=== PATIENT | male | born 2005 | race Caucasian/White ===

== ENCOUNTER 2025-02-24 21:15 | Emergency (ER) | payer MEDICAID, SELFPAY ==
[2025-02-24 21:16] VITALS: BP 127/78; PULSE 90; RESP 18; TEMP 36.8; O2SAT 97; BMI 27.0
[2025-02-24 21:35] VITALS: PULSE 92; RESP 16
[2025-02-24] MEDS: Ipratropium/Albuterol Sulfate 3 ML AMPUL.NEB INHALATION (21:35)
[2025-02-24] MEDS: Albuterol Sulfate 8 gm Inhaler (60 puffs) 2 PUFF INHALATION (21:35)
[2025-02-24] MEDS: predniSONE 20 MG Tablet 60 MG PO (21:49)
--- NOTE | 2025-02-24 22:06 | EDS_ITS ---
HPI History of Present Illness Chief Complaint: Asthma Informant: patient Narrative Narrative: Patient is a 19-year-old male with past medical history of asthma. He states that his asthma is relatively well-controlled and he typically only needs an inhaler intermittently. 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 He states that he no longer has an inhaler and then after 2 days shift his shortness of breath and wheeze seem more intense than it has been and therefore comes in for evaluation [facility] Medical History Asthma Home Medications ?Medication ?Instructions ?Recorded ?Last Taken ?Type albuterol sulfate 90 mcg/actuation 2 puff inhalation Q 4H PRN PRN 02/24/25 Unknown Rx aerosol inhaler (Ventolin HFA) Wheezing/SOB #1 device ipratropium 0.5 mg-albuterol 3 mg 3 ml inhalation 4X/D AY PRN 02/24/25 Unknown Rx (2.5 mg base)/3 mL nebulization Shortness of breath/wh eeze #90 mL soln nebulizer and compressor #1 ea 02/24/25 Unknown Rx prednisone 20 mg tablet 40 mg (2 x 20 mg) PO DAILY 5 days 02/24/25 Unknown Rx #10 tabs Allergy/AdvReac Type Severity Reaction Status Date / Time No Known Allergies Allergy Verified 02/24/25 21:18 Social History (Updated 02/24/25 @ 22:08 by Vanessa Alexander) current occupational status: employed Smoking Status: Current every day smoker tobacco type: cigarettes ROS ROS ED Constitutional Constitutional ED: Denies chills or fever(s) ENT ENT ED: Denies sore throat Cardiovascular Cardiovascular: Denies chest pain Respiratory/Chest Respiratory/Chest: Reports cough, dyspnea and other Details: Positive wheeze Gastrointestinal Gastrointestinal: Denies abdominal pain, diarrhea, nausea or vomiting Musculoskeletal Musculoskeletal: Denies back pain or myalgias Integumentary Denies rash Neurologic Neurologic: Denies headache(s) Hematologic/Lymphatic Hematologic/Lymphatic: Denies easy bleeding or easy bruising Allergic/Immunologic Allergic/Immunologic ED: Denies mouth swelling, tongue swelling or urticaria EXAM Physical Exam Const Vital Signs: 02/24/25 21:16 02/24/25 21:35 02/24/25 22:21 Temperature 98.3 F Temperature Source Temporal Pulse Rate 90 92 Respiratory Rate 18 16 Respiratory Effort Normal Non-Labored Respiratory Depth Normal Respiratory Pattern Normal Normal Blood Pressure 127/78 H Blood Pressure Mean 94 Pulse Ox 97 Oxygen Delivery Method Room Air Room Air Positive well nourished and well developed General Appearance ED: well developed; Negative for pallor HEENT Reports moist mucous membranes HEENT Narrative: No tongue or lip swelling no oral lesions no airway edema or compromise Eyes PERRL and EOMs intact bilaterally General Eye ED: Negative for scleral icterus Neck supple and no JVD Chest Wall palpation of chest normal Resp normal respiratory effort Resp Narrative: Breath sounds are diminished throughout with faint expiratory wheeze in the bilateral bases but no signs of respiratory distress Cardio regular rate and regular rhythm Extremity normal to inspection Neuro oriented x3, CN's II-XII intact bilaterally and no sensory deficits noted Sensorium / Orientation: alert Motor Exam: strength 5/5 throughout Psych mental status grossly normal Skin no rashes or lesions noted and no wounds General Skin Exam: Negative for jaundice or pallor MDM MDM MDM Narrative Medical decision making narrative: Patient arrived to the ER no acute respiratory distress. 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 Without physical exam/history findings concerning for infection I do not feel there is need for an x-ray or a viral swab. As his exam and history is most consistent with asthma exacerbation he was given prednisone as well as a nebulizer treatment. After receiving this his breath sounds improved and he reported feeling better overall. He remained in no respiratory distress and not requiring supplemental oxygen. Therefore there is no need for further workup and he is otherwise safe for discharge with symptomatic care. History & Record Review Discussion w/independent historian: Patient Discharge Plan Triage Chief Complaint: Asthma ED Provider: Maximino Wade Dx/Rx/DC Orders Clinical Impression: Asthma exacerbation Instructions: Asthma Action Plan Prescriptions: New prednisone 20 mg tablet 40 mg PO DAILY 5 Days Qty: 10 0RF albuterol sulfate [Ventolin HFA] 90 mcg/actuation HFA aerosol inhaler 2 puff inhalation Q4H PRN PRN (Reason: Wheezing/SOB) Qty: 1 1RF (DME) nebulizer and compressor Device See Rx Instructions .Route Qty: 1 0RF Rx Instructions: As directed ipratropium-albuterol 0.5 mg-3 mg(2.5 mg base)/3 mL solution for nebulization 3 ml inhalation 4X/DAY PRN (Reason: Shortness of breath/wheeze) Qty: 90 0RF Primary Care Provider: Care Physician,No Primary Referrals: Armando Silver MD [Med Staff - Active Staff] - Care Physician,No Primary [Primary Care Provider] - Print Language: Greenlandic Disposition Disposition: Home, Self Care Discharge Date/Time: 02/24/25 22:22
[2025-02-24 22:21] VITALS: O2SAT 99
== END 2025-02-24 22:22 | disposition home or self-care (01) ==
PROVIDERS: Emergency Provider Emergency Medicine; Visit Provider Emergency Medicine
DX: J45.901 Unspecified asthma with (acute) exacerbation (principal); F17.210 Nicotine dependence, cigarettes, uncomplicated
CPT/HCPCS: 94640; 99282

== ENCOUNTER 2025-05-11 11:16 | Emergency (ER) | payer MEDICAID, SELFPAY ==
[2025-05-11 11:16] VITALS: BP 139/78; PULSE 84; RESP 16; TEMP 36.7; O2SAT 98; BMI 26.9
[2025-05-11] MEDS: Albuterol 2.5 MG/3 ML VIAL.NEB. INHALATION (12:21)
[2025-05-11 12:22] VITALS: PULSE 91; RESP 20; O2SAT 96
[2025-05-11] MEDS: Albuterol Sulfate 8 gm Inhaler (60 puffs) 2 PUFF INHALATION (13:54)
== END 2025-05-11 13:56 | disposition home or self-care (01) ==
PROVIDERS: Emergency Provider Emergency Medicine; Visit Provider Emergency Medicine
DX: J45.909 Unspecified asthma, uncomplicated (principal); F17.290 Nicotine dependence, other tobacco product, uncomplicated
CPT/HCPCS: 94640; 99282

== ENCOUNTER 2025-06-14 15:27 | Emergency (ER) | payer MEDICAID, SELFPAY ==
[2025-06-14 15:27] VITALS: BP 137/81; PULSE 102; RESP 18; TEMP 36.2; O2SAT 100; BMI 29.1
--- NOTE | 2025-06-14 17:09 | EDS_ITS ---
HPI History of Present Illness Chief Complaint: Chest Pain Narrative Narrative: Chief complaint and HPI: Requesting albuterol inhaler. 19-year-old male with past medical history of asthma presents for albuterol inhaler prescription. Patient states that he frequently loses his albuterol inhalers. States he takes Flovent daily. It is prescribed twice daily but states he does not take it this way. He states he has not seen his PCP in a year but has an appointment scheduled in July. Patient states that he recently ran out of his albuterol inhaler that he had at home. States he felt some chest tightness and wheezing. Went to urgent care who evaluated him and wrote him for an albuterol inhaler. Patient states he went to [facility] to seed cone picker the prescription and they would not fill it because he has had too many filled. He denies any fever, chills, shortness of breath, cough, chest pain, abdominal pain, nausea, vomiting. Review of systems: See HPI Medications: As listed on the chart Allergies: As listed on the chart PFSH: Per chart Vital signs: As listed on the chart. Reviewed. Physical exam: Gen: A&Ox3, NAD Head: Normocephalic, atraumatic Eyes: No sclera icterus, conjunctiva clear ENT: Moist mucous membranes Neck: Trachea midline, No JVD CV: RRR, no murmurs Resp: Lungs CTA BL but an occasional expiratory wheeze GI: Abd soft, non-distended, non-tender, no r/r/g Musc: Full ROM, no deformity Skin: Warm, dry Neuro: Alert, oriented, grossly intact, sensation intact Psych: Cooperative, appropriate mood and affect [facility] Medical History Asthma Home Medications ?Medication ?Instructions ?Recorded ?Last Taken ?Type albuterol sulfate 90 mcg/actuation 2 puff inhalation Q 4H PRN PRN 02/24/25 Unknown Rx aerosol inhaler (Ventolin HFA) Wheezing/SOB #1 device ipratropium 0.5 mg-albuterol 3 mg 3 ml inhalation 4X/D AY PRN 02/24/25 Unknown Rx (2.5 mg base)/3 mL nebulization Shortness of breath/wh eeze #90 mL soln nebulizer and compressor #1 ea 02/24/25 Unknown Rx prednisone 20 mg tablet 40 mg (2 x 20 mg) PO DAILY 5 days 02/24/25 Unknown Rx #10 tabs albuterol sulfate 90 mcg/actuation 2 inh inhalation Q4 H PRN shortness 05/11/25 Unknown Rx aerosol inhaler of breath or wheezing #8.5 g mark prednisone 20 mg tablet 40 mg (2 x 20 mg) PO DAILY 7 days 05/11/25 Unknown Rx #14 tabs Allergy/AdvReac Type Severity Reaction Status Date / Time No Known Allergies Allergy Verified 06/14/25 15:27 Social History current occupational status: employed Smoking Status: Current every day smoker tobacco type: e-cigarettes EXAM Physical Exam Const Vital Signs: 06/14/25 15:27 Temperature 97.2 F L Temperature Source Temporal Pulse Rate 102 H Respiratory Rate 18 Blood Pressure 137/81 H Blood Pressure Mean 99 Pulse Ox 100 Oxygen Delivery Method Room Air MDM MDM MDM Narrative Medical decision making narrative: 19-year-old male with past medical history of asthma presents for albuterol inhaler prescription. Patient states that he frequently loses his albuterol inhalers. States he takes Flovent daily. It is prescribed twice daily but states he does not take it this way. He states he has not seen his PCP in a year but has an appointment scheduled in July. Patient states that he recently ran out of his albuterol inhaler that he had at home. Went to urgent care who evaluated him and wrote him for an albuterol inhaler. Patient states h e went to [facility] to seed cone picker the prescription and they would not fill it because he has had too many filled. Patient states that although he has lost many of his albuterol inhalers he does use his albuterol inhaler at minimum twice a day. I explained to him that if he does have to use his albuterol that much, his asthma is not controlled. He was educated that he needs to take his Flovent twice a day as it is prescribed. He was told that he needs to follow-up and keep his appointment with his primary care physician in July. He was educated that he needs to tell them that his asthma is not controlled. He confirmed understanding the plan. I do not think any laboratory workup or chest x-ray is needed. Patient is not in acute asthma exacerbation. He does have some few expiratory wheezing which is why he does needed albuterol inhaler. I did call [facility] pharmacy and spoke to the pharmacist. She states that the patient has had 5 albuterol's inhalers filled since April. She states that she questioned him about this. He states that he has lost them as well as been using them. She called the urgent care provider and made her aware of the situation. Urgent care provider decided to cancel the albuterol inhaler and told him that he needs to follow-up with his PCP. Given that patient does have few expiratory wheezing with asthma and no current albuterol inhaler do not feel that it is safe for him to go without albuterol inhaler despite he has many refills. He was educated that he needs to stop losing these as this does not look good on his record. He confirmed understanding the plan. Will fill albuterol inhaler. Return precautions explained. Impression: 1. Asthma 2. Medication refill request Discharge Plan Triage Chief Complaint: Chest Pain ED Provider: Shukri Malcolm Dx/Rx/DC Orders Prescriptions: No Action prednisone 20 mg tablet 40 mg PO DAILY 5 Days Qty: 10 0RF albuterol sulfate [Ventolin HFA] 90 mcg/actuation HFA aerosol inhaler 2 puff inhalation Q4H PRN PRN (Reason: Wheezing/SOB) Qty: 1 1RF (DME) nebulizer and compressor Device See Rx Instructions .Route Qty: 1 0RF Rx Instructions: As directed ipratropium-albuterol 0.5 mg-3 mg(2.5 mg base)/3 mL solution for nebulization 3 ml inhalation 4X/DAY PRN (Reason: Shortness of breath/wheeze) Qty: 90 0RF prednisone 20 mg tablet 40 mg PO DAILY 7 Days Qty: 14 0RF albuterol sulfate 90 mcg/actuation HFA aerosol inhaler 2 inh inhalation Q4H PRN (Reason: shortness of breath or wheezing) Qty: 8.5 1RF Primary Care Provider: Care Physician,No Primary Referrals: Care Physician,No Primary [Primary Care Provider] - Print Language: Montenegrin
--- OUTSIDE RECORDS SUMMARY | 2025-06-14 17:12 | XMS RPT_ITS | CCD ---
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 Name Role Phone Unavailable Primary Care Provider Unavailabl e CASTANEDA, MYKIA Admitting Unavailable CASTANEAD, MYKIA Attending Unavailable CASTANEDA, MYKIA Consulting Unavailable Unavailable Primary Care Provider Unavailabl e Unavailable Primary Care Provider Unavailabl e Unavailable Primary Care Provider Unavailabl e Unavailable Primary Care Provider Unavailabl e Generic Provider MD, No Assigned Pcp Primary Car e Provider Unavailable GENERIC PROVIDER, NO ASSIGNED PCP Primary Care Unavailable MAXIMINO BROWN Referring Unavailable GENERIC PROVIDER, NO ASSIGNED PCP Primary Care Unavailable LUIS EDUARDO CORTES Attending Unavailable PROVIDER, UNKNOWN Admitting Unavailable PROVIDER, UNKNOWN Attending Unavailable PROVIDER, UNKNOWN Admitting Unavailable Unavailable Primary Care Provider Unavailabl e Dr. Maximino Wade DO Emergency Provider Care Physician, No Primary Primary Care Provider Unavailable KING JESUS Referring Unavailable JESUS MCDONALD Attending Unavailable HARRY, JESUS Referring Unavailable HARRY JESUS Attending Unavailable Dr. Maximino Wade DO Attending Provider Dr. Jose E Wallace MD Emergency Provider Care Physician, No Primary Primary Care Unava ilMaximino Aguilar Attending Unavailable Care Physician, No Primary Primary Care Unava ilable Jose E Wallace Attending Unavailable Allergies Allergy Classification Reported Allergen(s) Allergy Type Date of Onset Reaction(s) Facility (16 sources) Dust; Translations: [DUST] Propensity to adverse reactions to substance 2 Unknown [employer] Work Phone: (14 sources) Pollen; Translations: [POLLEN EXTRACT] [facility] dust allergenic extract Drug Allergy 2 [employer] Work Phone: (10 sources) Pollen Propensity to adverse reactions 2 [facility] Work Phone: (8 sources) Bee pollen; Translations: [BEE POLLEN] Drug Allergy 2 Unknown [facility] Work Phone: (5 sources) Bee pollen Propensity to adverse reactions to drug 2 [facility] Medications Current Medications Medication Drug Class(es) Dates Sig (Normalized) Sig (Original) acetaminophen 325 mg oral tablet (7 sources) Start: 09-23-2023 End: 11-26-2023 take 2 tablets by mouth every four hours as needed for pain acetaminophen (TYLENOL) 325 mg tablet Take 2 Tablets by mouth every 4 hours as needed for Pain or Fever. 30 Tablet 09/23/2023 Active [id number] 200 actuat albuterol 0.09 mg/actuat metered dose inhaler (20 sources) beta2-Adrenergic Agonist Start: 04-21-2025 albuterol (PROVENTIL) 2.5 mg /3 mL (0.083 %) nebulizer solution Indications: Mild intermittent asthma with acute exacerbation (HCC) Use 3 mL via nebulizer every 4 hours as needed for wheezing/shortness of breath. 60 mL 04/21/2025 Active Start: 04-21-2025 take 2 puff(s) by in halation every four hours as needed for wheezing albuterol HFA (PROVENTIL HFA, VENTOLIN HFA) 90 mcg/actuation inhaler Indications: Mild intermittent asthma with acute exacerbation (HCC) Inhale 2 puffs as instructed every 4 hours as needed for wheezing/shortness of breath. 18 g 04/21/2025 Active Start: 02-24-2025 Albuterol Sulf ate 90 mcg/actuation HFA aerosol inhaler Active 2 NMA INHALATION Q4H as needed for shortness of breath or wheezing 8.5 1 May 11, 2025 12:00am Start: 02-13-2025 take 2 puff(s) by in halation every four hours as needed for wheezing albuterol HFA (PROVENTIL HFA, VENTOLIN HFA) 90 mcg/actuation inhaler Inhale 2 puffs as instructed every 4 hours as needed for wheezing/shortness of breath. 8 g 1 03/28/2025 Active Start: 10-29-2024 take 2 puff(s) by mo uth every six hours as needed for wheezing albuterol (PROVENTIL HFA) INHALATION HFA inhaler (VENTOLIN,PROAIR,PROVENTIL) 90mcg INHALE 2 PUFFS BY MOUTH AND INTO THE LUNGS EVERY 6 HOURS NEEDED FOR WHEEZING 25.5 g 10/29/2024 Active Start: 10-25-2024 End: 11-24-2024 take 2 puff(s) by inhalation every four hours for wheezing albuterol 90 mcg/actuation inhaler Indications: Mild intermittent asthma with acute exacerbation ([facility]-H[facility]) Inhale 2 puffs every 4 hours if needed for wheezing. 18 g 10/25/2024 11/24/2024 Active Start: 10-25-2024 take 2 puff(s) by in halation once 2 puff, inhalation, Once, On Leonor 10/25/24 at 1255, For 1 dose, Shake well before use. Start: 10-21-2023 End: 10-29-2024 take 2 puff(s) by mouth every six hours as needed for wheezing albuterol (Proventil HFA) INHALATION HFA inhaler (VENTOLIN,PROAIR,PROVENTIL) 90mcg Inhale 2 Puffs by mouth every 6 hours as needed for Wheezing. 3 Each 5 10/21/2023 10/29/2024 Discontinued Start: 10-02-2023 take 2 puff(s) by in halation every four hours as needed for wheezing albuterol HFA (PROVENTIL HFA, VENTOLIN HFA) 90 mcg/actuation inhaler Inhale 2 Puffs as instructed every 4 hours as needed for wheezing/shortness of breath. 1 Each 10/02/2023 Active Start: 11-23-2022 take 2 puff(s) by mo uth every six hours as needed for wheezing albuterol (Proventil HFA) INHALATION HFA inhaler (VENTOLIN,PROAIR,PROVENTIL) 90mcg Inhale 2 Puffs by mouth every 6 hours as needed for Wheezing. 1 Each 11/23/2022 Active Start: 06-09-2022 End: 06-09-2023 take 2 puff(s) by mouth every four hours for wheezing Ventolin HFA HFA inhaler (VENTOLIN,PROAIR,PROVENTIL) 90mcg inhale 2 puffs by mouth and INTO THE LUNGS every 4 hours if needed for wheezing 18 g 11 06/09/2022 06/09/2023 Active Start: 12-26-2021 End: 06-08-2022 take 2 puff(s) by mouth every four hours as needed for wheezing albuterol (Proventil HFA) INHALATION HFA inhaler (VENTOLIN,PROAIR,PROVENTIL) 90mcg Inhale 2 Puffs by mouth every 4 hours as needed for Wheezing. Please dispense to inhalers 8.5 g 3 02/10/2022 06/08/2022 Discontinued Start: 10-29-2021 End: 02-10-2022 albuterol (PROVENTIL HFA) IN HALATION HFA inhaler (VENTOLIN,PROAIR,PROVENTIL) 90mcg take 2 puff(s) by mo uth every six hours for wheezing VENTOLIN HFA 90 mcg/actuation inhaler inhale 2 puffs by mouth and INTO THE LUNGS every 6 hours if needed for wheezing 0 Active Comment on above: inhale 2 puffs by mo uth and INTO THE LUNGS every 6 hours if needed for wheezing albuterol 0.833 mg/ml / ipratropium bromide 0.167 mg/ml inhalation solution (2 sources) Anticholinergic, beta2-Adrenergic Agonist Start: 02-25-20 take 1 mL by inhalation four times daily as needed Ipratropium-Albuter ol 0.5 mg-3 mg(2.5 mg base)/3 mL solution for nebulization Active 3 mL INHALATION 4 TIMES DAILY as needed for Shortness of breath/wheeze 90 0 February 24, 2025 10:08pm amoxicillin 500 mg oral capsule (2 sources) Penicillin-class Antibacterial Start: 11-26-19 End: 11-26-19 take 1 capsule by mouth three times daily amoxicillin (AMOXIL) 500 MG capsule Take 1 Capsule by mouth 3 times daily for 10 days. 30 Capsule 0 11/26/2023 11/26/2023 Discontinued Start: 11-26-2023 End: 12-06-2023 take 1 capsule by mouth twice daily amoxicillin (AMOXIL) 500 MG capsule Take 1 Capsule by mouth 2 times daily for 10 days. 20 Capsule 0 11/26/2023 12/06/2023 Active benzocaine 15 mg / menthol 2.3 mg oral lozenge (5 sources) Standardized Chemical Allergen Start: 11-26-2023 Benzocaine-Menthol (Cepacol) 15-2.3 MG LOZG 1 Lozenge in the mouth every 8 hours as needed. 16 Lozenge 11/26/2023 Active cetirizine hydrochloride 10 mg oral tablet (20 sources) Histamine-1 Receptor Antagonist Start: 03-30-2023 take 1 tablet by mouth once daily cetirizine (ZyrTEC) 10 MG tablet take 1 tablet by mouth once daily 90 Tablet 5 03/30/2023 Active Start: 11-16-2021 End: 02-10-2023 take 1 tablet by mouth once daily cetirizine (ZyrTEC) 10 MG tablet Take 1 Tablet by mouth daily. 30 Tablet 11 02/10/2022 Active Comment on above: Take 10 mg by mouth once daily 120 actuat fluticasone propionate 0.044 mg/actuat metered dose inhaler (20 sources) Corticosteroid Start: take 1 puff(s) by mouth twice daily fluticasone (FLOVENT HFA) 44 mcg/actuation inhaler Indications: Mild intermittent asthma with acute exacerbation (HCC) Inhale 1 puff as instructed two times a day. Shake well before use. Rinse mouth after use. 10.6 g 1 04/21/2025 Active Start: 06-27-2023 take 2 puff(s) by mo uth twice daily Flovent HFA 110 MCG/ACT inhaler INHALE 2 PUFFS BY MOUTH TWICE A DAY 12 g 11 06/27/2023 Active Start: 02-23-2023 take 2 puff(s) by mo uth twice daily Flovent HFA 110 MCG/ACT inhaler INHALE 2 PUFFS BY MOUTH TWICE A DAY 12 g 3 02/23/2023 Active Start: 02-10-2022 take 1 spray(s) nasa l route once daily fluticasone (FLONASE) 50 mcg/act nasal inhaler Use 1 Flat Top in each nostril daily. 16 g 3 02/10/2022 Active Start: 02-10-2022 End: 02-23-2023 take 2 puff(s) by mouth twice daily Flovent HFA 110 MCG/ACT inhaler Inhale 2 Puffs by mouth 2 times daily. 1 Each 5 02/10/2022 02/23/2023 Discontinued (Reorder (*won't e-cancel)) Start: 10-12-2021 End: 02-10-2022 Flovent HFA 110 MCG/ACT inha ler Start: 01-02-2020 take 1 spray(s) nasa l route once daily fluticasone (FLONASE) 50 mcg/actuation nasal spray USE 1 SPRAY IN EACH NOSTRIL ONCE DAILY. 16 g 2 01/02/2020 Active ketotifen 0.25 mg/ml ophthalmic solution (3 sources) Histamine-1 Receptor Inhibitor Start: 09-24-2019 ketotifen fumarate (ZADITOR) 0.025 % (0.035 %) ophthalmic solution USE 1 DROP IN BOTH EYES TWICE A DAY NEEDED (ALLERGIES). 5 mL 1 09/24/2019 Active levocetirizine dihydrochloride 5 mg oral tablet (3 sources) Histamine-1 Receptor Antagonist Start: 12-19-2019 take 1 tablet by mouth once daily as needed Levocetirizine 5 mg tablet TAKE 1 TABLET BY MOUTH DAILY NEEDED 30 tablet 1 12/19/2019 Active montelukast 10 mg oral tablet (20 sources) Leukotriene Receptor Antagonist Start: 04-27-2023 take 1 tablet by mouth once daily montelukast (SINGULAIR) 10 MG tablet Indications: Mild persistent asthma without complication (HCC) take 1 tablet by mouth once daily 90 Tablet 3 04/27/2023 Active Start: 11-19-2021 End: 02-10-2022 take 1 tablet by mouth once daily montelukast (Singulair) 10 MG tablet Indications: Mild persistent asthma without complication Take 1 Tablet by mouth daily. 30 Tablet 11 02/10/2022 Active Comment on above: Take 10 mg by mouth daily Nebulizer And Compressor device (2 sources) Start: 02-24-2025 Nebulizer And Compressor device Active 0 .Route 1 0 February 24, 2025 12:00am As directed Start: 02-24-2025 Nebulizer And Compressor device Active 0 .Route 1 February 24, 2025 12:00am As directed oxyCODONE hydrochloride 5 mg oral tablet (1 source) Opioid Agonist Start: 10-07-2023 End: 10-09-2023 take 1 tablet by mouth every six hours for pain oxyCODONE (Roxicodone) 5 mg immediate release tablet Indications: Ureterolithiasis Take 1 tablet (5 mg) by mouth every 6 hours if needed for severe pain (7 - 10) for up to 2 days. 8 tablet 0 10/07/2023 10/09/2023 Active predniSONE 20 mg oral tablet (11 sources) Start: 04-21-2025 End: 04-30-2025 predniSONE (DELTASONE) 10 mg tablet Indications: Mild intermittent asthma with acute exacerbation (HCC) Take 4 tabs daily for 3 days, then 2 tabs daily for 3 days, then 1 tab daily for 3 days with food. 21 tablet 04/21/2025 04/30/2025 Active Start: 02-24-2025 take 2 tablets by mo uth once daily Prednisone 20 mg tablet Active 40 mg PO DAILY 14 7 0 May 11, 2025 12:00am Start: 02-13-2025 End: 02-18-2025 take 2 tablets by mouth once daily at mealtime predniSONE (DELTASONE) 20 mg tablet Indications: History of asthma Take 2 tablets by mouth once daily for 5 days. Take daily with food. 10 tablet 02/13/2025 02/18/2025 Active Start: 10-03-2023 End: 10-30-2024 take 2 tablets by mouth once daily predniSONE (Deltasone) 20 mg tablet Indications: Mild intermittent asthma with acute exacerbation ([facility]) Take 2 tablets (40 mg) by mouth once daily for 5 days. 10 tablet 10/25/2024 10/30/2024 Active Spacer/Aero-Holding Chambers (Compact Space Chamber/Lg Mask) MEME (5 sources) Start: 10-03-2023 Spacer/Aero-Ho lding Chambers (Compact Space Chamber/Lg Mask) MEME USE DEVICE WITH INHALER 10/03/2023 Active Start: 10-03-2023 Spacer/Aero-Ho lding Chambers (Compact Space Chamber/Lg Mask) MEME USE DEVICE WITH INHALER 0 10/03/2023 Active tamsulosin hydrochloride 0.4 mg oral capsule (6 sources) alpha-Adrenergic Campbell Start: 09-23-2023 End: 10-23-2023 take 1 capsule by mouth once daily tamsulosin (FLOMAX) 0.4 MG capsule Take 1 Capsule by mouth daily. pharmacist: ok to substitute pharmacologically equivalent drug /medication if insurance issues with formulary 30 Capsule 0 09/23/2023 Active traZODone hydrochloride 50 mg oral tablet (20 sources) Serotonin Reuptake Inhibitor Start: 10-14-2021 End: 01-19-2023 trazodone (DESYREL) 50 mg tablet 10/14/2021 Active take 1 tablet by gabbie th once daily at bedtime traZODone (DESYREL) 150 mg tablet Take 1 50 mg by mouth daily at bedtime. Active Comment on above: Take one half to one tablet at bedtime as needed for sleep. Completed/Discontinued Medications Medication Drug Class(es) Dates Sig (Normalized) Sig (Original) 24 hr amphetamine aspartate 3.75 mg / amphetamine sulfate 3.75 mg / dextroamphetamine saccharate 3.75 mg / dextroamphetamine sulfate 3.75 mg extended release oral capsule (20 sources) Central Nervous System Stimulant Start: 05-23-2023 take 1 capsule by mouth once daily in the morning dextroamphetamine- amphetamine (ADDERALL XR) 15 mg 24 hr capsule Indications: Attention-deficit hyperactivity disorder, predominantly inattentive type Take 1 Capsule by mouth every morning 30 Capsule 0 05/23/2023 Active Start: 05-23-2023 take 1 capsule by mo uth once daily in the morning dextroamphetamine-amphetamine (ADDERALL XR) 15 mg 24 hr capsule Indications: Attention-deficit hyperactivity disorder, predominantly inattentive type Take 1 Capsule by mouth every morning 30 Capsule 0 05/23/2023 Active Start: 04-23-2023 take 1 capsule by mo uth once daily in the morning dextroamphetamine-amphetamine (ADDERALL XR) 15 mg 24 hr capsule Indications: Attention-deficit hyperactivity disorder, predominantly inattentive type Take 1 Capsule by mouth every morning 30 Capsule 0 04/23/2023 Active Start: 04-23-2023 take 1 capsule by mo uth once daily in the morning dextroamphetamine-amphetamine (ADDERALL XR) 15 mg 24 hr capsule Indications: Attention-deficit hyperactivity disorder, predominantly inattentive type Take 1 Capsule by mouth every morning 30 Capsule 0 04/23/2023 Active Start: 02-19-2023 End: 03-23-2023 take 1 capsule by mouth once daily in the morning dextroamphetamine-amphetamine (ADDERALL XR) 15 mg 24 hr capsule Indications: Attention-deficit hyperactivity disorder, predominantly inattentive type Take 1 Capsule by mouth every morning 30 Capsule 0 03/23/2023 Active Start: 02-19-2023 take 1 capsule by mo uth once daily in the morning dextroamphetamine-amphetamine (ADDERALL XR) 15 mg 24 hr capsule Indications: Attention-deficit hyperactivity disorder, predominantly inattentive type Take 1 Capsule by mouth every morning 30 Capsule 0 02/19/2023 Active Start: 10-30-2021 End: 03-23-2023 take 1 capsule by mouth once daily in the morning amphet-dextroamphet (ADDERALL XR) 15 MG ER capsule Take 1 Capsule by mouth every morning. 01/19/2023 Active take 1 capsule by mo uth once daily, then take 1 capsule by mouth every twenty-four hours amphetamine-dextroamphetamine XR (ADDERA LL XR) 20 mg 24 hr capsule Take 20 mg by mouth once daily. Active Comment on above: Take 1 Capsule by mo uth every morning 1 ml dexamethasone phosphate 10 mg/ml injection (1 source) Corticosteroid Start: 11-26-2023 End: 11-26-2023 dexamethasone sod phosphate PF (DECADRON) 10 MG/ML injection ibuprofen 600 mg oral tablet (6 sources) Nonsteroidal Anti-inflammatory Drug Start: 03-17-2024 End: 06-15-2024 ibuprofen (MOTRIN) tablet Start: 09-23-2023 End: 12-22-2023 take 1 tablet by mouth every six hours as needed for pain ibuprofen (MOTRIN) 600 MG tablet Take 1 Tablet by mouth every 6 hours as needed for Pain. 30 Tablet 0 09/23/2023 12/22/2023 Active iohexol (OMNIPaque) 350 mg iodine/mL solution 75 mL (1 source) Start: 10-07-2023 End: 10-07-2023 iohexol (OMNIPaque) 350 mg iodine/mL solution 75 mL iohexol (OMNIPAQUE) 350 MG/ML injection (1 source) Start: 09-23-2023 End: 09-23-2023 iohexol (OMNIPAQUE) 350 MG/ML injection 1 ml ketorolac tromethamine 15 mg/ml cartridge (1 source) Nonsteroidal Anti-inflammatory Drug, Cyclooxygenase Inhibitor Start: 09-23-2023 End: 09-23-2023 ketorolac (TORADOL) 15 MG/ML injection Start: 09-23-2023 End: 09-23-2023 ketorolac (TORADOL) 15 MG/ML injection 1 ml morphine sulfate 4 mg/ml injection (1 source) Opioid Agonist Start: 10-07-2023 End: 10-07-2023 morphine injection 4 mg 2 ml ondansetron 2 mg/ml injection (8 sources) Serotonin-3 Receptor Antagonist Start: 10-07-2023 End: 10-07-2023 ondansetron (Zofran) injection 4 mg Start: 09-23-2023 End: 09-23-2023 ondansetron (ZOFRAN) 4 MG/2M L injection Start: 09-23-2023 take 1 tablet by gabbie th every twelve hours as needed for nausea ondansetron (Zofran) 4 MG tablet Take 1 Tablet by mouth every 12 hours as needed for Nausea. 15 Tablet 09/23/2023 Active 1000 ml sodium chloride 9 mg /ml injection (2 sources) Start: 10-07-2023 End: 10-07-2023 sodium chloride 0.9 % bolus 1,000 mL Start: 09-23-2023 End: 09-23-2023 sodium chloride 0.9 % iv navin us Problems Active Problems Problem Classification Problem Date Documented Date Episodic/Chronic Asthma (20 sources) Uncomplicated mild persistent asthma; Translations: [Mild persistent asthma, uncomplicated] Onset: 11-23-2021 11-23-2021 Chronic Attention-deficit, conduct, and disruptive behavior disorders (20 sources) Oppositional defiant disorder; Translations: [Oppositional defiant disorder] Onset: 11-17-2021 11-19-2021 Chronic Attention-deficit, conduct, and disruptive behavior disorders (9 sources) Attention deficit hyperactivity disorder, predominantly inattentive type; Translations: [Attention-deficit hyperactivity disorder, predominantly inattentive type] Onset: 11-17-2021 Chronic Attention-deficit, conduct, and disruptive behavior disorders (5 sources) Attention deficit hyperactivity disorder; Translations: [Attention-deficit hyperactivity disorder, unspecified type] Onset: 11-17-2021 07-20-2023 Chronic Attention-deficit, conduct, and disruptive behavior disorders (1 source) Oppositional defiant disorder Onset: 11-17-2021 11-19-2021 Chronic Fracture of upper limb (1 source) Closed fracture of left hand; Translations: [Unspecified fracture of left wrist and hand, initial encounter for closed fracture] 03-17-2024 Episodic Other circulatory disease (1 source) Wheeze - rhonchi; Translations: [Other specified symptoms and signs involving the circulatory and respiratory systems] 02-13-2025 Episodic Other diseases of kidney and ureters (1 source) Hydronephrosis; Translations: [Unspecified hydronephrosis] 09-23-2023 Episodic Other lower respiratory disease (1 source) H/O: asthma; Translations: [Personal history of other diseases of the respiratory system] 02-13-2025 Episodic Other lower respiratory disease (1 source) Wheezing; Translations: [Wheeze] Onset: 03-28-2025 Episodic Other lower respiratory disease (1 source) Wheezing; Translations: [Wheezing] 05-11-2025 Episodic Other lower respiratory disease (1 source) Shortness of breath; Translations: [Shortness of breath] Onset: 05-17-2025 Episodic Other nutritional; endocrine; and metabolic disorders (14 sources) Obesity; Translations: [Obesity, unspecified] Onset: 11-23-2021 11-23-2021 Chronic Other nutritional; endocrine; and metabolic disorders (1 source) Obesity, unspecified Onset: 11-23-2021 11-23-2021 Chronic Other nutritional; endocrine; and metabolic disorders (1 source) Overweight in childhood; Translations: [Body mass index (BMI) pediatric, 85th percentile to less than 95th percentile for age] Episodic Other upper respiratory disease (19 sources) Allergic rhinitis; Translations: [Allergic rhinitis, unspecified] Onset: 11-23-2021 11-23-2021 Chronic Other upper respiratory disease (1 source) Allergic rhinitis, cause unspecified Onset: 11-23-2021 11-23-2021 Chronic Other upper respiratory infections (1 source) Exudative pharyngitis; Translations: [Acute pharyngitis, unspecified] 11-26-2023 Episodic Past or Other Problems Problem Classification Problem Date Documented Da te Episodic/Chronic Calculus of urinary tract (5 sources) Kidney stone; Translations: [Calculus of kidney] Onset: 10-07-2023 09-23-2023 Episodic Results Test Name Value Interpretation Reference Range Facility Emergency Department Summary on 05-11-2025 Emergency Department Summary [facility] Medical Records Department [address] [place] [address] Emergency Department Summary 05/11/25 MR#: [id number] Acct: [id number] Name: KEITH GOOD Rep #: [id number] : 2005 19 From: Jose E Wallace MD PCP: Care Physician,No Primary Status:DEP ER Location: ED HPI History of Present Illness Chief Complaint: Shortness of Breath Informant: patient Onset/Context/Timing Onset: Days Context: gradual Timing: Continuous Quality: Positive for Wheezing Current Severity: Moderate Maximum Severity: Moderate Worsened by: Exertion Relieved by: Rest Associated Symptoms cough Chest Pain: Positive for None Narrative Narrative: 19-year-old male history of asthma. He has had a nonproductive cough for last several days and increased bilateral wheezing. No hemoptysis. No chest pain. No history of DVT or PE or risk factors. Typical for one of his asthma flares. Currently has been out of his inhaler for several days. PE Risk Factors: Negative for Cancer, OCP + Smoking + > 35, Prior DVT or PE, Recent immobilization, Recent surgery or Recent travel Prior similar symptoms: Yes Recent Illness/Hospitalizatio n: No [facility] Medical History Asthma Home Medications ???Medication ???Instructions ???Recorded ???Last Taken ???Type albuterol sulfate 90 mcg/actuation 2 puff inhalation Q4H PRN PRN Unknown Rx aerosol inhaler (Ventolin HFA) Wheezing/SOB #1 device ipratropium 0.5 mg-albuterol 3 mg 3 ml inhalation 4X/DAY PRN Unknown Rx (2.5 mg base)/3 mL nebulization Shortness of breath/wheeze #90 mL soln nebulizer and compressor #1 ea 02/24/25 Unknown Rx prednisone 20 mg tablet 40 mg (2 x 20 mg) PO DAILY 5 days 02/24/25 Unknown Rx #10 tabs albuterol sulfate 90 mcg/actuation 2 inh inhalation Q4H PRN shortne ss 05/11/25 Unknown Rx aerosol inhaler of breath or wheezing #8.5 grams prednisone 20 mg tablet 40 mg (2 x 20 mg) PO DAILY 7 days 05/11/25 Unknown Rx #14 tabs Allergy/AdvReac Type Severity Reaction Status Date / Time No Known Allergies Allergy Verified 05/11/25 11:16 Social History current occupational status: employed Smoking Status: Current every day smoker tobacco type: e-cigarettes ROS ROS ED ROS Narrative Wheezing. Nonproductive cough. Constitutional Constitutional ED: Denies fever(s) Eyes Eyes: Denies blurry vision Cardiovascular Cardiovascular: Denies chest pain Respiratory/Chest Respiratory/Chest: Reports cough, dyspnea and other Details: Wheezing. Gastrointestinal Gastrointestinal: Denies abdominal pain Genitourinary Genitourinary ED: Denies dysuria Musculoskeletal Musculoskeletal: Denies arthralgias Integumentary Denies abscess Neurologic Neurologic: Denies headache(s) Psychiatric Psychiatric: Denies anxiety Endocrine Endocrinology: Denies cold intolerance Hematologic/Lymphatic Hematologic/Lymphatic: Denies easy bleeding Allergic/Immunologic Allergic/Immunologic ED: Denies mouth swelling EXAM Physical Exam Narrative Exam Narrative: 19-year-old male vital signs stable afebrile. Actively wheezing. H EENT exam pupils round react light. Moist mucous members. Neck nontender no JVD. Lungs bilateral inspiratory expiratory wheezing. Equal symmetrical. Prolonged expiratory phase. Heart regular rhythm rate about 85 no murmur. Chest wall ribs nontender. Abdomen soft nontender. Back nontender. Moving all 4 extremities. Calves nontender without edema or cords. Awake and alert. Const Vital Signs: 05/11/25 11:16 05/11/25 11:34 05/11/25 12:22 Temperature 98.0 F Temperature Source Oral Pulse Rate 84 Respiratory Rate 16 Respiratory Effort Short of Breath Respiratory Depth Normal Respiratory Pattern Normal Blood Pressure 139/78 H Blood Pressure Mean 98 Pulse Ox 98 96 Oxygen Delivery Method Room Air Room Air Room Air 05/11/25 12:22 Temperature Temperature Source Pulse Rate 91 Respiratory Rate 20 H Respiratory Effort Respiratory Depth Respiratory Pattern Blood Pressure Blood Pressure Mean Pulse Ox Oxygen Delivery Method Positive well nourished and well developed; Negative for cachectic, contractures or unkempt General Appearance ED: well developed and NAD; Negative for unkempt, cachectic, contractures or pallor Nutritional Appearance: Negative for cachectic HEENT Reports moist mucous membranes atraumatic Eyes PERRL and EOMs intact bilaterally Neck no lymphadenopathy, supple, no meningeal signs and no JVD Resp No normal respiratory effort and No clear to auscultation bilaterally Resp Narrative: Bilateral inspiratory expiratory wheezes. (more content not included)... Normal [facility] CNOVon 04-21-2025 [facility] Office Visit ([facility] ) KEITH GOOD ([id number]) [birth year] Date Time Provider Department 04/21/25 2:15 PM JESUS MCDONALD [facility] During your visit today, we recorded the following information about you: Temperature Pulse Respiration Blood pressure 98.6 degrees 80/minute 18/minute 147/94 Weight 80.8 kg Jesus Mcdonald APRN.MUTUAL FUNDS AGENT 04/21/2025 3:00 PM Signed [facility] Subjective HPI HPI Keith Good is a 19 year old male who presents today for CC of cough, wheeze, sob. This started 3 days ago. Has tried asthma inhaler for relief. Symptoms are worsened by smoker. Risk factors hx of asthma, seen once a month for last 3 months. Has primary care visit scheduled to establish but not till July. .Patient presents with: Cough: Chest tightness, SOB at night x3 days PAST MEDICAL HISTORY Diagnosis Date ADHD Asthma (HCC) No past surgical history on file. ALLERGIES Bee Pollen and Dust MEDICATIONS albuterol HFA (PROVENTIL HFA, VENTOLIN HFA) 90 mcg/actuation inhaler Inhale 2 puffs as instructed every 4 hours as needed for wheezing/shortness of breath. albuterol HFA (PROVENTIL HFA, VENTOLIN HFA) 90 mcg/actuation inhaler Inhale 2 puffs as instructed every 4 hours as needed for wheezing/shortness of breath. albuterol HFA (PROVENTIL HFA, VENTOLIN HFA) 90 mcg/actuation inhaler Inhale 2 Puffs as instructed every 4 hours as needed for wheezing/shortness of breath. albuterol (PROVENTIL) 2.5 mg /3 mL (0.083 %) nebulizer solution Use 3 mL via nebulizer every 4 hours as needed for wheezing/shortness of breath. predniSONE (DELTASONE) 10 mg tablet Take 4 tabs daily for 3 days, then 2 tabs daily for 3 days, then 1 tab daily for 3 days with food. albuterol HFA (PROVENTIL HFA, VENTOLIN HFA) 90 mcg/actuation inhaler Inhale 2 puffs as instructed every 4 hours as needed for wheezing/shortness of breath. fluticasone (FLOVENT HFA) 44 mcg/actuation inhaler Inhale 1 puff as instructed two times a day. Shake well before use. Rinse mouth after use. fluticasone (FLONASE) 50 mcg/actuation nasal spray USE 1 SPRAY IN EACH NOSTRIL ONCE DAILY. (Patient not taking: Reported on 02/13/2025) Levocetirizine 5 mg tablet TAKE 1 TABLET BY MOUTH DAILY NEEDED (Patient not taking: Reported on 02/13/2025) ketotifen fumarate (ZADITOR) 0.025 % (0.035 %) ophthalmic solution USE 1 DROP IN BOTH EYES TWICE A DAY NEEDED (ALLERGIES). (Patient not taking: Reported on 02/13/2025) amphetamine-dextroamph etamine XR (ADDERALL XR) 20 mg 24 hr capsule Take 20 mg by mouth once daily. (Patient not taking: Reported on 02/13/2025) traZODone (DESYREL) 150 mg tablet Take 150 mg by mouth daily at bedtime. (Patient not taking: Reported on 02/13/2025) No family history on file. Social History Tobacco Use Smoking status: Never Smokeless tobacco: Never Substance Use Topics Alcohol use: Not Currently Drug use: Yes Types: Marijuana Review of Systems Constitutional: Negative for chills, fatigue and fever. HENT: Negative for ear discharge, ear pain, rhinorrhea, sinus pressure, sinus pain and sore throat. Eyes: Negative for discharge and redness. Respiratory: Positive for cough, shortness of breath and wheezing. Cardiovascular: Negative for chest pain. Skin: Negative for rash. Objective BP 147/94 Pulse 80 Temp 37 ?C (98.6 ?F) Resp 18 Wt 80.8 kg (178 lb 2.1 oz) SpO2 97% BMI 27.08 kg/m? Physical Exam Constitutional: General: He is not in acute distress. Appearance: He is not toxic-appearing or diaphoretic. HENT: Head: Normocephalic and atraumatic. Cardiovascular: Rate and Rhythm: Normal rate and regular rhythm. Heart sounds: Normal heart sounds, S1 normal and S2 normal. Pulmonary: Effort: Pulmonary effort is normal. Breath sounds: Wheezing (faint, scattered bilat) present. No decreased breath sounds, rhonchi or rales. Neurological: Mental Status: He is alert and oriented to person, place, and time. {ASSESSMENT/PLAN: 1. Mild intermittent asthma with acute exacerbation (HCC) - ICD9: 493.92, ICD10: J45.21 Prednisone ordered Refill albuterol Start steroid inhaler -If you experience chest pain/shortness of breath go to ER - ALBUTEROL SULFATE 2.5 MG/3 ML (0.083 %) SOLUTION FOR NEBULIZATION - PREDNISONE 10 MG TABLET - ALBUTEROL SULFATE HFA 90 MCG/ACTUATION AEROSOL INHALER - FLUTICASONE PROPIONATE 44 MCG/ACTUATION HFA AEROSOL INHALER Jesus Mcdonald APRN.MUTUAL FUNDS AGENT History and Record Review External record(s) reviewed: prior outpatient record. Disposition The patient was discharged. Procedures Allergies As of Date: 04/21/2025 Noted Allergy Reaction BEE POLLEN 12/01/2021 16 - Unknown DUST 12/01/2021 16 - Unknown Date Reviewed: 04/21/2025 Reviewed by: Cady Mena MA - Fully Assessed Reason for Visit: Cough [28] Cmt: Chest tightness, SOB at night x3 days Primary Visit Diagnosis:Mild intermitt (more content not included)... Normal [facility] CNOVon 03-28-2025 [facility] Office Visit ([facility] ) KETIH GOOD ([id number]) 3 M Date Time Provider Department 03/28/25 2:30 PM JESUS MCDONALD [facility] During your visit today, we recorded the following information about you: Temperature Pulse Respiration Blood pressure 98.8 degrees 95/minute 16/minute 128/82 Weight 80.6 kg Jesus Mcdonald APRN.CNP 03/28/2025 4:28 PM Signed [facility] Subjective HPI HPI Keith Good is a 19 year old male who presents today for CC of cough, wheeze, sob. This started 1 day ago. Has tried nothing for relief. Symptoms are worsened by nothing. Risk factors hx of asthma, smoker. .Patient presents with: Cough: Cough, chest congestion and SOB x 1 day PAST MEDICAL HISTORY Diagnosis Date ADHD Asthma (HCC) No past surgical history on file. ALLERGIES Patient has no known allergies. MEDICATIONS albuterol HFA (PROVENTIL HFA, VENTOLIN HFA) 90 mcg/actuation inhaler Inhale 2 puffs as instructed every 4 hours as needed for wheezing/shortness of breath. albuterol HFA (PROVENTIL HFA, VENTOLIN HFA) 90 mcg/actuation inhaler Inhale 2 Puffs as instructed every 4 hours as needed for wheezing/shortness of breath. fluticasone (FLONASE) 50 mcg/actuation nasal spray USE 1 SPRAY IN EACH NOSTRIL ONCE DAILY. (Patient not taking: Reported on 02/13/2025) Levocetirizine 5 mg tablet TAKE 1 TABLET BY MOUTH DAILY NEEDED (Patient not taking: Reported on 02/13/2025) ketotifen fumarate (ZADITOR) 0.025 % (0.035 %) ophthalmic solution USE 1 DROP IN BOTH EYES TWICE A DAY NEEDED (ALLERGIES). (Patient not taking: Reported on 02/13/2025) amphetamine-dextroamph etamine XR (ADDERALL XR) 20 mg 24 hr capsule Take 20 mg by mouth once daily. (Patient not taking: Reported on 02/13/2025) traZODone (DESYREL) 150 mg tablet Take 150 mg by mouth daily at bedtime. (Patient not taking: Reported on 02/13/2025) No family history on file. Social History Tobacco Use Smoking status: Never Smokeless tobacco: Never Substance Use Topics Alcohol use: Not Currently Drug use: Yes Types: Marijuana Review of Systems Constitutional: Negative for chills, fatigue and fever. HENT: Negative for ear discharge, ear pain, rhinorrhea, sinus pressure, sinus pain and sore throat. Eyes: Negative for discharge and redness. Respiratory: Positive for cough, shortness of breath and wheezing. Cardiovascular: Negative for chest pain. Skin: Negative for rash. Objective BP 128/82 Pulse 95 Temp 37.1 ?C (98.8 ?F) (Tympanic) Resp 16 Wt 80.6 kg (177 lb 11.1 oz) SpO2 96% BMI 27.02 kg/m? Physical Exam Constitutional: General: He is not in acute distress. Appearance: He is not toxic-appearing or diaphoretic. HENT: Head: Normocephalic and atraumatic. Mouth/Throat: Lips: [place]. Mouth: Mucous membranes are moist. Pharynx: Oropharynx is clear. Uvula midline. Cardiovascular: Rate and Rhythm: Normal rate and regular rhythm. Heart sounds: Normal heart sounds, S1 normal and S2 normal. Pulmonary: Effort: Pulmonary effort is normal. Breath sounds: Wheezing (scattered bilat) present. No decreased breath sounds, rhonchi or rales. Lymphadenopathy: Cervical: No cervical adenopathy. Right cervical: No superficial cervical adenopathy. Left cervical: No superficial cervical adenopathy. Neurological: Mental Status: He is alert and oriented to person, place, and time. {ASSESSMENT/PLAN: 1. Mild intermittent asthma with acute exacerbation (HCC) - ICD9: 493.92, ICD10: J45.21 (primary diagnosis) Xray negative Cover with prednisone and order new inhaler -If you experience chest pain/shortness of breath go to ER - PREDNISONE 20 MG TABLET 2. Wheeze - ICD9: 786.07, ICD10: R06.2 - XR CHEST 2V FRONTAL/LAT IMPRESSION: No acute radiographic abnormality Dictated by : MD Jesus CADENA APRN.M[employer]UAL FUNDS AGENT History and Record Review External record(s) reviewed: prior outpatient record. Findings from review of outpatient records: history of asthma Differential Diagnoses - asthma flair is more likely for the following reason(s): consistent with imaging and suggested by HANDP Disposition The patient was discharged. Procedures Allergies As of Date: 03/28/2025 (No Known Allergies) Date Reviewed: 03/28/2025 Reviewed by: Saadia Barrett LPN - Fully Assessed Reason for Visit: Cough [28] Cmt: Cough, chest congestion and SOB x 1 day Primary Visit Diagnosis:Mild intermittent asthma with acute exacerbation (HCC) [J45.21] Other Visit Diagnosis:Wheeze [R06.2] Order(s):XR CHEST 2V FRONTAL/LAT [[id number]] Order #: [id number]. #:[id number] albuterol HFA (PROVENTIL HFA, VENTOLIN HFA) 90 mcg/actuation inhalerInhale 2 puffs as instructed every 4 hours as needed for wheezing/shortness of breath.Disp: 8 gRfl: 1 predniSONE (DELTASONE) 20 mg tabletTake 2 tablets by mouth once daily for 5 days. Take daily with food.Disp (more content not included)... Normal [facility] XR CHEST 2V FRONTAL/LATon XR CHEST 2V FRONTAL/LAT * * *Final Report* * * DATE OF EXAM: Mar 28 2025 2:52PM WOX [id number] - XR CHEST 2V FRONTAL/LAT / PROCEDURE REASON: Wheeze * * * * Physician Interpretation * * * * EXAMINATION: CHEST RADIOGRAPH (2 VIEW FRONTAL and LATERAL) CLINICAL HISTORY: Wheeze MQ: [id number] EXAM DATE/TIME: 03/28/2025 2:52 PM COMPARISON: Chest x-ray on 02/13/2025 RESULT: Lines, tubes, and devices: None. Lungs and pleura: No consolidation. No lung mass. No pleural effusion. No pneumothorax. Cardiomediastinal silhouette: Normal cardiomediastinal silhouette. Bones and soft tissues: Unremarkable. IMPRESSION: No acute radiographic abnormality. Coffee Bar Attendant: PSCB Transcribe Date/Time: Mar 28 2025 2:53P Dictated by : CIRILO TANG MD This examination was interpreted and the report reviewed and electronically signed by: CIRILO TANG MD on Mar 28 2025 2:53PM EST [id number] Normal [facility] Emergency Department Summary on 02-24-2025 Emergency Department Summary [facility] Medical Records Department [address] [place] [address] Emergency Department Summary 02/24/25 MR#: [id number] Acct: [id number] Name: KEITH GOOD Rep #: [id number] : 2005 19 From: Maximino Wade DO PCP: Care Physician,No Primary Status:DEP ER Location: ED HPI History of Present Illness Chief Complaint: Asthma Informant: patient Narrative Narrative: Patient is a 19-year-old male with past medical history of asthma. He states that his asthma is relatively well-controlled and he typically only needs an inhaler intermittently. 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 He states that he no longer has an inhaler and then after 2 days shift his shortness of breath and wheeze seem more intense than it has been and therefore comes in for evaluation [facility] Medical History Asthma Home Medications ???Medication ???Instructions ???Recorded ???Last Taken ???Type albuterol sulfate 90 mcg/actuation 2 puff inhalation Q4H PRN PRN Unknown Rx aerosol inhaler (Ventolin HFA) Wheezing/SOB #1 device ipratropium 0.5 mg-albuterol 3 mg 3 ml inhalation 4X/DAY PRN Unknown Rx (2.5 mg base)/3 mL nebulization Shortness of breath/wheeze #90 mL soln nebulizer and compressor #1 ea 02/24/25 Unknown Rx prednisone 20 mg tablet 40 mg (2 x 20 mg) PO DAILY 5 days 02/24/25 Unknown Rx #10 tabs Allergy/AdvReac Type Severity Reaction Status Date / Time No Known Allergies Allergy Verified 02/24/25 21:18 Social History (Updated 02/24/25 @ 22:08 by Vanessa Alexander) current occupational status: employed Smoking Status: Current every day smoker tobacco type: cigarettes ROS ROS ED Constitutional Constitutional ED: Denies chills or fever(s) ENT ENT ED: Denies sore throat Cardiovascular Cardiovascular: Denies chest pain Respiratory/Chest Respiratory/Chest: Reports cough, dyspnea and other Details: Positive wheeze Gastrointestinal Gastrointestinal: Denies abdominal pain, diarrhea, nausea or vomiting Musculoskeletal Musculoskeletal: Denies back pain or myalgias Integumentary Denies rash Neurologic Neurologic: Denies headache(s) Hematologic/Lymphatic Hematologic/Lymphatic: Denies easy bleeding or easy bruising Allergic/Immunologic Allergic/Immunologic ED: Denies mouth swelling, tongue swelling or urticaria EXAM Physical Exam Const Vital Signs: 02/24/25 21:16 02/24/25 21:35 02/24/25 22:21 Temperature 98.3 F Temperature Source Temporal Pulse Rate 90 92 Respiratory Rate 18 16 Respiratory Effort Normal Non-Labored Respiratory Depth Normal Respiratory Pattern Normal Normal Blood Pressure 127/78 H Blood Pressure Mean 94 Pulse Ox 97 Oxygen Delivery Method Room Air Room Air Positive well nourished and well developed General Appearance ED: well developed; Negative for pallor HEENT Reports moist mucous membranes HEENT Narrative: No tongue or lip swelling no oral lesions no airway edema or compromise Eyes PERRL and EOMs intact bilaterally General Eye ED: Negative for scleral icterus Neck supple and no JVD Chest Wall palpation of chest normal Resp normal respiratory effort Resp Narrative: Breath sounds are diminished throughout with faint expiratory wheeze in the bilateral bases but no signs of respiratory distress Cardio regular rate and regular rhythm Extremity normal to inspection Neuro oriented x3, CN's II-XII intact bilaterally and no sensory deficits noted Sensorium / Orientation: alert Motor Exam: strength 5/5 throughout Psych mental status grossly normal Skin no rashes or lesions noted and no wounds General Skin Exam: Negative for jaundice or pallor MDM MDM MDM Narrative Medical decision making narrative: Patient arrived to the ER no acute respiratory distress. 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 Without physical exam/history findings concerning for infection I do not feel there is need for an x-ray or a viral swab. As his exam and history is most consistent with asthma exacerbation he was given prednisone as well as a nebulizer treatment. After receiving this his breath sounds improved and he reported feeling better overall. He remained in no respiratory distress and not requiring supplemental oxygen. Therefore there is no need for further workup and he is otherwise safe for discharge with symptomatic care. History Record Review Discussion w/independent historian: Patient Discharge Plan Triage Chief Complaint: Asthma ED Provider: Maximino Wade Dx/Rx/DC Orders Clinical Impressi (more content not included)... Normal [facility] CNOVon 02-13-2025 CNOV Office Visit ([facility] ) KEITH GOOD ([id number]) 3 M Date Time Provider Department 02/13/25 12:15 PM JESUS MCDONALD [facility] During your visit today, we recorded the following information about you: Pulse Respiration Blood pressure Weight 88/minute 16/minute 142/88 82.4 kg Jesus Mcdonald APRN.CNP 02/13/2025 2:23 PM Signed [facility] Subjective HPI HPI Keith Good is a 19 year old male who presents today for CC of cough, wheeze. This started 6 weeks. Has tried otc medication and asthma medication. Symptoms are worsened by nothing. Risk factors smoker whilst asthmatic. .Patient presents with: Chest Congestion: cough and wheezing x 6 weeks PAST MEDICAL HISTORY Diagnosis Date ADHD Asthma No past surgical history on file. ALLERGIES Patient has no known allergies. MEDICATIONS albuterol HFA (PROVENTIL HFA, VENTOLIN HFA) 90 mcg/actuation inhaler Inhale 2 Puffs as instructed every 4 hours as needed for wheezing/shortness of breath. fluticasone (FLONASE) 50 mcg/actuation nasal spray USE 1 SPRAY IN EACH NOSTRIL ONCE DAILY. (Patient not taking: Reported on 02/13/2025) Levocetirizine 5 mg tablet TAKE 1 TABLET BY MOUTH DAILY NEEDED (Patient not taking: Reported on 02/13/2025) ketotifen fumarate (ZADITOR) 0.025 % (0.035 %) ophthalmic solution USE 1 DROP IN BOTH EYES TWICE A DAY NEEDED (ALLERGIES). (Patient not taking: Reported on 02/13/2025) amphetamine-dextroamph etamine XR (ADDERALL XR) 20 mg 24 hr capsule Take 20 mg by mouth once daily. (Patient not taking: Reported on 02/13/2025) traZODone (DESYREL) 150 mg tablet Take 150 mg by mouth daily at bedtime. (Patient not taking: Reported on 02/13/2025) No family history on file. Social History Tobacco Use Smoking status: Never Smokeless tobacco: Never Substance Use Topics Alcohol use: Not Currently Drug use: Yes Types: Marijuana Review of Systems Constitutional: Negative for chills, fatigue and fever. HENT: Negative for ear discharge, ear pain, rhinorrhea, sinus pressure, sinus pain and sore throat. Eyes: Negative for discharge and redness. Respiratory: Positive for cough, shortness of breath and wheezing. Cardiovascular: Negative for chest pain. Skin: Negative for rash. Objective BP 142/88 Pulse 88 Resp 16 Wt 82.4 kg (181 lb 10.5 oz) SpO2 97% BMI 27.62 kg/m? Physical Exam Constitutional: General: He is not in acute distress. Appearance: He is not ill-appearing, toxic-appearing or diaphoretic. HENT: Head: Normocephalic and atraumatic. Cardiovascular: Rate and Rhythm: Normal rate and regular rhythm. Heart sounds: Normal heart sounds, S1 normal and S2 normal. Pulmonary: Effort: Pulmonary effort is normal. Breath sounds: Examination of the left-lower field reveals rhonchi. Rhonchi present. No decreased breath sounds, wheezing or rales. Neurological: Mental Status: He is alert and oriented to person, place, and time. {ASSESSMENT/PLAN: 1. History of asthma - ICD9: V12.69, ICD10: Z87.09 (primary diagnosis) -use medication as prescribed -follow up if symptoms persist, worsen, change - ALBUTEROL SULFATE HFA 90 MCG/ACTUATION AEROSOL INHALER - PREDNISONE 20 MG TABLET 2. Rhonchi at left lung base - ICD9: 786.7, ICD10: R09.89 - XR CHEST 2V FRONTAL/LAT IMPRESSION: No acute radiographic abnormality. Dictated by : MD Jesus SMALLWOOD APRN.MUTUAL FUNDS AGENT History and Record Review External record(s) reviewed: prior outpatient record. Disposition The patient was discharged. Procedures Allergies As of Date: 02/13/2025 (No Known Allergies) Date Reviewed: 02/13/2025 Reviewed by: Sandra Manuel MA - Fully Assessed Reason for Visit: Chest Congestion [236] Cmt: cough and wheezing x 6 weeks Primary Visit Diagnosis:History of asthma [Z87.09] Other Visit Diagnosis:Rhonchi at left lung base [R09.89] Order(s):XR CHEST 2V FRONTAL/LAT [[id number]] Order #: [id number]. #:[id number] albuterol HFA (PROVENTIL HFA, VENTOLIN HFA) 90 mcg/actuation inhalerInhale 2 puffs as instructed every 4 hours as needed for wheezing/shortness of breath.Disp: 8 gRfl: 0 predniSONE (DELTASONE) 20 mg tabletTake 2 tablets by mouth once daily for 5 days. Take daily with food.Disp: 10 tabletRfl: 0 Prescriptions as of 02/13/2025 - albuterol HFA (PROVENTIL HFA, VENTOLIN HFA) 90 mcg/actuation inhaler Inhale 2 puffs as instructed every 4 hours as needed for wheezing/shortness of breath. - predniSONE (DELTASONE) 20 mg tablet Take 2 tablets by mouth once daily for 5 days. Take daily with food. - albuterol HFA (PROVENTIL HFA, VENTOLIN HFA) 90 mcg/actuation inhaler Inhale 2 Puffs as instructed every 4 hours as needed for wheezing/shortness of breath. - fluticasone (FLONASE) 50 mcg/actuation nasal spray USE 1 SPRAY IN EACH NOSTRIL ONCE DAILY. - Levocetirizine 5 mg tablet TAKE 1 TABLET BY (more content not included)... Normal [facility] XR CHEST 2V FRONTAL/LATon XR CHEST 2V FRONTAL/LAT * * *Final Report* * * DATE OF EXAM: Feb 13 2025 12:30PM WOX [id number] - XR CHEST 2V FRONTAL/LAT / PROCEDURE REASON: Rhonchi at left lung base * * * * Physician Interpretation * * * * History: Rhonchi FINDINGS: Frontal and lateral views of the chest are compared to prior study of 10/24/2024. The lungs are clear of infiltrate. No pleural effusion or pneumothorax. No suspicious nodule. The heart and mediastinal structures appear within normal limits. IMPRESSION: No acute radiographic abnormality. Coffee Bar Attendant: PSCB Transcribe Date/Time: Feb 13 2025 12:30P Dictated by : ARMANDO BROTHERS MD This examination was interpreted and the report reviewed and electronically signed by: ARMANDO BROTHERS MD on Feb 13 2025 12:30PM EST [id number] Normal [facility] XR Chest PA and Lateralon IMPRESSION: No acute radiographic abnormality. Coffee Bar Attendant: ZACKERY Transcribe Date/Time: Feb 13 2025 12:30P Dictated by : ARMANDO BROTHERS MD This examination was interpreted and the report reviewed and electronically signed by: ARMANDO BROTHERS MD on Feb 13 2025 12:30PM [facility] OF RADIOLOGY * * *Final Report* * * DATE OF EXAM: Feb 13 2025 12:30PM WOX [id number] - XR CHEST 2V FRONTAL/LAT / PROCEDURE REASON: Rhonchi at left lung base * * * * Physician Interpretation * * * * History: Rhonchi FINDINGS: Frontal and lateral views of the chest are compared to prior study of 10/24/2024. The lungs are clear of infiltrate. No pleural effusion or pneumothorax. No suspicious nodule. The heart and mediastinal structures appear within normal limits. DIVISION OF RADIOLOGY Provider, [facility] - 02/13/2025 * * *Final Report* * * DATE OF EXAM: Feb 13 2025 12:30PM WOX [id number] - XR CHEST 2V FRONTAL/LAT / PROCEDURE REASON: Rhonchi at left lung base * * * * Physician Interpretation * * * * History: Rhonchi FINDINGS: Frontal and lateral views of the chest are compared to prior study of 10/24/2024. The lungs are clear of infiltrate. No pleural effusion or pneumothorax. No suspicious nodule. The heart and mediastinal structures appear within normal limits. IMPRESSION IMPRESSION: No acute radiographic abnormality. Coffee Bar Attendant: [facility] Transcribe Date/Time: Feb 13 2025 12:30P Dictated by : ARMANDO BROTHERS MD This examination was interpreted and the report reviewed and electronically signed by: ARMANDO BROTHERS MD on Feb 13 2025 12:30PM [facility] Radiology Study observation (narrative) [facility] XR Chest PA and LateralOrder ed By: Cc Provider on 02-13-2025 [facility] Telephone Encounteron 2024 [employer] Engineer Authentication Interface Message Text Patient has not been seen by this specialist in more than 1 year. Please contact patient to schedule office visit. Thank you Last seen 11/2022 Normal [facility] ECG 12-LEADon 10-25-2024 ECG 12-LEAD Ventricular Rate 89 Atrial Rate 89 P-R Interval 150 QRS Duration 98 Q-T Interval 344 QTC Calculation(Bazett) 418 P Point Roberts 75 R Point Roberts 105 T Point [place] 63 QRS Count 14 Q Onset 221 P Onset 146 P Offset 204 T Offset 393 QTC Fredericia 392 Diagnosis Normal sinus rhythm Right atrial enlargement Rightward axis Pulmonary disease pattern Abnormal ECG When compared with ECG of 25-OCT-2024 12:22, No significant change was found See ED provider note for full interpretation and clinical correlation Confirmed by Lilly Cagle ([id number]) on 10/25/2024 11:31:51 PM Normal [facility] Telephone Encounteron 2023 Broadcast Systems Engineer Authentication Interface Message Text Patient has not been seen by this specialist in more than 1 year. Please contact patient to schedule office visit. Thank you Normal [facility] Broadcast Systems Engineer Authentication Interface Message Text Pharmacy is attempting to schedule an appointment for this patient. Per protocol, we will make 1 attempt to contact patient before routing to nurse for follow up. Medication request adjusted to only a 3 month supply to allow time for appointment to be scheduled. Thank you. Last seen 11/2022 Normal [facility] ECG COMPLETEon 10-24-2024 ECG COMPLETE Ventricular Rate : 7 9 BPM Atrial Rate : 79 BPM P-R Interval : 156 ms QRS Duration : 104 ms Q-T Interval : 358 ms QTC Calculation(Bazett) : 410 ms Calculated P Point Roberts : 69 degrees Calculated R Point Roberts : 84 degrees Calculated T Point Roberts : 61 degrees SINUS RHYTHM WITH MARKED SINUS ARRHYTHMIA OTHERWISE NORMAL ECG 1930 Confirmed by MD SARAVIA LUCY ([id number]), photographic editor MICAH FLETCHER ([id number]) on 10/27/2024 9:00:58 AM NAME : KEITH GOOD PID : [id number] : 2005 Gender : Male Race : ORD : [id number] Procedure Date : Oct 24 2024 19:29:49 Edit Date : Oct 27 2024 09:01:03 Diagnosis: SINUS RHYTHM WITH MARKED SINUS ARRHYTHMIA OTHERWISE NORMAL ECG 1930 Confirmed by MD SARAVIA LUCY ([id number]), photographic editor MICAH FLETCHER ([id number]) on 10/27/2024 9:00:58 AM Test Reason : Chest Pain Location : 2 : EDNS Overread By : MD SARAVIA LUCY Edited By : MICAH FLETCHER Referred By : , Acquired by : Wilmer CAMERON [facility] ED NOTEon 10-24-2024 ED NOTE HNO ID: [id number] Author: JET PINZON, RN Service: Emergency Medicine Author Type: Registered Nurse Type: ED Notes Filed: 10/24/2024 19:24 Note Text: Pt refused covid test at this time. Normal [facility] ED Triage Noteon 10-24-2024 ED Triage Note HNO ID: [id number] Author: TRENA SARAVIA MD Service: Emergency Medicine Author Type: Physician Type: ED Triage Notes Filed: 10/24/2024 19:20 Note Text: ED TRIAGE PROVIDER NOTE Patient Name: Keith Good Service Date: 10/24/24 BRIEF HPI: This is a 18 year old male who presents to the ED with: h/o asthma here with SOB, symptoms X 2-3 weeks Using inhaler w/o relief Has not been steroids BRIEF EXAM: NAD Awake and Alert Non labored breathing INITIAL WORKUP AND DECISION MAKING: Orders Placed This Encounter XR CHEST 2V FRONTAL/LAT ECG COMPLETE W INTERPRETATION SIGNATURE: Trena Saravia MD Normal [facility] XR CHEST 2V FRONTAL/LATon XR CHEST 2V FRONTAL/LAT * * *Final Report* * * DATE OF EXAM: Oct 24 2024 8:18PM [id number] - XR CHEST 2V FRONTAL/LAT / PROCEDURE REASON: Shortness of breath * * * * Physician Interpretation * * * * EXAMINATION: CHEST RADIOGRAPH (2 VIEW FRONTAL and LATERAL) CLINICAL HISTORY: Shortness of breath MQ: XC2_6 EXAM DATE/TIME: 10/24/2024 8:18 PM COMPARISON: 10/02/23. RESULT: Lines, tubes, and devices: None. Lungs and pleura: There is no focal consolidation, pleural effusion, or pneumothorax. Cardiomediastinal silhouette: Within normal limits. Bones and soft tissues: No acute osseous abnormality is identified. The imaged upper abdomen is within normal limits. IMPRESSION: No acute cardiopulmonary process. Coffee Bar Attendant: ZACKERY Transcribe Date/Time: Oct 24 2024 8:21P Dictated by : JESUS GONZALES MD This examination was interpreted and the report reviewed and electronically signed by: JESUS GONZALES MD on Oct 24 2024 8:21PM EST [id number] Normal [facility] Provider Noteson 03-17-20 24 Broadcast Systems Engineer Authentication Interface Message Text Attestation signed by Luis Eduardo Cortes MD at 03/18/2024 1:19 AM Split/Shared Documentation I approve the management plan for this patient and take responsibility for the plan as documented. Independent Interpretation of Tests Performed by Another Physician/VITA: I personally performed, reviewed, and interpreted x ray with findings of 5th metacarpal fracture. PROCEDURE NOTE: Initial Fracture Care Informed consent, after discussion of the risks, benefits, and alternatives to the procedure, was obtained verbally from the patient prior to procedure. The patient was identified using two patient identifiers: Yes. The H AND P along with required diagnostics are available in Epic: Yes The correct procedure was verified: Yes Procedural site identified: Yes Presence of required equipment verified prior to starting procedure: Yes Patient allergies identified or reviewed: Yes Site marking done: Yes A timeout to verify the correct patient, procedure, and site was performed immediately prior to the procedure The patient had a fracture of the Left 5th metacarpal. The fracture was not displaced and did not require manipulation for current care PROCEDURE NOTE: SPLINTING Informed consent, after discussion of the risks, benefits, and alternatives to the procedure, was obtained verbally from the patient prior to procedure. The patient was identified using two patient identifiers: Yes. The H AND P along with required diagnostics are available in Epic: Yes The correct procedure was verified: Yes Procedural site identified: Yes Presence of required equipment verified prior to starting procedure: Yes Patient allergies identified or reviewed: Yes Site marking done: Yes A timeout to verify the correct patient, procedure, and site was performed immediately prior to the procedure The area to splint was appropriately positioned. A ulnar gutter was applied. The patient tolerated the procedure well. The splinted body part was neurovascularly unchanged following the procedure. Luis Eduardo Cortes MD EMERGENCY DEPARTMENT - VISIT NOTE -------- HISTORY OF PRESENT ILLNESS ---- Chief Complaint Patient presents with left hand pain/work related Puller Machine: not needed - patient preferred language is Indonesian. HPI Patient seen under the supervision of Dr. Cortes 18-year-old male presents to the emergency depart for evaluation of left hand injury. Patient was at work. States his left hand was resting on top of a Pallet stack. To more pallets were dropped on top of his left hand. Patient was complaining of left hand pain and swelling Reports pain and swelling limited to the left hand. Patient was right-handed. No symptom management has been attempted Patient reports there was swelling. Some difficulty moving the finger of his left hand. No associated fever, chills, chest pain, dyspnea, cough, abdominal pain, nausea, vomiting, headache, weakness, paresthesia. REVIEW OF SYSTEMS Review of Systems Constitutional: Negative for chills and fever. Respiratory: Negative for cough, choking and shortness of breath. Cardiovascular: Negative for chest pain and leg swelling. Gastrointestinal: Negative for abdominal pain, diarrhea, nausea and vomiting. Musculoskeletal: Positive for arthralgias. Negative for back pain and neck pain. Skin: Negative for pallor and rash. Neurological: Negative for dizziness, light-headedness, numbness and headaches. All other systems reviewed and are negative. PAST HISTORY Pertinent Past History: No past medical history on file. Patient Active Problem List: Oppositional defiant disorder [F91.3] Obese [E66.9] Allergic rhinitis [J30.9] Mild persistent asthma without complication ([facility]) [J45.30] Pertinent Social History: PHYSICAL EXAM BP 126/82 Pulse 74 Temp 99.3 ???F (37.4 ???C) (Tympanic) Resp 18 SpO2 96% Physical Exam Vitals and nursing note reviewed. Constitutional: General: He is not in acute distress. Appearance: He is well-developed. He is not diaphoretic. HENT: Head: Atraumatic. Eyes: Conjunctiva/sclera: Conjunctivae normal. Cardiovascular: Rate and Rhythm: Normal rate and regular rhythm. Pulmonary: Effort: Pulmonary effort is normal. No respiratory distress. Breath sounds: Normal breath sounds. No wheezing. Abdominal: Palpations: Abdomen is soft. Tenderness: There is no abdominal tenderness. There is no guarding or rebound. Musculoskeletal: Left hand: Swelling, tenderness and bony tenderness present. Decr (more content not included)... Normal [facility] XR HAND LEFT 3 VIEWSon 03-17 XR HAND LEFT 3 VIEWS EXAMINATION: XR HAND LEFT 3 VIEWSPRO/LT 03/17/2024 04:17 PM CLINICAL HISTORY: left 4-5th MC crushed between 2 wooden pallets ASSOCIATED DIAGNOSIS: ORDERING PROVIDER: FAY GODINEZ TECHNOLOGISTS NOTE: Pt had hand smashed between 2 pallets. Pain in 5th metacarpal area COMPARISON: None IMPRESSION: Oblique, mildly impacted distal fifth metacarpal fracture with palmar angulation of the distal fracture fragments. Joint spaces are maintained. No apparent radiodense retained foreign body. Left hand MACRO: None Normal [facility] XR Hand - left 3 Viewson EXAMINATION: XR HAND LEFT 3 VIEWSPRO/LT 03/17/2024 04:17 PM CLINICAL HISTORY: left 4-5th MC crushed between 2 wooden pallets ASSOCIATED DIAGNOSIS: ORDERING PROVIDER: FAY GODINEZ TECHNOLOGISTS NOTE: Pt had hand smashed between 2 pallets. Pain in 5th metacarpal area COMPARISON: None IMPRESSION: Oblique, mildly impacted distal fifth metacarpal fracture with palmar angulation of the distal fracture fragments. Joint spaces are maintained. No apparent radiodense retained foreign body. Left hand MACRO: None RADIOLOGY Barney Ang MD - 03/17/2024 EXAMINATION: XR HAND LEFT 3 VIEWSPRO/LT 03/17/2024 04:17 PM CLINICAL HISTORY: left 4-5th MC crushed between 2 wooden pallets ASSOCIATED DIAGNOSIS: ORDERING PROVIDER: FAY GODINEZ TECHNOLOGISTS NOTE: Pt had hand smashed between 2 pallets. Pain in 5th metacarpal area COMPARISON: None IMPRESSION: Oblique, mildly impacted distal fifth metacarpal fracture with palmar angulation of the distal fracture fragments. Joint spaces are maintained. No apparent radiodense retained foreign body. Left hand MACRO: None [facility] Radiology Study observation (narrative) [facility] XR Hand - left 3 ViewsOrdere d By: Barney Ang on 03-17-2024 [facility] Work Phone: RAPID STREP A W/CULTURE REFL EXOrdered By: Afua Kwon on 11-26-2023 Interpretation and review of laboratory results Normal [facility] S. pyogenes Ag Ql (Throat) Negative Negative [facility] Basic metabolic 2000 panelon 10-07-2023 Anion gap [Moles/Vol] 14 mmol/L 10 - 20 mmol/L [facility] Calcium [Mass/Vol] 9.9 mg/dL 8.6 - 10. 6 mg/dL [facility] Chloride [Moles/Vol] 101 mmol/L 98 - 107 mmol/L [facility] CO2 [Moles/Vol] 28 mmol/L 21 - 32 mmol/L [facility] Creatinine [Mass/Vol] 1.09 mg/dL 0.50 - 1.30 mg/dL [facility] GFR/1.73 sq M.predicted MDRD (S/P/Bld) [Vol rate/Area] - PINF [facility] Comment on above: Calculations of leanne mated GFR are performed using the 2020 CKD-EPI Study Refit equation without the race variable for the IDMS-Traceable creatinine methods. https://jasn.asnjournals.org/content/early/ASN.80318246 88 Glucose [Mass/Vol] 98 mg/dL 74 - 99 mg/dL [facility] Interpretation and review of laboratory results Normal [facility] Potassium [Moles/Vol] 3.6 mmol/L 3.5 - 5.3 mmol/L [facility] Sodium [Moles/Vol] 139 mmol/L 136 - 145 mmol/L [facility] Urea nitrogen [Mass/Vol] 14 mg/dL 6 - 23 mg/dL [facility] CBC W Auto Differential pane l (Bld)on 10-07-2023 Basophils (Bld) [#/Vol] 0.06 10*3/uL [facility] Basophils/100 WBC (Bld) 0.4 % 0.0 - 2.0 % [facility] Eosinophils (Bld) [#/Vol] 0.23 10*3/uL [facility] Eosinophils/100 WBC (Bld) 1.7 % 0.0 - 6.0 % [facility] Erythrocyte distribution width (RBC) [Ratio] 13.3 % 11.5 - 14.5 % [facility] Hematocrit (Bld) [Volume fraction] 48.7 % 41.0 - 52.0 % [facility] Hemoglobin (Bld) [Mass/Vol] 14.9 g/dL 13.5 - 17.5 g/dL [facility] Immature granulocytes (Bld) [#/Vol] 0.04 10*3/uL [facility] Immature granulocytes/100 WBC (Bld) 0.3 % 0.0 - 0.9 % [facility] Comment on above: Immature Granulocyte Count (IG) includes promyelocytes, myelocytes and metamyelocytes but does not include bands. Percent differential counts (%) should be interpreted in the context of the absolute cell counts (cells/UL). Interpretation and review of laboratory results Abnormal [facility] Lymphocytes (Bld) [#/Vol] 1.97 10*3/uL [facility] Lymphocytes/100 WBC (Bld) 14.4 % 13.0 - 44.0 % [facility] MCH (RBC) [Entitic mass] 25.2 pg Low 26.0 - 34.0 pg [facility] MCHC (RBC) [Mass/Vol] 30.6 g/dL Low 32.0 - 36.0 g/dL [facility] MCV (RBC) [Entitic vol] 82 fL 80 - 100 fL [facility] Monocytes (Bld) [#/Vol] 0.84 10*3/uL [facility] Monocytes/100 WBC (Bld) 6.1 % 2.0 - 10.0 % [facility] Neutrophils (Bld) [#/Vol] 10.57 10*3/uL High [facility] Comment on above: Percent differential counts (%) should be interpreted in the context of the absolute cell counts (cells/uL). Neutrophils/100 WBC (Bld) 77.1 % 40.0 - 80.0 % [facility] Nucleated RBC/100 WBC (Bld) [Ratio] 0.0 % [facility] Platelets (Bld) [#/Vol] 327 10*3/uL [facility] RBC (Bld) [#/Vol] 5.91 10*6/uL [facility] WBC (Bld) [#/Vol] 13.7 10*3/uL [facility] Urinalysis complete W Reflex Culture panel (U)on 10-07-2023 Appearance (U) Clear Clear [facility] Bilirubin (U) [Mass/Vol] Negative NEGATIVE [facility] Color (U) Yellow Straw, Yellow [facility] Glucose Auto test strip (U) [Mass/Vol] Negative NEGATIVE mg/dL [facility] Interpretation and review of laboratory results Abnormal [facility] Ketones (U) [Mass/Vol] 5 (TRACE) Abnormal NEGATIVE mg/dL [facility] Leukocyte esterase Auto test strip Ql (U) Negative NEGATIVE [facility] Mucus Auto (Urine sed) [#/Area] 2+ Reference range not established. /LPF [facility] Nitrite Auto test strip Ql (U) Negative NEGATIVE [facility] pH (U) 7.0 [pH] 5.0, 5.5, 6.0, 6.5, 7.0, 7.5, 8.0 [facility] Protein (U) [Mass/Vol] Negative NEGATIVE mg/dL [facility] RBC (U) [#/Vol] SMALL (1+) Abnormal NEGATIVE [facility] RBC Auto (Urine sed) [#/Area] >20 Abnormal NONE, 1-2, 3-5 /HPF [facility] Specific gravity (U) [Rel density] 1.013 1.005 - 1.035 [facility] Urobilinogen (U) [Mass/Vol] mg/dL NINF - 2.0 mg/dL [facility] WBC Auto (Urine sed) [#/Area] 1-5 1-5, NONE /HPF [facility] ALLIED HEALTHon 10-02-2023 ALLIED HEALTH HNO ID: [id number] Author: Marzena Rodriguez RT(R) Service: Radiology Author Type: [employer] Type: Allied Health Filed: 10/02/2023 6:52 PM Note Text: Radiology Service Progress Note PATIENT NAME: Keith Good DATE OF SERVICE: October 02, 2023 TIME: 6:51 PM PATIENT IDENTITY VERIFICATION COMPLETED USING TWO (2) IDENTIFIERS: Name and Date of confirmed by patient verbally and Name and Date of confirmed by identification band. FALL SCREENING: Has the patient had 2 falls in the last year or 1 fall with injury or currently using an Ambulatory Assistive Device (Walker, Cane, Wheelchair, Crutches, etc.)? Emergency Room Patient: Screened in ED PATIENT GENDER DATA: Male PATIENT RELEVANT IMPLANT DATA REVIEWED: Not Applicable RADIOLOGY DEPARTMENT: General X-ray: Exam(s) Completed: Chest X-Ray portable PERIPHERAL IV DATA: Not applicable SIGNED BY: RT Alisha(R) October 02, 2023 6:51 PM [facility] ED NOTEon 10-02-2023 ED NOTE HNO ID: [id number] Author: Rhiannon Diaz RN Service: ? Author Type: Registered Nurse Type: ED Notes Filed: 10/02/2023 7:26 PM Note Text: Pt stable and ambulatory upon departure. Discharge instructions, prescriptions, and details for follow up care given and reviewed. Pt verbalized understanding of medication's prescribed as well as how to follow up to continue their care. PT educated that they should return to the ED if their condition worsens. PT verbalized understanding of the education. Pt departed from ED. [facility] ED NOTE HNO ID: [id number] Author: Vanesa Scott RN Service: ? Author Type: Registered Nurse Type: ED Notes Filed: 10/02/2023 4:39 PM Note Text: Patient comes to the ED for asthma flare up. Patient states it started earlier today and he is out of his inhaler. Patient is 100 percent on Ra and speaking in full sentences in triage. [facility] ED PROV NOTEon 10-02-2023 ED PROV NOTE HNO ID: [id number] Author: Keri Cardona PA-C Service: ? Author Type: Physician Administrative Support Associate Type: ED Provider Notes Filed: 10/03/2023 1:44 AM Note Text: ED Provider Note Patient Name: Keith Good : 2005 SERVICE DATE: 10/02/23 History Patient presents with: Asthma Patient is an 17-year-old male who presents to the ED for evaluation of URI, cough, asthma symptoms. Patient states he has had rhinorrhea, congestion, cough for the past week, gradually improving. Symptoms have been triggering his asthma, and he has been wheezing today. He ran out of his inhaler but the pharmacy did not have a refill, so they directed him to the ED. No fever, chills, chest pain, shortness of breath. No other complaints. 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 No pertinent surgical history. No family history on file. Social History Tobacco Use - Smoking status: Never - Smokeless tobacco: Never Vaping Use - Vaping Use: Not on file Substance and Sexual Activity - Alcohol use: Not Currently - Drug use: Yes Types: Marijuana - Sexual activity: Not on file ALLERGIES No Known Allergies Review of Systems Constitutional: Negative for chills and fever. HENT: Positive for congestion and rhinorrhea. Negative for ear pain and sore throat. Respiratory: Positive for cough and wheezing. Negative for shortness of breath. Cardiovascular: Negative for chest pain and palpitations. Gastrointestinal: Negative for diarrhea and vomiting. All other systems reviewed and are negative. Physical Exam Vitals BP Pulse Temp Temp src Resp SpO2 Weight Height 10/02/23 1637 10/02/23 1637 10/02/23 1639 10/02/23 1637 10/02/23 1637 10/02/23 1637 10/02/23 1837 -- 126/70 (!) 99 36.8 ?C (98.2 ?F) Oral 18 98 % 82 kg (180 lb 12.4 oz) Physical Exam Vitals and nursing note reviewed. Constitutional: Appearance: Normal appearance. He is well-developed. HENT: Head: Normocephalic. Right Ear: Tympanic membrane and ear canal normal. Left Ear: Tympanic membrane and ear canal normal. Nose: Nose normal. Mouth/Throat: Mouth: Mucous membranes are moist. Pharynx: Oropharynx is clear. Eyes: Conjunctiva/sclera: Conjunctivae normal. Pupils: Pupils are equal, round, and reactive to light. Cardiovascular: Rate and Rhythm: Normal rate and regular rhythm. Heart sounds: Normal heart sounds. Pulmonary: Effort: Pulmonary effort is normal. Breath sounds: Wheezing present. Comments: Faint expiratory wheezes. Patient is breathing comfortably speaking in full sentences. Musculoskeletal: General: Normal range of motion. Skin: General: Skin is warm and dry. Findings: No rash. Neurological: Mental Status: He is alert and oriented to person, place, and time. Diagnostic Testing ED Labs Ordered and Reviewed - No data to display XR CHEST 1V FRONTAL PORT (Final result) Result time 10/02/23 18:59:25 Final result by Provider, [facility] Point Clear (10/02/23 18:59:25) Impression: IMPRESSION: No acute intrathoracic process. This examination was interpreted and the report reviewed and electronically signed by: VAL MARQUEZ MD on Oct 02 2023 6:57PM EST Procedures ED Course / Clinical Impression Clinical Impressions as of 10/03/23 0141 Exacerbation of asthma, unspecified asthma severity, unspecified whether persistent Acute cough MDM / Disposition / Plan Patient with URI/cough and wheezing. Chest x-ray is clear, no pneumonia. Vital signs are stable. Faint wheezes resolved with breathing treatment. Patient is stable for outpatient management. Prescriptions given for albuterol and prednisone. Follow-up with PCP for recheck. Return to the ED for new or worsening complaints. Differential Diagnoses - pneumonia is less likely for the following reason(s): no evidence on imaging Disposition The patient was discharged. Counseled patient regarding radiology results and suspected diagnosis. SIGNATURE: RENAE Nation WHITNEY R 10/03/23 0144 Normal [facility] XR CHEST 1V FRONTAL PORTon 1 12-02-2022 XR CHEST 1V FRONTAL PORT * * *Final Report* * * DATE OF EXAM: Oct 02 2023 6:51PM [id number] [id number] - XR CHEST 1V FRONTAL PORT / PROCEDURE REASON: Cough * * * * Physician Interpretation * * * * RESULT: EXAMINATION: CHEST RADIOGRAPH (PORTABLE SINGLE VIEW AP) Exam Date/Time: 10/02/2023 6:51 PM CLINICAL HISTORY: Cough MQ: XCPR_5 Comparison: None RESULT: Lines, tubes, and devices: None. Lungs and pleura: Lungs are clear. No pleural effusion or pneumothorax. Cardiomediastinal silhouette: Normal cardiomediastinal silhouette. Other: Imaged bones and upper abdomen are unremarkable. IMPRESSION: No acute intrathoracic process. Transcribed Using Voice Recognition Transcribe Date/Time: Oct 02 2023 6:52P Dictated by: VAL MARQUEZ MD This examination was interpreted and the report reviewed and electronically signed by: VAL MARQUEZ MD on Oct 02 2023 6:57PM EST [id number] Normal [facility] Basic metabolic 2000 panelOr dered By: Charles Bennett on 09-23-2023 Anion gap [Moles/Vol] 9 mmol/L Low 10 - 20 [facility] Calcium [Mass/Vol] 9.3 mg/dL 8.4 - 10. 4 mg/dL [facility] Chloride [Moles/Vol] 107 mmol/L 97 - 111 mmol/L [facility] CO2 [Moles/Vol] 27 mmol/L 21 - 30 mmol/L [facility] Creatinine [Mass/Vol] 0.89 mg/dL 0.80 - 1.30 mg/dL [facility] GFR/1.73 sq M.predicted CKD-EPI (S/P/Bld) [Vol rate/Area] 127 - PINF [facility] Comment on above: 2020 CKD EPI Equatio n using Creatinine without Race Comment: Estimated glomerular filtration rate (eGFR) is calculated without a race coefficient. Values should be interpreted in the context of the patient's full clinical presentation. Reference: 1. Etienne C, Yelitza M, Jennifer WALKER, et al.. A Unifying Approach for GFR Estimation: Recommendations of the NKF-ASN Task Force on Reassessing the Inclusion of Race in Diagnosing Kidney Disease. [place] Journal of Kidney Diseases 202;79(2):268-88.e1. 2. N Engl J Med 2020 Vol. 385 Issue 19 Pages 4538-6234 Glucose [Mass/Vol] 94 mg/dL 68 - 110 mg/dL [facility] Interpretation and review of laboratory results Abnormal [facility] Potassium [Moles/Vol] 4.0 mmol/L 3.3 - 5.3 mmol/L [facility] Sodium [Moles/Vol] 139 mmol/L 135 - 148 mmol/L [facility] Urea nitrogen [Mass/Vol] 14 mg/dL 8 - 22 mg/dL [facility] CBC WITH DIFFERENTIALon 09-07 Basophils (Bld) [#/Vol] 0.10 10*3/uL 0.00 - 0.20 K/uL [facility] Basophils/100 WBC (Bld) 0.5 % NINF - 1.9 % [facility] Eosinophils (Bld) [#/Vol] 0.40 10*3/uL 0.00 - 0.70 K/uL [facility] Eosinophils/100 WBC (Bld) 4.3 % High 0.1 - 4.0 % [facility] Erythrocyte distribution width (RBC) [Ratio] 14.1 % 11.5 - 14.5 % [facility] Hematocrit (Bld) [Volume fraction] 41.4 % 41.0 - 53.0 % [facility] Hemoglobin (Bld) [Mass/Vol] 13.7 g/dL 13.2 - 15.6 g/dL [facility] Interpretation and review of laboratory results Abnormal [facility] Lymphocytes (Bld) [#/Vol] 2.70 10*3/uL 1.50 - 4.80 K/uL [facility] Lymphocytes/100 WBC (Bld) 27.2 % Low 29.0 - 49.0 % [facility] MCH (RBC) [Entitic mass] 26.4 pg 26.0 - 34.0 pg [facility] MCHC (RBC) [Mass/Vol] 33.0 g/dL 32.0 - 35.9 g/dL [facility] MCV (RBC) [Entitic vol] 80 fL 80 - 100 fL [facility] Monocytes (Bld) [#/Vol] 0.60 10*3/uL 0.20 - 0.80 K/uL [facility] Monocytes/100 WBC (Bld) 6.3 % 3.0 - 10.0 % [facility] Neutrophils (Bld) [#/Vol] 6.20 10*3/uL 1.50 - 8.00 K/uL [facility] Neutrophils/100 WBC (Bld) 61.7 % 28.0 - 78.0 % [facility] Nucleated RBC (Bld) [#/Vol] 0.00 10*3/uL [facility] Nucleated RBC/100 WBC (Bld) [Ratio] 0.0 % [facility] Platelet mean volume (Bld) [Entitic vol] 7.0 fL Low 7.5 - 11.2 fL [facility] Platelets (Bld) [#/Vol] 305 10*3/uL 150 - 400 K/uL [facility] RBC (Bld) [#/Vol] 5.17 10*6/uL [facility] WBC (Bld) [#/Vol] 10.0 10*3/uL 4.5 - 13.0 K/uL [facility]en and Pelvis W cont rast IVOrdered By: Keith Iglesias on 09-23-2023 CT DLP 724.31 (mGy.cm) [facility] Work Phone: CT Series ABD/PELVIS,ABD/PELVIS [facility] Work Phone: CTDI VOL 0.20 (mGy),13.09 (mGy) [facility] Work Phone: PHANTOM TYPE IEC Body Dosimetry Phantom,IEC Body Dosimetry Phantom [facility] Work Phone: [facility] Work Phone: CT Abdomen and Pelvis W cont rast Maile 09-23-2023 EXAMINATION: CT ABD/PELVIS ED I/V GUS W/ CONTRAST 09/23/2023 09:44 PM CLINICAL HISTORY: RUQ and RLQ abdominal pain ASSOCIATED DIAGNOSIS: RUQ and RLQ abdominal pain ORDERING PROVIDER: PAULA MORFIN TECHNOLOGISTS NOTE: COMPARISON: None TECHNIQUE: Contiguous axial images were obtained through the abdomen and pelvis from the level of the diaphragmatic domes through the pubic symphysis following bolus administration of intravenous contrast. MPR sagittal and coronal reconstructions were obtained from the axial data. Before infusion of intravenous contrast, radiology personnel investigated the possibility of an allergic history and of any history of reaction to iodinated contrast material. Contrast Protocol: Omnipaque 350 [>or =100lb] 100 ml [<100 lb] 1 ml per 1 lb. INTRA-PROCEDURE MEDS: iohexol (OMNIPAQUE) 350 MG/ML injection 100 mL Route: Intravenous Push FINDINGS: Included images of the lower thorax: No focal lung consolidation or pleural effusion. Hepatobiliary: Unremarkable liver and gallbladder without biliary dilation. Pancreas: Unremarkable Spleen: Unremarkable Adrenal Glands: Unremarkable Kidneys, ureters, and bladder: 4 mm calculus within the proximal right ureter just distal to the right ureteropelvic junction with associated mild right hydronephrosis. Nonobstructive right lower pole 1 to 2 mm calculi are present. No left hydroureteronephrosis. The bladder is relatively decompressed. Abdominal and pelvic vasculature: Unremarkable GI tract: No evidence of obstruction. The appendix is within normal limits. Peritoneum and retroperitoneum: No free fluid or free air. Lymph Nodes: No abdominal or pelvic lymphadenopathy. Prostate and seminal vesicles: Unremarkable Visualized musculoskeletal structures: No acute fracture or destructive osseous lesion. Schmorl's nodules affecting T9 and L1 superior/inferior endplates as well as L3 superior endplate. IMPRESSION: Mild right obstructive uropathy secondary to a 4 mm calculus in the proximal right ureter just distal to the right ureteropelvic junction. MACRO: None RADIOLOGY Keith Iglesias MD - 09/23/2023 EXAMINATION: CT ABD/PELVIS ED I/V GUS W/ CONTRAST 09/23/2023 09:44 PM CLINICAL HISTORY: RUQ and RLQ abdominal pain ASSOCIATED DIAGNOSIS: RUQ and RLQ abdominal pain ORDERING PROVIDER: PAULA MORFIN TECHNOLOGISTS NOTE: COMPARISON: None TECHNIQUE: Contiguous axial images were obtained through the abdomen and pelvis from the level of the diaphragmatic domes through the pubic symphysis following bolus administration of intravenous contrast. MPR sagittal and coronal reconstructions were obtained from the axial data. Before infusion of intravenous contrast, radiology personnel investigated the possibility of an allergic history and of any history of reaction to iodinated contrast material. Contrast Protocol: Omnipaque 350 [>or =100lb] 100 ml [<100 lb] 1 ml per 1 lb. INTRA-PROCEDURE MEDS: iohexol (OMNIPAQUE) 350 MG/ML injection 100 mL Route: Intravenous Push FINDINGS: Included images of the lower thorax: No focal lung consolidation or pleural effusion. Hepatobiliary: Unremarkable liver and gallbladder without biliary dilation. Pancreas: Unremarkable Spleen: Unremarkable Adrenal Glands: Unremarkable Kidneys, ureters, and bladder: 4 mm calculus within the proximal right ureter just distal to the right ureteropelvic junction with associated mild right hydronephrosis. Nonobstructive right lower pole 1 to 2 mm calculi are present. No left hydroureteronephrosis. The bladder is relatively decompressed. Abdominal and pelvic vasculature: Unremarkable GI tract: No evidence of obstruction. The appendix is within normal limits. Peritoneum and retroperitoneum: No free fluid or free air. Lymph Nodes: No abdominal or pelvic lymphadenopathy. Prostate and seminal vesicles: Unremarkable Visualized musculoskeletal structures: No acute fracture or destructive osseous lesion. Schmorl's nodules affecting T9 and L1 superior/inferior endplates as well as L3 superior endplate. IMPRESSION: Mild right obstructive uropathy secondary to a 4 mm calculus in the proximal right ureter just distal to the right ureteropelvic junction. MACRO: None [facility] Radiology Study observation (narrative) [facility] HEPATIC FUNCTION PANELon Albumin [Mass/Vol] 3.8 g/dL 3.4 - 5.1 g/dL [facility] ALP [Catalytic activity/Vol] 73 U/L [facility] ALT [Catalytic activity/Vol] 18 U/L [facility] AST [Catalytic activity/Vol] 21 U/L [facility] Bilirubin [Mass/Vol] 0.3 mg/dL 0.1 - 1.5 mg/dL [facility] Bilirubin.direct [Mass/Vol] 0.05 mg/dL Low 0.10 - 0.30 mg/dL [facility] Interpretation and review of laboratory results [facility]normal [facility] Protein [Mass/Vol] 6.9 g/dL 6.2 - 8.3 g/dL [facility] LIPASEon 09-23-2023 Interpretation and review of laboratory results Normal [facility] Lipase [Catalytic activity/Vol] 33 U/L NINF [facility] MAGNESIUMon 09-23-2023 Interpretation and review of laboratory results Normal [facility] Magnesium [Mass/Vol] 2.0 mg/dL 1.6 - 2.8 mg/dL [facility] No Panel Informationon 09-23 [facility] ED NOTEon 09-19-2023 ED NOTE HNO ID: [id number] Author: Racquel Holden RN Service: ? Author Type: Registered Nurse Type: ED Notes Filed: 09/19/2023 1:25 PM Note Text: Pt came up to triage window and states I'm feeling better, I was walking around and now the pain is gone. I'm gonna leave. Pt encouraged to return for any worsening/concerning symptoms or if he changes his mind. Pt verbalized understanding. Pt in no apparent distress, ambulated out of hospital with steady gait. Normal [facility] ED NOTE HNO ID: [id number] Author: Racquel Holden RN Service: ? Author Type: Registered Nurse Type: ED Notes Filed: 09/19/2023 12:28 PM Note Text: Pt states he was at work at [employer] this morning and was pushing something heavy and had a sudden, sharp pain to his right side. Pt states pain is worse with movement. Normal [facility] Progress Noteon 08-13-2021 Broadcast Systems Engineer Authentication Interface Message Text Patient ID: Keith Good is a 15 y.o. male. His chief complaint(s) include: 15 YEAR WELL CHILD Assessment 1. Encounter for routine child health examination without abnormal findings 2. Exercise counseling 3. Encounter for dietary counseling and surveillance 4. Mild persistent asthma, uncomplicated Plan Keith was seen today for 15 year well child. Diagnoses and all orders for this visit: Encounter for routine child health examination without abnormal findings - PHQ9 Assessment With Score - Health Risk Assessment - RADHA Exercise counseling Encounter for dietary counseling and surveillance Mild persistent asthma, uncomplicated - albuterol 108 (90 Base) MCG/ACT inhaler; Inhale 2 Puffs into the lungs every 4 hours as needed for Wheezing, Shortness of Breath or Cough Use with spacer. - Spacer/Aero-Holding Chambers (OPTICHAMBER SIMRAN-MD MASK) MISC Device; 1 Each by Other route Use as directed with metered-dose inhaler. - fluticasone (FLOVENT HFA) 110 MCG/ACT 110 mcg inhaler; Inhale 2 Puffs into the lungs 2 times daily Return in about 1 year (around 08/13/2022) for well check. Keith is a 15yo male with mild persistent asthma. ACT 16 poorly controlled, will start Flovent 110mcg BID and prn use of albuterol. Continue with plan for pulmonology evaluation due to current concerns. Declined Menactra today will complete next year. Declined flu and covid as well. Discussed s/s to monitor and when to RTC Subjective HPI Comments: Keith presents to clinic today for his 15 yo [facility]. Asthma concerns ACT 16 today requiring rescue often. Reporting issues with having access to rescue inhaler. Spoke with [employer] leader [employer]. Keith and several other residents will become aggressive with demanding their albuterol inhaler although they are not exhibiting signs of distress. Have had several incidents in regards to inhaler. Keith is currently suspended from school due to stealing another students inhaler. When Keith was able to have his inhaler he would sit there and repeatedly use the inhaler. Scheduled with Pulmnology this month He is unaccompanied ([facility] in waiting area ). 15 YEAR WELL CHILD Complications after delivery: parental limits and consequences for unacceptable behavior Home: Keith has an adult to turn to for help and is in foster care. Education: Keith is in 10th grade and is doing well. Eating: Keith eats regular meals including fruits and vegetables and has a calcium source. Activities & Sports: Keith has friends, performs at least 1 hour of physical activity daily and engages in screen time less than 2 hours daily. Drugs: Keith does not use tobacco, does not use drugs, does not use alcohol and does not vape. Safety: Keith has a violence free home, has peer relationships free from violence and uses seat belt. Sex: The patient has never had a sexual partner. The patient has never had sex. The patient's gender identity is cisgender. The patient has not had an STD. Suicidality: Keith has ways to cope with stress, displays self-confidence and has problems with sleep. Keith has no depression, has no anxiety, does not have mood swings, has no suicidal ideation, has no homicidal ideation, has no mental health risk identified, does not have a psychiatrist and is not engaged in counseling. Output Urine and Stool Pattern: Urine and Stool Pattern: Normal stool pattern, normal urine pattern. Stool Consistency: soft Sleep Sleeping Difficulty: difficulty falling asleep Teen Anticipatory Guidance The following anticipatory guidance was reviewed during the visit: Nutrition: limit junk food/fast food and soft drinks. Safety: home safety. Social: avoid or limit screen time and parental limits and consequences for unacceptable behavior. Health: age appropriate dental care, age appropriate sleep habits, talk with trusted adult if feeling sad or nervous, learn to manage time and activities, be responsible for attendance/ homework/ course selection and learn about self and strengths. Screenings Previous Vaccine Reactions: No. Tuberculosis Concerns: Negative Tuberculosis Screen Concerns: no TB Risk Factors Hearing Vision Concerns: The caregiver has no concerns about the patient's hearing. The caregiver has no concerns about the patient's vision. Primary Care Review of Systems Objective Vital Signs 08/13/21 1337 BP: 120/65 Pulse: 86 Temp: 36.7 C (98 F) TempSrc: Temporal Weight: (!) 91.8 kg Height: 163.7 cm Body mass index is 34.26 kg/m . Physical Exam Constitutional: He appears well. He is active. No distress. HENT: Head: Atraumatic. Ears: Right Ear: Tympanic membrane and external ear normal. Left Ear: Tympanic membrane and external ear normal. Nose: Nose normal. Mouth/Throat: Mucous membranes are moist. Dentition is normal. Oropharynx is clear. Eyes: Conjunctivae and EOM are (more content not included)... Normal [facility] Progress Noteon 09-25-2020 Broadcast Systems Engineer Authentication Interface Message Text Patient ID: Keith Good is a 14 y.o. male. His chief complaint(s) include: ADHD Follow-up (refill meds ) and Asthma Assessment 1. Allergic rhinitis, unspecified seasonality, unspecified trigger 2. Mild persistent asthma, uncomplicated 3. Left acute suppurative otitis media 4. Attention-deficit hyperactivity disorder, predominantly hyperactive type Plan Keith was seen today for adhd follow-up and asthma. Diagnoses and all orders for this visit: Allergic rhinitis, unspecified seasonality, unspecified trigger - cetirizine (ZYRTEC) 10 MG tablet; Take 1 Tablet (10 mg) by mouth daily as needed for Allergies Mild persistent asthma, uncomplicated - albuterol 108 (90 Base) MCG/ACT inhaler; Inhale 2 Puffs into the lungs every 4 hours as needed for Wheezing, Shortness of Breath or Cough Use with spacer. Left acute suppurative otitis media - amoxicillin (AMOXIL) 500 MG capsule; Take 4 Capsules (2,000 mg) by mouth 2 times daily for 10 days Attention-deficit hyperactivity disorder, predominantly hyperactive type Return in 2 months (on 11/25/2020) for asthma re-check . Left AOM will treat with amoxicillin BID for 10 days. Continue with supportive care as well. Improvement in ACT from JANE however sill not well controlled. Will start daily zyrtec in addition to current controller. Plan for follow up in 2 months or sooner. Discussed s/s to monitor and when to RTC or ER. Keith would like to stop his ADHD medication, currently doing well in school. Okay to trial off medication. If any concerns or need to restart can send refills. Keith in agreement with plan. Subjective HPI Comments: Asthma re-check and ADHD follow up. Would like to stop ADHD medication feels he does well without the medication. He is accompanied by his foster father. ADHD Follow-up The information was obtained from the patient. Current ADHD medication(s) include Concerta. Dosage schedule: daily. Compliance with medication: takes medication daily. The other interventions include medications. Side effects have not included decreased appetite, stomachache, headaches, delayed sleep onset, difficulty falling asleep, jitteriness, social withdrawal, motor tics, psychotic reaction, hallucinations, weight loss, emotional lability, sleepiness and irritability. The patient is in 9th grade. His school performance includes: doing well. Achieved goals include improvement in social relationship, decreased disruptive behavior, improved academic performance and increased independence in self-care and homework. He is negative for the following inattentive symptoms: poor attention to detail, short attention span tasks/play, poor listening, lack of follow-through, avoiding mental effort tasks, losing things, easy distractibility, forgetfulness in daily activities and poor organization skills. The patient has shown improvement with being attentive to details, sustaining attention in tasks, listening when spoken to, following through on instructions,finishing schoolwork and organizing tasks. He is negative for the following Hyperactive-Impulsive symptoms: fidgeting, difficulty remaining seated, running about/climbing excessively, difficulty playing quietly, hyperactive behavior, talking excessively, blurting out answers, difficulty awaiting turn and interrupting/intruding on others. The patient has shown improvement in fidgeting, leaving their seat, running about/climbing excessively, playing quietly, being on the go, talking excessively, blurting out answers and difficulty awaiting their turn. The patient is noted to be negative for arguing with adults, losing temper, breaking adult rules/requests, deliberately annoying people, blaming others for mistakes/misbehaviors, touchy/easily annoyed by others, feeling angry/resentful, being spiteful/wanting to get even, bullying/threatening/i ntimidating others, starting physical fights,lying to avoid trouble/obligations, skipping school, physically cruel to people, stealing things that have value, deliberately destroying property, physically cruel to animals, criminal behavior, running away from home overnight, feeling fearful/anxious/worrie d, fear of making mistakes, feeling worthless/inferior, blaming self for problems/feeling guilty, feeling lonely/unwanted/unlove d, feeling sad/unhappy/unloved and self-conscious/easily embarrassed. His stressors include foster care placement. He is negative for the following pertinent medical history: anoxic brain damage, asphyxia, brain injury, encephalitis, alcohol syndrome, alcohol use before puberty, fragile X syndrome, iron deficiency anemia, meningitis, neurocutaneous syndrome, substance abuse, premature , seizure disorder, Structural cardiacdefect, Systemic lupus and thyroid disorder. The patient's family history is negative for the following: alcohol abuse, substance abuse, anxiety/panic attacks, bipolar d (more content not included)... Normal [facility] Vital Signs Date Time Vital Sign Value Performing Clinician Facility 05-11-2025 12:22-0400 Heart rate 91 /min Dr. Maximino Wade DO Work Phone: [facility] 05-11-2025 12:22-0400 Respiratory rate 20 /min Dr. Maximino Wade DO Work Phone: [phone] [place] [address] 05-11-2025 12:22-0400 SaO2% (BldA) [Mass fraction] 96 % Dr. Maximino Wade DO Work Phone: [phone] [place] [address] 05-11-2025 11:16-0400 Body height 175.[address] Maximino Wade DO Work Phone: [phone] [place] [address] 05-11-2025 11:16-0400 Body mass index (BMI) [Ratio] 26.9 kg/m2 Dr. Maximino Wade DO Work Phone: [phone] [place] [address] 05-11-2025 11:16-0400 Body temperature 98 [degF] Dr. Maximino Wade DO Work Phone: [phone] [place] [address] 05-11-2025 11:16-0400 Body weight 82.[address] Maximino Wade DO Work Phone: [phone] [place] [address] 05-11-2025 11:16-0400 Diastolic blood pressure 78 mm[Hg] Dr. Maximino Wade DO Work Phone: [facility] 05-11-2025 11:16-0400 Systolic blood pressure 139 mm[Hg] Dr. Maximino Wade DO Work Phone: [facility] 04-21-2025 14:24-0400 Body mass index (BMI) [Ratio] 27.08 kg/m2 Jesus Mcdonald APRN.MUTUAL FUNDS AGENT Work Phone: [facility] 04-21-2025 14:24-0400 Body temperature 98.6 [degF] Jesus Mcdonadl APRN.CNP Work Phone: [facility] 04-21-2025 14:24-0400 Body weight 80.8 kg Jesus Harry AIRCRAFT HYDRAULIC EQUIPMENT MECHANIC.M[employer]DS AGENT Work Phone: [facility] 04-21-2025 14:24-0400 Diastolic blood pressure 94 mm[Hg] Jesus Mcdonald AIRCRAFT HYDRAULIC EQUIPMENT MECHANIC.MUTUAL FUNDS AGENT Work Phone: [facility] 04-21-2025 14:24-0400 Heart rate 80 /min Jesus Mcdonald AIRCRAFT HYDRAULIC EQUIPMENT MECHANIC.M[employer]UAL FUNDS AGENT Work Phone: [facility] 04-21-2025 14:24-0400 Respiratory rate 18 /min Jesus Mcdonald AIRCRAFT HYDRAULIC EQUIPMENT MECHANIC.MUTUAL FUNDS AGENT Work Phone: [facility] 04-21-2025 14:24-0400 SaO2% (BldA) [Mass fraction] 97 % Jesus Mcdonald AIRCRAFT HYDRAULIC EQUIPMENT MECHANIC.MUTUAL FUNDS AGENT Work Phone: [facility] 04-21-2025 14:24-0400 Systolic blood pressure 147 mm[Hg] Jesus Mcdonald AIRCRAFT HYDRAULIC EQUIPMENT MECHANIC.MUTUAL FUNDS AGENT Work Phone: [facility] 02-24-2025 21:35-0400 Heart rate 92 /min Dr. Maximino Wade DO Work Phone: [facility] 02-24-2025 21:35-0400 Respiratory rate 16 /min Dr. Maximino Wade DO Work Phone: [facility] 02-24-2025 21:16-0400 Body height 175.[address] Maximino Wade DO Work Phone: [facility] 02-24-2025 21:16-0400 Body mass index (BMI) [Ratio] 27 kg/m2 Dr. Maximino Wade DO Work Phone: [facility] 02-24-2025 21:16-0400 Body temperature 98.3 [degF] Dr. Maximino Wade DO Work Phone: [facility] 02-24-2025 21:16-0400 Body weight 83.[address] Maximino Wade DO Work Phone: [facility] 02-24-2025 21:16-0400 Diastolic blood pressure 78 mm[Hg] Dr. Maximino Wade DO Work Phone: [facility] 02-24-2025 21:16-0400 SaO2% (BldA) [Mass fraction] 97 % Dr. Maximino Wade DO Work Phone: [facility] 02-24-2025 21:16-0400 Systolic blood pressure 127 mm[Hg] Dr. Maximino Wade DO Work Phone: [facility] 02-13-2025 12:12-0400 Body mass index (BMI) [Ratio] 27.62 kg/m2 Jesus Mcdonald AIRCRAFT HYDRAULIC EQUIPMENT MECHANIC.M[employer]UAL FUNDS AGENT Work Phone: [facility] 02-13-2025 12:12-0400 Body weight 82.4 kg Jesus Mcdonald AIRCRAFT HYDRAULIC EQUIPMENT MECHANIC.M[employer]UAL FUNDS AGENT Work Phone: [facility] 02-13-2025 12:12-0400 Diastolic blood pressure 88 mm[Hg] Jesus Mcdonald AIRCRAFT HYDRAULIC EQUIPMENT MECHANIC.MUTUAL FUNDS AGENT Work Phone: [facility] 02-13-2025 12:12-0400 Heart rate 88 /min Jesusmaximus Mcdonald AIRCRAFT HYDRAULIC EQUIPMENT MECHANIC.MUTUAL FUNDS AGENT Work Phone: [facility] 02-13-2025 12:12-0400 Respiratory rate 16 /min Jesus Mcdonald AIRCRAFT HYDRAULIC EQUIPMENT MECHANIC.MUTUAL FUNDS AGENT Work Phone: [facility] 02-13-2025 12:12-0400 SaO2% (BldA) [Mass fraction] 97 % Jesus Mcdonald AIRCRAFT HYDRAULIC EQUIPMENT MECHANIC.MUTUAL FUNDS AGENT Work Phone: [facility] 02-13-2025 12:12-0400 Systolic blood pressure 142 mm[Hg] Jesus Mcdonald AIRCRAFT HYDRAULIC EQUIPMENT MECHANIC.MUTUAL FUNDS AGENT Work Phone: [facility] 10-25-2024 13:01-0500 Body temperature 98.01 [degF] No Generic Provider [facility] 10-25-2024 13:01-0500 Diastolic blood pressure 81 mm[Hg] No Generic Provider [facility] 10-25-2024 13:01-0500 Heart rate 78 /min No Generic Provider [facility] 10-25-2024 13:01-0500 Respiratory rate 20 /min No Generic Provider [facility] 10-25-2024 13:01-0500 SaO2% (BldA) [Mass fraction] 95 % No Generic Provider [facility] 10-25-2024 13:01-0500 Systolic blood pressure 130 mm[Hg] No Generic Provider [facility] 10-25-2024 12:-0500 Body height 170.2 cm No Generic Provider [facility] 10-25-2024 12:21-0500 Body mass index (BMI) [Ratio] 27.41 kg/m2 No Generic Provider [facility] 10-25-2024 12:0500 Body weight 79.38 kg No Generic Provider [facility] 03-17-2024 14:28-0400 Body temperature 99.3 [degF] Luis Eduardo Cortes MD Work Phone: [facility] 03-17-2024 14:28-0400 Diastolic blood pressure 82 mm[Hg] Luis Edu[facility] Cort[facility] 03-17-2024 14:28-0400 Heart rate 74 /min Luis Eduardo Cortes MD Work Phone: [facility] 03-17-2024 14:28-0400 Respiratory rate 18 /min Luis Eduardo Cortes MD [facility]: [facility] 03-17-2024 14:28-0400 SaO2% (BldA) [Mass fraction] 96 % Luis Eduardo Cortes MD [facility]: [facility] 03-17-2024 14:28-0400 Systolic blood pressure 126 mm[Hg] Luis Eduardo Cortes MD Work Phone: [facility] 11-26-2023 11:30-0500 Heart rate 96 /min Lonnie Farley MD Work Phone: [facility] 11-26-2023 10:30-0500 Body temperature 97.5 [degF] Lonnie Farley MD Work Phone: [facility] 11-26-2023 10:30-0500 Body weight 76.84 kg Lonnie Farley MD Work Phone: [facility] 11-26-2023 10:30-0500 Diastolic blood pressure 82 mm[Hg] Lonnie Farley MD Work Phone: [facility] 11-26-2023 10:30-0500 Respiratory rate 14 /min Lonnie Farley MD Work Phone: [facility] 11-26-2023 10:30-0500 SaO2% (BldA) [Mass fraction] 98 % Lonnie Farley MD Work Phone: [facility] 11-26-2023 10:30-0500 Systolic blood pressure 134 mm[Hg] Lonnie Farley MD Work Phone: [facility] 10-07-2023 18:24-0500 Body height 170.2 cm [facility] 10-07-2023 18:24-0500 Body mass index (BMI) [Percentile] Per age and sex 91.83 % [facility] 10-07-2023 18:24-0500 Body mass index (BMI) [Ratio] 28.04 kg/m2 [facility] 10-07-2023 18:24-0500 Body temperature 95 [degF] [facility] 10-07-2023 18:24-0500 Body weight 81.19 kg [facility] 10-07-2023 18:24-0500 Diastolic blood pressure 98 mm[Hg] [facility] 10-07-2023 18:24-0500 Heart rate 69 /min [facility] 10-07-2023 18:24-0500 Respiratory rate 16 /min [facility] 10-07-2023 18:24-0500 SaO2% (BldA) [Mass fraction] 96 % [facility] 10-07-2023 18:24-0500 Systolic blood pressure 156 mm[Hg] [facility] 09-23-2023 20:47-0500 Body temperature 97.81 [degF] Chele High MD Work Phone: [facility] 09-23-2023 20:47-0500 Body weight 86.18 kg Chele High MD Work Phone: [facility] 09-23-2023 20:47-0500 Diastolic blood pressure 73 mm[Hg] Chele High MD Work Phone: [facility] 09-23-2023 20:47-0500 Heart rate 84 /min Chele High MD Work Phone: [facility] 09-23-2023 20:47-0500 Respiratory rate 16 /min Chele High MD Work Phone: [facility] 09-23-2023 20:47-0500 SaO2% (BldA) [Mass fraction] 99 % Chele High MD Work Phone: [facility] 09-23-2023 20:47-0500 Systolic blood pressure 128 mm[Hg] Chele High MD Work Phone: [facility] 11-23-2022 15:27-0500 Body height 166.6 cm Xin Cota MD Work Phone: [facility] 11-23-2022 15:27-0500 Body mass index (BMI) [Percentile] Per age and sex 93.19 % Xin Cota MD Work Phone: [facility] 11-23-2022 15:27-0500 Body mass index (BMI) [Ratio] 27.95 kg/m2 Xin Cota MD Work Phone: [facility] 11-23-2022 15:27-0500 Body temperature 98.1 [degF] Xin Cota MD Work Phone: [facility] 11-23-2022 15:27-0500 Body weight 77.56 kg Xin Cota MD Work Phone: [facility] 11-23-2022 15:27-0500 Diastolic blood pressure 71 mm[Hg] Xin Cota MD Work Phone: [facility] 11-23-2022 15:27-0500 Heart rate 78 /min Xin Cota MD Work Phone: [facility] 11-23-2022 15:27-0500 Respiratory rate 18 /min Xin Cota MD Work Phone: [facility] 11-23-2022 15:27-0500 Systolic blood pressure 120 mm[Hg] Xin Cota MD Work Phone: [facility] 02-10-2022 09:33-0400 Body temperature 98.49 [degF] Enid Lemon MD Work Phone: [facility] 02-10-2022 09:33-0400 Body weight 81.1 kg Enid Lemon MD Work Phone: [facility] 02-10-2022 09:33-0400 Diastolic blood pressure 66 mm[Hg] Enid Lemon MD Work Phone: [facility] 02-10-2022 09:33-0400 Heart rate 82 /min Enid Lemon MD Work Phone: [facility] 02-10-2022 09:33-0400 Respiratory rate 20 /min Enid Lemon MD Work Phone: [facility] 02-10-2022 09:33-0400 SaO2% (BldA) [Mass fraction] 97 % Enid Lemon MD Work Phone: [facility] 02-10-2022 09:33-0400 Systolic blood pressure 108 mm[Hg] Enid Lemon MD Work Phone: [facility] Encounters Encounter Date Encounter Type Care Provider Facility Start: 05-11-2025 End: 05-11-2025 Emergency department patient visit Dr. Maximino Wade DO Work Phone: -Emergency Department Work Phone: Start: 04-21-2025 End: 04-21-2025 Patient encounter procedure Jesus Mcdonald APRN.CNP Work Phone: [facility] Comment on above: Mild intermittent as thma with acute exacerbation (HCC) (Primary Dx) Start: 04-21-2025 End: 04-21-2025 [facility] Facility:[facility] Start: 03-28-2025 End: 03-28-2025 ambulatory [facility] Facility:[facility] Start: 02-24-2025 End: 02-24-2025 Emergency department patient visit Dr. Maximino Wade DO Work Phone: -Emergency Department Work Phone: Start: 02-13-2025 End: 02-13-2025 Subsequent hospital visit by physician Xr [facility] [place] Work Phone: Radiology Comment on above: Rhonchi at left lung base [R09.89] Start: 02-13-2025 End: 02-13-2025 [facility] Facility:[facility] Start: 02-13-2025 End: 02-13-2025 Patient encounter procedure [facility] AIRCRAFT HYDRAULIC EQUIPMENT MECHANIC.M[employer]UAL FUNDS AGENT Work Phone: [facility] Comment on above: History of asthma (P rimary Dx); Rhonchi at left lung base Start: 10-25-2024 End: 10-25-2024 Emergency department patient visit MAXIMINO BROWN [facility] Comment on above: Mild intermittent as thma with acute exacerbation (HHS-HCC) (Primary Dx) Start: 10-24-2024 End: 10-29-2024 Refill Xin Cota MD Work Phone: [facility] Comment on above: Refill Start: 03-17-2024 End: 03-17-2024 Emergency department patient visit Luis Eduardo Cortes MD Work Phone: [facility] Comment on above: left hand pain/work related Start: 03-17-2024 Emergency department patient visit UNKNOWN PROVIDER Facility:[facility] Start: 02-07-2024 Telephone encounter To Be Assigned [facility] Physician Referral Service Comment on above: No Answer Start: 12-11-2023 Letter encounter [facility] Start: 11-26-2023 End: 11-26-2023 Emergency department patient visit Lonnie Farley MD Work Phone: [facility] Comment on above: Flu-like Illness (Daniel yanez came in with complaints of having a sorethroat and body aches ) Start: 10-10-2023 Telephone encounter [facility] Work Phone: [facility] Start: 10-07-2023 End: 10-07-2023 Emergency department patient visit [facility] Comment on above: Ureterolithiasis (Pr imary Dx) Start: 09-23-2023 End: 09-23-2023 Emergency department patient visit Chele High MD Work Phone: [facility] Comment on above: Abdominal pain (Righ t mid abdominal pain worse with movement x 3 days, nauseated at times. ) Start: 09-21-2023 Telephone encounter Bushra webber [facility] Work Phone: [facility] Start: 09-19-2023 End: 09-19-2023 Emergency department patient visit Facility:[facility] Start: 07-14-2023 ambulatory [facility] Start: 07-01-2023 End: 07-01-2023 Patient encounter procedure Efrain Abel RN Work Phone: [facility] Comment on above: Attention-deficit hy peractivity disorder, predominantly inattentive type (Primary Dx) Start: 03-23-2023 End: 03-23-2023 Office outpatient visit 10 minutes Pennie Velez MD Work Phone: [facility] Comment on above: Attention-deficit hy peractivity disorder, predominantly inattentive type (Primary Dx); Oppositional defiant disorder Start: 03-22-2023 ambulatory Keturah kendall LPN Work Phone: [facility] Start: 03-22-2023 Chart abstracting Keturah dubois LPN Work Phone: [facility] Start: 02-23-2023 Refill Jennifer Farley MD Work Phone: [facility] Comment on above: Refill Start: 01-19-2023 End: 01-19-2023 Office outpatient visit 10 minutes Pennie Velez MD Work Phone: [facility] Comment on above: Attention-deficit hy peractivity disorder, predominantly inattentive type (Primary Dx); Oppositional defiant disorder Start: 01-19-2023 End: 01-19-2023 Patient encounter procedure Keturahkavon Walker LPN Work Phone: [facility] Comment on above: Attention-deficit hy peractivity disorder, predominantly inattentive type (Primary Dx) Start: 11-23-2022 End: 11-24-2022 Office outpatient visit 10 minutes Xin Cota MD Work Phone: [facility] Comment on above: Mild persistent asth ma without complication (Primary Dx); Body mass index (BMI) pediatric, 85th percentile to less than 95th percentile for age Start: 09-17-2022 Refill Xin cook MD Work Phone: [facility] Comment on above: Refill; Encounter op ened in error Start: 06-08-2022 Refill Chanda lawton MD Work Phone: [facility] Comment on above: Refill Start: 02-25-2022 Telephone encounter Faustina Trejo RN [facility] Line Comment on above: Requesting Medicatio ns Start: 02-10-2022 End: 02-10-2022 Office outpatient visit 15 minutes Enid Lemon MD Work Phone: [facility] Comment on above: Asthma, unspecified asthma severity, unspecified whether complicated, unspecified whether persistent (Primary Dx) Start: 02-09-2022 Telephone encounter Margaret Florez [facility] Line Comment on above: Question about medic ation Procedures Date Procedure Procedure Detail Performing Clinician Start: 02-13-2025 Radiologic exam ches t 2 views Jesus Haryr AIRCRAFT HYDRAULIC EQUIPMENT MECHANIC.[employer]UAL FUNDS AGENT Work Phone: Start: 03-17-2024 Radex hand minimum 3 views Fay MCDONALDC Work Phone: Start: 11-26-2023 Iaadiadoo streptococ cus group a Eduardo MCDONALDC Work Phone: Start: 10-07-2023 Ct abdomen & pelvis w/contrast material Chanda CHUN-C Work Phone: Start: 10-07-2023 Urinalysis complete W Reflex Culture panel - Urine Chandajavier CHUN-C Work Phone: Start: 10-07-2023 Urnls dip stick/tabl et reagent auto microscopy Chanda Almaguer PA-C Work Phone: Start: 10-07-2023 End: 10-07-2023 Basic metabolic panel calcium total Chanda CHUN-C Work Phone: Start: 09-23-2023 Ct abdomen & pelvis w/contrast material Paula CHUN-C Work Phone: Start: 09-23-2023 Assay of lipase Paula Morfin PA-C Work Phone: Start: 09-23-2023 Hepatic function panel Paula Santyaw PA-C Work Phone: Start: 02-10-2022 Noninvasive ear/puls e oximetry single deter Enid Lemon MD Work Phone: Plan of Treatment Date Care Activity Detail Author Start: 2054 Shingles (RZV) Vacci ne (1 of 2) Shingles (RZV) Vaccine (1 of 2) [facility] Start: 2054 Zoster Vaccines (1 of 2) Zoste r Vaccines (1 of 2) [facility] Start: 04-24-2029 DTaP/Tdap/Td Vaccine s (6 - Td or Tdap) DTaP/Tdap/Td Vaccines (6 - Td or Tdap) [facility] Start: 04-24-2029 Tetanus vaccination [facility] Start: 04-24-2029 Tetanus,Diptheria,Pe rtussi s Vaccine (6 - Td or Tdap) Tetanus,Diptheria,Pert ussis Vaccine (6 - Td or Tdap) [facility] Start: 04-24-2029 Urine microalbumin profile DTa P,Tdap,Td Vaccine (6 - Td or Tdap) [facility] Start: 07-10-2025 End: 07-10-2025 Patient encounter procedure 07/10/2025 10:00 AM EDT Office Visit Internal Medicine [facility] [address] [place], [place] [id number] Lucy Xavier, AIRCRAFT HYDRAULIC EQUIPMENT MECHANIC.M[employer]UAL FUNDS AGENT [address] [place], [place] [id number] [facility] [place] Comment on above: Establish Care Start: 07-08-2025 Influenza vaccination Influenz a Vaccine (Season Ended) [facility] Start: 05-11-2025 [facility] Start: 02-24-2025 [facility] Start: 07-20-2024 Tobacco Screening Tobacco Screening [facility] Start: 07-08-2024 COVID-19 Vaccine ( season) COVID-19 Vaccine ( season) [facility] Start: 07-08-2024 Influenza vaccination Influenza Vacc ine (#1) [facility] Start: 2023 Pneumococcal Vaccine : Pediatrics and At-Risk Adult Patients (1 of 2 - PCV) Pneumococcal Vaccine: Pediatrics and At-Risk Adult Patients (1 of 2 - PCV) [facility] Start: 07-08-2023 Influenza vaccination [facility] Start: 06-27-2023 End: 06-27-2023 Patient encounter procedure 06/27/2023 Office Visit Optometry Margot Carver, OD [address] [place] [address] [facility] Start: 2022 Annual PCP Team Diabetes Physician erick Disease Visit Annual PCP Team Chronic Disease Visit [facility] Start: 2022 Anxiety Screening Anxiety Screening [facility] Start: 2022 Depression Screening Depression Scre ening [facility] Start: 2022 Hepatitis C screening M [facility] Start: 2022 HIV screening HIV Screening [facility] Start: 2022 Hypertension screening Hyperte nsion Screening (#1) [facility] Start: 2022 Vision Test (18 yrs,once) Visi on Test (18 yrs,once) [facility] Start: 11-23-2022 End: 11-23-2022 Patient encounter procedure 11/23/2022 Office Visit Adolescent Medicine Xin Cota MD [address] [place] [address] [facility] Start: 11-19-2022 Well child visit, 13 years WEL L SEARCH MARKETING COORDINATOR (3-17 YRS,YEARLY) [facility] Start: 11-07-2022 Depression screening Depressio n Annual Screen [facility] Start: 11-07-2022 Screening for substa nce abuse Alcohol and Drug Screen [facility] Start: 10-15-2022 End: 10-15-2022 Patient encounter procedure 10/15/2022 Office Visit Optometry Vanesa Amador, OD [address] [place] [address] [facility] Start: 08-07-2022 Influenza vaccination Influenza Vacc ine (#1) [facility] Start: 07-08-2022 Influenza vaccination Imm-Influenza (#1) [facility] Start: 06-25-2022 End: 06-25-2022 Patient encounter procedure 06/25/2022 Office Visit Optometry Maria D Wooten, OD [address] [place] [address] [facility] Start: 02-10-2022 End: 02-10-2022 Patient encounter procedure 02/10/2022 Office Visit Pediatric Urgent Care [facility] Start: 06-07-2021 Influenza vaccination Influenza Vacc ine (#1) [facility] Start: 04-24-2021 Asthma Action Plan Asthma Action De n [facility] Start: 2020 Meningococcal B (Bexsero,OMV) Vaccine (Optional,16-23 years) Meningococcal B (Bexsero,OMV) Vaccine (Optional,16-23 years) [facility] Start: 2020 Meningococcal B (Bexsero,OMV) Vaccine (Optional,16-23 years) (#1) Meningococcal B (Bexsero,OMV) Vaccine (Optional,16-23 years) (#1) [facility] Start: 2020 Meningococcal B Vacc ine (1 of 2 - Standard) Meningococcal B Vaccine (1 of 2 - Standard) [facility] Start: 2020 Meningococcal Conjug ate (MCV4,ACWY) Vaccine (2 - 2-dose series) Meningococcal Conjugate (MCV4,ACWY) Vaccine (2 - 2-dose series) [facility] Start: 2020 Meningococcal conjug ate vaccination Imm-Meningococcal (2 - 2-dose series) [facility] Start: 2020 Meningococcal Vaccin e (1 - 2-dose series) Meningococcal Vaccine (1 - 2-dose series) [facility] Start: 04-24-2020 Asthma Control Test Asthma Control T est [facility] Start: 2019 HIV screening HIV Test [facility] Start: 2019 [facility] Start: 2019 Vision Test (15-17 yrs,once) Vision Test (15-17 yrs,once) [facility] Start: 10-24-2019 HPV Vaccine (2 - Mal e 2-dose series) HPV Vaccine (2 - Male 2-dose series) [facility] Start: 10-24-2019 HPV Vaccines (2 - Ma le 2-dose series) HPV Vaccines (2 - Male 2-dose series) [facility] Start: 10-24-2019 Vaccination for christal n papillomavirus [facility] Start: 10-23-2019 Vaccination for christal n papillomavirus Imm-HPV (2 - Male 2-dose series) [facility] Start: 2018 Peds To Adult Transi tion Annual Assessment Peds To Adult Transition Annual Assessment [facility] Start: 2016 Depression screening Depressio n Annual Screen (#1) [facility] Start: 2016 Peds To Adult Transi tion Initial Discussion Peds To Adult Transition Initial Discussion [facility] Start: 2014 Adolescent Depressio n Screening Adolescent Depression Screening [facility] Start: 2014 Alanine aminotransfe rase measurement ALT/AST Screening [facility] Start: 2014 Diabetes Screening Diabetes Screenin g [facility] Start: 2014 Hearing Test (10-18 yrs,once) Hearing Test (10-18 yrs,once) [facility] Start: 2014 Lipid panel [facility] Start: 2010 Pneumococcal vaccination Pneum ococcal Vaccine(s) (1 of 2 - PCV) [facility] Start: 2009 COVID-19 Vaccine (1) COVID-19 Vaccin e (1) [facility] Start: 2008 Hearing Screening (#1) Hearing Scree celina (#1) [facility] Start: 2007 Well Child Visit (WC V) - Annual Well Child Visit (WCV) - Annual [facility] Start: 08-04-2005 Application of denta l fluoride varnish Fluoride Varnish [facility] Start: 06-03-2005 COVID-19 Vaccine (#1) COVID-19 Vacci ne (#[facility] Start: 06-03-2005 [id number] (#1) [id number] (#1) [facility] Start: 2004 Hearing Screening (#1) Hearing Scree celina (#1) [facility] Start: 2004 Fluoride Varnish Application Fluoride Varnish Application [facility] Start: 2004 Hepatitis C screening Hepatitis C Sc reening [facility] Start: 2004 HIV screening HIV Screening [facility] Start: 2004 Lipid panel Lipid Panel [facility] Start: 2004 STI Counseling [facility] Start: 2004 Tobacco Screening Tobacco Screening [facility] Start: 2004 Yearly Adult Physical Yearly Adult P hysical [facility] CT Abdomen and Pelvi s W contrast IV CT abdomen pelvis w IV contrast Imaging STAT 10/07/2023 9:20 PM EST [facility] Work Phone: End: 11-26-2023 Cul prsmptv pthgnc organism scrn w/col[place] estimj [facility] Work Phone: Comment on above: One time for 1 Occur rences starting 11/26/2023 until 11/26/2023 End: 10-25-2024 ECG 12 lead [facility] Work Phone: Comment on above: Once for 1 Occurrenc es starting 10/25/2024 until 10/25/2024 End: 09-23-2023 EXTRA TUBE [facility] Work Phone: Comment on above: One time for 1 Occur rences starting 09/23/2023 until 09/23/2023 End: 10-07-2023 Extra Urine Pearce Tube [facility] Work Phone: Comment on above: Once for 1 Occurrenc es starting 10/07/2023 until 10/07/2023 End: 09-23-2023 PEARCE TOP TUBE, URINE [facility] Comment on above: Once for 1 Occurrenc es starting 09/23/2023 until 09/23/2023 Patient Education [facility] Work Phone: Patient referral [facility] Work Phone: End: 09-23-2023 RED/YELLOW TOP TUBE, URINE [facility] Comment on above: Once for 1 Occurrenc es starting 09/23/2023 until 09/23/2023 End: 10-07-2023 Urinalysis complete W Reflex Culture panel - Urine [facility] Work Phone: Comment on above: Once (Lab) for 1 Occ urrences starting 10/07/2023 until 10/07/2023 End: 09-23-2023 YELLOW TOP TUBE, URINE [facility] Comment on above: Once for 1 Occurrenc es starting 09/23/2023 until 09/23/2023 [facility] Immunizations Immunization Date Immunization Notes Care Provider [place] [facility] 04-24-2019 Human Papillomavirus 9-valent vaccine Margaret Warner RN [facility] 04-24-2019 meningococcal polysaccharide (groups A, C, Y and W-135) diphtheria toxoid conjugate vaccine (MCV4P) Margaret Warner RN [facility] 04-24-2019 tetanus toxoid, redu lux diphtheria toxoid, and acellular pertussis vaccine, adsorbed Margaret Warner RN [facility] 04-24-2019 tuberculin skin test ; purified protein derivative solution, intradermal Xin Cota MD Work Phone: [facility] 04-24-2019 HPV, unspecified formulation [facility] Work Phone: 03-02-2013 hepatitis A vaccine, pediatric/adolescent dosage, 2 dose schedule Margaret Warner RN [facility] 08-04-2011 hepatitis A vaccine, pediatric/adolescent dosage, 2 dose schedule Margaret Warner RN [facility] 07-25-2011 influenza, injectabl e, quadrivalent, contains preservative Margaret Warner RN [facility] 07-25-2011 influenza virus vacc ine, unspecified formulation Margaret Warner RN [facility] 07-14-2010 measles, mumps and rubella virus vaccine Jesus Mcdonald APRN.[employer]UAL [employer] AGENT Work Phone: [facility] 07-14-2010 measles, mumps, rube lla, and varicella virus vaccine Margaret Warner RN [facility] 07-14-2010 poliovirus vaccine, inactivated Margaret Warner RN [facility] 07-14-2010 varicella virus vaccine Ángel Mcdonald APRN.MUTUAL FUNDS AGENT Work Phone: [facility] 01-26-2010 diphtheria, tetanus toxoids and acellular pertussis vaccine, unspecified formulation Margaret Warner RN [facility] 07-01-2008 diphtheria, tetanus toxoids and acellular pertussis vaccine, unspecified formulation Jesus Mcdonald APRN.MUTUAL FUNDS AGENT Work Phone: [facility] 07-01-2008 DTaP-hepatitis B and poliovirus vaccine Margaret Warner RN [facility] 07-01-2008 haemophilus influenz ae type b vaccine, conjugate unspecified formulation Jesus Mcdonald APRN.M[employer]UAL FUNDS AGENT Work Phone: [facility] 07-01-2008 haemophilus influenz ae type b vaccine, PRP-T conjugate Margaret Warner RN [facility] 07-01-2008 hepatitis B vaccine, pediatric or pediatric/adolescent dosage Jesus Harry AIRCRAFT HYDRAULIC EQUIPMENT MECHANIC.MUTUAL FUNDS AGENT Work Phone: [facility] 07-01-2008 pneumococcal conjuga te vaccine, 7 valent Margaret Timmy RN [facility] 07-01-2008 poliovirus vaccine, inactivated Jesus Harry AIRCRAFT HYDRAULIC EQUIPMENT MECHANIC.MUTUAL FUNDS AGENT Work Phone: [facility] 08-08-2007 diphtheria, tetanus toxoids and acellular pertussis vaccine, unspecified formulation Jesus Harry AIRCRAFT HYDRAULIC EQUIPMENT MECHANIC.MUTUAL FUNDS AGENT Work Phone: [facility] Work Phone: 08-08-2007 DTaP-hepatitis B and poliovirus vaccine Margaret Timmy RN [facility] 08-08-2007 haemophilus influenz ae type b vaccine, conjugate unspecified formulation Margaret Warner RN [facility] 08-08-2007 hepatitis B vaccine, pediatric or pediatric/adolescent dosage Jesus Harry [employer]CRAFT HY[employer]IC EQUIPMENT MECHANIC.MUTUAL FUNDS AGENT Work Phone: [facility] 08-08-2007 measles, mumps and rubella virus vaccine Margaret Timmy RN [facility] 08-08-2007 pneumococcal conjuga te vaccine, 7 valent Margaret Timmy RN [facility] 08-08-2007 poliovirus vaccine, inactivated Jesus Harry AIRCRAFT HYDRAULIC EQUIPMENT MECHANIC.MUTUAL FUNDS AGENT Work Phone: [facility] 08-08-2007 varicella virus vaccine Margaret Jenn trevizo RN [facility] 06-30-2005 diphtheria, tetanus toxoids and acellular pertussis vaccine, unspecified formulation Margaret Warner RN [facility] 06-30-2005 haemophilus influenz ae type b vaccine, conjugate unspecified formulation Jesus Harry AIRCRAFT HYDRAULIC EQUIPMENT MECHANIC.MUTUAL FUNDS AGENT Work Phone: [facility] 06-30-2005 haemophilus influenz ae type b vaccine, PRP-T conjugate Margaret Warner RN [facility] 06-30-2005 hepatitis B vaccine, pediatric or pediatric/adolescent dosage Margaret Warner RN [facility] 06-30-2005 pneumococcal conjuga te vaccine, 7 valent Margaret Warner RN [facility] 06-30-2005 poliovirus vaccine, inactivated Margaret Warner RN [facility] 2004 hepatitis B vaccine, pediatric or pediatric/adolescent dosage Margaret Warner RN [facility] Payers Date Payer Category Payer Self-pay 2024 Private Health Insurance [id number] 2023 Medicaid (Managed Care) [facility] MEDICAID [id number] 2022 Medicaid [id number] 2022 Unknown SP/UNINSURED [facility] FINANCIAL PROGRAM EVALUATION [id number] 2022-Present [phone] [address] [place] [address] Other [id number] 2021 Private Health Insurance [id number] 2021 Private Health Insurance [id number] 2019 Medicaid [id number] 2004 Unknown [id number] 2004 Unknown [id number] 2004 Unknown [id number] 2004 Unknown [id number] Unknown [id number] Unknown [id number] Social History Date Type Detail [facility] Start: 2005 Sex Assigned At Not on file [facility] Start: 11-13-2022 End: 10-25-2024 Exposure to SARS-CoV-2 (event) Not sure [facility] Start: 11-17-2021 End: 10-03-2023 History of Social function [facility] Start: 11-17-2021 End: 10-03-2023 Social Connections [facility] Social Connections a nd Isolation 1 [facility] Work Phone: Start: 07-01-2023 End: 09-19-2023 Tobacco smoking status NHIS Never smoked tobacco [facility] Work Phone: Start: 07-01-2023 End: 09-19-2023 Tobacco use and exposure Smokeless tobacco non-user [facility] Work Phone: Start: 07-20-2023 Alcohol intake Lifetime non-drinker (finding) [facility] Work Phone: Start: 10-28-2021 End: 02-24-2025 Sex Male (finding) [facility] Start: 10-02-2023 End: 04-21-2025 Alcoholic beverage intake Ex-drinker (finding) [facility] (I/We) worried nino er (my/our) food would run out before (I/we) got money to buy more. Never true [facility] Start: 02-24-2025 End: 05-11-2025 Tobacco smoking status DEIS Smokes tobacco daily (finding) [facility] Start: 2004 Sex Assigned At Male [facility] Clinical Notes 09-02-2021 to 05-11-2025 Jesus Mcdonald APRN.MUTUAL FUNDS AGENT - 04/21/2025 2:41 PM [place] Wu RT(Pili) - 02/13/2025 12:30 PM Jesus Seals APRN.MUTUAL FUNDS AGENT - 02/13/2025 12:15 PM Damien Galindo RN - 10/25/2024 12:16 PM EST Note Date & Type Note Facility 05-11-2025 Hospital Discharge instructions Additional Instructions Prednisone 40 mg a day for the next week. Use your inhaler 1 to 2 puffs every 2-4 hours as needed. Follow-up with your doctor if not improving or return if feeling worse. [facility] Work Phone: 04-21-2025 Note HNO ID: [id number] Author: JESUS MCDONALD APRN.MUTUAL FUNDS AGENT Service: ? Author Type: Nurse Practitioner Type: Progress Notes Filed: 04/21/2025 15:00 Note Text: [facility] Subjective HPI HPI Keith Good is a 19 year old male who presents today for CC of cough, wheeze, sob. This started 3 days ago. Has tried asthma inhaler for relief. Symptoms are worsened by smoker. Risk factors hx of asthma, seen once a month for last 3 months. Has primary care visit scheduled to establish but not till July. .Patient presents with: Cough: Chest tightness, SOB at night x3 days PAST MEDICAL HISTORY Diagnosis Date ADHD Asthma (HCC) No past surgical history on file. ALLERGIES Bee Pollen and Dust MEDICATIONS albuterol HFA (PROVENTIL HFA, VENTOLIN HFA) 90 mcg/actuation inhaler Inhale 2 puffs as instructed every 4 hours as needed for wheezing/shortness of breath. albuterol HFA (PROVENTIL HFA, VENTOLIN HFA) 90 mcg/actuation inhaler Inhale 2 puffs as instructed every 4 hours as needed for wheezing/shortness of breath. albuterol HFA (PROVENTIL HFA, VENTOLIN HFA) 90 mcg/actuation inhaler Inhale 2 Puffs as instructed every 4 hours as needed for wheezing/shortness of breath. albuterol (PROVENTIL) 2.5 mg /3 mL (0.083 %) nebulizer solution Use 3 mL via nebulizer every 4 hours as needed for wheezing/shortness of breath. predniSONE (DELTASONE) 10 mg tablet Take 4 tabs daily for 3 days, then 2 tabs daily for 3 days, then 1 tab daily for 3 days with food. albuterol HFA (PROVENTIL HFA, VENTOLIN HFA) 90 mcg/actuation inhaler Inhale 2 puffs as instructed every 4 hours as needed for wheezing/shortness of breath. fluticasone (FLOVENT HFA) 44 mcg/actuation inhaler Inhale 1 puff as instructed two times a day. Shake well before use. Rinse mouth after use. fluticasone (FLONASE) 50 mcg/actuation nasal spray USE 1 SPRAY IN EACH NOSTRIL ONCE DAILY. (Patient not taking: Reported on 02/13/2025) Levocetirizine 5 mg tablet TAKE 1 TABLET BY MOUTH DAILY NEEDED (Patient not taking: Reported on 02/13/2025) ketotifen fumarate (ZADITOR) 0.025 % (0.035 %) ophthalmic solution USE 1 DROP IN BOTH EYES TWICE A DAY NEEDED (ALLERGIES). (Patient not taking: Reported on 02/13/2025) amphetamine-dextroamphetamine XR (ADDERALL XR) 20 mg 24 hr capsule Take 20 mg by mouth once daily. (Patient not taking: Reported on 02/13/2025) traZODone (DESYREL) 150 mg tablet Take 150 mg by mouth daily at bedtime. (Patient not taking: Reported on 02/13/2025) No family history on file. Social History Tobacco Use Smoking status: Never Smokeless tobacco: Never Substance Use Topics Alcohol use: Not Currently Drug use: Yes Types: Marijuana Review of Systems Constitutional: Negative for chills, fatigue and fever. HENT: Negative for ear discharge, ear pain, rhinorrhea, sinus pressure, sinus pain and sore throat. Eyes: Negative for discharge and redness. Respiratory: Positive for cough, shortness of breath and wheezing. Cardiovascular: Negative for chest pain. Skin: Negative for rash. Objective BP 147/94 Pulse 80 Temp 37 ?C (98.6 ?F) Resp 18 Wt 80.8 kg (178 lb 2.1 oz) SpO2 97% BMI 27.08 kg/m? Physical Exam Constitutional: General: He is not in acute distress. Appearance: He is not toxic-appearing or diaphoretic. HENT: Head: Normocephalic and atraumatic. Cardiovascular: Rate and Rhythm: Normal rate and regular rhythm. Heart sounds: Normal heart sounds, S1 normal and S2 normal. Pulmonary: Effort: Pulmonary effort is normal. Breath sounds: Wheezing (faint, scattered bilat) present. No decreased breath sounds, rhonchi or rales. Neurological: Mental Status: He is alert and oriented to person, place, and time. {ASSESSMENT/PLAN: 1. Mild intermittent asthma with acute exacerbation (HCC) - ICD9: 493.92, ICD10: J45.21 Prednisone ordered Refill albuterol Start steroid inhaler -If you experience chest pain/shortness of breath go to ER - ALBUTEROL SULFATE 2.5 MG/3 ML (0.083 %) SOLUTION FOR NEBULIZATION - PREDNISONE 10 MG TABLET - ALBUTEROL SULFATE HFA 90 MCG/ACTUATION AEROSOL INHALER - FLUTICASONE PROPIONATE 44 MCG/ACTUATION HFA AEROSOL INHALER Jesus Mcdonald APRN.MUTUAL FUNDS AGENT History and Record Review External record(s) reviewed: prior outpatient record. Disposition The patient was discharged. Procedures [facility] 04-21-2025 History of Present illness Narrative [facility] Subjective HPI HPI Keith Good is a 19 year old male who presents today for CC of cough, wheeze, sob. This started 3 days ago. Has tried asthma inhaler for relief. Symptoms are worsened by smoker. Risk factors hx of asthma, seen once a month for last 3 months. Has primary care visit scheduled to establish but not till July. .Patient presents with: Cough: Chest tightness, SOB at night x3 days PAST MEDICAL HISTORY Diagnosis Date ADHD Asthma (HCC) No past surgical history on file. ALLERGIES Bee Pollen and Dust MEDICATIONS albuterol HFA (PROVENTIL HFA, VENTOLIN HFA) 90 mcg/actuation inhaler Inhale 2 puffs as instructed every 4 hours as needed for wheezing/shortness of breath. albuterol HFA (PROVENTIL HFA, VENTOLIN HFA) 90 mcg/actuation inhaler Inhale 2 puffs as instructed every 4 hours as needed for wheezing/shortness of breath. albuterol HFA (PROVENTIL HFA, VENTOLIN HFA) 90 mcg/actuation inhaler Inhale 2 Puffs as instructed every 4 hours as needed for wheezing/shortness of breath. albuterol (PROVENTIL) 2.5 mg /3 mL (0.083 %) nebulizer solution Use 3 mL via nebulizer every 4 hours as needed for wheezing/shortness of breath. predniSONE (DELTASONE) 10 mg tablet Take 4 tabs daily for 3 days, then 2 tabs daily for 3 days, then 1 tab daily for 3 days with food. albuterol HFA (PROVENTIL HFA, VENTOLIN HFA) 90 mcg/actuation inhaler Inhale 2 puffs as instructed every 4 hours as needed for wheezing/shortness of breath. fluticasone (FLOVENT HFA) 44 mcg/actuation inhaler Inhale 1 puff as instructed two times a day. Shake well before use. Rinse mouth after use. fluticasone (FLONASE) 50 mcg/actuation nasal spray USE 1 SPRAY IN EACH NOSTRIL ONCE DAILY. (Patient not taking: Reported on 02/13/2025) Levocetirizine 5 mg tablet TAKE 1 TABLET BY MOUTH DAILY NEEDED (Patient not taking: Reported on 02/13/2025) ketotifen fumarate (ZADITOR) 0.025 % (0.035 %) ophthalmic solution USE 1 DROP IN BOTH EYES TWICE A DAY NEEDED (ALLERGIES). (Patient not taking: Reported on 02/13/2025) amphetamine-dextroamphetamine XR (ADDERALL XR) 20 mg 24 hr capsule Take 20 mg by mouth once daily. (Patient not taking: Reported on 02/13/2025) traZODone (DESYREL) 150 mg tablet Take 150 mg by mouth daily at bedtime. (Patient not taking: Reported on 02/13/2025) No family history on file. Social History Tobacco Use Smoking status: Never Smokeless tobacco: Never Substance Use Topics Alcohol use: Not Currently Drug use: Yes Types: Marijuana Review of Systems Constitutional: Negative for chills, fatigue and fever. HENT: Negative for ear discharge, ear pain, rhinorrhea, sinus pressure, sinus pain and sore throat. Eyes: Negative for discharge and redness. Respiratory: Positive for cough, shortness of breath and wheezing. Cardiovascular: Negative for chest pain. Skin: Negative for rash. Objective BP 147/94 Pulse 80 Temp 37 C (98.6 F) Resp 18 Wt 80.8 kg (178 lb 2.1 oz) SpO2 97% BMI 27.08 kg/m Physical Exam Constitutional: General: He is not in acute distress. Appearance: He is not toxic-appearing or diaphoretic. HENT: Head: Normocephalic and atraumatic. Cardiovascular: Rate and Rhythm: Normal rate and regular rhythm. Heart sounds: Normal heart sounds, S1 normal and S2 normal. Pulmonary: Effort: Pulmonary effort is normal. Breath sounds: Wheezing (faint, scattered bilat) present. No decreased breath sounds, rhonchi or rales. Neurological: Mental Status: He is alert and oriented to person, place, and time. {ASSESSMENT/PLAN: 1. Mild intermittent asthma with acute exacerbation (HCC) - ICD9: 493.92, ICD10: J45.21 Prednisone ordered Refill albuterol Start steroid inhaler -If you experience chest pain/shortness of breath go to ER - ALBUTEROL SULFATE 2.5 MG/3 ML (0.083 %) SOLUTION FOR NEBULIZATION - PREDNISONE 10 MG TABLET - ALBUTEROL SULFATE HFA 90 MCG/ACTUATION AEROSOL INHALER - FLUTICASONE PROPIONATE 44 MCG/ACTUATION HFA AEROSOL INHALER Jesus Mcdonald APRN.DIANNA History and Record Review External record(s) reviewed: prior outpatient record. Disposition The patient was discharged. Procedures documented in this encounter [facility] 03-28-2025 Note HNO ID: [id number] Author: FLORIDA JORGENSEN RT(Pili) Service: Radiology Author Type: Technologist Type: Progress Notes Filed: 03/28/2025 14:52 Note Text: Radiology Service Progress Note PATIENT NAME: Keith Good DATE OF SERVICE: March 28, 2025 TIME: 2:48 PM PATIENT IDENTITY VERIFICATION COMPLETED USING TWO (2) IDENTIFIERS: Name and Date of confirmed by patient verbally. FALL SCREENING: Has the patient had 2 falls in the last year or 1 fall with injury or currently using an Ambulatory Assistive Device (Walker, Cane, Wheelchair, Crutches, etc.)? No PATIENT GENDER DATA: Assigned male at PATIENT RELEVANT IMPLANT DATA REVIEWED: Not Applicable PATIENT PRESENTS WITH AN IMPLANTABLE OR ATTACHED WOODS LABORER: No RADIOLOGY DEPARTMENT: General X-ray: Exam(s) Completed: Chest X-Ray PERIPHERAL IV DATA: Not applicable SIGNED BY: [place] Jorgensen RT(R) March 28, 2025 2:48 PM [facility] 03-28-2025 Note HNO ID: [id number] Author: JESUS MCDONALD APRN.MUTUAL FUNDS AGENT Service: ? Author Type: Nurse Practitioner Type: Progress Notes Filed: 03/28/2025 16:28 Note Text: [facility] Subjective HPI HPI Keith Good is a 19 year old male who presents today for CC of cough, wheeze, sob. This started 1 day ago. Has tried nothing for relief. Symptoms are worsened by nothing. Risk factors hx of asthma, smoker. .Patient presents with: Cough: Cough, chest congestion and SOB x 1 day PAST MEDICAL HISTORY Diagnosis Date ADHD Asthma (HCC) No past surgical history on file. ALLERGIES Patient has no known allergies. MEDICATIONS albuterol HFA (PROVENTIL HFA, VENTOLIN HFA) 90 mcg/actuation inhaler Inhale 2 puffs as instructed every 4 hours as needed for wheezing/shortness of breath. albuterol HFA (PROVENTIL HFA, VENTOLIN HFA) 90 mcg/actuation inhaler Inhale 2 Puffs as instructed every 4 hours as needed for wheezing/shortness of breath. fluticasone (FLONASE) 50 mcg/actuation nasal spray USE 1 SPRAY IN EACH NOSTRIL ONCE DAILY. (Patient not taking: Reported on 02/13/2025) Levocetirizine 5 mg tablet TAKE 1 TABLET BY MOUTH DAILY NEEDED (Patient not taking: Reported on 02/13/2025) ketotifen fumarate (ZADITOR) 0.025 % (0.035 %) ophthalmic solution USE 1 DROP IN BOTH EYES TWICE A DAY NEEDED (ALLERGIES). (Patient not taking: Reported on 02/13/2025) amphetamine-dextroamphetamine XR (ADDERALL XR) 20 mg 24 hr capsule Take 20 mg by mouth once daily. (Patient not taking: Reported on 02/13/2025) traZODone (DESYREL) 150 mg tablet Take 150 mg by mouth daily at bedtime. (Patient not taking: Reported on 02/13/2025) No family history on file. Social History Tobacco Use Smoking status: Never Smokeless tobacco: Never Substance Use Topics Alcohol use: Not Currently Drug use: Yes Types: Marijuana Review of Systems Constitutional: Negative for chills, fatigue and fever. HENT: Negative for ear discharge, ear pain, rhinorrhea, sinus pressure, sinus pain and sore throat. Eyes: Negative for discharge and redness. Respiratory: Positive for cough, shortness of breath and wheezing. Cardiovascular: Negative for chest pain. Skin: Negative for rash. Objective BP 128/82 Pulse 95 Temp 37.1 ?C (98.8 ?F) (Tympanic) Resp 16 Wt 80.6 kg (177 lb 11.1 oz) SpO2 96% BMI 27.02 kg/m? Physical Exam Constitutional: General: He is not in acute distress. Appearance: He is not toxic-appearing or diaphoretic. HENT: Head: Normocephalic and atraumatic. Mouth/Throat: Lips: [place]. Mouth: Mucous membranes are moist. Pharynx: Oropharynx is clear. Uvula midline. Cardiovascular: Rate and Rhythm: Normal rate and regular rhythm. Heart sounds: Normal heart sounds, S1 normal and S2 normal. Pulmonary: Effort: Pulmonary effort is normal. Breath sounds: Wheezing (scattered bilat) present. No decreased breath sounds, rhonchi or rales. Lymphadenopathy: Cervical: No cervical adenopathy. Right cervical: No superficial cervical adenopathy. Left cervical: No superficial cervical adenopathy. Neurological: Mental Status: He is alert and oriented to person, place, and time. {ASSESSMENT/PLAN: 1. Mild intermittent asthma with acute exacerbation (HCC) - ICD9: 493.92, ICD10: J45.21 (primary diagnosis) Xray negative Cover with prednisone and order new inhaler -If you experience chest pain/shortness of breath go to ER - PREDNISONE 20 MG TABLET 2. Wheeze - ICD9: 786.07, ICD10: R06.2 - XR CHEST 2V FRONTAL/LAT IMPRESSION: No acute radiographic abnormality Dictated by : MD Jesus CADENA APRN.MUTUAL FUNDS AGENT History and Record Review External record(s) reviewed: prior outpatient record. Findings from review of outpatient records: history of asthma Differential Diagnoses - asthma flair is more likely for the following reason(s): consistent with imaging and suggested by HANDP Disposition The patient was discharged. Procedures [facility] 02-13-2025 History of Present illness Narrative Radiology Service Progress Note PATIENT NAME: Keith Good DATE OF SERVICE: February 13, 2025 TIME: 12:25 PM PATIENT IDENTITY VERIFICATION COMPLETED USING TWO (2) IDENTIFIERS: Name and Date of confirmed by patient verbally. FALL SCREENING: Has the patient had 2 falls in the last year or 1 fall with injury or currently using an Ambulatory Assistive Device (Walker, Cane, Wheelchair, Crutches, etc.)? No PATIENT GENDER DATA: Assigned male at PATIENT RELEVANT IMPLANT DATA REVIEWED: Not Applicable PATIENT PRESENTS WITH AN IMPLANTABLE OR ATTACHED WOODS LABORER: No RADIOLOGY DEPARTMENT: General X-ray: Exam(s) Completed: Chest X-Ray PERIPHERAL IV DATA: Not applicable SIGNED BY: RT Donna(Pili) February 13, 2025 12:25 PM documented in this encounter [facility] 02-13-2025 Note HNO ID: [id number] Author: FLOR[place] JORGENSEN RT (R) Service: Radiology Author Type: Technologist Type: Progress Notes Filed: 02/13/2025 12:30 Note Text: Radiology Service Progress Note PATIENT NAME: Keith Good DATE OF SERVICE: February 13, 2025 TIME: 12:25 PM PATIENT IDENTITY VERIFICATION COMPLETED USING TWO (2) IDENTIFIERS: Name and Date of confirmed by patient verbally. FALL SCREENING: Has the patient had 2 falls in the last year or 1 fall with injury or currently using an Ambulatory Assistive Device (Walker, Cane, Wheelchair, Crutches, etc.)? No PATIENT GENDER DATA: Assigned male at PATIENT RELEVANT IMPLANT DATA REVIEWED: Not Applicable PATIENT PRESENTS WITH AN IMPLANTABLE OR ATTACHED WOODS LABORER: No RADIOLOGY DEPARTMENT: General X-ray: Exam(s) Completed: Chest X-Ray PERIPHERAL IV DATA: Not applicable SIGNED BY: RT Donna(Pili) February 13, 2025 12:25 PM [facility] 02-13-2025 Note HNO ID: [id number] Author: JESUS MCDONALD APRN.MUTUAL FUNDS AGENT Service: ? Author Type: Nurse Practitioner Type: Progress Notes Filed: 02/13/2025 14:23 Note Text: [facility] Subjective HPI HPI Keith Good is a 19 year old male who presents today for CC of cough, wheeze. This started 6 weeks. Has tried otc medication and asthma medication. Symptoms are worsened by nothing. Risk factors smoker whilst asthmatic. .Patient presents with: Chest Congestion: cough and wheezing x 6 weeks PAST MEDICAL HISTORY Diagnosis Date ADHD Asthma No past surgical history on file. ALLERGIES Patient has no known allergies. MEDICATIONS albuterol HFA (PROVENTIL HFA, VENTOLIN HFA) 90 mcg/actuation inhaler Inhale 2 Puffs as instructed every 4 hours as needed for wheezing/shortness of breath. fluticasone (FLONASE) 50 mcg/actuation nasal spray USE 1 SPRAY IN EACH NOSTRIL ONCE DAILY. (Patient not taking: Reported on 02/13/2025) Levocetirizine 5 mg tablet TAKE 1 TABLET BY MOUTH DAILY NEEDED (Patient not taking: Reported on 02/13/2025) ketotifen fumarate (ZADITOR) 0.025 % (0.035 %) ophthalmic solution USE 1 DROP IN BOTH EYES TWICE A DAY NEEDED (ALLERGIES). (Patient not taking: Reported on 02/13/2025) amphetamine-dextroamphetamine XR (ADDERALL XR) 20 mg 24 hr capsule Take 20 mg by mouth once daily. (Patient not taking: Reported on 02/13/2025) traZODone (DESYREL) 150 mg tablet Take 150 mg by mouth daily at bedtime. (Patient not taking: Reported on 02/13/2025) No family history on file. Social History Tobacco Use Smoking status: Never Smokeless tobacco: Never Substance Use Topics Alcohol use: Not Currently Drug use: Yes Types: Marijuana Review of Systems Constitutional: Negative for chills, fatigue and fever. HENT: Negative for ear discharge, ear pain, rhinorrhea, sinus pressure, sinus pain and sore throat. Eyes: Negative for discharge and redness. Respiratory: Positive for cough, shortness of breath and wheezing. Cardiovascular: Negative for chest pain. Skin: Negative for rash. Objective BP 142/88 Pulse 88 Resp 16 Wt 82.4 kg (181 lb 10.5 oz) SpO2 97% BMI 27.62 kg/m? Physical Exam Constitutional: General: He is not in acute distress. Appearance: He is not ill-appearing, toxic-appearing or diaphoretic. HENT: Head: Normocephalic and atraumatic. Cardiovascular: Rate and Rhythm: Normal rate and regular rhythm. Heart sounds: Normal heart sounds, S1 normal and S2 normal. Pulmonary: Effort: Pulmonary effort is normal. Breath sounds: Examination of the left-lower field reveals rhonchi. Rhonchi present. No decreased breath sounds, wheezing or rales. Neurological: Mental Status: He is alert and oriented to person, place, and time. {ASSESSMENT/PLAN: 1. History of asthma - ICD9: V12.69, ICD10: Z87.09 (primary diagnosis) -use medication as prescribed -follow up if symptoms persist, worsen, change - ALBUTEROL SULFATE HFA 90 MCG/ACTUATION AEROSOL INHALER - PREDNISONE 20 MG TABLET 2. Rhonchi at left lung base - ICD9: 786.7, ICD10: R09.89 - XR CHEST 2V FRONTAL/LAT IMPRESSION: No acute radiographic abnormality. Dictated by : MD Jesus SMALLWOOD APRN.MUTUAL FUNDS AGENT History and Record Review External record(s) reviewed: prior outpatient record. Disposition The patient was discharged. Procedures [facility] 02-13-2025 History of Present illness Narrative [facility] Subjective HPI HPI Keith Good is a 19 year old male who presents today for CC of cough, wheeze. This started 6 weeks. Has tried otc medication and asthma medication. Symptoms are worsened by nothing. Risk factors smoker whilst asthmatic. .Patient presents with: Chest Congestion: cough and wheezing x 6 weeks PAST MEDICAL HISTORY Diagnosis Date ADHD Asthma No past surgical history on file. ALLERGIES Patient has no known allergies. MEDICATIONS albuterol HFA (PROVENTIL HFA, VENTOLIN HFA) 90 mcg/actuation inhaler Inhale 2 Puffs as instructed every 4 hours as needed for wheezing/shortness of breath. fluticasone (FLONASE) 50 mcg/actuation nasal spray USE 1 SPRAY IN EACH NOSTRIL ONCE DAILY. (Patient not taking: Reported on 02/13/2025) Levocetirizine 5 mg tablet TAKE 1 TABLET BY MOUTH DAILY NEEDED (Patient not taking: Reported on 02/13/2025) ketotifen fumarate (ZADITOR) 0.025 % (0.035 %) ophthalmic solution USE 1 DROP IN BOTH EYES TWICE A DAY NEEDED (ALLERGIES). (Patient not taking: Reported on 02/13/2025) amphetamine-dextroamphetamine XR (ADDERALL XR) 20 mg 24 hr capsule Take 20 mg by mouth once daily. (Patient not taking: Reported on 02/13/2025) traZODone (DESYREL) 150 mg tablet Take 150 mg by mouth daily at bedtime. (Patient not taking: Reported on 02/13/2025) No family history on file. Social History Tobacco Use Smoking status: Never Smokeless tobacco: Never Substance Use Topics Alcohol use: Not Currently Drug use: Yes Types: Marijuana Review of Systems Constitutional: Negative for chills, fatigue and fever. HENT: Negative for ear discharge, ear pain, rhinorrhea, sinus pressure, sinus pain and sore throat. Eyes: Negative for discharge and redness. Respiratory: Positive for cough, shortness of breath and wheezing. Cardiovascular: Negative for chest pain. Skin: Negative for rash. Objective BP 142/88 Pulse 88 Resp 16 Wt 82.4 kg (181 lb 10.5 oz) SpO2 97% BMI 27.62 kg/m Physical Exam Constitutional: General: He is not in acute distress. Appearance: He is not ill-appearing, toxic-appearing or diaphoretic. HENT: Head: Normocephalic and atraumatic. Cardiovascular: Rate and Rhythm: Normal rate and regular rhythm. Heart sounds: Normal heart sounds, S1 normal and S2 normal. Pulmonary: Effort: Pulmonary effort is normal. Breath sounds: Examination of the left-lower field reveals rhonchi. Rhonchi present. No decreased breath sounds, wheezing or rales. Neurological: Mental Status: He is alert and oriented to person, place, and time. {ASSESSMENT/PLAN: 1. History of asthma - ICD9: V12.69, ICD10: Z87.09 (primary diagnosis) -use medication as prescribed -follow up if symptoms persist, worsen, change - ALBUTEROL SULFATE HFA 90 MCG/ACTUATION AEROSOL INHALER - PREDNISONE 20 MG TABLET 2. Rhonchi at left lung base - ICD9: 786.7, ICD10: R09.89 - XR CHEST 2V FRONTAL/LAT IMPRESSION: No acute radiographic abnormality. Dictated by : MD Jesus SMALLWOOD APRN.CNP History and Record Review External record(s) reviewed: prior outpatient record. Disposition The patient was discharged. Procedures documented in this encounter [facility] 10-25-2024 Emergency department Note Emergency Department Encounter [facility] EMERGENCY MEDICINE Patient: Keith Good : 2005 Date of Evaluation: 10/25/2024 ED Provider: EMY Newsome Chief Complaint Chief Complaint Patient presents with Asthma Limitations to History: none Historian: patient Records reviewed: EMR inpatient and outpatient notes, Care Everywhere This is a 18-year-old male with a PMH of asthma who presents to the emergency room with shortness of breath and a cough. Patient states that he lost his insurance and has not had his albuterol inhaler for at least 3 weeks. Patient states that he has shortness of breath, productive cough with white sputum and intermittent chest pain with coughing. Denies any fevers or chills. Patient states that he was initially evaluated at [facility] last night and then came to for further evaluation. Patient did receive 1 prednisone and 1 treatment while at [facility]. He states that he had an x-ray and then left. PMH: Asthma Psh: Denies Allergies: NKDA Social HX: Former smoker, denies any alcohol or drug use. Family HX: No family history pertinent to current presenting problem Medications: Reviewed per EMR ROS: Review of Systems Respiratory: Positive for cough, chest tightness and shortness of breath. 14 systems reviewed and otherwise acutely negative except as in the [place]. Past History No past medical history on file. No past surgical history on file. Medications/Allergies Previous Medications No medications on file No Known Allergies Physical Exam ED Triage Vitals A Temperature Heart Rate Respirations BP 36.4 C (97.5 F) 96 16 (!) 132/93 Pulse Ox Temp src Heart Rate Source Patient Position 96 % -- -- -- BP Location FiO2 (%) -- -- Physical Exam: Appearance: Alert, oriented , cooperative, in no acute distress. Well nourished & well hydrated. Skin: Intact, dry skin, no lesions, rash, petechiae or purpura. ENT: Hearing grossly intact. External auditory canals patent, tympanic membranes intact with visible landmarks. Nares patent, mucus membranes moist. Dentition without lesions. Pharynx clear, uvula midline. Neck: Supple, without meningismus. Pulmonary: Clear bilaterally with good chest wall excursion. No rales, rhonchi or wheezing. No accessory muscle use or stridor. Cardiac: Normal S1, S2 without murmur, rub, gallop or extrasystole. No JVD, Carotids without bruits. Abdomen: Soft, nontender, active bowel sounds. No palpable organomegaly. No rebound or guarding. Musculoskeletal: Full range of motion. no pain, edema, or deformity. Pulses full and equal. No cyanosis, clubbing, or edema. Neurological: Normal sensation, no weakness, no focal findings identified. Psychiatric: Appropriate mood and affect. Diagnostics Labs: No results found for this or any previous visit (from the past 24 hours). Radiographs: No orders to display EKG: Showed normal sinus rhythm with a heart rate of 89. Rightward axis. Completed on 10/25/2024 at 1222. Assessment In brief, Keith Good is a 18 y.o. male who presented to the emergency department with shortness of breath. ED Course/MDM Diagnoses as of 10/25/24 1302 Mild intermittent asthma with acute exacerbation ([facility]) Visit Vitals BP (!) 132/93 Pulse 96 Temp 36.4 C (97.5 F) Resp 16 Ht 1.702 m (5' 7) Wt 79.4 kg (175 lb) SpO2 96% BMI 27.41 kg/m BSA 1.94 m Medications albuterol 90 mcg/actuation inhaler 2 puff (has no administration in time range) Patient remained stable while in the emergency department. Previous outpatient and ED records were reviewed. Outside records were reviewed. Chest x-ray from [facility] showed no acute process earlier today. Patient received 1 dose of steroids and nebs at [facility]. Patient states that he left [facility] due to the prolonged wait time. Lungs were clear and patient did feel better by the time he came to the emergency room here. Patient received albuterol inhaler here and was prescribed an albuterol inhaler and prednisone for symptoms. Patient was discharged home, advised to follow-up with his primary care doctor and return the emergency room with worsening symptoms. Final Impression 1. Mild intermittent asthma with acute exacerbation ([facility]) DISPOSITION Disposition: Discharged home Comment: Please note this report has been produced using speech recognition software and may contain errors related to that system including errors in grammar, punctuation, and spelling, as well as words and phrases that may be inappropriate. If there are any questions or concerns please feel free to contact the dictating provider for clarification. EMY Newsome APRN-CNP 10/25/24 1306 Presents with c/o of asthma flair up. States he was at [facility] last night but LWBS documented in this encounter [facility] Work Phone: 10-25-2024 Emergency department Triage note Presents with c/o of asthma flair up. States he was at [facility] last night but LWBS [facility] Work Phone: 10-25-2024 Physician Emergency department Note Emergency Department Encounter [facility] EM[facility]Y MEDICINE Patient: Keith Good : 2005 Date of Evaluation: 10/25/2024 ED Provider: EMY Newsome Chief Complaint Chief Complaint Patient presents with Asthma Limitations to History: none Historian: patient Records reviewed: EMR inpatient and outpatient notes, Care Everywhere This is a 18-year-old male with a PMH of asthma who presents to the emergency room with shortness of breath and a cough. Patient states that he lost his insurance and has not had his albuterol inhaler for at least 3 weeks. Patient states that he has shortness of breath, productive cough with white sputum and intermittent chest pain with coughing. Denies any fevers or chills. Patient states that he was initially evaluated at [facility] last night and then came to for further evaluation. Patient did receive 1 prednisone and 1 treatment while at [facility]. He states that he had an x-ray and then left. PMH: Asthma Psh: Denies Allergies: NKDA Social HX: Former smoker, denies any alcohol or drug use. Family HX: No family history pertinent to current presenting problem Medications: Reviewed per EMR ROS: Review of Systems Respiratory: Positive for cough, chest tightness and shortness of breath. 14 systems reviewed and otherwise acutely negative except as in the [place]. Past History No past medical history on file. No past surgical history on file. Medications/Allergies Previous Medications No medications on file No Known Allergies Physical Exam ED Triage Vitals A Temperature Heart Rate Respirations BP 36.4 C (97.5 F) 96 16 (!) 132/93 Pulse Ox Temp src Heart Rate Source Patient Position 96 % -- -- -- BP Location FiO2 (%) -- -- Physical Exam: Appearance: Alert, oriented , cooperative, in no acute distress. Well nourished & well hydrated. Skin: Intact, dry skin, no lesions, rash, petechiae or purpura. ENT: Hearing grossly intact. External auditory canals patent, tympanic membranes intact with visible landmarks. Nares patent, mucus membranes moist. Dentition without lesions. Pharynx clear, uvula midline. Neck: Supple, without meningismus. Pulmonary: Clear bilaterally with good chest wall excursion. No rales, rhonchi or wheezing. No accessory muscle use or stridor. Cardiac: Normal S1, S2 without murmur, rub, gallop or extrasystole. No JVD, Carotids without bruits. Abdomen: Soft, nontender, active bowel sounds. No palpable organomegaly. No rebound or guarding. Musculoskeletal: Full range of motion. no pain, edema, or deformity. Pulses full and equal. No cyanosis, clubbing, or edema. Neurological: Normal sensation, no weakness, no focal findings identified. Psychiatric: Appropriate mood and affect. Diagnostics Labs: No results found for this or any previous visit (from the past 24 hours). Radiographs: No orders to display EKG: Showed normal sinus rhythm with a heart rate of 89. Rightward axis. Completed on 10/25/2024 at 1222. Assessment In brief, Keith Good is a 18 y.o. male who presented to the emergency department with shortness of breath. ED Course/MDM Diagnoses as of 10/25/24 1302 Mild intermittent asthma with acute exacerbation ([facility]) Visit Vitals BP (!) 132/93 Pulse 96 Temp 36.4 C (97.5 F) Resp 16 Ht 1.702 m (5' 7) Wt 79.4 kg (175 lb) SpO2 96% BMI 27.41 kg/m BSA 1.94 m Medications albuterol 90 mcg/actuation inhaler 2 puff (has no administration in time range) Patient remained stable while in the emergency department. Previous outpatient and ED records were reviewed. Outside records were reviewed. Chest x-ray from [facility] showed no acute process earlier today. Patient received 1 dose of steroids and nebs at [facility]. Patient states that he left [facility] due to the prolonged wait time. Lungs were clear and patient did feel better by the time he came to the emergency room here. Patient received albuterol inhaler here and was prescribed an albuterol inhaler and prednisone for symptoms. Patient was discharged home, advised to follow-up with his primary care doctor and return the emergency room with worsening symptoms. Final Impression 1. Mild intermittent asthma with acute exacerbation ([facility]) DISPOSITION Disposition: Discharged home Comment: Please note this report has been produced using speech recognition software and may contain errors related to that system including errors in grammar, punctuation, and spelling, as well as words and phrases that may be inappropriate. If there are any questions or concerns please feel free to contact the dictating provider for clarification. EMY Newsome APRN-CNP 10/25/24 1306 [facility] Work Phone: 10-25-2024 Telephone encounter Note Pharmacy is attempting to schedule an appointment for this patient. Per protocol, we will make 1 attempt to contact patient before routing to nurse for follow up. Medication request adjusted to only a 3 month supply to allow time for appointment to be scheduled. Thank you. Last seen 11/2022 [facility] 10-25-2024 Miscellaneous Notes Pharmacy is attempting to schedule an appointment for this patient. Per protocol, we will make 1 attempt to contact patient before routing to nurse for follow up. Medication request adjusted to only a 3 month supply to allow time for appointment to be scheduled. Thank you. Last seen 11/2022 documented in this encounter [facility] 03-17-2024 Hospital Discharge instructions Fay Godinez PA-C - 03/17/2024 5:00 PM EDT Do not share your medication with anyone. Extremity Injury Instructions: Return to the ED if you develop increased pain in your injured limb, loss of sensation, or change in color of the limb. Procedures done during this visit: Splint placement The following attachments cannot be sent through Care Everywhere.Splint Care (Indonesian)Hand Fracture (Indonesian)documented in this encounter [facility] 02-07-2024 Note Outreach Team ) Contact Details: Outbound call. No Answer; unable to leave message. Care Gaps Scheduling PCP Visit: Physical due [facility] 11-26-2023 Hospital Discharge instructions Eduardo Lynn PA-C - 11/26/2023 11:27 AM EST Take all antibiotics until gone. Throat / Airway Precautions: Return to the ER immediately if you have problems swallowing your own spit, problems breathing, you are unable to swallow medications, if you have swelling in your neck or face or you develop a new fever Procedures done during this visit: None The following attachments cannot be sent through Care Everywhere.Sore throat in adults (Ind[place]ian)documented in this encounter [facility] 10-10-2023 Nurse Note Patient Navigator Outreach Patient Navigator Visit 10/10/2023 11:00 AM Source: Patient Outreach Type: Hospital discharge Admission Date 10/07/23 Discharge Date 10/07/23 Outreach Result: Made contact with client/guardian Is client eligible for patient navigation? Yes Is patient receiving integrated care (PC and BH) services? No Active Referrals Future Appointments Appointments for the next 13 months None documented in this encounter [facility] Work Phone: 10-08-2023 Note HNO ID: [id number] Author: Note, Interface Service: ? Author Type: ? Type: Progress Notes Filed: 10/08/2023 5:56 AM Note Text: Epic Scheduled Downtime: 10/08/2023 1:00:00 AM to 10/08/2023 5:38:00 AM [facility] 10-07-2023 Emergency department Note Emergency Department Encounter [facility] EMERGENCY MEDICINE Patient: Keith Good : 2005 Date of Evaluation: 10/07/2023 ED Provider: Chanda Almaguer PA-C Chief Complaint Chief Complaint Patient presents with Abdominal Pain HPI Keith Good is a 17 y.o. male who presents to the emergency department presenting for concern for kidney stones. Patient states he is having right flank pain radiating down towards his right groin, has been ongoing for the past few days and acutely worse since approximately 2 PM this afternoon. Notes that his pain is so severe he is having episodic nonbilious, nonbloody emesis. No ill contacts, no associated fevers, chills or diarrhea. Patient states he thinks he has had kidney stones in the past as he has had pain similarly, however thinks that it passes spontaneously as he has never had this intense of pain previously. Denies any associated hematuria, although notes he is peeing more frequently than usual. Unsure if the pain gets worse when he attempts to urinate. Not taking any medications at home for his complaints. Denies any PMH or PSH. ROS: Review of Systems 14 systems reviewed and otherwise acutely negative except as in the HPI. Past History History reviewed. No pertinent past medical history. History reviewed. No pertinent surgical history. Social History Socioeconomic History Marital status: Single Spouse name: None Number of children: None Years of education: None Highest education level: None Occupational History None Tobacco Use Smoking status: None Smokeless tobacco: None Substance and Sexual Activity Alcohol use: None Drug use: None Sexual activity: None Other Topics Concern None Social History Narrative None Social Determinants of Health Financial Resource Strain: Not on file Food Insecurity: Not on file Transportation Needs: Not on file Physical Activity: Not on file Stress: Not on file Social Connections: Not on file Intimate Partner Violence: Not on file Housing Stability: Not on file Medications/Allergies Previous Medications No medications on file No Known Allergies Physical Exam ED Triage Vitals [10/07/23 1824] Temp Heart Rate Resp BP 35 C (95 F) 69 16 (!) 156/98 SpO2 Temp Source Heart Rate Source Patient Position 96 % Temporal -- -- BP Location FiO2 (%) -- -- Physical Exam Physical Exam: VS: As documented in the triage note and EMR flowsheet from this visit were reviewed. Appearance: Alert, oriented, cooperative. Pacing about exam room, very uncomfortable appearing. Tearful. Well nourished & well hydrated. Skin: Atraumatic. Warm, intact and dry. Neck: Supple, without meningismus. No lymphadenopathy. Pulmonary: Clear bilaterally with good chest wall excursion. No rales, rhonchi or wheezing. No accessory muscle use or stridor. Cardiac: Normal S1, S2 Abdomen: Soft, nontender, active bowel sounds. No point TTP at McBurney's point. No palpable organomegaly. No rebound or guarding. +R CVA tenderness. Genitourinary: Exam deferred. Musculoskeletal: Spontaneously moving all extremities without limitation. No midline tenderness. Extremities warm and well-perfused. Diagnostics Labs: Results for orders placed or performed during the hospital encounter of 10/07/23 CBC and Auto Differential Result Value Ref Range WBC 13.7 (H) 4.4 - 11.3 x10*3/uL nRBC 0.0 0.0 - 0.0 /100 WBCs RBC 5.91 (H) 4.50 - 5.90 x10*6/uL Hemoglobin 14.9 13.5 - 17.5 g/dL Hematocrit 48.7 41.0 - 52.0 % MCV 82 80 - 100 fL MCH 25.2 (L) 26.0 - 34.0 pg MCHC 30.6 (L) 32.0 - 36.0 g/dL RDW 13.3 11.5 - 14.5 % Platelets 327 150 - 450 x10*3/uL Neutrophils % 77.1 40.0 - 80.0 % Immature Granulocytes %, Automated 0.3 0.0 - 0.9 % Lymphocytes % 14.4 13.0 - 44.0 % Monocytes % 6.1 2.0 - 10.0 % Eosinophils % 1.7 0.0 - 6.0 % Basophils % 0.4 0.0 - 2.0 % Neutrophils Absolute 10.57 (H) 1.20 - 7.70 x10*3/uL Immature Granulocytes Absolute, Automated 0.04 0.00 - 0.70 x10*3/uL Lymphocytes Absolute 1.97 1.20 - 4.80 x10*3/uL Monocytes Absolute 0.84 0.10 - 1.00 x10*3/uL Eosinophils Absolute 0.23 0.00 - 0.70 x10*3/uL Basophils Absolute 0.06 0.00 - 0.10 x10*3/uL Basic metabolic panel Result Value Ref Range Glucose 98 74 - 99 mg/dL Sodium 139 136 - 145 mmol/L Potassium 3.6 3.5 - 5.3 mmol/L Chloride 101 98 - 107 mmol/L Bicarbonate 28 21 - 32 mmol/L Anion Gap 14 10 - 20 mmol/L Urea Nitrogen 14 6 - 23 mg/dL Creatinine 1.09 0.50 - 1.30 mg/dL eGFR >90 >60 mL/min/1.73m*2 Calcium 9.9 8.6 - 10.6 mg/dL Urinalysis with Reflex Microscopic and Culture Result Value Ref Range Color, Urine Yellow Straw, Yellow Appearance, Urine Clear Clear Specific [place], Urine 1.013 1.005 - 1.035 pH, Urine 7.0 5.0, 5.5, 6.0, 6.5, 7.0, 7.5, 8.0 Protein, Urine NEGATIVE NEGATIVE mg/dL Glucose, Urine NEGATIVE NEGATIVE mg/dL Blood, Urine SMALL (1+) (A) NEGATIVE Ketones, Urine 5 (TRACE) (A) NEGATIVE mg/dL Bilirubin, Urine NEGATIVE NEGATIVE Urobilinogen, Urine <2.0 <2.0 mg/dL Nitrite, Urine NEGATIVE NEGATIVE Leukocyte Esterase, Urine NEGATIVE NEGATIVE Urinalysis Microscopic Result Value Ref Range WBC, Urine 1-5 1-5, NONE /HPF RBC, Urine >20 (A) NONE, 1-2, 3-5 /HPF Mucus, Urine 2+ Reference range not established. /LPF Radiographs: CT abdomen pelvis w IV contrast ED Course Visit Vitals BP (!) 156/98 Pulse 69 Temp 35 C (95 F) (Temporal) Resp 16 Ht 1.702 m (5' 7) Wt 81.2 kg (179 lb) SpO2 96% BMI 28.04 kg/m BSA 1.96 m Medications sodium chloride 0.9 % bolus 1,000 mL (0 mL intravenous Stopped 10/07/232041) morphine injection 4 mg (4 mg intravenous Given 10/07/231949) ondansetron (Zofran) injection 4 mg (4 mg intravenous Given 10/07/231949) iohexol (OMNIPaque) 350 mg iodine/mL solution 75 mL (75 mL intravenous Given 10/07/232119) Medical Decision Making Initially planning for CT without contrast given c/f kidney stone per patient's report, he does appear uncomfortable. On labs, has slight leukocytosis. Therefore we will get a CT of the abdomen and pelvis with contrast for full assessment. UA with blood, noninfected. CT shows 0.2 cm stone in the right distal ureter, near the UVJ. On my reassessment, the patient appears much more comfortable. Results are discussed with the patient. OARRS report is reviewed and appropriate. Patient will be discharged home with oxycodone x2 days as needed for severe pain, Motrin as needed for mild pain, Flomax once daily. Patient instructed to follow-up with urology in 1 week. Final Impression 1. Ureterolithiasis DISPOSITION Disposition: discharge Patient condition is: Stable Comment: Please note this report has been produced using speech recognition software and may contain errors related to that system including errors in grammar, punctuation, and spelling, as well as words and phrases that may be inappropriate. If there are any questions or concerns please feel free to contact the dictating provider for clarification. RENAE Ordoñez PA-C 12/01/23 2212 RLQ pain x 2 week, increasingly worse today. Patient believes he has kidney stones. Has been nauseous intermittently with 1 episode of emesis. Denies urinary problems. Denies constipation/diarrhea documented in this encounter [facility] Work Phone: 10-07-2023 Emergency department Triage note RLQ pain x 2 week, increasingly worse today. Patient believes he has kidney stones. Has been nauseous intermittently with 1 episode of emesis. Denies urinary problems. Denies constipation/diarrhea [facility] Work Phone: 10-07-2023 Physician Emergency department Note Emergency Department Encounter [facility]IC[facility] Patient: Keith Good : 2005 Date of Evaluation: 10/07/2023 ED Provider: Chanda Almaguer PA-C Chief Complaint Chief Complaint Patient presents with Abdominal Pain HPI Keith Good is a 17 y.o. male who presents to the emergency department presenting for concern for kidney stones. Patient states he is having right flank pain radiating down towards his right groin, has been ongoing for the past few days and acutely worse since approximately 2 PM this afternoon. Notes that his pain is so severe he is having episodic nonbilious, nonbloody emesis. No ill contacts, no associated fevers, chills or diarrhea. Patient states he thinks he has had kidney stones in the past as he has had pain similarly, however thinks that it passes spontaneously as he has never had this intense of pain previously. Denies any associated hematuria, although notes he is peeing more frequently than usual. Unsure if the pain gets worse when he attempts to urinate. Not taking any medications at home for his complaints. Denies any PMH or PSH. ROS: Review of Systems 14 systems reviewed and otherwise acutely negative except as in the HPI. Past History History reviewed. No pertinent past medical history. History reviewed. No pertinent surgical history. Social History Socioeconomic History Marital status: Single Spouse name: None Number of children: None Years of education: None Highest education level: None Occupational History None Tobacco Use Smoking status: None Smokeless tobacco: None Substance and Sexual Activity Alcohol use: None Drug use: None Sexual activity: None Other Topics Concern None Social History Narrative None Social Determinants of Health Financial Resource Strain: Not on file Food Insecurity: Not on file Transportation Needs: Not on file Physical Activity: Not on file Stress: Not on file Social Connections: Not on file Intimate Partner Violence: Not on file Housing Stability: Not on file Medications/Allergies Previous Medications No medications on file No Known Allergies Physical Exam ED Triage Vitals [10/07/23 1824] Temp Heart Rate Resp BP 35 C (95 F) 69 16 (!) 156/98 SpO2 Temp Source Heart Rate Source Patient Position 96 % Temporal -- -- BP Location FiO2 (%) -- -- Physical Exam Physical Exam: VS: As documented in the triage note and EMR flowsheet from this visit were reviewed. Appearance: Alert, oriented, cooperative. Pacing about exam room, very uncomfortable appearing. Tearful. Well nourished & well hydrated. Skin: Atraumatic. Warm, intact and dry. Neck: Supple, without meningismus. No lymphadenopathy. Pulmonary: Clear bilaterally with good chest wall excursion. No rales, rhonchi or wheezing. No accessory muscle use or stridor. Cardiac: Normal S1, S2 Abdomen: Soft, nontender, active bowel sounds. No point TTP at McBurney's point. No palpable organomegaly. No rebound or guarding. +R CVA tenderness. Genitourinary: Exam deferred. Musculoskeletal: Spontaneously moving all extremities without limitation. No midline tenderness. Extremities warm and well-perfused. Diagnostics Labs: Results for orders placed or performed during the hospital encounter of 10/07/23 CBC and Auto Differential Result Value Ref Range WBC 13.7 (H) 4.4 - 11.3 x10*3/uL nRBC 0.0 0.0 - 0.0 /100 WBCs RBC 5.91 (H) 4.50 - 5.90 x10*6/uL Hemoglobin 14.9 13.5 - 17.5 g/dL Hematocrit 48.7 41.0 - 52.0 % MCV 82 80 - 100 fL MCH 25.2 (L) 26.0 - 34.0 pg MCHC 30.6 (L) 32.0 - 36.0 g/dL RDW 13.3 11.5 - 14.5 % Platelets 327 150 - 450 x10*3/uL Neutrophils % 77.1 40.0 - 80.0 % Immature Granulocytes %, Automated 0.3 0.0 - 0.9 % Lymphocytes % 14.4 13.0 - 44.0 % Monocytes % 6.1 2.0 - 10.0 % Eosinophils % 1.7 0.0 - 6.0 % Basophils % 0.4 0.0 - 2.0 % Neutrophils Absolute 10.57 (H) 1.20 - 7.70 x10*3/uL Immature Granulocytes Absolute, Automated 0.04 0.00 - 0.70 x10*3/uL Lymphocytes Absolute 1.97 1.20 - 4.80 x10*3/uL Monocytes Absolute 0.84 0.10 - 1.00 x10*3/uL Eosinophils Absolute 0.23 0.00 - 0.70 x10*3/uL Basophils Absolute 0.06 0.00 - 0.10 x10*3/uL Basic metabolic panel Result Value Ref Range Glucose 98 74 - 99 mg/dL Sodium 139 136 - 145 mmol/L Potassium 3.6 3.5 - 5.3 mmol/L Chloride 101 98 - 107 mmol/L Bicarbonate 28 21 - 32 mmol/L Anion Gap 14 10 - 20 mmol/L Urea Nitrogen 14 6 - 23 mg/dL Creatinine 1.09 0.50 - 1.30 mg/dL eGFR >90 >60 mL/min/1.73m*2 Calcium 9.9 8.6 - 10.6 mg/dL Urinalysis with Reflex Microscopic and Culture Result Value Ref Range Color, Urine Yellow Straw, Yellow Appearance, Urine Clear Clear Specific [place], Urine 1.013 1.005 - 1.035 pH, Urine 7.0 5.0, 5.5, 6.0, 6.5, 7.0, 7.5, 8.0 Protein, Urine NEGATIVE NEGATIVE mg/dL Glucose, Urine NEGATIVE NEGATIVE mg/dL Blood, Urine SMALL (1+) (A) NEGATIVE Ketones, Urine 5 (TRACE) (A) NEGATIVE mg/dL Bilirubin, Urine NEGATIVE NEGATIVE Urobilinogen, Urine <2.0 <2.0 mg/dL Nitrite, Urine NEGATIVE NEGATIVE Leukocyte Esterase, Urine NEGATIVE NEGATIVE Urinalysis Microscopic Result Value Ref Range WBC, Urine 1-5 1-5, NONE /HPF RBC, Urine >20 (A) NONE, 1-2, 3-5 /HPF Mucus, Urine 2+ Reference range not established. /LPF Radiographs: CT abdomen pelvis w IV contrast ED Course Visit Vitals BP (!) 156/98 Pulse 69 Temp 35 C (95 F) (Temporal) Resp 16 Ht 1.702 m (5' 7) Wt 81.2 kg (179 lb) SpO2 96% BMI 28.04 kg/m BSA 1.96 m Medications sodium chloride 0.9 % bolus 1,000 mL (0 mL intravenous Stopped 10/07/232041) morphine injection 4 mg (4 mg intravenous Given 10/07/231949) ondansetron (Zofran) injection 4 mg (4 mg intravenous Given 10/07/231949) iohexol (OMNIPaque) 350 mg iodine/mL solution 75 mL (75 mL intravenous Given 10/07/232119) Medical Decision Making Initially planning for CT without contrast given c/f kidney stone per patient's report, he does appear uncomfortable. On labs, has slight leukocytosis. Therefore we will get a CT of the abdomen and pelvis with contrast for full assessment. UA with blood, noninfected. CT shows 0.2 cm stone in the right distal ureter, near the UVJ. On my reassessment, the patient appears much more comfortable. Results are discussed with the patient. OAR[facility] report is reviewed and appropriate. Patient will be discharged home with oxycodone x2 days as needed for severe pain, Motrin as needed for mild pain, Flomax once daily. Patient instructed to follow-up with urology in 1 week. Final Impression 1. Ureterolithiasis DISPOSITION Disposition: discharge Patient condition is: Stable Comment: Please note this report has been produced using speech recognition software and may contain errors related to that system including errors in grammar, punctuation, and spelling, as well as words and phrases that may be inappropriate. If there are any questions or concerns please feel free to contact the dictating provider for clarification. RENAE Ordoñez PA-C 10/07/232211 [facility] Work Phone: 09-23-2023 Hospital Discharge instructions Chele High MD - 09/23/2023 10:13 PM EST Tylenol (acetaminophen) Warning: Some medications you have been given today contain Tylenol (acetaminophen). Do not take other medications which contain Tylenol (acetaminophen). Many common over the counter cold and pain medications include Tylenol (acetaminophen) as an ingredient. Please be very careful, and if you are unsure ask your doctor or pharmacist. Abdominal Pain Instructions: Return to the ED if the stomach pain worsens, is still there in 12-24 hours, if it moves to the right lower part of the stomach, or if you can't keep down liquids Procedures done during this visit: None The following attachments cannot be sent through Care Everywhere.Kidney Stones Discharge Instructions (Indonesian)documented in this encounter [facility] 09-23-2023 Physician Emergency department Note Images from the original note were not included. EMERGENCY DEPARTMENT - VISIT NOTE HISTORY OF PRESENT ILLNESS Chief Complaint Patient presents with Abdominal pain Right mid abdominal pain worse with movement x 3 days, nauseated at times. HIPAA: Verbal permission granted from patient to discuss case, including protected health information, in front of family / friends in room at the time of the evaluation. Puller Machine: not needed - patient preferred language is Indonesian. HPI States he is on, he was moving [employer] [place] and felt a sudden onset right-sided abdominal pain. States that it went away with rest, but the next day he reported to work he noted a sharp, cramping sensation that is deep to the right transverse abdominis that persistent. Patient states he actually went to the emergency department, but left waiting to be seen because pain resolved. States that it returned again today with associated nausea, no vomiting and has since improved he denies pain with urination/urinary symptoms, no abdominal surgeries, no hernias noted. He did take an aspirin, but no palliative measures attempted today. States the aspirin did not seem to help. Patient states he is had abdominal muscle strain before, but he has not had pain like this has persisted. No history of kidney stones. No fevers or chills. No chest pain or shortness Palliative measures attempted prior to arrival: none Patient's reported pain score: Pain Score: 12/17 --- REVIEW OF SYSTEMS ----- Review of Systems Constitutional: Negative for weight loss HENT: Negative for congestion, facial swelling and bloody nose Eyes: Negative for vision changes Respiratory: Negative for shortness of breath, difficulty breathing Cardiovascular: Negative for palpitations, chest pressure Gastrointestinal: Negative for abdominal distention, vomiting, positive RUQ and RLQ abdominal pain. Genitourinary: Negative for hematuria Musculoskeletal: Negative for gait difficulties Skin: Negative for bruising, abrasions Neurological: Negative for dizziness, weakness and light-headedness. Hematological: Negative for easy bruising/bleeding Psychiatric/Behavioral: Negative for behavioral problems. ------- PAST HISTORY Pertinent Past History: No past medical history on file. Pertinent Family History: No family history on file. Pertinent Social History: ----- PHYSICAL EXAM BP 128/73 Pulse 84 Temp 97.8 F (36.6 C) (Temporal) Resp 16 Wt 190 lb (86.2 kg) SpO2 99% Physical Exam GENERAL: Nontoxic in appearance, resting comfortably, no acute distress HEENT: EOMI, MMM, NC/AT CARDIOVASCULAR:Well perfused, brisk capillary refill, RRR PULMONARY: No respiratory distress, speaking in complete sentences, CTAB ABDOMINAL: Soft, no guarding, non-distended. Tender to the RUQ, right flank and right lower quadrants. No rebound. No pain to Mcburney's point. EXTREMITIES: Able to move all 4 spontaneously, SKIN: No new rashes. Warm, dry, intact. NEUROLOGICAL: No focal deficits, sensation intact distally. GCS 15 A&Ox3 MEDICAL DECISION MAKING and ED COURSE Nursing triage and assessment notes reviewed and incorporated. Course: ED Course as of 09/23/232223Sep 23, 20232130 Vitals Independently interpreted by me: BP acceptable, afebrile, not hypoxic or tachycardic. [] 2155 Complete Blood Count W/Diff(!): WBC 10.0 RBC 5.17 Hemoglobin 13.7 Hematocrit 41.4 MCV 80 MCH 26.4 MCHC 33.0 Platelet 305 RDW-CV% 14.1 MPV 7.0(!) Neutrophils 61.7 Neutrophil # 6.20 Lymphocytes 27.2(!) Lymph Absolute 2.70 Monocytes 6.3 Monocyte Absolute 0.60 Eosinophil 4.3(!) Eosinophil Absolute 0.40 Basophils 0.5 Basophil # 0.10 Nucleated RBC 0.0 NRBC ABS 0.00 CBC Independently interpreted by me: No leukocytosis, anemia or thrombocytopenia [] 2199 Basic Metabolic Panel(!): Glucose 94 Sodium 139 Potassium 4.0 Carbon Dioxide 27 Chloride 107 BUN 14 Creatinine 0.89 Calcium 9.3 Anion Gap 9(!) Estimated GFR 127 BMP Independently interpreted by me: No clinically significant electrolyte abnormalities or evidence of renal insufficiency [] 2199 Lipase: Lipase 33 Independently interpreted by me: No laboratory evidence of acute pancreatitis [] 2199 Hepatic Function Panel(!): Albumin 3.8 Bilirubin, Direct 0.05(!) Bilirubin, Total 0.3 Alkaline Phosphatase 73 ALT (SGPT) 18 AST (SGOT) 21 Protein, Total 6.9 HFT Independently interpreted by me: No elevated T-Bili or D-bili concerning for acute cholecystitis, No transaminitis [] 2199 Magnesium: Magnesium 2.0 Independently interpreted by me: Acceptable [] 2222 IMPRESSION: Mild right obstructive uropathy secondary to a 4 mm calculus in the proximal right ureter just distal to the right ureteropelvic junction. [] ED Course User Index [] Paula Morfin PA-C Patient was administered: Medications sodium chloride 0.9 % iv bolus (0 mL Intravenous IV Stop 09/23/232215) ketorolac (TORADOL) 15 MG/ML injection (15 mg Intravenous Push Given 09/23/232124) ondansetron (ZOFRAN) 4 MG/2ML injection (4 mg Intravenous Push Given 09/23/232124) iohexol (OMNIPAQUE) 350 MG/ML injection (100 mL Intravenous Push Given 09/23/232144) Assessment & Plan: Keith Good is a 17 year old male presenting to the ED with the chief complaint of right flank and abdominal pain. Upon arrival to ED patient afebrile, not hypoxic, in no acute distress. Assessment as above. Patient has evidence of a right 4 mm obstructing renal stone that is the cause of the patient's pain. On evaluation, the patient is requesting a frozen turkey dinner, states his pain has entirely resolved, and he has no additional symptoms at this time. Patient has no known history of renal stones. He will be discharged home with Motrin, Tylenol, Flomax, Zofran. He will be referred to Urology and strict return precautions were discussed. All questions were answered. Patient is stable for discharge home. He will be given note for work to use as needed. Independent Test Interpretation: Lab studies independently interpreted: See ED course CT scan independently reviewed and interpreted: See ED course. Final decision-making pending radiology read. Review of External (Non- ED) Notes: Office visit/ nurse line call: Patient initially checked into an outside hospital, but left after triage because his symptoms resolved. Management Decisions: Shared decision making used: discussed with patient outpatient management with medications versus admission, patient is agreeable to discharge with strict return precautions at this time. Admission considered but not indicated at this time due to the history and workup here. See above Differential diagnoses considered: See Assessment and Plan Patient counseled on signs and symptoms to return to the ED at length at bedside. Patient demonstrates understanding and is agreeable. Medication Management: Medications prescribed New Prescriptions ACETAMINOPHEN (TYLENOL) 325 MG TABLET Take 2 Tablets by mouth every 4 hours as needed for Pain or Fever. IBUPROFEN (MOTRIN) 600 MG TABLET Take 1 Tablet by mouth every 6 hours as needed for Pain. ONDANSETRON (ZOFRAN) 4 MG TABLET Take 1 Tablet by mouth every 12 hours as needed for Nausea. TAMSULOSIN (FLOMAX) 0.4 MG CAPSULE Take 1 Capsule by mouth daily. pharmacist: ok to substitute pharmacologically equivalent drug /medication if insurance issues with formulary Patient seen and evaluated by Attending Physician, Dr. High Nature of Presenting Problem: New problem to patient. IMPRESSION AND DISPOSITION Clinical Impression Diagnosis Comment Kidney stone on right side [N20.0] Hydronephrosis, unspecified hydronephrosis type [N13.30] Disposition: Home The patient has received a medical screening examination and within reasonable clinical confidence an emergency medical condition was identified and has been stabilized. Counseling: Spoke with the patient and discussed today s findings, in addition to providing specific details for the plan of care and expected course. They were given the opportunity to ask questions. Discussed return precautions and importance of follow-up. Advised to follow-up with Urology, PCP. Advised to return to the ED for changing or worsening symptoms, new symptoms, complaint specific precautions, and precautions listed on the discharge paperwork. Educated on the common potential side effects of medications prescribed. Paula Morfin PA-C Associated attestation - Chele High MD - 09/23/2023 10:27 PM EST Emergency Department/Inpatient/Observation Split/Shared Documentation 09/23/2023, 10:27 PM Exam: I personally performed and obtained the entire exam of this patient during this encounter and confirm the documentation of the entire encounter is accurate. I provided a substantive portion of the care of this patient. Chele High MD [facility] Work Phone: 09-23-2023 Emergency department Note Images from the original note were not included. EMERGENCY DEPARTMENT - VISIT NOTE HISTORY OF PRESENT ILLNESS Chief Complaint Patient presents with Abdominal pain Right mid abdominal pain worse with movement x 3 days, nauseated at times. HIPAA: Verbal permission granted from patient to discuss case, including protected health information, in front of family / friends in room at the time of the evaluation. Puller Machine: not needed - patient preferred language is Indonesian. HPI States he is on, he was moving [place] and felt a sudden onset right-sided abdominal pain. States that it went away with rest, but the next day he reported to work he noted a sharp, cramping sensation that is deep to the right transverse abdominis that persistent. Patient states he actually went to the emergency department, but left waiting to be seen because pain resolved. States that it returned again today with associated nausea, no vomiting and has since improved he denies pain with urination/urinary symptoms, no abdominal surgeries, no hernias noted. He did take an aspirin, but no palliative measures attempted today. States the aspirin did not seem to help. Patient states he is had abdominal muscle strain before, but he has not had pain like this has persisted. No history of kidney stones. No fevers or chills. No chest pain or shortness Palliative measures attempted prior to arrival: none Patient's reported pain score: Pain Score: 12/17 --- REVIEW OF SYSTEMS ----- Review of Systems Constitutional: Negative for weight loss HENT: Negative for congestion, facial swelling and bloody nose Eyes: Negative for vision changes Respiratory: Negative for shortness of breath, difficulty breathing Cardiovascular: Negative for palpitations, chest pressure Gastrointestinal: Negative for abdominal distention, vomiting, positive RUQ and RLQ abdominal pain. Genitourinary: Negative for hematuria Musculoskeletal: Negative for gait difficulties Skin: Negative for bruising, abrasions Neurological: Negative for dizziness, weakness and light-headedness. Hematological: Negative for easy bruising/bleeding Psychiatric/Behavioral: Negative for behavioral problems. ------- PAST HISTORY Pertinent Past History: No past medical history on file. Pertinent Family History: No family history on file. Pertinent Social History: ----- PHYSICAL EXAM BP 128/73 Pulse 84 Temp 97.8 F (36.6 C) (Temporal) Resp 16 Wt 190 lb (86.2 kg) SpO2 99% Physical Exam GENERAL: Nontoxic in appearance, resting comfortably, no acute distress HEENT: EOMI, MMM, NC/AT CARDIOVASCULAR:Well perfused, brisk capillary refill, RRR PULMONARY: No respiratory distress, speaking in complete sentences, CTAB ABDOMINAL: Soft, no guarding, non-distended. Tender to the RUQ, right flank and right lower quadrants. No rebound. No pain to Mcburney's point. EXTREMITIES: Able to move all 4 spontaneously, SKIN: No new rashes. Warm, dry, intact. NEUROLOGICAL: No focal deficits, sensation intact distally. GCS 15 A&Ox3 MEDICAL DECISION MAKING and ED COURSE Nursing triage and assessment notes reviewed and incorporated. Course: ED Course as of 09/23/232223Sep 23, 20232130 Vitals Independently interpreted by me: BP acceptable, afebrile, not hypoxic or tachycardic. [] 2155 Complete Blood Count W/Diff(!): WBC 10.0 RBC 5.17 Hemoglobin 13.7 Hematocrit 41.4 MCV 80 MCH 26.4 MCHC 33.0 Platelet 305 RDW-CV% 14.1 MPV 7.0(!) Neutrophils 61.7 Neutrophil # 6.20 Lymphocytes 27.2(!) Lymph Absolute 2.70 Monocytes 6.3 Monocyte Absolute 0.60 Eosinophil 4.3(!) Eosinophil Absolute 0.40 Basophils 0.5 Basophil # 0.10 Nucleated RBC 0.0 NRBC ABS 0.00 CBC Independently interpreted by me: No leukocytosis, anemia or thrombocytopenia [] 2199 Basic Metabolic Panel(!): Glucose 94 Sodium 139 Potassium 4.0 Carbon Dioxide 27 Chloride 107 BUN 14 Creatinine 0.89 Calcium 9.3 Anion Gap 9(!) Estimated GFR 127 BMP Independently interpreted by me: No clinically significant electrolyte abnormalities or evidence of renal insufficiency [] 2199 Lipase: Lipase 33 Independently interpreted by me: No laboratory evidence of acute pancreatitis [] 2199 Hepatic Function Panel(!): Albumin 3.8 Bilirubin, Direct 0.05(!) Bilirubin, Total 0.3 Alkaline Phosphatase 73 ALT (SGPT) 18 AST (SGOT) 21 Protein, Total 6.9 HFT Independently interpreted by me: No elevated T-Bili or D-bili concerning for acute cholecystitis, No transaminitis [] 2199 Magnesium: Magnesium 2.0 Independently interpreted by me: Acceptable [] 2222 IMPRESSION: Mild right obstructive uropathy secondary to a 4 mm calculus in the proximal right ureter just distal to the right ureteropelvic junction. [] ED Course User Index [] Paula Morfin PA-C Patient was administered: Medications sodium chloride 0.9 % iv bolus (0 mL Intravenous IV Stop 09/23/232215) ketorolac (TORADOL) 15 MG/ML injection (15 mg Intravenous Push Given 09/23/232124) ondansetron (ZOFRAN) 4 MG/2ML injection (4 mg Intravenous Push Given 09/23/232124) iohexol (OMNIPAQUE) 350 MG/ML injection (100 mL Intravenous Push Given 09/23/232144) Assessment & Plan: Keith Good is a 17 year old male presenting to the ED with the chief complaint of right flank and abdominal pain. Upon arrival to ED patient afebrile, not hypoxic, in no acute distress. Assessment as above. Patient has evidence of a right 4 mm obstructing renal stone that is the cause of the patient's pain. On evaluation, the patient is requesting a frozen turkey dinner, states his pain has entirely resolved, and he has no additional symptoms at this time. Patient has no known history of renal stones. He will be discharged home with Motrin, Tylenol, Flomax, Zofran. He will be referred to Urology and strict return precautions were discussed. All questions were answered. Patient is stable for discharge home. He will be given note for work to use as needed. Independent Test Interpretation: Lab studies independently interpreted: See ED course CT scan independently reviewed and interpreted: See ED course. Final decision-making pending radiology read. Review of External (Non- ED) Notes: Office visit/ nurse line call: Patient initially checked into an outside hospital, but left after triage because his symptoms resolved. Management Decisions: Shared decision making used: discussed with patient outpatient management with medications versus admission, patient is agreeable to discharge with strict return precautions at this time. Admission considered but not indicated at this time due to the history and workup here. See above Differential diagnoses considered: See Assessment and Plan Patient counseled on signs and symptoms to return to the ED at length at bedside. Patient demonstrates understanding and is agreeable. Medication Management: Medications prescribed New Prescriptions ACETAMINOPHEN (TYLENOL) 325 MG TABLET Take 2 Tablets by mouth every 4 hours as needed for Pain or Fever. IBUPROFEN (MOTRIN) 600 MG TABLET Take 1 Tablet by mouth every 6 hours as needed for Pain. ONDANSETRON (ZOFRAN) 4 MG TABLET Take 1 Tablet by mouth every 12 hours as needed for Nausea. TAMSULOSIN (FLOMAX) 0.4 MG CAPSULE Take 1 Capsule by mouth daily. pharmacist: ok to substitute pharmacologically equivalent drug /medication if insurance issues with formulary Patient seen and evaluated by Attending Physician, Dr. High Nature of Presenting Problem: New problem to patient. IMPRESSION AND DISPOSITION Clinical Impression Diagnosis Comment Kidney stone on right side [N20.0] Hydronephrosis, unspecified hydronephrosis type [N13.30] Disposition: Home The patient has received a medical screening examination and within reasonable clinical confidence an emergency medical condition was identified and has been stabilized. Counseling: Spoke with the patient and discussed today s findings, in addition to providing specific details for the plan of care and expected course. They were given the opportunity to ask questions. Discussed return precautions and importance of follow-up. Advised to follow-up with Urology, PCP. Advised to return to the ED for changing or worsening symptoms, new symptoms, complaint specific precautions, and precautions listed on the discharge paperwork. Educated on the common potential side effects of medications prescribed. Paula Morfin PA-C Associated attestation - Chele High MD - 09/23/2023 10:27 PM EST Emergency Department/Inpatient/Observation Split/Shared Documentation 09/23/2023, 10:27 PM Exam: I personally performed and obtained the entire exam of this patient during this encounter and confirm the documentation of the entire encounter is accurate. I provided a substantive portion of the care of this patient. Chele High MD documented in this encounter [facility] 09-21-2023 Nurse Note Patient Navigator Outreach Patient Navigator Visit 09/21/2023 12:00 PM Source: Patient Outreach Type: Hospital discharge Admission Date 09/20/23 Discharge Date 09/20/23 Outreach Result: Voicemail Is client eligible for patient navigation? Yes Active Referrals Future Appointments Appointments for the next 13 months None documented in this encounter [employer] Phone: 09-21-2023 Nurse Note Patient Navigator Outreach Patient Navigator Visit 09/21/2023 12:00 PM Source: Patient Outreach Type: Hospital discharge Admission Date 09/19/23 Discharge Date 09/19/23 Outreach Result: Voicemail Is client eligible for patient navigation? Yes Active Referrals Future Appointments Appointments for the next 13 months None Electronically signed by Bushra Arevalo [facility] at 09/21/2023 9:15 AM PST documented in this encounter [employer] Phone: 09-21-2023 Nurse Note Patient Navigator Outreach Patient Navigator Visit Active Referrals Future Appointments Appointments for the next 13 months None Electronically signed by Bushra Arevalo [facility] at 09/21/2023 9:21 AM PST documented in this encounter [employer] Phone: 09-21-2023 Nurse Note Patient Navigator Outreach Patient Navigator Visit Active Referrals Future Appointments Appointments for the next 13 months None Electronically signed by Bushra Arevalo [facility] at 09/21/2023 9:21 AM PST documented in this encounter [employer] Phone: 07-01-2023 History of Present illness Narrative Reason for visit: Follow Up and Medication Management Keith presents prior to their psychiatry provider visit to evaluate medication effectiveness, update medical history, and review overall treatment status. Telephone visit. Patient identity confirmed via name and date of . Potential risks and benefits discussed with patient/guardian, who verbalized consent for telehealth encounter. Patient location: home. *Patient unable to do doxy at this time Subjective Interval history and patient concerns: Keith is a 17 year old Male presenting today for a psych transfer visit with prescriber Perico Castaneda APN. Patient currently living in [facility]. Today patient reports Things have been cool. Patient reports no acute issues or safety concerns. Patient states they are taking medications as prescribed. Patient denies medication side effects. Patient reports medications are working well . Patient reports mood as happy. Patient rates depression 0/10. Patient reports No depression symptoms reported. Reports appetite is good. States sleep is good. Patient denies difficulties falling asleep. Patient denies difficulties staying asleep. Patient reports good self-care, and good motivation. Patient rates anxiety 0/10. Patient denies any hallucinations, delusions, paranoid thoughts, thoughts of self-harm, thoughts of harming others, self-injurious behavior. Patient denies any recent hospitalizations. Current Outpatient Medications Medication Instructions dextroamphetamine-amphetamine (ADDERALL XR) 15 mg 24 hr capsule 15 mg, oral, Every morning dextroamphetamine-amphetamine (ADDERALL XR) 15 mg 24 hr capsule 15 mg, oral, Every morning dextroamphetamine-amphetamine (ADDERALL XR) 15 mg 24 hr capsule 15 mg, oral, Every morning Reported medication adherence: full Reported medication side effects: none New medical problems or history: see chart Objective Vitals There were no vitals taken for this visit. Mental Status Exam: Behavior: cooperative Speech: unremarkable Mood: happy Affect: appropriate for circumstance Thought content: unremarkable Perception: unremarkable Assessment Provider diagnosis and treatment plan reviewed. F90.0 Attention-deficit hyperactivity disorder, predominantly inattentive type (primary encounter diagnosis) Risk Assessment: Acute risk for harm to self/others: Low Plan Verified patient medications and allergies; updated patient medical history in medical record. Provided report to Perico Castaneda APN regarding patient concerns and status. Reviewed Safety Plan: Call 911 or go to ED if in crisis. Advised of availability of after hours RN by calling main number for [employer]. Upcoming appointments: Appointments for the next 13 months None documented in this encounter [employer] Work Phone: 03-23-2023 History of Present illness Narrative Subjective Keith is a 17 year old male presenting for psychiatric follow-up. Patient, usp staff not available. Patient stated he did not have ability to do video on doxy, requested phone call. Previous- Keith, Mr. Hutchinson not present, he is on vacation. Previous- Spoke to staff Delicia Hutchinson, spoke to Keith separately, he answered and was not with staff. Previous- Marcos Luna, alf staff alf staff Keith Merlos. Telephone visit. Patient identity confirmed via name and date of . Potential risks and benefits discussed with patient/guardian, who verbalized consent for telehealth encounter. Patient location: home. 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 Staff reports he is applying at [employer] for summer job Previous- had a rough quarter, with new school, and didn't want to go to school Previous- good, still able to focus and has good grades Previous- [employer], 10th grade, has a 504 for ADHD and behavior, was held back in 2nd grade, likes math. Grades are A's, B's and C's. ADHD: (without medication): Patient denies all symptoms other than be loud. He reports I have had ADHD since I was a little kid, but doesn't think he needs medication anymore. Behavior: same, good, no anger outbursts Prevoius- perfect per Mr. Hutchinson, no anger outbursts Previous- good, improving a lot, no outbursts, managing his emotions Previous- it's going good, no complaints per usp [place] Previous- not bad per staff, argues when asked to do something Previous- good, Keith Merlos reports they have not issues with him Previous- Mr. Hutchinson reports he has not been oppositional at the usp, no issue Sleep: same, good Previous- I sleep like a baby, has not taken trazodone in months Previous- has not needed Trazodone for months, [facility] approved as prn Previous- Good, does not need Trazodone Previous- Trazdoone makes him fall asleep too fast, county gave consent to lower dose or take prn Previous- I don't need the medication anymore, latest he falls asleep is 11pm. He feels he can fall asleep without it and wants it stopped. Mr. Merlos agrees he can fall asleep without it. Previous- trouble falling asleep without Trazodone 50mg at 9:30pm or 10pm, falls asleep in 20 min, and gets up at 8am, but sometimes wakes up and is awake for 3 hours, no worries keep him up, will talk with therapist about strategies to use when up at night, feels rested Appetite: good Previous- good, eating breakfast more often now Previous - does not like to eat breakfast, discussed taking after breakfast, has not lost weight and taller Previous- sometimes feels stomachache after take the medication, agrees to eat breakfast Previous- it's good per patient Previous- cool Previous- good Previous- good, likes to eat Mood: pretty good, has not felt sad or angry Previous- cool, same as always, not sad or angry Previous- good, not sad or angry Previous- good, has not felt sad or mad, Mr. Hutchinson agrees Previous- good, has not felt sad, feels angry a little every day, if something irritates him, quickly gets over it, Mr. Hutchinson agrees, no issue with his anger Previous- cool, has not felt sad, Delicia agrees Previous- I'm fine, staff report his mood is fine unless asked to do something Previous- i'm good, has not felt sad. Previous- just chill, happy , does not ever feel sad, feels mad twice a week for a couple hours, is able to calm down Anxiety: same, denies Previous- same, denies, staff does not observe him anxious Previous - denies, Mr. Hutchinson agrees he is not an anxious child, other than seems to give reasons that he doesn't want to go to school, Keith denies bullying or reason not to go, just sometimes I don't feel like going, does not miss much, no truancy charges SI/HI/AVH: same, denies Aggression: same, none Previous- none, just verbal Previous- none at usp, was with peer at last usp Improvement with medication: yes, doing well Previous- yes, doing well, will eat breakfast before Adderall to avoid stomachaches, will call if does not help Previous- yes with focus and sleep, he would like to stop the Trazodone, will email messaging architect Side effects: none Therapist: with [facility], sees regularly q 2 weeks Interim substance use history: same, denies Previous- marijuana, last use a month ago, not able to say frequency. Denies other substances other than tried alcohol in the past. NEW Social/Medical History: Nothing new. He saw mom for Thanksgiving. Previous from eval note: Previous diagnosis of ADHD and ODD, prescribed Adderall XR 15mg qam and Trazodone 50mg qhs for sleep. Medication is effective for focus and sleep and no side effects. Prior to placement at this usp, was placed in another usp, and prior to this was placed in 2 residential centers ([facility]), placed due to I got in trouble. He does not want to elaborate and Mr. Hutchinson reports it was due to family concerns and his personal decisions. Social history: lives with 2 peers at usp. Juvenile court history: just got off probation for gross sexual imposition charge Meds: Current Outpatient Medications Medication Instructions dextroamphetamine-amphetamine (ADDERALL XR) 15 mg 24 hr capsule 15 mg, oral, EVERY MORNING traZODone (DESYREL) 50 mg, oral, NIGHTLY Allergies: House dust and Pollen extracts PCP: No primary care provider on file. Objective There were no vitals taken for this visit. Mental Status Exam Speech is unremarkable. Affect is full range. Reported Mood is neutral/euthymic is not sad, not worried and not angry. Thought Content is unremarkable does not have suicidal ideations and does not have homicidal ideations. Thought Process is unremarkable. Perception is unremarkable. Attention is alert. Demeanor is not cooperative. Insight is appropriate. Judgement is appropriate. Orientation is fully oriented. Memory is grossly intact. Data Reviewed (labs, BASIS-24, AIMS, outside records, etc): chart Eval note, chart Assessment F90.0 Attention-deficit hyperactivity disorder, predominantly inattentive type (primary encounter diagnosis) F91.3 Oppositional defiant disorder F90.0 Attention-deficit hyperactivity disorder, predominantly inattentive type (primary encounter diagnosis) F51.01 Primary insomnia Stable, doing well, does not feel needs any changes today. Medication well tolerated. Informed him that I am leaving and he will be transferred to adult psychiatry. 3 refills sent. Previous- Stable, doing well, will eat breakfast before Adderall to avoid stomachaches, will call if does not help. Previous- Pateint is stable, doing well, he would like to stop Trazodone, doesn't feel he needs it, usp staff agreed but thought would be good to keep as prn in case he does need it. [facility] gave consent to change it and informed the patient that it is only as needed, if no trouble falling asleep then do not take it. Previous- Patient has a history of ADHD and ODD, denies symptoms and feel he doesn't need medication, however due to previously was placed in 2 residential treatment centers and 2 group homes, is currently in a usp, will continue current regimen. He feels the medication does help him and has no side effects. chemical research worker agrees he is doing well with current medications. Safety Risk Assessment: Acute risk for harm to self/others: Low Chronic risk for harm to self/others: Low Plan Risks, benefits, and alternatives were discussed. Patient/guardian understood and agreed with the plan. Reviewed Safety Plan: Call 911 or go to ED if in crisis. Advised of availability of after hours RN by calling main number for [employer]. Continue Adderall XR 15mg qam to target ADHD. Hold (has not needed, no refils sent): Trazodone to 25-50mg qhs prn sleep ([facility] approval to change to prn and can take half of 50mg if need) Medications: Orders Placed This Encounter Medications dextroamphetamine-amphetamine (ADDERALL XR) 15 mg 24 hr capsule Sig: Take 1 Capsule by mouth every morning Dispense: 30 Capsule Refill: 0 dextroamphetamine-amphetamine (ADDERALL XR) 15 mg 24 hr capsule Sig: Take 1 Capsule by mouth every morning Dispense: 30 Capsule Refill: 0 Second set dextroamphetamine-amphetamine (ADDERALL XR) 15 mg 24 hr capsule Sig: Take 1 Capsule by mouth every morning Dispense: 30 Capsule Refill: 0 3rd set Labs: No orders of the defined types were placed in this encounter. Referrals: No orders of the defined types were placed in this encounter. Follow-up: No follow-ups on file. Upcoming Appointments: Appointments for the next 13 months None documented in this encounter [employer] Work Phone: 03-22-2023 History of Present illness Narrative Provider departure letter sent. documented in this encounter [employer] Work Phone: 01-19-2023 History of Present illness Narrative Subjective Keith is a 17 year old male presenting for psychiatric follow-up. Keith, Mr. Hutchinson not present, he is on vacation. Previous- Spoke to staff Delicia Hutchinson, spoke to Keith separately, he answered and was not with staff. Previous- Marcos Luna, alf staff alf staff Keith Merlos. Telephone visit. Patient identity confirmed via name and date of . Potential risks and benefits discussed with patient/guardian, who verbalized consent for telehealth encounter. Patient location: home. Custody: [facility], messaging architect Sue Sanchez [phone] [email or web address] Placed at [facility] (on 10/28/21), Amira Hutchinson is worker Chief Complaint: Follow Up HPI SCHOOL/concentration: same, good, is able to focus Previous- good, not sure what are his grades, feels able to focus Previous - now in 11th, going cool, is able to focus, grades are decent Previous- finished for the year, does not need summer school, is able to focus. Staff reports he is applying at [employer] for summer job Previous- had a rough quarter, with new school, and didn't want to go to school Previous- good, still able to focus and has good grades Previous- [employer], 10th grade, has a 504 for ADHD and behavior, was held back in 2nd grade, likes math. Grades are A's, B's and C's. ADHD: (without medication): Patient denies all symptoms other than be loud. He reports I have had ADHD since I was a little kid, but doesn't think he needs medication anymore. Behavior: same, good, no anger outbursts Prevoius- perfect per Mr. Hutchinson, no anger outbursts Previous- good, improving a lot, no outbursts, managing his emotions Previous- it's going good, no complaints per usp Delicia Previous- not bad per staff, argues when asked to do something Previous- good, Keith Merlos reports they have not issues with him Previous- Mr. Hutchinson reports he has not been oppositional at the usp, no issue Sleep: good Previous- I sleep like a baby, has not taken trazodone in months Previous- has not needed Trazodone for months, [facility] approved as prn Previous- Good, does not need Trazodone Previous- Trazdoone makes him fall asleep too fast, [facility] gave consent to lower dose or take prn Previous- I don't need the medication anymore, latest he falls asleep is 11pm. He feels he can fall asleep without it and wants it stopped. Mr. Merlos agrees he can fall asleep without it. Previous- trouble falling asleep without Trazodone 50mg at 9:30pm or 10pm, falls asleep in 20 min, and gets up at 8am, but sometimes wakes up and is awake for 3 hours, no worries keep him up, will talk with therapist about strategies to use when up at night, feels rested Appetite: good, eating breakfast more often now Previous - does not like to eat breakfast, discussed taking after breakfast, has not lost weight and taller Previous- sometimes feels stomachache after take the medication, agrees to eat breakfast Previous- it's good per patient Previous- cool Previous- good Previous- good, likes to eat Mood: cool, same as always, not sad or angry Previous- good, not sad or angry Previous- good, has not felt sad or mad, Mr. Hutchinson agrees Previous- good, has not felt sad, feels angry a little every day, if something irritates him, quickly gets over it, Mr. Hutchinson agrees, no issue with his anger Previous- cool, has not felt sad, Delicia agrees Previous- I'm fine, staff report his mood is fine unless asked to do something Previous- i'm good, has not felt sad. Previous- just chill, happy , does not ever feel sad, feels mad twice a week for a couple hours, is able to calm down Anxiety: same, denies Previous- same, denies, staff does not observe him anxious Previous - denies, Mr. Hutchinson agrees he is not an anxious child, other than seems to give reasons that he doesn't want to go to school, Keith denies bullying or reason not to go, just sometimes I don't feel like going, does not miss much, no truancy charges SI/HI/AVH: same, denies Aggression: same, none Previous- none, just verbal Previous- none at usp, was with peer at last usp Improvement with medication: yes, doing well, will eat breakfast before Adderall to avoid stomachaches, will call if does not help Previous- yes with focus and sleep, he would like to stop the Trazodone, will email messaging architect Side effects: none Therapist: with [facility], sees regularly q 2 weeks Interim substance use history: same, denies Previous- marijuana, last use a month ago, not able to say frequency. Denies other substances other than tried alcohol in the past. NEW Social/Medical History: Nothing new. He saw mom for Thanksgiving. Previous from [facility] note: Previous diagnosis of ADHD and ODD, prescribed Adderall XR 15mg qam and Trazodone 50mg qhs for sleep. Medication is effective for focus and sleep and no side effects. Prior to placement at this usp, was placed in another usp, and prior to this was placed in 2 residential centers ([facility]), placed due to I got in trouble. He does not want to elaborate and Mr. Hutchinson reports it was due to family concerns and his personal decisions. Social history: lives with 2 peers at usp. Juvenile court history: just got off probation for gross sexual imposition charge Meds: Current Outpatient Medications Medication Instructions dextroamphetamine-amphetamine (ADDERALL XR) 15 mg 24 hr capsule 15 mg, oral, EVERY MORNING traZODone (DESYREL) 50 mg, oral, NIGHTLY Allergies: House dust and Pollen extracts PCP: No primary care provider on file. Objective There were no vitals taken for this visit. Mental Status Exam Speech is unremarkable. Affect is full range. Reported Mood is neutral/euthymic is not sad, not worried and not angry. Thought Content is unremarkable does not have suicidal ideations and does not have homicidal ideations. Thought Process is unremarkable. Perception is unremarkable. Attention is alert. Demeanor is not cooperative. Insight is appropriate. Judgement is appropriate. Orientation is fully oriented. Memory is grossly intact. 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 Previous- Pateint is stable, doing well, he would like to stop Trazodone, doesn't feel he needs it, usp staff agreed but thought would be good to keep as prn in case he does need it. [facility] gave consent to change it and informed the patient that it is only as needed, if no trouble falling asleep then do not take it. Previous- Patient has a history of ADHD and ODD, denies symptoms and feel he doesn't need medication, however due to previously was placed in 2 residential treatment centers and 2 group homes, is currently in a usp, will continue current regimen. He feels the medication does help him and has no side effects. chemical research worker agrees he is doing well with current medications. Safety Risk Assessment: Acute risk for harm to self/others: Low Chronic risk for harm to self/others: Low Plan Risks, benefits, and alternatives were discussed. Patient/guardian understood and agreed with the plan. Reviewed Safety Plan: Call 911 or go to ED if in crisis. Advised of availability of after hours RN by calling main number for [employer]. Continue Adderall XR 15mg qam to target ADHD. Hold (has not needed, no refils sent): Trazodone to 25-50mg qhs prn sleep ([facility] approval to change to prn and can take half of 50mg if need) Medications: Orders Placed This Encounter Medications dextroamphetamine-amphetamine (ADDERALL XR) 15 mg 24 hr capsule Sig: Take 1 Capsule by mouth every morning Dispense: 30 Capsule Refill: 0 dextroamphetamine-amphetamine (ADDERALL XR) 15 mg 24 hr capsule Sig: Take 1 Capsule by mouth every morning Dispense: 30 Capsule Refill: 0 Second set Labs: No orders of the defined types were placed in this encounter. Referrals: No orders of the defined types were placed in this encounter. Follow-up: Return in about 2 months (around 03/21/2023). Upcoming Appointments: Appointments for the next 13 months 03/23/2023 4:00 PM NURSE VISIT SHORT [facility] SA209 NURSE KATH 20 min documented in this encounter [employer] Work Phone: 01-19-2023 History of Present illness Narrative Reason for visit: Follow Up Keith presents prior to their psychiatry provider visit to evaluate medication effectiveness, update medical history, and review overall treatment status. Telephone visit. Patient identity confirmed via name and date of . Potential risks and benefits discussed with patient/guardian, who verbalized consent for telehealth encounter. Patient location: home. Subjective Interval history and patient concerns: Clients staff reports client is doing well. He has been off for 3 days but hasn't heard any updates. Current Outpatient Medications Medication Instructions dextroamphetamine-amphetamine (ADDERALL XR) 15 mg 24 hr capsule 15 mg, oral, EVERY MORNING dextroamphetamine-amphetamine (ADDERALL XR) 15 mg 24 hr capsule 15 mg, oral, EVERY MORNING traZODone (DESYREL) 50 mg tablet Take one half to one tablet at bedtime as needed for sleep. Reported medication adherence: full Reported medication side effects: none New medical problems or history: none Objective Vitals There were no vitals taken for this visit. Assessment Provider diagnosis and treatment plan reviewed. No diagnosis found. Comment: Risk Assessment: Acute risk for harm to self/others: Low Plan Verified patient medications and allergies; updated patient medical history in medical record. Provided report to Dr. Velez regarding patient concerns and status. Upcoming appointments: Appointments for the next 13 months 01/19/2023 3:40 PM MEDICATION MANAGEMENT [facility] Pennie Velez MD 20 min 03/23/2023 4:00 PM NURSE VISIT SHORT [facility] SA209 NURSE KATH 20 min documented in this encounter [facility] Work Phone: 11-23-2022 History of Present illness Narrative ATTENDING NOTE: Cc: here for annual medical exam Lives in [facility] [employer] [facility] with 3 other young men. 11th grade [employer] Denied any medical issues. Chart shows ODD and ADD Pt refused to change into gown, and physical examination. Pt refused all vaccines We reviewed asthma - quiet for now, and I refilled his alb mdi. Will notify [facility] and/or his SW. Xin Cota M.D. Adolescent Medicine Diagnoses and all orders for this visit: Mild persistent asthma without complication Other orders - albuterol (Proventil HFA) INHALATION HFA inhaler (VENTOLIN,PROAIR,PROVENTIL) 90mcg; Inhale 2 Puffs by mouth every 6 hours as needed for Wheezing. documented in this encounter [facility] 06-08-2022 Telephone encounter Note Last visit with Jerson Odonnell MD Pediatrics was 11/19/21 Requested Prescriptions Pending Prescriptions Disp Refills Ventolin HFA HFA inhaler (VENTOLIN,PROAIR,PROVENTIL) 90mcg [Pharmacy Med Name: VENTOLIN HFA 90 MCG INHALER] 18 g 11 Sig: inhale 2 puffs by mouth and INTO THE LUNGS every 4 hours if needed for wheezing No PCP on file No PCP on file [facility] 06-08-2022 Miscellaneous Notes Last visit with Jerson Odonnell MD Pediatrics was 11/19/21 Requested Prescriptions Pending Prescriptions Disp Refills Ventolin HFA HFA inhaler (VENTOLIN,PROAIR,PROVENTIL) 90mcg [Pharmacy Med Name: VENTOLIN HFA 90 MCG INHALER] 18 g 11 Sig: inhale 2 puffs by mouth and INTO THE LUNGS every 4 hours if needed for wheezing No PCP on file No PCP on file documented in this encounter [facility] 02-25-2022 Miscellaneous Notes Situation: Pt's Nursing Home Caregiver called on pt's behalf. Requesting inhaler refill. Background: Inhalers reordered 02/10/2022 w/ refills. Assessment: N/A Recommendation: Nursing Home Caregiver's phone call was transferred to verified pharmacy. documented in this encounter [facility] 02-13-2022 History of Present illness Narrative Attending note: I saw and evaluated the patient. I personally obtained the alonzo and critical portions of the history and physical exam. I reviewed the resident's documentation and discussed the patient with the resident. I agree with the resident's medical decision making as documented in the resident's note. Jennifer Farley MD [id number] 02/10/2022 PCP: No primary care provider on file. No PCP on file Last visit with an LOS in the [employer] list was: 11/19/2021 History provided by patient and animal care worker and seems to be reliable HPI Keith Good is a 16 year old who presents to establish PCP and refill Albuterol prescription. He lost his Albuterol inhaler yesterday and animal care worker called to get refill but told pt needs to come in first and be seen. The patient last took his albuterol inhaler yesterday morning. Denies any current dyspnea, wheezing, chest pain or tachycardia. Patient says he has a daily cough and runny nose related to allergies. On cetrizine and montelukast daily for allergies. On trazodone PRN for sleep. Usually takes Albuterol once per day prior to his basketball exercise but he also needs it even without exercise, especially in the morning. Had been taking Flovent daily for 2 weeks, 2 puffs in morning 2 in night, in beginning of January but felt it didn't help since he was still needing albuterol everyday so he discontinued it on his own. Chief Complaint Patient presents with Asthma Review of Systems Constitutional: Negative for chills, diaphoresis, fever, malaise/fatigue and weight loss. HENT: Positive for congestion. Negative for ear discharge, ear pain, sinus pain and sore throat. Eyes: Negative. Respiratory: Positive for cough, shortness of breath and wheezing. Cardiovascular: Negative for chest pain and palpitations. Gastrointestinal: Negative. Genitourinary: Negative. Musculoskeletal: Negative. Skin: Negative. Neurological: Negative. Endo/Heme/Allergies: Negative. The remainder of the Review of Systems is negative for other complaint. No past medical history on file. No past surgical history on file. Current Outpatient Medications Medication Sig Dispense Refill albuterol (Proventil HFA) INHALATION HFA inhaler (VENTOLIN,PROAIR,PROVENTIL) 90mcg Inhale 2 Puffs by mouth every 4 hours as needed for Wheezing. Please dispense to inhalers 8.5 g 3 fluticasone (FLONASE) 50 mcg/act nasal inhaler Use 1 Flat Top in each nostril daily. 16 g 3 albuterol (PROVENTIL HFA) INHALATION HFA inhaler (VENTOLIN,PROAIR,PROVENTIL) 90mcg Inhale 2 Puffs by mouth every 4 hours as needed for Wheezing. 8.5 g 0 montelukast (Singulair) 10 MG tablet Take 1 Tablet by mouth daily. 30 Tablet 3 Flovent HFA 110 MCG/ACT inhaler trazodone (DESYREL) 50 mg tablet amphet-dextroamphet (ADDERALL XR) 15 MG ER capsule cetirizine (ZyrTEC) 10 MG tablet No current facility-administered medications for this visit. No Known Allergies Objective: BP 108/66 Pulse 82 Temp 98.5 F (36.9 C) (Temporal) Resp 20 Wt 178 lb 12.8 oz (81.1 kg) SpO2 97% Physical Exam Vitals and nursing note reviewed. Exam conducted with a manager commercial real estate present. Constitutional: Appearance: Normal appearance. HENT: Head: Normocephalic and atraumatic. Right Ear: Tympanic membrane, ear canal and external ear normal. Left Ear: Tympanic membrane, ear canal and external ear normal. Nose: Congestion present. Mouth/Throat: Mouth: Mucous membranes are moist. Pharynx: Oropharynx is clear. Eyes: Extraocular Movements: Extraocular movements intact. Conjunctiva/sclera: Conjunctivae normal. Pupils: Pupils are equal, round, and reactive to light. Cardiovascular: Rate and Rhythm: Normal rate and regular rhythm. Pulses: Normal pulses. Heart sounds: Normal heart sounds. Pulmonary: Effort: Pulmonary effort is normal. No respiratory distress. Breath sounds: Normal breath sounds. No wheezing. Abdominal: General: Abdomen is flat. Bowel sounds are normal. Palpations: Abdomen is soft. Genitourinary: Comments: Deferred Musculoskeletal: General: Normal range of motion. Cervical back: Normal range of motion. Skin: General: Skin is warm. Capillary Refill: Capillary refill takes less than 2 seconds. Neurological: General: No focal deficit present. Mental Status: He is alert. Assessment: Keith is a 16 year old male with asthma likely moderate persistent. He is not compliant with his controller inhaler and uses daily albuterol prior to exercise or if needed (more than two times a week added on Albuterol). Currently not in respiratory distress. Concerning for early stages of an asthma exacerbation his problem based plan is below Plan: - Prescribe Albuterol inhaler and Flonase (tried to reach caregiver by phone to inform them the prescription has been signed and sent to pharmacy) - Restart Flovent - Continue montelukast - Written asthma plan given and education done on asthma and controller medications - Set PCP appointment in 1 month for follow up - RTC if symptoms do not improve or worsen Keith was seen today for asthma. Diagnoses and all orders for this visit: Asthma, unspecified asthma severity, unspecified whether complicated, unspecified whether persistent - PULSE OXIMETRY LIMITED Other orders - albuterol (Proventil HFA) INHALATION HFA inhaler (VENTOLIN,PROAIR,PROVENTIL) 90mcg; Inhale 2 Puffs by mouth every 4 hours as needed for Wheezing. Please dispense to inhalers - fluticasone (FLONASE) 50 mcg/act nasal inhaler; Use 1 Flat Top in each nostril daily. Patient precepted with attending physician, Dr. Farley. Enid Lemon MD PGY-1, Department of Pediatrics [place] [address] Pager : [phone] documented in this encounter [facility] 02-10-2022 History of Present illness Narrative 02/10/2022 PCP: No primary care provider on file. No PCP on file Last visit with an LOS in the [employer] list was: 11/19/2021 History provided by patient and animal care worker and seems to be reliable HPI Keith Good is a 16 year old who presents to establish PCP and refill Albuterol prescription. He lost his Albuterol inhaler yesterday and animal care worker called to get refill but told pt needs to come in first and be seen. The patient last took his albuterol inhaler yesterday morning. Denies any current dyspnea, wheezing, chest pain or tachycardia. Patient says he has a daily cough and runny nose related to allergies. On cetrizine and montelukast daily for allergies. On trazodone PRN for sleep. Usually takes Albuterol once per day prior to his basketball exercise but he also needs it even without exercise, especially in the morning. Had been taking Flovent daily for 2 weeks, 2 puffs in morning 2 in night, in beginning of January but felt it didn't help since he was still needing albuterol everyday so he discontinued it on his own. Chief Complaint Patient presents with Asthma Review of Systems Constitutional: Negative for chills, diaphoresis, fever, malaise/fatigue and weight loss. HENT: Positive for congestion. Negative for ear discharge, ear pain, sinus pain and sore throat. Eyes: Negative. Respiratory: Positive for cough, shortness of breath and wheezing. Cardiovascular: Negative for chest pain and palpitations. Gastrointestinal: Negative. Genitourinary: Negative. Musculoskeletal: Negative. Skin: Negative. Neurological: Negative. Endo/Heme/Allergies: Negative. The remainder of the Review of Systems is negative for other complaint. No past medical history on file. No past surgical history on file. Current Outpatient Medications Medication Sig Dispense Refill albuterol (Proventil HFA) INHALATION HFA inhaler (VENTOLIN,PROAIR,PROVENTIL) 90mcg Inhale 2 Puffs by mouth every 4 hours as needed for Wheezing. Please dispense to inhalers 8.5 g 3 fluticasone (FLONASE) 50 mcg/act nasal inhaler Use 1 Flat Top in each nostril daily. 16 g 3 albuterol (PROVENTIL HFA) INHALATION HFA inhaler (VENTOLIN,PROAIR,PROVENTIL) 90mcg Inhale 2 Puffs by mouth every 4 hours as needed for Wheezing. 8.5 g 0 montelukast (Singulair) 10 MG tablet Take 1 Tablet by mouth daily. 30 Tablet 3 Flovent HFA 110 MCG/ACT inhaler trazodone (DESYREL) 50 mg tablet amphet-dextroamphet (ADDERALL XR) 15 MG ER capsule cetirizine (ZyrTEC) 10 MG tablet No current facility-administered medications for this visit. No Known Allergies Objective: BP 108/66 Pulse 82 Temp 98.5 F (36.9 C) (Temporal) Resp 20 Wt 178 lb 12.8 oz (81.1 kg) SpO2 97% Physical Exam Vitals and nursing note reviewed. Exam conducted with a manager commercial real estate present. Constitutional: Appearance: Normal appearance. HENT: Head: Normocephalic and atraumatic. Right Ear: Tympanic membrane, ear canal and external ear normal. Left Ear: Tympanic membrane, ear canal and external ear normal. Nose: Congestion present. Mouth/Throat: Mouth: Mucous membranes are moist. Pharynx: Oropharynx is clear. Eyes: Extraocular Movements: Extraocular movements intact. Conjunctiva/sclera: Conjunctivae normal. Pupils: Pupils are equal, round, and reactive to light. Cardiovascular: Rate and Rhythm: Normal rate and regular rhythm. Pulses: Normal pulses. Heart sounds: Normal heart sounds. Pulmonary: Effort: Pulmonary effort is normal. No respiratory distress. Breath sounds: Normal breath sounds. No wheezing. Abdominal: General: Abdomen is flat. Bowel sounds are normal. Palpations: Abdomen is soft. Genitourinary: Comments: Deferred Musculoskeletal: General: Normal range of motion. Cervical back: Normal range of motion. Skin: General: Skin is warm. Capillary Refill: Capillary refill takes less than 2 seconds. Neurological: General: No focal deficit present. Mental Status: He is alert. Assessment: Keith is a 16 year old male with asthma likely moderate persistent. He is not compliant with his controller inhaler and uses daily albuterol prior to exercise or if needed (more than two times a week added on Albuterol). Currently not in respiratory distress. Concerning for early stages of an asthma exacerbation his problem based plan is below Plan: - Prescribe Albuterol inhaler and Flonase (tried to reach caregiver by phone to inform them the prescription has been signed and sent to pharmacy) - Restart Flovent - Continue montelukast - Written asthma plan given and education done on asthma and controller medications - Set PCP appointment in 1 month for follow up - RTC if symptoms do not improve or worsen Keith was seen today for asthma. Diagnoses and all orders for this visit: Asthma, unspecified asthma severity, unspecified whether complicated, unspecified whether persistent - PULSE OXIMETRY LIMITED Other orders - albuterol (Proventil HFA) INHALATION HFA inhaler (VENTOLIN,PROAIR,PROVENTIL) 90mcg; Inhale 2 Puffs by mouth every 4 hours as needed for Wheezing. Please dispense to inhalers - fluticasone (FLONASE) 50 mcg/act nasal inhaler; Use 1 Flat Top in each nostril daily. Patient precepted with attending physician, Dr. Farley. Enid Lemon MD PGY-1, Department of Pediatrics [place] [address] Pager : [phone] documented in this encounter [facility] 02-10-2022 Miscellaneous Notes 02/10/2022 PCP: No primary care provider on file. No PCP on file Last visit with an LOS in the [employer] COORDINATOR list was: 11/19/2021. History provided by patient and animal care worker and seems to be reliable HPI Keith Good is a 16 year old who presents to establish PCP and refill Albuterol. Lost Albuterol inhaler yesterday and animal care worker called to get refill but told pt needs to come in first and be seen. The patient last took his albuterol inhaler yesterday morning. Denies any current dyspnea, wheezing, chest pain or tachycardia. Patient says he has a daily cough and runny nose related to allergies. On cetrizine and montelukast daily for allergies. On trazodone PRN for sleep. Usually takes Albuterol once per day. Takes it prior to playing to basketball and also needs it even without exercise, especially in the morning. Had been taking Flovent daily for 2 weeks, 2 puffs in morning 2 in night, in beginning of January but felt it didn't help since he was still needing albuterol everyday so he discontinued it on his own. Chief Complaint Patient presents with Asthma ROS positive for rhinorrhea and cough 2/2 allergies The remainder of the Review of Systems is negative for other complaint. No past medical history on file. No past surgical history on file. Current Outpatient Medications Medication Sig Dispense Refill albuterol (PROVENTIL HFA) INHALATION HFA inhaler (VENTOLIN,PROAIR,PROVENTIL) 90mcg Inhale 2 Puffs by mouth every 4 hours as needed for Wheezing. 8.5 g 0 montelukast (Singulair) 10 MG tablet Take 1 Tablet by mouth daily. 30 Tablet 3 Flovent HFA 110 MCG/ACT inhaler trazodone (DESYREL) 50 mg tablet albuterol (PROVENTIL HFA) INHALATION HFA inhaler (VENTOLIN,PROAIR,PROVENTIL) 90mcg amphet-dextroamphet (ADDERALL XR) 15 MG ER capsule cetirizine (ZyrTEC) 10 MG tablet No current facility-administered medications for this visit. No Known Allergies Objective: BP 108/66 Pulse 82 Temp 98.5 F (36.9 C) (Temporal) Resp 20 Wt 178 lb 12.8 oz (81.1 kg) SpO2 97% Physical Exam Constitutional: Appearance: Normal appearance. HENT: Head: Normocephalic and atraumatic. Right Ear: Tympanic membrane normal. Left Ear: Tympanic membrane normal. Nose: Rhinorrhea present. Mouth/Throat: Pharynx: Oropharynx is clear. Cardiovascular: Rate and Rhythm: Normal rate and regular rhythm. Pulses: Normal pulses. Heart sounds: Normal heart sounds. Pulmonary: Effort: Pulmonary effort is normal. Breath sounds: Normal breath sounds. Musculoskeletal: General: Normal range of motion. Neurological: Mental Status: He is alert. Psychiatric: Mood and Affect: Mood normal. Behavior: Behavior normal. Assessment: Keith is a 16 year old male with PMH of asthma, ADHD, and allergies who presents to refill albuterol prescription and establish a primary care doctor. Concerning for poorly controlled moderate persistent asthma. his problem based plan is below Plan: #Moderate Persistent Asthma - Encouraged patient to restart Flovent inhaler, 2 puffs in the morning and 2 puffs at night and continue this long-term - Continue Montelukast daily - Refilled Albuterol prescription - Provided patient and animal care worker with asthma action plan and explained symptoms to look out for and management steps - RTC if symptoms do not improve or worsen #Allergies #Rhinorrhea - Ordered Flonase - Continue Cetrizine daily #No PCP - Patient will establish a PCP at the clinic today Patient seen and discussed with resident physician, Dr. Lemon, and precepted with attending physician, Dr. Farley. Veronique Jones, MS-3 [employer] [facility] [employer] documented in this encounter [facility] 02-09-2022 Miscellaneous Notes Situation: small animal caretaker of teen called back ,reports he was told by the last Nurse he spoke to to go to [facility] for prescription. 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 Assessment: Caller asking what can be done. Recommendation: Discussed that he has a Rx for an Albuterol Inhaler that was ordered on 12/26/2021 and it went to [facility], number given to caller. Caller states will call and check on Rx. No further questions. documented in this encounter [facility] 09-02-2021 Note Subjective: Keith Good is a 15 y.o. male here for consultation at the request of EMY Heard. HPI Keith was seen today for an initial evaluation of Asthma (New patient.). He has trouble with his breathing when he first wakes up, when he's active/running, and when the weather changes. He has a night time cough about once a week. He has wheezing but not as much coughing. He has seasonal allergies and takes Zyrtec which helps. It has been a long time since he's been admitted for asthma. No prednisone given in the last few years. No known history of eczema. Past Medical/Family/Social History: Past Medical History: Diagnosis Date ADHD (attention deficit hyperactivity disorder) Asthma, moderate persistent Fractures 03/2020 right ankle Past Surgical History: Procedure Laterality Date WISDOM TOOTH EXTRACTION History Gestation Age: 40 wks Family History Problem Relation Age of Onset No known problems Mother No known problems Father Asthma Sister Asthma Maternal Grandmother Asthma Maternal Grandfather Asthma Paternal Grandmother Cystic Fibrosis Neg Hx Social History Socioeconomic History Marital status: Single Spouse name: None Number of children: None Years of education: None Highest education level: None Occupational History None Tobacco Use Smoking status: Former Smoker Types: Cigarettes Smokeless tobacco: Never Used Substance and Sexual Activity Alcohol use: None Drug use: None Sexual activity: None Other Topics Concern None Social History Narrative None Social Determinants of Health Housing Stability: Unable to Pay for Housing in the Last Year: Not on file Number of Places Lived in the Last Year: Not on file Unstable Housing in the Last Year: Not on file Outpatient Medications Prior to Visit Medication Sig Dispense Refill cetirizine (ZYRTEC) 10 MG tablet take 1 tablet by mouth daily if needed for allergies 30 Tablet 11 traZODone (DESYREL) 50 MG tablet take 1-1/2 tablets at bedtime amphetamine-dextroamphetamine (ADDERALL XR) 15 MG capsule Take 15 mg by mouth every morning albuterol 108 (90 Base) MCG/ACT inhaler Inhale 2 Puffs into the lungs every 4 hours as needed for Wheezing, Shortness of Breath or Cough Use with spacer. 1 Each 1 Spacer/Aero-Holding Chambers (OPTICHAMBER SIMRAN-MD MASK) MISC Device 1 Each by Other route Use as directed with metered-dose inhaler. (Patient not taking: Reported on 09/02/2021) 1 Each 0 fluticasone (FLOVENT HFA) 110 MCG/ACT 110 mcg inhaler Inhale 2 Puffs into the lungs 2 times daily (Patient not taking: Reported on 09/02/2021) 1 Each 11 MDI Spacer Use with inhaled medication as instructed. (Patient not taking: Reported on 08/13/2021) 1 Each 4 No facility-administered medications prior to visit. Allergies Allergen Reactions Seasonal Allergies Other (See Comments) Congestion, asthma flare up Review of Systems Constitutional: Negative. Skin: Negative. Respiratory: Positive for cough, shortness of breath and wheezing. HENT: Negative. Cardiovascular: Negative. Musculoskeletal: Negative. Gastrointestinal: Negative. Neurological: Negative. Aller/Immuno: Negative. All other systems reviewed and are negative. Objective: BP 120/53 (BP Site: Right Arm, Patient Position: Sitting, BP Cuff Size: Lg Adult) Pulse 97 Temp 36.7 C (98.1 F) (Temporal) Resp 20 Ht 164.3 cm Wt (!) 92 kg BMI 34.08 kg/m Physical Exam Constitutional: Appearance: Appears well. HENT: Head: Atraumatic. Right Ear: External ear normal. Left Ear: External ear normal. Nose: No nasal discharge. Mouth/Throat: Mouth: Mucous membranes are moist. Pharynx: Oropharynx is clear. Eyes: Extraocular Movements: EOM normal. Conjunctiva/sclera: Conjunctivae normal. Cardiovascular: Rate and Rhythm: Normal rate and regular rhythm. Heart sounds: No murmur. Pulmonary: Breath sounds: Normal breath sounds and air entry. no wheezes. no rales. Chest: Chest wall: There are no retractions. Abdominal: General: Bowel sounds are normal. There is no distension. Palpations: Abdomen is soft. Tenderness: There is no abdominal tenderness. Musculoskeletal: General: No deformity or edema. Exhibits no digital clubbing. Cervical back: Normal range of motion and neck supple. Skin: General: Skin is warm and dry. Nails: There is no cyanosis. Neurological: Mental Status: He is alert. Motor: No abnormal muscle tone. Lab Data: Chest X-Ray: No results found. Moderate obstruction. Significant improvement after albuterol. Assessment: 1. Mild persistent asthma, uncomplicated 2. Allergic rhinitis, unspecified seasonality, unspecified trigger Keith has symptoms suggestive of asthma and good response to albuterol. He has baseline obstruction on PFTs with near resolution of that obstruction after albuterol. This confirms the diagnosis of asthma. His symptoms have not bee (more content not included)... [facility] Evaluation note Diagnosis Asthma, unspecified asthma severity, unspecified whether complicated, unspecified whether persistent- [facility] Asthma, unspecified asthma severity, unspecified whether complicated, unspecified whether persistent- Primary [facility] Diagnosis Mild persistent asthma without complication- Primary Unspecified asthma Body mass index (BMI) pediatric, 85th percentile to less than 95th percentile for age [facility]* Diagnosis Attention-deficit hyperactivity disorder, predominantly inattentive type- Primary Attention deficit disorder without mention of hyperactivity Attention-deficit hyperactivity disorder, predominantly inattentive type- Primary Attention deficit disorder without mention of hyperactivity Oppositional defiant disorder Oppositional defiant disorder of childhood or adolescence documented in this encounter [facility] Work Phone: Evaluation note* Diagnosis Attention-deficit hyperactivity disorder, predominantly inattentive type- Primary Attention deficit disorder without mention of hyperactivity Oppositional defiant disorder Oppositional defiant disorder of childhood or adolescence documented in this encounter [employer] Work Phone: Evaluation note* Diagnosis Attention-deficit hyperactivity disorder, predominantly inattentive type- Primary Attention deficit disorder without mention of hyperactivity Oppositional defiant disorder Oppositional defiant disorder of childhood or adolescence documented in this encounter [employer] Phone: Evaluation note* Diagnosis Attention-deficit hyperactivity disorder, predominantly inattentive type- Primary Attention deficit disorder without mention of hyperactivity documented in this encounter [employer] Phone: Evaluation note* Diagnosis Kidney stone on right side- Primary Calculus of kidney Hydronephrosis, unspecified hydronephrosis type [facility] note* Diagnosis Ureterolithiasis- Primary Calculus of ureter Ureterolithiasis Calculus of ureter documented in this encounter [facility] Work Phone: Evaluation note* Diagnosis Exudative pharyngitis- [facility] Diagnosis Closed fracture of left hand, initial encounter- Primary [facility] Diagnosis Mild intermittent asthma with acute exacerbation (HHS-HCC)- Primary documented in this encounter [facility] Work Phone: Evaluation note* Diagnosis History of asthma- Primary Personal history of other diseases of respiratory system Rhonchi at left lung base documented in [facility] encounter [facility] noteNo assessment information [facility]WK[facility] Work Phone: Evaluation note* Diagnosis Mild intermittent asthma with acute exacerbation (HCC)- Primary Unspecified asthma, with exacerbation documented in this encounter [facility] Discharge instructions* Attachments The following attachments cannot be sent through Care Everywhere. * Asthma, Adult ED (Indonesian) [facility]: Reason for referral (narrative)No reason for referral information availableWKettering [facility] Work Phone: Summary Purpose Family History No Family History Records FoundNo Family History Records FoundNo Family History Records FoundNo Family History Records FoundNo Family History Records FoundNo Family History Records FoundNo Family History Records FoundNo Family History Records Found Advance Directives No Advanced Directives Records FoundDocuments on File Type Date Recorded 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 No February 24, 2025 10:07pm Advance Directive Response Recorded Date/ Time Living Will No February 24, 2025 10:07pm Do you have a Healthcare Power of Rail Operations Controller? No February 24, 2025 10:07pm Do you have a Healthcare Power of Rail Operations Controller? No May 11, 2025 11:33am Reason for Referral Specialty Diagnoses / Procedures Referred By Israel rose Referred To Contact Diagnoses Closed fracture of left hand, initial encounter Fay Godinez PA-C [address] [address] Referral ID Status Reason Start Date Expiration Date V isits Requested Visits Authorized [id number] Pending Review 03/17/2024 03/17/2025 3 3 Scheduling Instructions Please call the [facility] at [phone] to schedule an appointment if one was not made for you today. Question Answer Adult patient to be evaluated for: Hand Fracture - Right [169] Comments No prior visits in PM&R No prior visits in Orthopedics No prior visits in Plastics Chief Complaint and Reason for Visit Chief Complaint Admit Date asthma February 24, 2025 9:1 5pm Chief Complaint Admit Date asthma February 24, 2025 9:1 5pm cp May 11, 2025 11:16 am Additional Source Comments (unrecognized sect ion and content) No Status Records FoundNo Status Records FoundNo Status Records FoundNo Status Records FoundNo Status Records FoundNo Status Records FoundNo Status Records FoundNo Status Records Found INFORMATION SOURCE (unrecogn ized section and content) DATE CREATED AUTHOR 09/03/2021 [facility] DATE CREATED AUTHOR AUTHOR'S ORGANIZ ATION 07/15/2023 [facility] DATE CREATED AUTHOR AUTHOR'S ORGANIZ ATION 10/10/2023 [facility] DATE CREATED AUTHOR AUTHOR'S ORGANIZ ATION 10/29/2024 [facility] DATE CREATED AUTHOR AUTHOR'S ORGANIZ ATION 11/07/2024 [facility] DATE CREATED AUTHOR AUTHOR'S ORGANIZ ATION 02/03/2025 [facility] DATE CREATED AUTHOR AUTHOR'S ORGANIZ ATION 04/23/2025 [facility] DATE CREATED AUTHOR AUTHOR'S ORGANIZ ATION 05/21/2025 [facility] Reason for Visit (unrecogniz ed section and content) Reason Onset Date Comments Question about medication 02/09/2022 Reason Comments Asthma Reason Onset Date Comments Requesting Medications 02/25/2022 Reason Comments Refill Reason Onset Date Comments Refill 09/17/2022 Encounter opened in error 09/17/2022 Reason Comments Follow Up Reason Comments Refill Reason Comments Follow Up Medication Management Reason Comments Encounter Created in Error Reason Comments Abdominal pain Right mid abdominal pain worse with movement x 3 days, nauseated at times. Reason Comments Abdominal Pain Reason Comments Flu-like Illness Patient came in with complaints of having a sorethroat and body aches Reason Comments left hand pain/work related Reason Onset Date Comments No Answer 02/07/2024 Reason Comments Asthma Reason Comments Chest Congestion cough and wheezing x 6 weeks Reason Comments Cough Chest tightness, SOB at night x3 days Source Comments (unrecognize d section and content) Please be advised that our P ediatric patients may have Minor Confidentialencounters. This is protected information that should not be shared withanyone other than the patient without their consent.[facility] that our [facility] patients may have Minor Confidentialencounters. This is protected information that should not be shared withanyone other than the patient without their consent.[facility] be advised that our Pediatric patients may have Minor Confidentialencounters. This is protected information that should not be shared withanyone other than the patient without their consent.[facility] HospitalIn the event this information is protected by the Federal Confidentiality of Alcohol and Drug Abuse Patient Records regulations: The Federal rules restrict any use of the information to criminally investigate or prosecute any alcohol or drug abuse patient.[facility] HospitalIn the event this information is protected by the Federal Confidentiality of Alcohol and Drug Abuse Patient Records regulations: The Federal rules restrict any use of the information to criminally investigate or prosecute any alcohol or drug abuse patient.[facility] HospitalIn the event this information is protected by the Federal Confidentiality of Alcohol and Drug Abuse Patient Records regulations: The Federal rules restrict any use of the information to criminally investigate or prosecute any alcohol or drug abuse patient.[facility] Scheduled Active and Recently Administ ered Medications (unrecognized section and content) Medication Order 09/21/2023 09/22/2023 09/23/2023 iohexol (OMNIPAQUE) 350 MG/ML injection (COMPLETED) 100 mL, Intravenous Push, Once at Radiology exam, 1 dose, Starting on Tue09/23/23 at 2145, Until Tue09/23/23 at 2145, Imaging Protocol Orders 2144 (Given - Provid er: Corrina Feliciano) ketorolac (TORADOL) 15 MG/ML injection (COMPLETED) 15 mg, Intravenous Push, ONCE, 1 dose, On Tue09/23/23 at 2140 2124 (Given - Provid er: Vandana Robbins RN) ondansetron (ZOFRAN) 4 MG/2ML injection (COMPLETED) 4 mg, Intravenous Push, ONCE, 1 dose, On Tue09/23/23 at 2140 2125 (Given - Provid er: Vandana Robbins RN) sodium chloride 0.9 % iv bolus (COMPLETED) 1,000 mL, at 999 mL/hr, Intravenous, ONCE, 1 dose, On Tue09/23/23 at 2140 2125 (IV New Bag - P rovider: Vandana Robbins RN)2215 (IV Stop - Provider: Vandana Robbins RN) Scheduled Medication Order 10/05/2023 10/06/2023 10/07/2023 iohexol (OMNIPaque) 350 mg iodine/mL solution 75 mL (COMPLETED) 75 mL, intravenous, Once in imaging, Starting on Tue10/07/23 at 2115, For 1 dose 2119 (Given - Provid er: Janey Nunez) morphine injection 4 mg (COMPLETED) 4 mg, intravenous, Once, On Tue10/07/23 at 1925, For 1 dose 1949 (Given - Provid er: Cayd Figueroa, AJCINTO) ondansetron (Zofran) injection 4 mg (COMPLETED) 4 mg, intravenous, Once, On Tue10/07/23 at 1925, For 1 dose, When administering via IV Push, administer over 3-5 minutes. 1949 (Given - Provid er: Cady Figueroa RN) sodium chloride 0.9 % bolus 1,000 mL (COMPLETED) 1,000 mL, intravenous, at 1,000 mL/hr, Administer over 1 Hours, Once, On Tue10/07/23 at 1925, For 1 dose 1941 (New Bag - Prov ider: Chanda Macias LPN)2041 (Stopped - Provider: Chanda Macias LPN) Scheduled Medication Order 11/24/2023 11/25/2023 11/26/2023 acetaminophen (TYLENOL) tablet (COMPLETED) 650 mg, Oral, ONCE, 1 dose, On 11/26/23 at 1139 1220 (Given - Provid er: Talya Torrez RN) dexamethasone sod phosphate PF (DECADRON) 10 MG/ML injection (COMPLETED) 10 mg, Oral, ONCE, 1 dose, On 11/26/23 at 1139 1221 (Given - Provid er: Talya Torrez RN) Scheduled Medication Order 03/15/2024 03/16/2024 03/17/2024 ibuprofen (MOTRIN) tablet (COMPLETED) 600 mg, Oral, ONCE, 1 dose, On 03/17/24 at 1724 1730 (Given - Provid er: Lui Mejia) Scheduled Medication Order 10/23/2024 10/24/2024 10/25/2024 albuterol 90 mcg/actuation inhaler 2 puff (COMPLETED) 2 puff, inhalation, Once, On Leonor 10/25/24 at 1255, For 1 dose, Shake well before use. 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 Maximino Wade DO Emergency Provider Active Start: February 24, 2025 End: February 24, 2025 No Primary Care Physician Primary Care Provider Active Start: February 24, 2025 End: February 24, 2025 Team Status: Active Member Role/Relationship Status Dates No Primary Care Physician Primary Care Provider Active Team Status: Inactive Member Role/Relationship Status Dates Dr. Maximino Wade DO Attending Provider Active Start: February 24, 2025 End: February 24, 2025 Dr. Maximino Wade DO Emergency Provider Active Start: February 24, 2025 End: February 24, 2025 No Primary Care Physician Primary Care Provider Active Start: February 24, 2025 End: February 24, 2025 Team Status: Inactive Member Role/Relationship Status Dates No Primary Care Physician Primary Care Provider Active Start: May 11, 2025 End: May 11, 2025 Dr. Jose E Wallace MD Emergency Provider Active S tart: May 11, 2025 End: May 11, 2025 Goals (unrecognized section and content) Goals may be documented in a n alternate sectionGoals may be documented in an alternate section FOR RECORDS PERTAINING TO PATIENTS WHO ARE OR HAVE BEEN ENROLLED IN A CHEMICAL DEPENDENCY/SUBSTANCEABUSE PROGRAM, SOME INFORMATION MAY BE OMITTED. This clinical summary was aggregated from multiple sources. Caution should be exercised in using it in the provision of clinical care. This summary normalizes information from multiple sources, and as a consequence, information in this document may materially change the coding, format and clinical context of patient data. In addition, data may be omitted in some cases. CLINICAL DECISIONS SHOULD BE BASED ON THE PRIMARY CLINICAL RECORDS. [facility] [employer] provides no warranty or guarantee of the accuracy or completeness of information in this document.
[2025-06-14 17:29] VITALS: BP 124/78; PULSE 76; RESP 18; O2SAT 98
== END 2025-06-14 17:35 | disposition home or self-care (01) ==
PROVIDERS: Emergency Provider Surgery; Visit Provider Surgery
DX: J45.909 Unspecified asthma, uncomplicated (principal); Z76.0 Encounter for issue of repeat prescription; Z79.51 Long term (current) use of inhaled steroids; F17.290 Nicotine dependence, other tobacco product, uncomplicated
CPT/HCPCS: 99282

== ENCOUNTER 2025-07-07 14:04 | Emergency (ER) | payer MEDICAID, SELFPAY ==
[2025-07-07 14:05] VITALS: BP 142/88; PULSE 84; RESP 18; TEMP 37; O2SAT 98; BMI 28.2
--- OUTSIDE RECORDS SUMMARY | 2025-07-07 14:19 | XMS RPT_ITS | CCD ---
Author Organization [facility] ion Partnership MARGARINE MAKER [facility] Care Team Providers Care Field Adjuster Name Role Phone Unavailable Primary Care Provider Unavailabl e CASTANEDA, MYKIA Admitting Unavailable CASTANEDA, MYKIA Attending Unavailable CASTANEDA, MYKIA Consulting Unavailable [...] Physician, No Primary Primary Care Provider Unavailable Dr. Maximino Wade DO Attending Provider Rodrigo CLARKE, Dr. Dorantes Emergency Provider [phone] Dr. Jose E Wallace MD Attending Provider Dr. Shukri Malcolm DO Emergency Provider JESUS MCDONALD Attending Unavailable JESUS MCDONALD Referring Unavailable RO POP Attending Unavailable JESUS MCDONALD Attending Unavailable JESUS MCDONALD Referring Unavailable Care Physician, No Primary Primary Care Unava ilable Maximino Wade Attending Unavailable Jose E Wallace Attending Unavailable Care Physician, No Primary Primary Care Unava ilable Care Physician, No Primary Primary Care Unava ilable Shukri Malcolm Attending Unavailabl e Allergies Allergy Classification Reported Allergen(s) Allergy Type Date of Onset Reaction(s) Facility (16 sources) Dust; Translations: [DUST] Propensity to adverse reactions to substance 2 Unknown [facility] Work Phone: (14 sources) Pollen; Translations: [POLLEN EXTRACT] Propensity to adverse reactions to drug 2 [facility] (10 sources) house dust allergenic extract Drug Allergy 2 [facility] Work Phone: (10 sources) Pollen Propensity to adverse reactions 2 [facility] Work Phone: (8 sources) Bee pollen; Translations: [BEE POLLEN] Drug Allergy 2 Unknown [facility] Work Phone: (5 sources) Bee pollen [facility] Medications Current Medications Medication Drug Class(es) Dates Sig (Normalized) Sig (Original) acetaminophen 325 mg oral tablet (7 sources) Start: 09-23-2023 End: 11-26-2023 take 2 tablets by mouth every four hours as needed for pain acetaminophen (TYLENOL) 325 mg tablet Take 2 Tablets by mouth every 4 hours as needed for Pain or Fever. 30 Tablet 09/23/2023 Active [id number] 200 actuat albuterol 0.09 mg/actuat metered dose [...] 04/21/2025 Active Start: 02-24-2025 Albuterol Sulf ate (Ventolin Hfa) 90 mcg/actuation HFA aerosol inhaler Active 2 NMA INHALATION EVERY 4 HOURS NEEDED as needed for Wheezing 1 0 June 14, 2025 12:00am Start: 02-13-2025 take 2 puff(s) [...] Mild intermittent asthma with acute exacerbation (HHS-HCC) Inhale 2 puffs every 4 hours if [...] hours as needed for Wheezing. 1 Each 11 11/23/2022 Active Start: 06-09-2022 End: 06-09-2023 take [...] / ipratropium bromide 0.167 mg/ml inhalation solution (3 sources) Anticholinergic, beta2-Adrenergic Agonist Start: 02-25-20 take 1 mL by inhalation four times daily as needed Ipratropium-Albuter ol 0.5 mg-3 mg(2.5 mg base)/3 mL solution for nebulization Active 3 mL INHALATION 4 TIMES DAILY as needed for Shortness of breath/wheeze 90 0 February 24, 2025 10:08pm amoxicillin 500 mg oral capsule (2 sources) Penicillin-class Antibacterial Start: 11-26-19 End: 11-26-19 24 take 1 capsule by mouth three times [...] (FLONASE) 50 mcg/act nasal inhaler Use 1 [place] in each nostril daily. 16 g 3 [...] by mouth daily Nebulizer And Compressor device (3 sources) Start: 02-24-2025 Nebulizer And Compressor device Active 0 .Route 1 February 24, 2025 12:00am As directed Start: 02-24-2025 Nebulizer And Compressor device Active 0 .Route February 24, 2025 12:00am As directed oxyCODONE [...] 10/09/2023 Active predniSONE 20 mg oral tablet (13 sources) Start: 04-21-2025 End: 04-30-2025 predniSONE (DELTASONE) 10 mg tablet Indications: Mild intermittent asthma with acute exacerbation (HCC) Take 4 tabs daily for 3 days, then 2 tabs daily for 3 days, then 1 tab daily for 3 days with food. 21 tablet 04/21/2025 04/30/2025 Active Start: 02-24-2025 take 2 tablets by mo ut once daily Prednisone 20 mg tablet Active [...] initial encounter for closed fracture] 03-17-2024 Episodic Nonspecific chest pain (1 source) Chest pain, unspecified; Translations: [Chest pain, unspecified] Onset: 06-19-2025 Episodic Other circulatory disease (1 source) Wheeze - rhonchi; Translations: [Other specified symptoms and signs involving the circulatory and respiratory systems] 02-13-2025 Episodic Other diseases of kidney and ureters (1 source) Hydronephrosis; Translations: [Unspecified hydronephrosis] 09-23-2023 Episodic Other lower respiratory disease (1 source) H/O: asthma; Translations: [Personal history of other diseases of the respiratory system] 02-13-2025 Episodic Other lower respiratory disease (2 sources) Wheezing; Translations: [Wheezing] 05-11-2025 Episodic Other lower [...] Test Name Value Interpretation Reference Range Facility [facility] 06-14-2025 CNOV Office Visit (WOUCA) KEITH GOOD ([id number]) 3 M Date Time Provider Department 06/14/25 1:15 PM RO POP WORIVER During your visit today, we recorded the following information about you: Temperature Pulse Respiration Blood pressure 98.3 degrees 80/minute 20/minute 123/80 Weight 88 kg Ro Pop PA 06/14/2025 1:18 PM Signed [facility] Subjective Keith Good is a 19 year old male. Patient presents with: Asthma Follow Up: Pt needs refill for his inhaler, has appt in Jul but is currently out, states he has issues and uses same in the am regularly HPI Asthma: - Requests refill for albuterol inhaler. - Using Flovent once daily in the morning; acknowledges it should be used BID. - Experiences wheezing in the morning. - Uses albuterol inhaler PRN, especially during physical activities. - Denies exceeding 2 puffs every 4 hours. - Has an upcoming appointment with primary care in July. Needs refill. - Patient was seen here in February, March, April for inhaler refills. Started on Flovent at last visit here in April. Does have an appointment in 1 month scheduled with PCP to establish care. - No cough, chest pain, wheezing currently. Recent Illness: - Recent illness with sore throat, improved. PAST MEDICAL HISTORY Diagnosis Date - ADHD - Asthma (HCC) No past surgical history on file. ALLERGIES Bee Pollen and Dust MEDICATIONS - fluticasone (FLOVENT HFA) 44 mcg/actuation inhaler Inhale 1 puff as instructed two times a day. Shake well before use. Rinse mouth after use. - albuterol HFA (PROVENTIL HFA, VENTOLIN HFA) 90 mcg/actuation inhaler Inhale 2 puffs as instructed every 4 hours as needed for wheezing/shortness of breath. - albuterol (PROVENTIL) 2.5 mg /3 mL (0.083 %) nebulizer solution Use 3 mL via nebulizer every 4 hours as needed for wheezing/shortness of breath. (Patient not taking: Reported on 06/14/2025) - fluticasone (FLONASE) 50 mcg/actuation nasal spray USE 1 SPRAY IN EACH NOSTRIL ONCE DAILY. (Patient not taking: Reported on 02/13/2025) - Levocetirizine 5 mg tablet TAKE 1 TABLET BY MOUTH DAILY NEEDED (Patient not taking: Reported on 02/13/2025) - ketotifen fumarate (ZADITOR) 0.025 % (0.035 %) ophthalmic solution USE 1 DROP IN BOTH EYES TWICE A DAY NEEDED (ALLERGIES). (Patient not taking: No sig reported) - amphetamine-dextroamph etamine XR (ADDERALL XR) 20 mg 24 hr capsule Take 20 mg by mouth once daily. (Patient not taking: Reported on 02/13/2025) - traZODone (DESYREL) 150 mg tablet Take 150 mg by mouth daily at bedtime. (Patient not taking: Reported on 02/13/2025) No family history on file. Social History Tobacco Use - Smoking status: Never - Smokeless tobacco: Never Substance Use Topics - Alcohol use: Not Currently - Drug use: Yes Types: Marijuana Review of Systems Respiratory: (+) wheezing Objective BP 123/80 Pulse 80 Temp 36.8 ?C (98.3 ?F) Resp 20 Wt 88 kg (194 lb 0.1 oz) SpO2 99% BMI 29.50 kg/m? Physical Exam Vitals and nursing note reviewed. Constitutional: General: He is not in acute distress. Appearance: Normal appearance. He is not toxic-appearing. HENT: Mouth/Throat: Mouth: Mucous membranes are moist. Cardiovascular: Rate and Rhythm: Normal rate and regular rhythm. Pulmonary: Effort: Pulmonary effort is normal. Breath sounds: Normal breath sounds. No wheezing, rhonchi or rales. Skin: General: Skin is warm and dry. Neurological: Mental Status: He is alert. { 1. Mild intermittent asthma, uncomplicated (HCC) (J45.20) - Suboptimal control due to inconsistent use of Flovent and frequent use of albuterol. - Lungs clear on exam. - Reinforced proper inhaler use: Flovent BID (morning and night) with mouth rinsing after each use; albuterol 2 puffs PRN, no more than every 4 hours. - Advised smoking cessation. - Refill for albuterol inhaler sent. - Follow-up with primary care in July. Recording using [employer] software for draft documentation of the visit was discussed with the patient/authorized abrasives sales representative; all questions welcomed and answered. Patient/authorized abrasives sales representative agreed to proceed History and Record Review External record(s) reviewed: prior outpatient record. Differential Diagnoses - Asthma without exacerbation is more likely for the following reason(s): suggested by HANDP Contributing Factors Social Determinants of Health significantly affecting care: smoking Disposition The patient was discharged. Procedures Allergies As of Date: 06/14/2025 Noted Allergy Reaction BEE POLLEN 12/01/2021 16 - Unknown DUST 12/01/2021 16 - Unknown Date Reviewed: 06/14/2025 Reviewed by: Loreto Erwin LPN - Fully Assessed Reason for Visit: Asthma Follow Up [441] Cmt: Pt needs refill for his inhaler, has appt in Jul but is currently out, states he has issues (more content not included)... Normal [facility] 06-14-2025 MEY Telephone (WORIVER) KEITH GOOD ([id number]) 3 M Date Time Provider Department 06/14/25 SAURABH STRAUSS During your visit today, we recorded the following information about you: Saurabh Strauss APRN.CNP 06/14/2025 2:51 PM Signed Patient called complaining that he was unable to fill his albuterol inhaler. Pharmacy called us to let us know. At this time patient has had several albuterol inhalers filled recently. One was filled June 04. Patient claiming he did not have those inhalers filled. Patient very aggressive on the phone using words like fucker he called me a and quotations motherfucker. Patient at this time is not getting a refill from here was told to get himself set up with primary care and door closer mechanic to manage his healthcare needs. Do not fill any more inhalers at this express care. Allergies As of Date: 06/14/2025 Noted Allergy Reaction BEE POLLEN 12/01/2021 16 - Unknown DUST 12/01/2021 16 - Unknown Date Reviewed: 06/14/2025 Reviewed by: Loreto Erwin LPN - Fully Assessed Prescriptions as of 06/14/2025 - albuterol HFA (PROVENTIL HFA, VENTOLIN HFA) 90 mcg/actuation inhaler Inhale 2 puffs as instructed every 4 hours as needed for wheezing/shortness of breath. - albuterol (PROVENTIL) 2.5 mg /3 mL (0.083 %) nebulizer solution Use 3 mL via nebulizer every 4 hours as needed for wheezing/shortness of breath. - fluticasone (FLOVENT HFA) 44 mcg/actuation inhaler Inhale 1 puff as instructed two times a day. Shake well before use. Rinse mouth after use. - fluticasone (FLONASE) 50 mcg/actuation nasal spray USE 1 SPRAY IN EACH NOSTRIL ONCE DAILY. - Levocetirizine 5 mg tablet TAKE 1 TABLET BY MOUTH DAILY NEEDED - ketotifen fumarate (ZADITOR) 0.025 % (0.035 %) ophthalmic solution USE 1 DROP IN BOTH EYES TWICE A DAY NEEDED (ALLERGIES). - amphetamine-dextroamph etamine XR (ADDERALL XR) 20 mg 24 hr capsule Take 20 mg by mouth once daily. - traZODone (DESYREL) 150 mg tablet Take 150 mg by mouth daily at bedtime. Problem List As Of Date: 06/14/2025 (None) Encounter Status:Closed by SAURABH STRAUSS on 8/8/25 [facility] Telephone (WOUCA) KEITH GOOD ([id number]) 3 Date Time Provider Department 06/14/25 RO POP WORIVER During your visit today, we recorded the following information about you: Ro Pop, PA 06/14/2025 2:33 PM Signed Pharmacist called with concern for patient's albuterol use. Patient just had albuterol inhaler filled at their pharmacy on 06/04. He received a full 17-day supply if he is using 2 puffs every 4 hours [id number]. I had sent in prescription today as I thought his last albuterol prescription was back from April. He was prescribed Flovent at last visit here and advised that he needs to use this twice daily as prescribed. Pharmacist states patient has filled albuterol 5 times in the past 2 months at their facility. At this time, cancel prescription for albuterol inhaler as patient just had this refill 1 week ago. He needs follow-up with PCP. He was in no acute distress, no asthmatic flare on exam today. Follow-up as needed. Pharmacist agreeable Allergies As of Date: 06/14/2025 Noted Allergy Reaction BEE POLLEN 12/01/2021 16 - Unknown DUST 12/01/2021 16 - Unknown Date Reviewed: 06/14/2025 Reviewed by: Loreto Erwin LPN - Fully Assessed Reason for Visit: Medication Problem [65] Prescriptions as of 06/14/2025 - albuterol HFA (PROVENTIL HFA, VENTOLIN HFA) 90 mcg/actuation inhaler Inhale 2 puffs as instructed every 4 hours as needed for wheezing/shortness of breath. - albuterol (PROVENTIL) 2.5 mg /3 mL (0.083 %) nebulizer solution Use 3 mL via nebulizer every 4 hours as needed for wheezing/shortness of breath. - fluticasone (FLOVENT HFA) 44 mcg/actuation inhaler Inhale 1 puff as instructed two times a day. Shake well before use. Rinse mouth after use. - fluticasone (FLONASE) 50 mcg/actuation nasal spray USE 1 SPRAY IN EACH NOSTRIL ONCE DAILY. - Levocetirizine 5 mg tablet TAKE 1 TABLET BY MOUTH DAILY NEEDED - ketotifen fumarate (ZADITOR) 0.025 % (0.035 %) ophthalmic solution USE 1 DROP IN BOTH EYES TWICE A DAY NEEDED (ALLERGIES). - amphetamine-dextroamph etamine XR (ADDERALL XR) 20 mg 24 hr capsule Take 20 mg by mouth once daily. - traZODone (DESYREL) 150 mg tablet Take 150 mg by mouth daily at bedtime. Problem List As Of Date: 06/14/2025 (None) Encounter Status:Closed by RO POP on 06/14/25 Normal [facility] Emergency Department Summary on 06-14-2025 Emergency Department Summary [facility] Medical Records Department [address] [place] [address] Emergency Department Summary 06/14/25 MR#: [id number] Acct: [id number] Name: KEITH GOOD Rep #: [id number] : 2005 19 From: Shukri Malcolm DO PCP: Care Physician,No Primary Status:REG ER Location: ED HPI History of Present Illness Chief Complaint: Chest Pain Narrative Narrative: Chief complaint and HPI: Requesting albuterol inhaler. 19-year-old male with past medical history of asthma presents for albuterol inhaler prescription. Patient states that he frequently loses his albuterol inhalers. States he takes Flovent daily. It is prescribed twice daily but states he does not take it this way. He states he has not seen his PCP in a year but has an appointment scheduled in July. Patient states that he recently ran out of his albuterol inhaler that he had at home. States he felt some chest tightness and wheezing. Went to urgent care who evaluated him and wrote him for an albuterol inhaler. Patient states he went to [facility] to picker the prescription and they would not fill it because he has had too many filled. He denies any fever, chills, shortness of breath, cough, chest pain, abdominal pain, nausea, vomiting. Review of systems: See HPI Medications: As listed on the chart Allergies: As listed on the chart PFSH: Per chart Vital signs: As listed on the chart. Reviewed. Physical exam: Gen: A Ox3, NAD Head: Normocephalic, atraumatic Eyes: No sclera icterus, conjunctiva clear ENT: Moist mucous membranes Neck: Trachea midline, No JVD CV: RRR, no murmurs Resp: Lungs CTA BL but an occasional expiratory wheeze GI: Abd soft, non-distended, non-tender, no r/r/g Musc: Full ROM, no deformity Skin: Warm, dry Neuro: Alert, oriented, grossly intact, sensation intact Psych: Cooperative, appropriate mood and affect [facility] Medical History Asthma Home Medications ???Medication [...] / Time No Known Allergies Allergy Verified 06/14/25 15:27 Social History current occupational status: employed Smoking Status: Current every day smoker tobacco type: e-cigarettes EXAM Physical Exam Const Vital Signs: 06/14/25 15:27 Temperature 97.2 F L Temperature Source Temporal Pulse Rate 102 H Respiratory Rate 18 Blood Pressure 137/81 H Blood Pressure Mean 99 Pulse Ox 100 Oxygen Delivery Method Room Air MDM MDM MDM Narrative Medical decision making narrative: 19-year-old male with past medical history of asthma presents for albuterol inhaler prescription. Patient states that he frequently loses his albuterol inhalers. States he takes Flovent daily. It is prescribed twice daily but states he does not take it this way. He states he has not seen his PCP in a year but has an appointment scheduled in July. Patient states that he recently ran out of his albuterol inhaler that he had at home. Went to urgent care who evaluated him and wrote him for an albuterol inhaler. Patient states he went to [facility] to picker the prescription and they would not fill it because he has had too many filled. Patient states that although he has lost many of his albuterol inhalers he does use his albuterol inhaler at minimum twice a day. I explained to him that if he does have to use his albuterol that much, his asthma is not controlled. He was educated that he needs to take his Flovent twice a day as it is prescribed. He was told that he needs to follow-up and keep his appointment with his primary care physician in July. He was educated that he needs to tell them that his asthma is not controlled. He confirmed understanding the plan. I do not think any laboratory workup or chest x-ray is needed. Patient is not in acute asthma exacerbation. He does have some few expiratory wheezing which is why he does needed albuterol inhaler. I did call [facility] pharmacy and spo (more content not included)... Normal [facility] Emergency Department Summary on 05-11-2025 Emergency Department Summary [facility] Medical Records Department [address] [place] [address] Emergency Department Summary 05/11/25 MR#: [id number] Acct: [id number] Name: KEITH GOOD Rep #: [id number] : 2005 19 From: Jose E Wallace [...] symptoms: Yes Recent Illness/Hospitalizatio n: No PFSH [facility] Medical History Asthma Home Medications ???Medication [...] expiratory wheezes. (more content not included)... Normal [facility] CNOVon 04-21-2025 CNOV Office Visit (UCWSTR ) KEITH GOOD ([id number]) 3 M Date Time Provider Department 04/21/25 2:15 PM JESUS MCDONALD [facility] During your visit today, we recorded the following information about you: Temperature Pulse Respiration Blood pressure 98.6 degrees 80/minute 18/minute 147/94 Weight 80.8 kg Jesus Mcdonald, LISSA.TILE GRADER 04/21/2025 3:00 PM Signed [facility] Subjective HPI HPI Keith Good [...] 44 MCG/ACTUATION HFA AEROSOL INHALER Jesus Mcdonald APRN.CNP History and Record Review External record(s) [...] Diagnosis:Mild intermitt (more content not included)... Normal [facility] CNOVon 03-28-2025 CNOV Office Visit (UCWSTR ) KEITH GOOD ([id number]) 3 M Date Time Provider Department 03/28/25 2:30 PM JESUS MCDONALD [facility] During your visit today, we recorded the following information about you: Temperature Pulse Respiration Blood pressure 98.8 degrees 95/minute 16/minute 128/82 Weight 80.6 kg Jesus Mcdonald APRN.CNP 03/28/2025 4:28 PM Signed [facility] Subjective HPI HPI Keith M Latisha is a 19 year old male who [...] HENT: Head: Normocephalic and atraumatic. Mouth/Throat: Lips: Manuel Garcia Ii. Mouth: Mucous membranes are moist. Pharynx: Oropharynx [...] abnormality Dictated by : MD Jesus CADENA APRN.TILE GRADER History and Record Review External record(s) reviewed: [...] Visit Diagnosis:Wheeze [R06.2] Order(s):XR CHEST 2V FRONTAL/LAT [[id number]] Order #: [id number]. #:[id number] albuterol HFA (PROVENTIL HFA, VENTOLIN HFA) 90 mcg/actuation inhalerInhale 2 puffs as instructed every 4 hours as needed for wheezing/shortness of breath.Disp: 8 gRfl: 1 predniSONE (DELTASONE) 20 mg tabletTake 2 tablets by mouth once daily for 5 days. Take daily with food.Disp (more content not included)... Normal [facility] XR CHEST 2V FRONTAL/LATon XR CHEST 2V [...] tissues: Unremarkable. IMPRESSION: No acute radiographic abnormality. Tobacco Prevention Health Educator: PSCB Transcribe Date/Time: Mar 28 2025 2:53P Dictated by : CIRILO TANG MD This examination was interpreted and the report reviewed and electronically signed by: CIRILO TANG MD on Mar 28 2025 2:53PM EST [id number] Normal [facility] Emergency Department Summary on 02-24-2025 Emergency Department Summary [facility] Medical Records Department [address] [place] [id number] Emergency Department Summary 02/24/25 MR#: [id number] Acct: [id number] Name: KEITH GOOD Rep #: [id number] : 2005 19 From: Maximino Wade DO [...] been and therefore comes in for evaluation [facility] Medical History Asthma Home Medications ???Medication [...] Clinical Impressi (more content not included)... Normal [facility] CNOVon 02-13-2025 CNOV Office Visit (UCWSTR ) KEITH GOOD ([id number]) 3 M Date Time Provider Department 02/13/25 12:15 PM [facility] During your visit today, we recorded the [...] abnormality. Dictated by : MD Jesus SMALLWOOD APRN.TILE GRADER History and Record Review External record(s) reviewed: [...] lung base [R09.89] Order(s):XR CHEST 2V FRONTAL/LAT [[id number]] Order #: [id number]. #:[id number] albuterol HFA (PROVENTIL HFA, VENTOLIN HFA) 90 [...] TABLET BY (more content not included)... Normal [facility] XR CHEST 2V FRONTAL/LATon XR CHEST 2V [...] normal limits. IMPRESSION: No acute radiographic abnormality. Tobacco Prevention Health Educator: ZACKERY Transcribe Date/Time: Feb 13 2025 12:30P Dictated by : ARMANDO BROTHERS MD This examination was interpreted and the report reviewed and electronically signed by: ARMANDO BROTHERS MD on Feb 13 2025 12:30PM EST [id number] Normal [facility] XR Chest PA and Lateralon IMPRESSION: No acute radiographic abnormality. Tobacco Prevention Health Educator: ZACKERY Transcribe Date/Time: Feb 13 2025 12:30P Dictated by : ARMANDO BROTHERS MD This examination was interpreted and the report reviewed and electronically signed by: ARMANDO BROTHERS MD on Feb 13 2025 12:30PM EST DIVISION OF RADIOLOGY * * *Final Report* [...] normal limits. DIVISION OF RADIOLOGY Provider, Sarah Cavazos [facility] - 02/13/2025 * * *Final Report* [...] limits. IMPRESSION IMPRESSION: No acute radiographic abnormality. Tobacco Prevention Health Educator: ZACKERY Transcribe Date/Time: Feb 13 2025 12:30P Dictated by : ARMANDO BROTHERS MD This examination was interpreted and the report reviewed and electronically signed by: ARMANDO BROTHERS MD on Feb 13 2025 12:30PM EST [facility] Radiology Study observation (narrative) [facility] XR Chest PA and LateralOrder ed By: Cc Provider on 02-13-2025 [facility] Telephone Encounteron 2024 [employer] Authentication Interface Message Text Patient has not been seen by this specialist in more than 1 year. Please contact patient to schedule office visit. Thank you Last seen 11/2022 Normal [facility] ECG 12-LEADon 10-25-2024 ECG 12-LEAD Ventricular Rate 89 Atrial Rate 89 P-R Interval 150 QRS Duration 98 Q-T Interval 344 QTC Calculation(Bazett) 418 P Beattie 75 R Beattie 105 T Beattie 63 QRS Count 14 Q Onset 221 [...] Cagle ([id number]) on 10/25/2024 11:31:51 PM Normal [facility] Telephone Encounteron 2023 [employer] Aut[employer] Interface Message Text Patient has not been seen by this specialist in more than 1 year. Please contact patient to schedule office visit. Thank you Normal [facility] [employer] Authentication Interface Message Text Pharmacy is attempting to schedule an appointment for this patient. Per protocol, we will make 1 attempt to contact patient before routing to nurse for follow up. Medication request adjusted to only a 3 month supply to allow time for appointment to be scheduled. Thank you. Last seen 11/2022 Normal [facility] ECG COMPLETEon 10-24-2024 ECG COMPLETE Ventricular Rate : 7 9 BPM Atrial Rate : 79 BPM P-R Interval : 156 ms QRS Duration : 104 ms Q-T Interval : 358 ms QTC Calculation(Bazett) : 410 ms Calculated P Beattie : 69 degrees Calculated R Beattie : 84 degrees Calculated T Beattie : 61 degrees SINUS RHYTHM WITH MARKED SINUS ARRHYTHMIA OTHERWISE NORMAL ECG 1930 Confirmed by MD SARAVIA LUCY ([id number]), pictures editor MICAH FLETCHER ([id number]) on 10/27/2024 9:00:58 AM NAME : KEITH GOOD PID : [id number] : 2005 Gender : Male Race : ORD : [id number] Procedure Date : Oct 24 2024 19:29:49 Edit Date : Oct 27 2024 09:01:03 Diagnosis: SINUS RHYTHM WITH MARKED SINUS ARRHYTHMIA OTHERWISE NORMAL ECG 1930 Confirmed by MD SARAVIA LUCY ([id number]), pictures editor MICAH FLETCHER ([id number]) on 10/27/2024 9:00:58 AM Test Reason : Chest Pain Location : 2 : EDNS Overread By : MD SARAVIA LUCY Edited By : MICAH FLETCHER Referred By : , Acquired by : Wilmer CAMERON [facility] ED NOTEon 10-24-2024 ED NOTE HNO ID: [id number] Author: JET PINZON, RN Service: Emergency Medicine Author Type: Registered Nurse Type: ED Notes Filed: 10/24/2024 19:24 Note Text: Pt refused covid test at this time. Normal [facility] ED Triage Noteon 10-24-2024 ED Triage Note HNO ID: [id number] Author: TRENA SARAVIA MD Service: Emergency Medicine [...] W INTERPRETATION SIGNATURE: Trena Saravia MD Normal [facility] XR CHEST 2V FRONTAL/LATon XR CHEST 2V [...] normal limits. IMPRESSION: No acute cardiopulmonary process. Tobacco Prevention Health Educator: PSCB Transcribe Date/Time: Oct 24 2024 8:21P Dictated by : JESUS GONZALES MD This examination was interpreted and the report reviewed and electronically signed by: JESUS GONZALES MD on Oct 24 2024 8:21PM EST [id number] Normal [facility] ED Provider Noteson 03-17-20 [employer] Aut[employer] Interface Message Text Attestation signed by [...] Patient presents with left hand pain/work related Draw Tender: not needed - patient preferred language is Vietnamese. HPI Patient seen under the supervision of [...] rhinitis [J30.9] Mild persistent asthma without complication ([facility]) [J45.30] Pertinent Social History: PHYSICAL EXAM BP [...] Decr (more content not included)... Normal [facility] XR HAND LEFT 3 VIEWSon 03-17 XR HAND LEFT 3 VIEWS EXAMINATION: XR HAND LEFT 3 VIEWSPRO/LT 03/17/2024 04:17 PM CLINICAL HISTORY: left 4-5th MC crushed between 2 wooden pallets ASSOCIATED DIAGNOSIS: ORDERING PROVIDER: FAY GODINEZ TECHNSANTIAGO NOTE: Pt had hand smashed between 2 pallets. Pain in 5th metacarpal area COMPARISON: None IMPRESSION: Oblique, mildly impacted distal fifth metacarpal fracture with palmar angulation of the distal fracture fragments. Joint spaces are maintained. No apparent radiodense retained foreign body. Left hand MACRO: None Normal [facility] XR Hand - left 3 Viewson EXAMINATION: XR HAND LEFT 3 VIEWSPRO/LT 03/17/2024 04:17 PM CLINICAL HISTORY: left 4-5th MC crushed between 2 wooden pallets ASSOCIATED DIAGNOSIS: ORDERING PROVIDER: FAY GODINEZ TECHNSANTIAGO NOTE: Pt had hand smashed between 2 pallets. Pain in 5th metacarpal area COMPARISON: None IMPRESSION: Oblique, mildly impacted distal fifth metacarpal fracture with palmar angulation of the distal fracture fragments. Joint spaces are maintained. No apparent radiodense retained foreign body. Left hand MACRO: None RADIOLOGY Barney Agn MD - 03/17/2024 EXAMINATION: XR HAND LEFT 3 VIEWSPRO/LT 03/17/2024 04:17 PM CLINICAL HISTORY: left 4-5th MC crushed between 2 wooden pallets ASSOCIATED DIAGNOSIS: ORDERING PROVIDER: FAY GDOINEZ TECHNOLOGISTS NOTE: Pt had hand smashed between 2 pallets. Pain in 5th metacarpal area COMPARISON: None IMPRESSION: Oblique, mildly impacted distal fifth metacarpal fracture with palmar angulation of the distal fracture fragments. Joint spaces are maintained. No apparent radiodense retained foreign body. Left hand MACRO: None [facility] Radiology Study observation (narrative) [facility] X[facility] Hand - left 3 ViewsOrdere d By: Barney Ang on 03-17-2024 [facility] Work Phone: RAPID STREP A W/CULTURE REFL EXOrdered By: Afua Kwon on 11-26-2023 Interpretation and review of laboratory results Normal [facility] S. pyogenes Ag Ql (Throat) Negative Negative [facility] Basic metabolic 2000 panelon 10-07-2023 Anion gap [Moles/Vol] 14 mmol/L 10 - 20 mmol/L [facility] Calcium [Mass/Vol] 9.9 mg/dL 8.6 - 10. 6 mg/dL [facility] Chloride [Moles/Vol] 101 mmol/L 98 - 107 mmol/L [facility] CO2 [Moles/Vol] 28 mmol/L 21 - 32 mmol/L [place] Creatinine [Mass/Vol] 1.09 mg/dL 0.50 - 1.30 mg/dL [facility] GFR/1.73 sq M.predicted MDRD (S/P/Bld) [Vol rate/Area] - PINF [facility] Comment on above: Calculations of leanne mated GFR are performed using the 2020 CKD-EPI Study Refit equation without the race variable for the IDMS-Traceable creatinine methods. https://jasn.asnjournals.org/content//ASN.74703405 88 Glucose [Mass/Vol] 98 mg/dL 74 - 99 mg/dL [facility] Interpretation and review of laboratory results Normal [facility] Potassium [Moles/Vol] 3.6 mmol/L 3.5 - 5.3 mmol/L [facility] Sodium [Moles/Vol] 139 mmol/L 136 - 145 mmol/L [facility] Urea nitrogen [Mass/Vol] 14 mg/dL 6 - 23 mg/dL [facility] CBC W Auto Differential pane l (Bld)on 10-07-2023 Basophils (Bld) [#/Vol] 0.06 10*3/uL [facility] Basophils/100 WBC (Bld) 0.4 % 0.0 - 2.0 % [facility] Eosinophils (Bld) [#/Vol] 0.23 10*3/uL [facility] Eosinophils/100 WBC (Bld) 1.7 % 0.0 - 6.0 % [facility] Erythrocyte distribution width (RBC) [Ratio] 13.3 % 11.5 - 14.5 % [facility] Hematocrit (Bld) [Volume fraction] 48.7 % 41.0 - 52.0 % [facility] Hemoglobin (Bld) [Mass/Vol] 14.9 g/dL 13.5 - 17.5 g/dL [facility] Immature granulocytes (Bld) [#/Vol] 0.04 10*3/uL [facility] Immature granulocytes/100 WBC (Bld) 0.3 % 0.0 - 0.9 % [facility] Comment on above: Immature Granulocyte Count (IG) includes promyelocytes, myelocytes and metamyelocytes but does not include bands. Percent differential counts (%) should be interpreted in the context of the absolute cell counts (cells/UL). Interpretation and review of laboratory results Abnormal [facility] Lymphocytes (Bld) [#/Vol] 1.97 10*3/uL [facility] Lymphocytes/100 WBC (Bld) 14.4 % 13.0 - 44.0 % [facility] MCH (RBC) [Entitic mass] 25.2 pg Low 26.0 - 34.0 pg [facility] MCHC (RBC) [Mass/Vol] 30.6 g/dL Low 32.0 - 36.0 g/dL [facility] MCV (RBC) [Entitic vol] 82 fL 80 - 100 fL [facility] Monocytes (Bld) [#/Vol] 0.84 10*3/uL [facility] Monocytes/100 WBC (Bld) 6.1 % 2.0 - 10.0 % [facility] Neutrophils (Bld) [#/Vol] 10.57 10*3/uL High [facility] Comment on above: Percent differential counts (%) should be interpreted in the context of the absolute cell counts (cells/uL). Neutrophils/100 WBC (Bld) 77.1 % 40.0 - 80.0 % [facility] Nucleated RBC/100 WBC (Bld) [Ratio] 0.0 % [facility] Platelets (Bld) [#/Vol] 327 10*3/uL [facility] RBC (Bld) [#/Vol] 5.91 10*6/uL [facility] WBC (Bld[facility] [#/Vol] 13.7 10*3/uL High [facility] Urinalysis complete W Reflex Culture panel (U)on 10-07-2023 Appearance (U) Clear Clear [facility] Bilirubin (U) [Mass/Vol] Negative NEGATIVE [facility] Color (U) Yellow Straw, Yellow [facility] Glucose Auto test strip (U) [Mass/Vol] Negative NEGATIVE mg/dL [facility] Interpretation and review of laboratory results Abnormal [facility] Ketones (U) [Mass/Vol] 5 (TRACE) Abnormal NEGATIVE mg/dL [facility] Leukocyte esterase Auto test strip Ql (U) Negative NEGATIVE [facility] Mucus Auto (Urine sed) [#/Area] 2+ Reference range not established. /LPF [facility] Nitrite Auto test strip Ql (U) Negative NEGATIVE [facility] pH (U) 7.0 [pH] 5.0, 5.5, 6.0, 6.5, 7.0, 7.5, 8.0 [facility] Protein (U) [Mass/Vol] Negative NEGATIVE mg/dL [facility] RBC (U) [#/Vol] SMALL (1+) Abnormal NEGATIVE [facility] RBC Auto (Urine sed) [#/Area] >20 Abnormal NONE, 1-2, 3-5 /HPF [facility] Specific gravity (U) [Rel density] 1.013 1.005 - 1.035 [facility] Urobilinogen (U) [Mass/Vol] mg/dL NINF - 2.0 mg/dL [facility] WBC Auto (Urine sed) [#/Area] 1-5 1-5, NONE /HPF [facility] ALLIED HEALTHon 10-02-2023 ALLIED HEALTH HNO ID: [id number] Author: Marzena Rodriguez RT(R) Service: Radiology Author Type: Drink Waiter Type: Allied Health Filed: 10/02/2023 6:52 PM [...] RT Alisha(R) October 02, 2023 6:51 PM [facility] ED NOTEon 10-02-2023 ED NOTE HNO ID: [id number] Author: Rhiannon Diaz RN Service: ? Author [...] of the education. Pt departed from ED. [facility] ED NOTE HNO ID: [id number] Author: Vanesa Scott RN Service: ? Author Type: Registered Nurse Type: ED Notes Filed: 10/02/2023 4:39 PM Note Text: Patient comes to the ED for asthma flare up. Patient states it started earlier today and he is out of his inhaler. Patient is 100 percent on Ra and speaking in full sentences in triage. [facility] ED PROV NOTEon 10-02-2023 ED PROV NOTE HNO ID: [id number] Author: Keri Cardona PA-C Service: ? Author Type: Physician Continuous Absorption Process Operator Type: ED Provider Notes Filed: 10/03/2023 1:44 [...] No other complaints. History provided by: Patient asl interpreter used: No PAST MEDICAL HISTORY Diagnosis Date [...] time 10/02/23 18:59:25 Final result by Provider, [facility] [place] (10/02/23 18:59:25) Impression: IMPRESSION: No acute intrathoracic [...] RENAE Nation WHITNEY R 10/03/23 0144 Normal [facility] XR CHEST 1V FRONTAL PORTon 1 [...] Oct 02 2023 6:57PM EST [id number] Normal [facility] Basic metabolic 2000 panelOr dered By: Charles Bennett on 09-23-2023 Anion gap [Moles/Vol] 9 mmol/L Low 10 - 20 [facility] Calcium [Mass/Vol] 9.3 mg/dL 8.4 - 10. 4 mg/dL [facility] Chloride [Moles/Vol] 107 mmol/L 97 - 111 mmol/L [facility] CO2 [Moles/Vol] 27 mmol/L 21 - 30 mmol/L [facility] Creatinine [Mass/Vol] 0.89 mg/dL 0.80 - 1.30 mg/dL [facility] GFR/1.73 sq M.predicted CKD-EPI (S/P/Bld) [Vol rate/Area] 127 - PINF [facility] Comment on above: 2020 CKD EPI Equatio [...] Inclusion of Race in Diagnosing Kidney Disease. Italian Journal of Kidney Diseases 202;79(2):268-88.e1. 2. N Engl J Med 1 Vol. 385 Issue 19 Pages 2321-9762 Glucose [Mass/Vol] 94 mg/dL 68 - 110 mg/dL [facility] Interpretation and review of laboratory results Abnormal [facility] Potassium [Moles/Vol] 4.0 mmol/L 3.3 - 5.3 mmol/L [facility] Sodium [Moles/Vol] 139 mmol/L 135 - 148 mmol/L [facility] Urea nitrogen [Mass/Vol] 14 mg/dL 8 - 22 mg/dL [facility] CBC WITH DIFFERENTIALon 09-07 Basophils (Bld) [#/Vol] 0.10 10*3/uL 0.00 - 0.20 K/uL [facility] Basophils/100 WBC (Bld) 0.5 % NINF - 1.9 % [facility] Eosinophils (Bld) [#/Vol] 0.40 10*3/uL 0.00 - 0.70 K/uL [facility] Eosinophils/100 WBC (Bld) 4.3 % High 0.1 - 4.0 % [facility] Erythrocyte distribution width (RBC) [Ratio] 14.1 % 11.5 - 14.5 % [facility] Hematocrit (Bld) [Volume fraction] 41.4 % 41.0 - 53.0 % [facility] Hemoglobin (Bld) [Mass/Vol] 13.7 g/dL 13.2 - 15.6 g/dL [facility] Interpretation and review of laboratory results Abnormal [...] [#/Vol] 305 10*3/uL 150 - 400 K/uL [facility] RBC (Bld) [#/Vol] 5.17 10*6/uL [facility] WBC (Bld) [#/Vol] 10.0 10*3/uL 4.5 - 13.0 K/uL [facility] Abdomen and Pelvis W cont rast IVOrdered By: Keith Iglesias on 09-23-2023 CT DLP 724.31 (mGy.cm) [facility] Work Phone: CT Series ABD/PELVIS,ABD/PELVIS [facility] Work Phone: CTDI VOL 0.20 (mGy),13.09 (mGy) [facility] Work Phone: PHANTOM TYPE IEC Body Dosimetry Phantom,IEC Body Dosimetry Phantom [facility] Work Phone: [facility] Work Phone: CT Abdomen and Pelvis W cont rast Maile 09-23-2023 EXAMINATION: CT ABD/PELVIS ED I/V GUS W/ CONTRAST 09/23/2023 09:44 PM CLINICAL HISTORY: RUQ and RLQ abdominal pain ASSOCIATED DIAGNOSIS: RUQ and RLQ abdominal pain ORDERING PROVIDER: PAULA MORFIN TECHNSANTIAGO NOTE: COMPARISON: None TECHNIQUE: Contiguous axial images [...] RLQ abdominal pain ORDERING PROVIDER: PAULA MORFIN TECHNSANTIAGO NOTE: COMPARISON: None TECHNIQUE: Contiguous axial images [...] to the right ureteropelvic junction. MACRO: None [facility] Radiology Study observation (narrative) [facility] HEPATIC FUNCTION PANELon Albumin [Mass/Vol] 3.8 g/dL 3.4 - 5.1 g/dL [facility] ALP [Catalytic activity/Vol] 73 U/L [facility] ALT [Catalytic activity/Vol] 18 U/L [facility] AST [Catalytic activity/Vol] 21 U/L [facility] Bilirubin [Mass/Vol] 0.3 mg/dL 0.1 - 1.5 mg/dL [facility] Bilirubin.direct [Mass/Vol] 0.05 mg/dL Low 0.10 - 0.30 mg/dL [facility] Interpretation and review of laboratory results Abnormal [facility] Protein [Mass/Vol] 6.9 g/dL 6.2 - 8.3 g/dL [facility] LIPASEon 09-23-2023 Interpretation and review of laboratory results Normal [facility] Lipase [Catalytic activity/Vol] 33 U/L NINF [facility] MAGNESIUMon 09-23-2023 Interpretation and review of laboratory results Normal [facility] Magnesium [Mass/Vol] 2.0 mg/dL 1.6 - 2.8 mg/dL [facility] No Panel Informationon 09-23 [facility] ED NOTEon 09-19-2023 ED NOTE HNO ID: [id number] Author: Racquel Holden RN Service: ? Author [...] out of hospital with steady gait. Normal [facility] ED NOTE HNO ID: [id number] Author: Racquel Holden RN Service: ? Author Type: Registered Nurse Type: ED Notes Filed: 09/19/2023 12:28 PM Note Text: Pt states he was at work at [employer] this morning and was pushing something heavy and had a sudden, sharp pain to his right side. Pt states pain is worse with movement. Normal [facility] Progress Noteon 08-13-2021 [employer] Authentication Interface Message Text Patient ID: Keith [...] With Score - Health Risk Assessment - MARINAT Exercise counseling Encounter for dietary counseling and surveillance Mild persistent asthma, uncomplicated - albuterol 108 (90 Base) MCG/ACT inhaler; Inhale 2 Puffs into the lungs every 4 hours as needed for Wheezing, Shortness of Breath or Cough Use with spacer. - Spacer/Aero-Holding Chambers (VALENTIN GALLEGOS MASK) MISC Device; 1 Each by Other [...] to clinic today for his 15 yo WCC. Asthma concerns ACT 15 today requiring rescue often. Reporting issues with having access to rescue inhaler. Spoke with Dank soap worker. Keith and several other residents will become [...] this month He is unaccompanied (Dank from skilled nursing in waiting area ). 15 YEAR WELL [...] EOM are (more content not included)... Normal [facility] Progress Noteon 09-25-2020 [employer] Authentication Interface Message Text Patient ID: Keith [...] bipolar d (more content not included)... Normal [facility] Vital Signs Date Time Vital Sign Value Performing Clinician Facility 06-14-2025 17:29-0400 Diastolic blood pressure 78 mm[Hg] Dr. Maximino Wade DO Work Phone: [facility] 06-14-2025 17:29-0400 Heart rate 76 /min Dr. Maximino Wade DO Work Phone: 1([phone])[phone] [place] [address] 06-14-2025 17:29-0400 Respiratory rate 18 /min Dr. Maximino Wade DO Work Phone: 0(081)378-682818 [place] [address] 06-14-2025 17:29-0400 SaO2% (BldA) [Mass fraction] 98 % Dr. Maximino Wade DO Work Phone: 2(303)[phone] [place] [address] 06-14-2025 17:29-0400 Systolic blood pressure 124 mm[Hg] Dr. Maximino Wade DO Work Phone: 0(526)[phone] [place] [address] 06-14-2025 15:27-0400 Body height 175.[address] Maximino Wade DO Work Phone: 9(174)569-397518 [place] [address] 06-14-2025 15:27-0400 Body mass index (BMI) [Ratio] 29.1 kg/m2 Dr. Maximino Wade DO Work Phone: 8(153)570-354618 [place] [address] 06-14-2025 15:27-0400 Body temperature 97.2 [degF] Dr. Maximino Wade DO Work Phone: 6(356)963-411618 [place] [address] 06-14-2025 15:27-0400 Body weight 89.[address] Maximino Wade DO Work Phone: 8(369)431-815818 [place] [address] 05-11-2025 12:22-0400 Heart rate 91 /min Dr. Maximino Wade DO Work Phone: 6(357)729-264690 [place] [address] 05-11-2025 12:22-0400 Respiratory rate 20 /min Dr. Maximino Wade DO Work Phone: 8(759)455-769290 [place] [address] 05-11-2025 12:22-0400 SaO2% (BldA) [Mass fraction] 96 % Dr. Maximino Wade DO Work Phone: 5([phone])670-057490 [place] [address] 05-11-2025 11:16-0400 Body height 175.[address] Maximino Wade DO Work Phone: 5(250)022-773790 [place] [address] 05-11-2025 11:16-0400 Body mass index (BMI) [Ratio] 26.9 kg/m2 Dr. Maximino Wade DO Work Phone: [facility] 05-11-2025 11:16-0400 Body temperature 98 [degF] Dr. Maximino Wade DO Work Phone: [facility] 05-11-2025 11:16-0400 Body weight 82.[address] Maximino Wade DO Work Phone: [facility] 05-11-2025 11:16-0400 Diastolic blood pressure 78 mm[Hg] Dr. Maximino Wade DO Work Phone: [facility] 05-11-2025 11:16-0400 Systolic blood pressure 139 mm[Hg] Dr. Maximino Wade DO Work Phone: [facility] 04-21-2025 14:24-0400 Body mass index (BMI) [Ratio] 27.08 kg/m2 Jesus Mcdonald STRETCHER LEVELER OPERATOR.TILE GRADER Work Phone: [facility] 04-21-2025 14:24-0400 Body temperature 98.6 [degF] Jesus Mcdonald STRETCHER LEVELER OPERATOR.TILE GRADER Work Phone: [facility] 04-21-2025 14:24-0400 Body weight 80.8 kg Jesus Mcdonald STRETCHER LEVELER OPERATOR.TILE GRADER Work Phone: [facility] 04-21-2025 14:24-0400 Diastolic blood pressure 94 mm[Hg] Jesus Mcdonald STRETCHER LEVELER OPERATOR.TILE GRADER Work Phone: [facility] 04-21-2025 14:24-0400 Heart rate 80 /min Jesus Harry STRETCHER LEVELER OPERATOR.TILE GRADER Work Phone: [facility] 04-21-2025 14:24-0400 Respiratory rate 18 /min Jesus Harry STRETCHER LEVELER OPERATOR.TILE GRADER Work Phone: [facility] 04-21-2025 14:24-0400 SaO2% (BldA) [Mass fraction] 97 % Jesus Harry STRETCHER LEVELER OPERATOR.TILE GRADER Work Phone: [facility] 04-21-2025 14:24-0400 Systolic blood pressure 147 mm[Hg] Jesus Harry STRETCHER LEVELER OPERATOR.TILE GRADER Work Phone: [facility] 02-24-2025 21:35-0400 Heart rate 92 /min Dr. Maximino Wade DO Work Phone: [facility] 02-24-2025 21:35-0400 Respiratory rate 16 /min Dr. Maximino Wade DO Work Phone: [facility] 02-24-2025 21:16-0400 Body height 175.[address] Maximino Wade DO Work Phone: [facility] 02-24-2025 21:16-0400 Body mass index (BMI) [Ratio] 27 kg/m2 Dr. Maximino Wade DO Work Phone: [facility] 02-24-2025 21:16-0400 Body temperature 98.3 [degF] Dr. Maximino Wade DO Work Phone: [facility] 02-24-2025 21:16-0400 Body weight 83.[address] Maximino Wade DO Work Phone: [facility] 02-24-2025 21:16-0400 Diastolic blood pressure 78 mm[Hg] Dr. Maximino Wade DO Work Phone: [facility] 02-24-2025 21:16-0400 SaO2% (BldA) [Mass fraction] 97 % Dr. Maximino Wade DO Work Phone: [facility] 02-24-2025 21:16-0400 Systolic blood pressure 127 mm[Hg] Dr. Maximino Wade DO Work Phone: [facility] 02-13-2025 12:12-0400 Body mass index (BMI) [Ratio] 27.62 kg/m2 Jesus Mcdonald APRN.TILE GRADER Work Phone: [facility] 02-13-2025 12:12-0400 Body weight 82.4 kg Jesus Mcdonald APRN.TILE GRADER Work Phone: [facility] 02-13-2025 12:12-0400 Diastolic blood pressure 88 mm[Hg] Jesus Mcdonald STRETCHER LEVELER OPERATOR.TILE GRADER Work Phone: [facility] 02-13-2025 12:12-0400 Heart rate 88 /min Jesus Mcdonald STRETCHER LEVELER OPERATOR.TILE GRADER Work Phone: [facility] 02-13-2025 12:12-0400 Respiratory rate 16 /min Jesus Mcdonald STRETCHER LEVELER OPERATOR.TILE GRADER Work Phone: [facility] 02-13-2025 12:12-0400 SaO2% (BldA) [Mass fraction] 97 % Jesus Mcdonald STRETCHER LEVELER OPERATOR.TILE GRADER Work Phone: [facility] 02-13-2025 12:12-0400 Systolic blood pressure 142 mm[Hg] Jesus Mcdonald STRETCHER LEVELER OPERATOR.TILE GRADER Work Phone: [facility] 10-25-2024 13:01-0500 Body temperature 98.01 [degF] No Generic Provider [facility] 10-25-2024 13:01-0500 Diastolic blood pressure 81 mm[Hg] No Generic Provider [facility] 10-25-2024 13:01-0500 Heart rate 78 /min No Generic Provider [facility] 10-25-2024 13:01-0500 Respiratory rate 20 /min No Generic Provider [facility] 10-25-2024 13:01-0500 SaO2% (BldA) [Mass fraction] 95 % No Generic Provider [facility] 10-25-2024 13:01-0500 Systolic blood pressure 130 mm[Hg] No Generic Provider [facility] 10-25-2024 12:21-0500 Body height 170.2 cm No Generic Provider [facility] 10-25-2024 12:21-0500 Body mass index (BMI) [Ratio] 27.41 kg/m2 No Generic Provider [facility] 10-25-2024 12:21-0500 Body weight 79.38 kg No Generic Provider [facility] 03-17-2024 14:28-0400 Body temperature 99.3 [degF] Luis Eduardo Cortes MD Work Phone: [facility] 03-17-2024 14:28-0400 Diastolic blood pressure 82 mm[Hg] Luis Eduardo Cortes MD Work Phone: [facility] 03-17-2024 14:28-0400 Heart rate 74 /min Luis Eduardo Cortes MD Work Phone: [facility] 03-17-2024 14:28-0400 Respiratory rate 18 /min Luis Eduardo Cortes MD Work Phone: [facility] 03-17-2024 14:28-0400 SaO2% (BldA) [Mass fraction] 96 % Luis Eduardo Cortes MD Work Phone: [facility] 03-17-2024 14:28-0400 Systolic blood pressure 126 mm[Hg] Luis Eduardo Cortes MD Work Phone: [facility] 11-26-2023 11:30-0500 Heart rate 96 /min Lonnie Farley MD Work Phone: [facility] 11-26-2023 10:30-0500 Body temperature 97.5 [degF] Lonnie Farley MD Work Phone: [facility] 11-26-2023 10:30-0500 Body weight 76.84 kg Lonnie Farley MD Work Phone: [facility] 11-26-2023 10:30-0500 Diastolic blood pressure 82 mm[Hg] Lonnie Farley MD Work Phone: [facility] 11-26-2023 10:30-0500 Respiratory rate 14 /min Lonnie Farley MD Work Phone: [facility] 11-26-2023 10:30-0500 SaO2% (BldA) [Mass fraction] 98 % Lonnie Farley MD Work Phone: [facility] 11-26-2023 10:30-0500 Systolic blood pressure 134 mm[Hg] Lonnie Farley MD Work Phone: [facility] 10-07-2023 18:24-0500 Body height 170.2 cm [facility] 10-07-2023 18:24-0500 Body mass index (BMI) [Percentile] Per age and sex 91.83 % [facility] 10-07-2023 18:24-0500 Body mass index (BMI) [Ratio] 28.04 kg/m2 [facility] 10-07-2023 18:24-0500 Body temperature 95 [degF] [facility] 10-07-2023 18:24-0500 Body weight 81.19 kg [facility] 10-07-2023 18:24-0500 Diastolic blood pressure 98 mm[Hg] [facility] 10-07-2023 18:24-0500 Heart rate 69 /min [facility] 10-07-2023 18:24-0500 Respiratory rate 16 /min [facility] 10-07-2023 18:24-0500 SaO2% (BldA) [Mass fraction] 96 % [facility] 10-07-2023 18:24-0500 Systolic blood pressure 156 mm[Hg] [facility] 09-23-2023 20:47-0500 Body temperature 97.81 [degF] Chele High MD Work Phone: [facility] 09-23-2023 20:47-0500 Body weight 86.18 kg Chele High MD Work Phone: [facility] 09-23-2023 20:47-0500 Diastolic blood pressure 73 mm[Hg] Chele High MD Work Phone: [facility] 09-23-2023 20:47-0500 Heart rate 84 /min Chele High MD Work Phone: [facility] 09-23-2023 20:47-0500 Respiratory rate 16 /min Chele High MD Work Phone: [facility] 09-23-2023 20:47-0500 SaO2% (BldA) [Mass fraction] 99 % Chele High MD Work Phone: [facility] 09-23-2023 20:47-0500 Systolic blood pressure 128 mm[Hg] Chele High MD Work Phone: [facility] 11-23-2022 15:27-0500 Body height 166.6 cm Xin Cota MD Work Phone: [facility] 11-23-2022 15:27-0500 Body mass index (BMI) [Percentile] Per age and sex 93.19 % Xin Cota MD Work Phone: [facility] 11-23-2022 15:27-0500 Body mass index (BMI) [Ratio] 27.95 kg/m2 Xin Cota MD Work Phone: [facility] 11-23-2022 15:27-0500 Body temperature 98.1 [degF] Xin Cota MD Work Phone: [facility] 11-23-2022 15:27-0500 Body weight 77.56 kg Xin Cota MD Work Phone: [facility] 11-23-2022 15:27-0500 Diastolic blood pressure 71 mm[Hg] Xin Cota MD Work Phone: [facility] 11-23-2022 15:27-0500 Heart rate 78 /min Xni Cota MD Work Phone: [facility] 11-23-2022 15:27-0500 Respiratory rate 18 /min Xin Cota MD Work Phone: [facility] 11-23-2022 15:27-0500 Systolic blood pressure 120 mm[Hg] Xin Cota MD Work Phone: [facility] 02-10-2022 09:33-0400 Body temperature 98.49 [degF] Enid Lemon MD Work Phone: [facility] 02-10-2022 09:33-0400 Body weight 81.1 kg Enid Lemon MD Work Phone: [facility] 02-10-2022 09:33-0400 Diastolic blood pressure 66 mm[Hg] Enid Lemon MD Work Phone: [facility] 02-10-2022 09:33-0400 Heart rate 82 /min Enid Lemon MD Work Phone: [facility] 02-10-2022 09:33-0400 Respiratory rate 20 /min Enid Lemon MD Work Phone: [facility] 02-10-2022 09:33-0400 SaO2% (BldA) [Mass fraction] 97 % Enid Lemon MD Work Phone: [facility] 02-10-2022 09:33-0400 Systolic blood pressure 108 mm[Hg] Enid Lemon MD Work Phone: [facility] Encounters Encounter Date Encounter Type Care Provider Facility Start: 06-14-2025 End: 06-14-2025 Emergency department patient visit Dr. Maximino Wade DO Work Phone: -Emergency Department Work Phone: Start: 06-14-2025 End: 06-14-2025 ambulatory RO POP Facility:[facility] Start: 05-11-2025 End: 05-11-2025 Emergency department patient visit Dr. 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 Maximino Wade DO Work Phone: -Emergency Department Work Phone: Start: 02-13-2025 End: 02-13-2025 Subsequent hospital visit by physician [facility] Work Phone: Radiology Comment on above: Rhonchi at left lung base [R09.89] Start: 02-13-2025 End: 02-13-2025 ambulatory [facility] Facility:[facility] Start: 02-13-2025 End: 02-13-2025 Patient encounter procedure Jesusmaximus Mcdonald STRETCHER LEVELER OPERATOR.TILE GRADER Work Phone: [facility] Comment on above: History of asthma (P rimary Dx); Rhonchi at left lung base Start: 10-25-2024 End: 10-25-2024 Emergency department patient visit MAXIMINO Nuha BROWN [facility] Emergency Medicine Comment on above: Mild intermittent as thma with acute exacerbation (HHS-HCC) (Primary Dx) Start: 10-24-2024 End: 10-29-2024 Refill Xin Cota MD Work Phone: [facility] Comment on above: Refill Start: 03-17-2024 End: 03-17-2024 Emergency department patient visit Luis Eduardo Cortes MD Work Phone: [facility] Emergency Dept Comment on above: left hand pain/work related Start: 03-17-2024 Emergency department patient visit UNKNOWN PROVIDER Facility:[facility] Start: 02-07-2024 Telephone encounter To Be Assigned [facility] Comment on above: No Answer Start: 12-11-2023 Letter encounter Loren driver Start: 11-26-2023 End: 11-26-2023 Emergency department patient visit Lonnie Farley MD Work Phone: [facility] Emergency Dept Comment on above: Flu-like Illness (Pa tiekaleb came in with complaints of having a sorethroat and body aches ) Start: 10-10-2023 Telephone encounter Mylene north Work Phone: [facility] Start: 10-07-2023 End: 10-07-2023 Emergency department patient visit [facility] Emergency Medicine Comment on above: Ureterolithiasis (Pr imary Dx) Start: 09-23-2023 End: 09-23-2023 Emergency department patient visit Chele High MD Work Phone: [facility] Comment on above: Abdominal pain (Righ t mid abdominal pain worse with movement x 3 days, nauseated at times. ) Start: 09-21-2023 Telephone encounter Bushra webber [facility] Work Phone: [facility] Start: 09-19-2023 End: 09-19-2023 Emergency department patient visit Facility:[facility] Start: 07-14-2023 ambulatory [facility] Start: 07-01-2023 End: 07-01-2023 Patient encounter procedure Efrain Abel RN Work Phone: [facility] Comment on above: Attention-deficit hy peractivity disorder, predominantly inattentive type (Primary Dx) Start: 03-23-2023 End: 03-23-2023 Office outpatient visit 10 minutes Pennie Velez MD Work Phone: [facility] Comment on above: Attention-deficit hy peractivity disorder, predominantly inattentive type (Primary Dx); Oppositional defiant disorder Start: 03-22-2023 ambulatory Keturah kendall MACHINE II TRIMMER Work Phone: [facility] Start: 03-22-2023 Chart abstracting Keturah dubois MACHINE II TRIMMER Work Phone: [facility] Start: 02-23-2023 Refill Jennifer Farley MD Work Phone: [facility] Comment on above: Refill Start: 01-19-2023 End: 01-19-2023 Office outpatient visit 10 minutes Pennie Velez MD Work Phone: [facility] Comment on above: Attention-deficit hy peractivity disorder, predominantly inattentive type (Primary Dx); Oppositional defiant disorder Start: 01-19-2023 End: 01-19-2023 Patient encounter procedure Keturah Walker MACHINE II TRIMMER Work Phone: [facility] Comment on above: Attention-deficit hy peractivity disorder, predominantly inattentive type (Primary Dx) Start: 11-23-2022 End: 11-24-2022 Office outpatient visit 10 minutes Xin Cota MD Work Phone: [facility] Comment on above: Mild persistent asth ma without complication (Primary Dx); Body mass index (BMI) pediatric, 85th percentile to less than 95th percentile for age Start: 09-17-2022 Refill Xin cook MD Work Phone: [facility] Comment on above: Refill; Encounter op ened in error Start: 06-08-2022 Refill Chanda lawton MD Work Phone: [facility] Comment on above: Refill Start: 02-25-2022 Telephone encounter Faustina Trejo RN [facility] Comment on above: Requesting Medicatio ns Start: 02-10-2022 End: 02-10-2022 Office outpatient visit 15 minutes Enid Lemon MD Work Phone: [facility] Comment on above: Asthma, unspecified asthma severity, unspecified whether complicated, unspecified whether persistent (Primary Dx) Start: 02-09-2022 Telephone encounter Margaret Florez [facility] Comment on above: Question about medic ation Procedures Date Procedure Procedure Detail Performing Clinician Start: 02-13-2025 Radiologic exam ches t 2 views Jesus Mcdonald APRN.TILE GRADER Work Phone: Start: 03-17-2024 Radex hand minimum 3 views Fay Godinez PA-C Work Phone: Start: 11-26-2023 Iaadiadoo streptococ cus group a Eduardo Lynn PA-C Work Phone: Start: 10-07-2023 Ct abdomen & pelvis w/contrast material Chanda Almaguer PA-C Work Phone: Start: 10-07-2023 Urinalysis complete W Reflex Culture panel - Urine Chanda Hoytdeidra CHUN-C Work Phone: Start: 10-07-2023 Urnls dip stick/tabl et reagent auto microscopy Chanda Zamoradro PA-C Work Phone: Start: 10-07-2023 End: 10-07-2023 Basic metabolic panel calcium total Chanda Zamoralisa CHUN-C Work Phone: Start: 09-23-2023 Ct abdomen & pelvis w/contrast material Paula Morfin LAY-C Work Phone: Start: 09-23-2023 Assay of lipase Paula Morfin PA-[facility] Work Phone: Start: 09-23-2023 Hepatic function panel Paula Babycare PA-Curiosidy Work Phone: Start: 02-10-2022 Noninvasive ear/puls e oximetry single deter Enid Lemon MD Work Phone: Plan of Treatment Date Care Activity Detail Author Start: 2054 Shingles (RZV) Vacci ne (1 of 2) Shingles (RZV) Vaccine (1 of 2) [facility] Start: 2054 Zoster Vaccines (1 of 2) Zoste r Vaccines (1 of 2) [facility] Start: 04-24-2029 DTaP/Tdap/Td Vaccine s (6 - Td or Tdap) DTaP/Tdap/Td Vaccines (6 - Td or Tdap) [facility] Start: 04-24-2029 Tetanus vaccination [facility] Start: 04-24-2029 Tetanus,Diptheria,Pe rtussi s Vaccine (6 - Td or Tdap) Tetanus,Diptheria,Pert ussis Vaccine (6 - Td or Tdap) [facility] Start: 04-24-2029 Urine microalbumin profile DTa P,Tdap,Td Vaccine (6 - Td or Tdap) [facility] Start: 07-10-2025 End: 07-10-2025 Patient encounter procedure 07/10/2025 10:00 AM EDT Office Visit [facility] [place] [address] [place] [address] Lucy Xavier M, STRETCHER LEVELER OPERATOR.TILE GRADER [address] [place] [address] Establish [facility] [place] Comment on above: Establish Care Start: 07-08-2025 Influenza vaccination Influenz a Vaccine (Season Ended) [facility] Start: 06-14-2025 [facility] Start: 05-11-2025 [facility] Start: 02-24-2025 [facility] Start: 07-20-2024 Tobacco Screening Tobacco Screening [facility] Start: 07-08-2024 COVID-19 Vaccine ( season) COVID-19 Vaccine ( season) [facility] Start: 07-08-2024 Influenza vaccination Influenza Vacc ine (#1) [facility] Start: 2023 Pneumococcal Vaccine : Pediatrics and At-Risk Adult Patients (1 of 2 - PCV) Pneumococcal Vaccine: Pediatrics and At-Risk Adult Patients (1 of 2 - PCV) [facility] Start: 07-08-2023 Influenza vaccination [facility] Start: 06-27-2023 End: 06-27-2023 Patient encounter procedure 06/27/2023 Office Visit Optometry Margot Carver, OD [address] [place] [address] [facility] Start: 2022 Annual PCP Team Reprint Sorter erick Disease Visit Annual PCP Team Chronic Disease Visit [facility] Start: 2022 Anxiety Screening Anxiety Screening [facility] Start: 2022 Depression Screening Depression Scre ening [facility] Start: 2022 Hepatitis C screening M [facility] Start: 2022 HIV screening HIV Screening [facility] Start: 2022 Hypertension screening Hyperte nsion Screening (#1) [facility] Start: 2022 Vision Test (18 yrs,once) Visi on Test (18 yrs,once) [facility] Start: 11-23-2022 End: 11-23-2022 Patient encounter procedure 11/23/2022 Office Visit Adolescent Medicine StageXin cook MD [address] [place] [address] [facility] Start: 11-19-2022 Well child visit, 13 years WEL L PRINT DEVELOPER (3-17 YRS,YEARLY) [facility] Start: 11-07-2022 Depression screening Depressio n Annual Screen [facility] Start: 11-07-2022 Screening for substa nce abuse Alcohol and Drug Screen [facility] Start: 10-15-2022 End: 10-15-2022 Patient encounter procedure 10/15/2022 Office Visit Optometry Vanesa Amador, CECILY [address] [place] [address] [facility] Start: 08-07-2022 Influenza vaccination Influenza Vacc ine (#1) [facility] Start: 07-08-2022 Influenza vaccination Imm-Influenza (#1) [facility] Start: 06-25-2022 End: 06-25-2022 Patient encounter procedure 06/25/2022 Office Visit Optometry Maria D Wooten, CECILY [address] [place] [address] [facility] Start: 02-10-2022 End: 02-10-2022 Patient encounter procedure 02/10/2022 Office Visit Pediatric Urgent Care [facility] Start: 06-07-2021 Influenza vaccination Influenza Vacc ine (#1) [facility] Start: 04-24-2021 Asthma Action Plan Asthma Action De n [facility] Start: 2020 Meningococcal B (Bexsero,OMV) Vaccine (Optional,16-23 years) Meningococcal B (Bexsero,OMV) Vaccine (Optional,16-23 years) [facility] Start: 2020 Meningococcal B (Bexsero,OMV) Vaccine (Optional,16-23 years) (#1) Meningococcal B (Bexsero,OMV) Vaccine (Optional,16-23 years) (#1) [facility] Start: 2020 Meningococcal B Vacc ine (1 of 2 - Standard) Meningococcal B Vaccine (1 of 2 - Standard) [facility] Start: 2020 Meningococcal Conjug ate (MCV4,ACWY) Vaccine (2 - 2-dose series) Meningococcal Conjugate (MCV4,ACWY) Vaccine (2 - 2-dose series) [facility] Start: 2020 Meningococcal conjug ate vaccination Imm-Meningococcal (2 - 2-dose series) [facility] Start: 2020 Meningococcal Vaccin e (1 - 2-dose series) Meningococcal Vaccine (1 - 2-dose series) [facility] Start: 04-24-2020 Asthma Control Test Asthma Control T est [facility] Start: 2019 HIV screening HIV Test [facility] Start: 2019 [facility] Start: 2019 Vision Test (15-17 yrs,once) Vision Test (15-17 yrs,once) [facility] Start: 10-24-2019 HPV Vaccine (2 - Mal e 2-dose series) HPV Vaccine (2 - Male 2-dose series) [facility] Start: 10-24-2019 HPV Vaccines (2 - Ma le 2-dose series) HPV Vaccines (2 - Male 2-dose series) [facility] Start: 10-24-2019 Vaccination for christal n papillomavirus [facility] Start: 10-23-2019 Vaccination for christal n papillomavirus Imm-HPV (2 - Male 2-dose series) [facility] Start: 2018 Peds To Adult Transi tion Annual Assessment Peds To Adult Transition Annual Assessment [facility] Start: 2016 Depression screening Depressio n Annual Screen (#1) [facility] Start: 2016 Peds To Adult Transi tion Initial Discussion Peds To Adult Transition Initial Discussion [facility] Start: 2014 Adolescent Depressio n Screening Adolescent Depression Screening [facility] Start: 2014 Alanine aminotransfe rase measurement ALT/AST Screening [facility] Start: 2014 Diabetes Screening Diabetes Screenin g [facility] Start: 2014 Hearing Test (10-18 yrs,once) Hearing Test (10-18 yrs,once) [facility] Start: 2014 Lipid panel Lipid Screening [facility] Start: 2010 Pneumococcal vaccination Pneum ococcal Vaccine(s) (1 of 2 - PCV) [facility] Start: 2009 COVID-19 Vaccine (1) COVID-19 Vaccin e (1) [facility] Start: 2008 Hearing Screening (#1) Hearing Scree celina (#1) [facility] Start: 2007 Well Child Visit (WC V) - Annual Well Child Visit (WCV) - Annual [facility] Start: 08-04-2005 Application of denta l fluoride varnish Fluoride Varnish [facility] Start: 06-03-2005 COVID-19 Vaccine (#1) COVID-19 Vacci ne (#1) [facility] Start: 06-03-2005 [id number] (#1) [id number] (#1) [facility] Start: 2004 Hearing Screening (#1) Hearing Scree celina (#1) [facility] Start: 2004 Fluoride Varnish Application Fluoride Varnish Application [facility] Start: 2004 Hepatitis C screening Hepatitis C Sc [facility] Start: 2004 HIV screening HIV Screening [facility] Start: 2004 Lipid panel Lipid Panel [facility] Start: 2004 STI Counseling STI Counseling [facility] Start: 2004 Tobacco Screening Tobacco Screening [facility] Start: 2004 Yearly Adult Physical Yearly Adult P hysical [facility] CT Abdomen and Pelvi s W contrast IV CT abdomen pelvis w IV contrast Imaging STAT 10/07/2023 9:20 PM EST [facility] Work Phone: End: 11-26-2023 Cul prsmptv pthgnc organism scrn w/[place] estimj [facility] Work Phone: Comment on above: One time for 1 Occur rences starting 11/26/2023 until 11/26/2023 End: 10-25-2024 ECG 12 lead [facility] Service [facility] Work Phone: Comment on above: Once for 1 Occurrenc es starting 10/25/2024 until 10/25/2024 End: 09-23-2023 EXTRA TUBE [facility] Work Phone: Comment on above: One time for 1 Occur rences starting 09/23/2023 until 09/23/2023 End: 10-07-2023 Extra Urine Pearce Tube [facility] Work Phone: Comment on above: Once for 1 Occurrenc es starting 10/07/2023 until 10/07/2023 End: 09-23-2023 PEARCE TOP TUBE, URINE [facility] Comment on above: Once for 1 Occurrenc es starting 09/23/2023 until 09/23/2023 Patient Education [facility] Work Phone: Patient referral [facility] Work Phone: End: 09-23-2023 RED/YELLOW TOP TUBE, URINE [facility] Comment on above: Once for 1 Occurrenc es starting 09/23/2023 until 09/23/2023 End: 10-07-2023 Urinalysis complete W Reflex Culture panel - Urine [facility] Service Area Work Phone: Comment on above: Once (Lab) for 1 Occ urrences starting 10/07/2023 until 10/07/2023 End: 09-23-2023 YELLOW TOP TUBE, URINE [facility] Comment on above: Once for 1 Occurrenc es starting 09/23/2023 until 09/23/2023 [facility] Immun[facility] Immunization Date Immunization Notes Care Provider Fa cili 04-24-2019 Human Papillomavirus 9-valent vaccine Margaret Warner RN [facility] 04-24-2019 meningococcal polysaccharide (groups A, C, Y and W-135) diphtheria toxoid conjugate vaccine (MCV4P) Margaret Warner RN [facility] 04-24-2019 tetanus toxoid, redu lux diphtheria toxoid, and acellular pertussis vaccine, adsorbed Margaret Warner RN [facility] 04-24-2019 tuberculin skin test ; purified protein derivative solution, intradermal Xin Stager MD Work Phone: [facility] 04-24-2019 HPV, unspecified formulation [facility] Work Phone: 03-02-2013 hepatitis A vaccine, pediatric/adolescent dosage, 2 dose schedule Margaret Warner RN [facility] 08-04-2011 hepatitis A vaccine, pediatric/adolescent dosage, 2 dose schedule Margaret Warner RN [facility] 07-25-2011 influenza, injectabl e, quadrivalent, contains preservative Margaret Warner RN [facility] 07-25-2011 influenza virus vacc ine, unspecified formulation Margaret Warner RN [facility] 07-14-2010 measles, mumps and rubella virus vaccine Jesus Mcdonald APRN.TILE GRADER Work Phone: [facility] 07-14-2010 measles, mumps, rube lla, and varicella virus vaccine Margaret Warner RN [facility] 07-14-2010 poliovirus vaccine, inactivated Margaret Warner RN [facility] 07-14-2010 varicella virus vaccine Ángel Mcdonald APRN.TILE GRADER Work Phone: [facility] 01-26-2010 diphtheria, tetanus toxoids and acellular pertussis vaccine, unspecified formulation Margaret Warner RN [facility] 07-01-2008 diphtheria, tetanus toxoids and acellular pertussis vaccine, unspecified formulation Jesus Mcdonald APRN.TILE GRADER Work Phone: [facility] 07-01-2008 DTaP-hepatitis B and poliovirus vaccine Margaret Warner RN [facility] 07-01-2008 haemophilus influenz ae type b vaccine, conjugate unspecified formulation Jesus Mcdonald APRN.TILE GRADER Work Phone: [facility] 07-01-2008 haemophilus influenz ae type b vaccine, PRP-T conjugate Margaret Warner RN [facility] 07-01-2008 hepatitis B vaccine, pediatric or pediatric/adolescent dosage Jesus Mcdonald APRN.TILE GRADER Work Phone: [facility] 07-01-2008 pneumococcal conjuga te vaccine, 7 valent Margaret Warner RN [facility] 07-01-2008 poliovirus vaccine, inactivated Jesus Mcdonald APRN.TILE GRADER Work Phone: [facility] 08-08-2007 diphtheria, tetanus toxoids and acellular pertussis vaccine, unspecified formulation Jesus Harry STRETCHER LEVELER OPERATOR.TILE GRADER Work Phone: [facility] Work Phone: 08-08-2007 DTaP-hepatitis B and poliovirus vaccine Margaret Timmy CASEY [facility] 08-08-2007 haemophilus influenz ae type b vaccine, conjugate unspecified formulation Margaret Warner RN [facility] 08-08-2007 hepatitis B vaccine, pediatric or pediatric/adolescent dosage Jesus Harry STRETCHER LEVELER OPERATOR.TILE GRADER Work Phone: [facility] 08-08-2007 measles, mumps and rubella virus vaccine Margaret Timmy CASEY [facility] 08-08-2007 pneumococcal conjuga te vaccine, 7 valent Margaret Warner RN [facility] 08-08-2007 poliovirus vaccine, inactivated Jesus Harry STRETCHER LEVELER OPERATOR.TILE GRADER Work Phone: [facility] 08-08-2007 varicella virus vaccine Margaret Jenn trevizo RN [facility] 06-30-2005 diphtheria, tetanus toxoids and acellular pertussis vaccine, unspecified formulation Margaret Warner RN [facility] 06-30-2005 haemophilus influenz ae type b vaccine, conjugate unspecified formulation Jesus Harry STRETCHER LEVELER OPERATOR.TILE GRADER Work Phone: [facility] 06-30-2005 haemophilus influenz ae type b vaccine, PRP-T conjugate Margaret Warner RN [facility] 06-30-2005 hepatitis B vaccine, pediatric or pediatric/adolescent dosage Margaret Warner RN [facility] 06-30-2005 pneumococcal conjuga te vaccine, 7 valent Margaret Timmy CASEY [facility] 06-30-2005 poliovirus vaccine, inactivated Margaret Timmy CASEY [facility] 2004 hepatitis B vaccine, pediatric or pediatric/adolescent dosage Margaret Timmy CASEY [facility] Payers Date Payer Category Payer Self-pay 2024 Private Health Insurance [id number] 2023 Medicaid (Managed Care) [place] [facility] MEDICAID [id number] 2022 Medicaid [id number] 2022 Unknown SP/UNINSURED [facility] FINANCIAL PROGRAM EVALUATION [id number] 2022-Present [phone] [address] [place] [address] Other [id number] 2021 Private Health Insurance [id number] 2021 Private Health Insurance [id number] 2019 Medicaid [id number] 2004 Unknown [id number] 2004 Unknown [id number] 2004 Unknown [id number] 2004 Unknown [id number] Unknown [id number] 462 Unknown [id number] 462 Unknown [id number] Social History Date Type Detail Facility Tobacco smoking stat us NHIS Tobacco smoking consumption unknown [facility] Start: 2005 Sex Assigned At Not on file [facility] Start: 11-13-2022 End: 10-25-2024 Exposure to SARS-CoV-2 (event) Not sure [facility] Start: 11-17-2021 End: 10-03-2023 History of Social function [facility] Start: 11-17-2021 End: 10-03-2023 Social Connections [facility] Social Connections a nd Isolation 1 [facility] Work Phone: Start: 07-01-2023 End: 09-19-2023 Tobacco smoking status NHIS Never smoked tobacco [facility] Work Phone: Start: 07-01-2023 End: 09-19-2023 Tobacco use and exposure Smokeless tobacco non-user [facility] Work Phone: Start: 07-20-2023 Alcohol intake Lifetime non-drinker (finding) [facility] Work Phone: Start: 10-28-2021 End: 02-24-2025 Sex Male (finding) [facility] Start: 10-02-2023 End: 04-21-2025 Alcoholic beverage intake Ex-drinker (finding) [facility] (I/We) worried whe er (my/our) food would run out before (I/we) got money to buy more. Never true [facility] Start: 02-24-2025 End: 06-14-2025 Tobacco smoking status NHIS Smokes tobacco daily (finding) [facility] Start: 2005 Sex Assigned At Male [facility] Mental Status Date Assessment Result Facility 06-14-2025 Cognitive function Voice/Name [facility] Work Phone: Clinical Notes 09-02-2021 to 06-14-2025 Note Date & Type Note Facility 06-14-2025 Discharge summary [facility] 06-14-2025 Discharge summary Note Date/Time June 14, 2025 5:20pm [facility] Medical Records Department [address] [place] [address] Emergency Department Summary 06/14/25 MR#: [id number] Acct: [id number] Name: KEITH GOOD Rep #:[id number] : 2005 19 From: Shukri Bui ggett DO PCP: Care Physician,No Primary Status :REG ER Location: ED HPI History of Present Illness Chief Complaint: Chest Pain Narrative Narrative: Chief complaint and HPI: Requesting albuterol inhaler. 19-year-old male with past medical history of asthma presents for albuterol inhaler prescription. Patient states that he frequently loses his albuterol inhalers. States he takesFlovent daily. It is prescribed twice daily but states he does not take it thisway. He states he has not seen his PCP in a year but has an appointment scheduled in July. Patient states that he recently ran out of his albuterol inhaler that he had at home. States he felt some chest tightness and wheezing. Went to urgent care who evaluated him and wrote him for an albuterol inhaler. Patient states he went to [facility] to picker the prescription and theywould not fill it because he has had too many filled. He denies any fever, chills, shortness of breath, cough, chest pain, abdominal pain, nausea, vomiting. Review of systems: See HPI Medications: As listed on the chart Allergies: As listed on the chart PFSH: Per chart Vital signs: As listed on the chart. Reviewed. Physical exam: Gen: A&Ox3, NAD Head: Normocephalic, atraumatic Eyes: No sclera icterus, conjunctiva clear ENT: Moist mucous membranes Neck: Trachea midline, No JVD CV: RRR, no murmurs Resp: Lungs CTA BL but an occasional expiratory wheeze GI: Abd soft, non-distended, non-tender, no r/r/g Musc: Full ROM, no deformity Skin: Warm, dry Neuro: Alert, oriented, grossly intact, sensation intact Psych: Cooperative, appropriate mood and affect [facility] Medical History Asthma Home Medications ?Medication ?Instructions ?Recorded ?Last Taken ?Type albuterol sulfate 90 mcg/actuation 2 puff inhalation Q 4H PRN PRN 02/24/25 Unknown Rx aerosol inhaler (Ventolin HFA) Wheezing/SOB #1 device ipratropium 0.5 mg-albuterol 3 mg 3 ml inhalation 4X/D AY PRN 02/24/25 Unknown Rx (2.5 mg base)/3 mL nebulization Shortness of breath/wh eeze #90 mL soln nebulizer and compressor #1 ea 02/24/25 Unknown Rx prednisone 20 mg tablet 40 mg (2 x 20 mg) PO DAILY 5 days 02/24/25 Unknown Rx #10 tabs albuterol sulfate 90 mcg/actuation 2 inh inhalation Q4 H PRN shortness 05/11/25 Unknown Rx aerosol inhaler of breath or wheezing #8.5 g mark prednisone 20 mg tablet 40 mg (2 x 20 mg) PO DAILY 7 days 05/11/25 Unknown Rx #14 tabs Allergy/AdvReac Type Severity Reaction Status Date / Time No Known Allergies Allergy Verified 06/14/25 15:27 Social History current occupational status: employed Smoking Status: Current every day smoker tobacco type: e-cigarettes EXAM Physical Exam Const Vital Signs: 06/14/25 15:27 Temperature 97.2 F L Temperature Source Temporal Pulse Rate 102 H Respiratory Rate 18 Blood Pressure 137/81 H Blood Pressure Mean 99 Pulse Ox 100 Oxygen Delivery Method Room Air MDM MDM MDM Narrative Medical decision making narrative: 19-year-old male with past medical history of asthma presents for albuterol inhaler prescription. Patient states that he frequently loses his albuterol inhalers. States he takes Flovent daily. It is prescribed twice daily but states he does not take it this way. He states he has not seen his PCP in a year but has an appointment scheduled in July. Patient states that he recently ran out of his albuterol inhaler that he had at home. Went to urgent care who evaluated him and wrote him for an albuterol inhaler. Patient states he went to [facility] to picker the prescription and they would not fill it because he has had too many filled. Patient states that although he has lost many of his albuterol inhalers he does use his albuterol inhaler at minimum twice a day. I explained to him that if he does have to use his albuterol that much, his asthma is not controlled. He was educated that he needs to take his Flovent twice a day as it is prescribed. He was told that he needs to follow-upand keep his appointment with his primary care physician in July. He was educated that he needs to tell them that his asthma is not controlled. He confirmed understanding the plan. I do not think any laboratory workup or chestx-ray is needed. Patient is not in acute asthma exacerbation. He does have some few expiratory wheezing which is why he does needed albuterol inhaler. I did call [facility] pharmacy and spoke to the pharmacist. She states that the patient has had 5 albuterol's inhalers filled since April. She states that she questioned him about this. He states that he has lost them as well as been using them. She called the urgent care provider and made her aware of the situation. Urgent care provider decided to cancel the albuterol inhaler and told him that he needs to follow-up with his PCP. Given that patient does have few expiratory wheezing with asthma and no current albuterol inhaler do not feelthat it is safe for him to go without albuterol inhaler despite he has many refills. He was educated that he needs to stop losing these as this does not look good on his record. He confirmed understanding the plan. Will fill albuterol inhaler. Return precautions explained. Impression: 1. Asthma 2. Medication refill request Discharge Plan Triage Chief Complaint: Chest Pain ED Provider: Shukri Malcolm Dx/Rx/DC Orders Prescriptions: No Action prednisone 20 mg tablet 40 mg PO DAILY 5 Days Qty: 10 0RF albuterol sulfate [Ventolin HFA] 90 mcg/actuation HFA aerosol inhaler 2 puff inhalation Q4H PRN PRN (Reason: Wheezing/SOB) Qty: 1 1RF (DME) nebulizer and compressor Device See Rx Instructions .Route Qty: 1 0RF Rx Instructions: As directed ipratropium-albuterol 0.5 mg-3 mg(2.5 mg base)/3 mL solution for nebulization 3 ml inhalation 4X/DAY PRN (Reason: Shortness of breath/wheeze) Qty: 90 0RF prednisone 20 mg tablet 40 mg PO DAILY 7 Days Qty: 14 0RF albuterol sulfate 90 mcg/actuation HFA aerosol inhaler 2 inh inhalation Q4H PRN (Reason: shortness of breath or wheezing) Qty: 8.5 1RF Primary Care Provider: Care Physician,No Primary Referrals: Care Physician,No Primary [Primary Care Provider] - Print Language: Vietnamese What to do if you have Problems For any increased pain, shortness of breath, bleeding, nausea or vomiting, chestpain, or any unexpected problems, contact your Primary Care Provider. Call [facility] ([phone]) or report to the closest Emergency Room. Call 911 if necessary. 06/14/25 1720 <Electronically signed by Shukri Malcolm DO> Cosigner Signature (if applicable): CC: No Primary Care Physician ~ Signed [facility] Work Phone: 1(481) 938-759208-08-2025 NoteHNO ID: [id number] Author: RO POP PA Service: ? Author Type: Physician Continuous Absorption Process Operator Type: Progress Notes Filed: 06/14/2025 13:18 Note Text: [facility] Subjective Keith Good is a 19 year old male. Patient presents with: Asthma Follow Up: Pt needs refill for his inhaler, has appt in Jul but is currently out, states he has issues and uses same in the am regularly HPI Asthma: - Requests refill for albuterol inhaler. - Using Flovent once daily in the morning; acknowledges it should be used BID. - Experiences wheezing in the morning. - Uses albuterol inhaler PRN, especially during physical activities. - Denies exceeding 2 puffs every 4 hours. - Has an upcoming appointment with primary care in July. Needs refill. - Patient was seen here in February, March, April for inhaler refills. Started on Flovent at last visit here in April. Does have an appointment in 1 month scheduled with PCP to establish care. - No cough, chest pain, wheezing currently. Recent Illness: - Recent illness with sore throat, improved. PAST MEDICAL HISTORY Diagnosis Date - ADHD - Asthma (HCC) No past surgical history on file. ALLERGIES Bee Pollen and Dust MEDICATIONS - fluticasone (FLOVENT HFA) 44 mcg/actuation inhaler Inhale 1 puff as instructed two times a day. Shake well before use. Rinse mouth after use. - albuterol HFA (PROVENTIL HFA, VENTOLIN HFA) 90 mcg/actuation inhaler Inhale 2 puffs as instructed every 4 hours as needed for wheezing/shortness of breath. - albuterol (PROVENTIL) 2.5 mg /3 mL (0.083 %) nebulizer solution Use 3 mL via nebulizer every 4 hours as needed for wheezing/shortness of breath. (Patient not taking: Reported on 06/14/2025) - fluticasone (FLONASE) 50 mcg/actuation nasal spray USE 1 SPRAY IN EACH NOSTRIL ONCE DAILY. (Patient not taking: Reported on 02/13/2025) - Levocetirizine 5 mg tablet TAKE 1 TABLET BY MOUTH DAILY NEEDED (Patient not taking: Reported on 02/13/2025) - ketotifen fumarate (ZADITOR) 0.025 % (0.035 %) ophthalmic solution USE 1 DROP IN BOTH EYES TWICE A DAY NEEDED (ALLERGIES). (Patient not taking: No sig reported) - amphetamine-dextroamphetamine XR (ADDERALL XR) 20 mg 24 hr capsule Take 20 mg by mouth once daily. (Patient not taking: Reported on 02/13/2025) - traZODone (DESYREL) 150 mg tablet Take 150 mg by mouth daily at bedtime. (Patient not taking: Reported on 02/13/2025) No family history on file. Social History Tobacco Use - Smoking status: Never - Smokeless tobacco: Never Substance Use Topics - Alcohol use: Not Currently - Drug use: Yes Types: Marijuana Review of Systems Respiratory: (+) wheezing Objective BP 123/80 Pulse 80 Temp 36.8 ?C (98.3 ?F) Resp 20 Wt 88 kg (194 lb 0.1 oz) SpO2 99% BMI 29.50 kg/m? Physical Exam Vitals and nursing note reviewed. Constitutional: General: He is not in acute distress. Appearance: Normal appearance. He is not toxic-appearing. HENT: Mouth/Throat: Mouth: Mucous membranes are moist. Cardiovascular: Rate and Rhythm: Normal rate and regular rhythm. Pulmonary: Effort: Pulmonary effort is normal. Breath sounds: Normal breath sounds. No wheezing, rhonchi or rales. Skin: General: Skin is warm and dry. Neurological: Mental Status: He is alert. { 1. Mild intermittent asthma, uncomplicated (HCC) (J45.20) - Suboptimal control due to inconsistent use of Flovent and frequent use of albuterol. - Lungs clear on exam. - Reinforced proper inhaler use: Flovent BID (morning and night) with mouth rinsing after each use; albuterol 2 puffs PRN, no more than every 4 hours. - Advised smoking cessation. - Refill for albuterol inhaler sent. - Follow-up with primary care in July. Recording using [employer] software for draft documentation of the visit was discussed with the patient/authorized abrasives sales representative; all questions welcomed and answered. Patient/authorized abrasives sales representative agreed to proceed History and Record Review External record(s) reviewed: prior outpatient record. Differential Diagnoses - Asthma without exacerbation is more likely for the following reason(s): suggested by HANDP Contributing Factors Social Determinants of Health significantly affecting care: smoking Disposition [facility]. [facility] Discharge instructions Additional Instructions Prednisone 40 mg a day for the next week. Use your inhaler 1 to 2 puffs every 2-4 hours as needed. Follow-up with your doctor if not improving or return if feeling worse.[facility] Work Phone: 1(760) 995-316706-15-2025 NoteHNO ID: [id number] Author: JESUS MCDONALD APRN.[facility] Service: ? Author Type: Nurse Practitioner Type: Progress Notes Filed: 04/21/2025 15:00 Note Text: [facility] Subjective HPI HPI Keith Good is a [...] 44 MCG/ACTUATION HFA AEROSOL INHALER Jesus Mcdonald APRN.CNP History and Record Review External record(s) reviewed: prior outpatient record. Disposition The patient was [facility]. [facility] History of Present illness Narrative* Jesus Mcdonald APRN.CNP - 04/21/2025 2:41 PM EDT [facility] Subjective HPI HPI Keith Good is a 19 year old male who presents today for CC of cough, wheeze, sob. This started 3 days ago. Has tried asthma inhaler for relief. Symptoms are worsened by smoker. Risk factors hx of asthma, seen once a month for last 3 months. Has primary care visit scheduled to establish butnot till July. .Patient presents with: Cough: Chest [...] 1 SPRAY IN EACH NOSTRIL ONCE DAILY. (Patientnot taking: Reported on 02/13/2025) Levocetirizine 5 mg [...] 44 MCG/ACTUATION HFA AEROSOL INHALER Jesus Mcdonald APRN.CNP History and Record Review External record(s) reviewed: prior outpatient record. Disposition The patient was discharged. [facility] NoteHNO ID: [id number] Author: FLORIDA JORGENSEN RT(R) Service: Radiology Author Type: Technologist Type: Progress [...] PATIENT PRESENTS WITH AN IMPLANTABLE OR ATTACHED INSTRUCTOR PRODUCT INSPECTION: No RADIOLOGY DEPARTMENT: General X-ray: Exam(s) Completed: Chest X-Ray PERIPHERAL IV DATA: Not applicable SIGNED BY: RT Donna(R) March 28, 2025 2:48 [facility]05-22-2025 NoteHNO ID: [id number] Author: JESUS MCDONALD APRN.TILE GRADER Service: ? Author Type: Nurse Practitioner Type: [...] HENT: Head: Normocephalic and atraumatic. Mouth/Throat: Lips: Manuel Garcia Ii. Mouth: Mucous membranes are moist. Pharynx: Oropharynx [...] abnormality Dictated by : MD Jesus CADENA APRN.TILE GRADER History and Record Review External record(s) reviewed: prior outpatient record. Findings from review of outpatient records: history of asthma Differential Diagnoses - asthma flair is more likely for the following reason(s): consistent with imaging and suggested by HANDP Disposition The patient was [facility]. [facility] History of Present illness Narrative* [place] Jorgensen RT(R) - 02/13/2025 12:30 PM EDT Radiology Service Progress Note PATIENT NAME: Keith Good DATE OF SERVICE: February 13, 2025 TIME: 12:25 PM PATIENT IDENTITY VERIFICATION COMPLETED USING TWO (2) IDENTIFIERS: Name and Date of confirmedby patient verbally. FALL SCREENING: Has the patient had 2 falls in the last year or 1 fall with injury or currently using an Ambulatory Assistive Device (Walker, Cane, Wheelchair, Crutches, etc.)? No PATIENT GENDER DATA: Assigned male at PATIENT RELEVANT IMPLANT DATA REVIEWED: Not Applicable PATIENT PRESENTS WITH AN IMPLANTABLE OR ATTACHED INSTRUCTOR PRODUCT INSPECTION: No RADIOLOGY DEPARTMENT: General X-ray: Exam(s) Completed: Chest X-Ray PERIPHERAL IV DATA: Not applicable SIGNED BY: BARBI Thompson) February 13, 2025 12:25 PM documented in [facility]25 NoteHNO ID: [id number] Author: FLORIDA JORGENSEN RT(R) Service: Radiology Author Type: Technologist Type: Progress [...] PATIENT PRESENTS WITH AN IMPLANTABLE OR ATTACHED INSTRUCTOR PRODUCT INSPECTION: No RADIOLOGY DEPARTMENT: General X-ray: Exam(s) Completed: Chest X-Ray PERIPHERAL IV DATA: Not applicable SIGNED BY: RT Donna(R) February 13, 2025 12:25 [facility]04-09-2025 NoteHNO ID: [id number] Author: JESUS MCDONALD APRN.TILE GRADER Service: ? Author Type: Nurse Practitioner Type: [...] abnormality. Dictated by : MD Jesus SMALLWOOD APRN.DIANNA History and Record Review External record(s) reviewed: prior outpatient record. Disposition The patient was [facility]. [facility] History of Present illness Narrative* Jesus Mcdonald APRN.DIANNA - 02/13/2025 12:15 PM EDT [facility] Subjective HPI HPI Keith [...] 1 SPRAY IN EACH NOSTRIL ONCE DAILY. (Patientnot taking: Reported on 02/13/2025) Levocetirizine 5 mg [...] patient was discharged. Procedures [facility] this [facility]Prom[facility] Emergency department Note * EMY Newsome - 10/25/2024 12:16 PM EST Emergency Department Encounter [facility] EMERGENCY MEDICINE Patient: Keith Good : 2005 [...] states that he was initially evaluated at [facility] last night and then came to for further evaluation. Patient did receive 1 prednisone and 1 treatment while at [facility]. He states that he had an x-ray [...] otherwise acutely negative except as in the [place]. Past History No past medical history on [...] of 89. Rightward axis. Completed on 10/25/2024 [id number]. Assessment In brief, Keith Good is a 18 y.o. male who presented to the emergency department with shortness of breath. ED Course/MDM Diagnoses as of 10/25/24 1302 Mild intermittent asthma with acute exacerbation ([facility]) Visit Vitals BP (!) 132/93 Pulse 96 [...] Outside records were reviewed. Chest x-ray from [facility] showed no acute process earlier today.Patient received 1 dose of steroids and nebs at [facility]. Patient states that he left [facility] due to the prolonged wait time. Lungs [...] 1. Mild intermittent asthma with acute exacerbation ([facility]) DISPOSITION Disposition: Discharged home Comment: Please note this report has been produced using speech recognition software and may contain errors related to that system including errors in grammar, punctuation, and spelling, as well as words and phrases that may be inappropriate. If there are any questions or concerns please feel free to contact the dictating provider for clarification. EMY Newsome APRN-CNP 10/25/24 1306 * Gisel Galindo RN - 10/25/2024 12:16 PM EST Presents with c/o of asthma flair up. States he was at [facility] last night but LWBS documented in this [facility] Work Phone: 1(402) 296-102512-19-2024 Emergency department Triage note* Gisel Galindo RN - 10/25/2024 12:16 PM EST Presents with c/o of asthma flair up. States he was at [facility] last night but LWBS [facility] Work Phone: 1(430) 814-620212-19-2024 Physician Emergency department Note* EMY Newsome - 10/25/2024 12:16 PM EST Emergency Department Encounter [facility] EM[facility]Y MEDICINE Patient: Keith Good : 2005 [...] states that he was initially evaluated at [facility] last night and then came to for further evaluation. Patient did receive 1 prednisone and 1 treatment while at [facility]. He states that he had an x-ray [...] otherwise acutely negative except as in the [place]. Past History No past medical history on [...] of 89. Rightward axis. Completed on 10/25/2024 [id number]. Assessment In brief, Keith Good is a 18 y.o. male who presented to the emergency department with shortness of breath. ED Course/MDM Diagnoses as of 10/25/24 1302 Mild intermittent asthma with acute exacerbation ([facility]) Visit Vitals BP (!) 132/93 Pulse 96 [...] Outside records were reviewed. Chest x-ray from [facility] showed no acute process earlier today.Patient received 1 dose of steroids and nebs at [facility]. Patient states that he left [facility] due to the prolonged wait time. Lungs [...] 1. Mild intermittent asthma with acute exacerbation ([facility]) DISPOSITION Disposition: Discharged home Comment: Please note this report has been produced using speech recognition software and may contain errors related to that system including errors in grammar, punctuation, and spelling, as well as words and phrases that may be inappropriate. If there are any questions or concerns please feel free to contact the dictating provider for clarification. EMY Newsome APRN-CNP 10/25/24 1301 [facility] Work Phone: 1(745) 117-358412-19-2024 Telephone encounter Note* Telephone Encounter - Eugene Hansen PharmD - 10/25/2024 7:15 AM EST Pharmacy is attempting to schedule an appointment for this patient. Per protocol, we will make 1 attempt to contact patient before routing to nurse for follow up. Medication request adjusted to only a 3 month supply to allow time for appointment to be scheduled. Thank you. Last seen 11/2022 [id number] Miscellaneous Notes* Telephone Encounter - Eugene Hansen PharmD - 10/25/2024 7:15 AM EST Pharmacy is attempting to schedule an appointment for this patient. Per protocol, we will make 1 attempt to contact patient before routing to nurse for follow up. Medication request adjusted to only a 3 month supply to allow time for appointment to be scheduled. Thank you. Last seen 11/2022 documented in this [id number] Hospital Discharge instructions* Discharge Instructions* Fay Godinez PA-C - 03/17/2024 5:00 PM EDT Do not share your medication with anyone. Extremity Injury Instructions: Return to the ED if you develop increased pain in your injured limb,loss of sensation, or change in color of the limb. Procedures done during this visit: Splint placement * Attachments The following attachments cannot be sent through Care Everywhere. * Splint Care (Vietnamese) * Hand Fracture (Vietnamese) documented in this [id number] NoteOutreach Team ([phone]) Contact Details: Outbound call. No Answer; unable to leave message. Care Gaps Scheduling PCP Visit: Physical [facility]01-20-2024 Hospital Discharge instructions* Discharge Instructions* Eduardo Lynn PA-C - 11/26/2023 11:27 AM EST Take all antibiotics until gone. Throat / Airway Precautions: Return to the ER immediately if you have problems swallowing your own spit, problems breathing, you are unable to swallow medications, if you have swelling in your neck or face or you develop a new fever Procedures done during this visit: None * Attachments The following attachments cannot be sent through Care Everywhere. * Sore throat in adults (Vietnamese) documented in this [id number] Nurse Note* Mylene Overton - 10/10/2023 11:38 AM EST Patient Navigator Outreach Patient Navigator Visit 10/10/2023 11:00 AM Source: Patient Outreach Type: Hospital discharge Admission Date 10/07/23 Discharge Date 10/07/23 Outreach Result: Made contact with client/guardian Is client eligible for patient navigation? Yes Is patient receiving integrated care (PC and BH) services? No Active Referrals Future Appointments Appointments for the next 13 months None documented in this [facility] Phone: 1(979) 689-440712-02-2023 NoteHNO ID: [id number] Author: Note, Interface Service: ? Author Type: ? Type: Progress Notes Filed: 10/08/2023 5:56 AM Note Text: Epic Scheduled Downtime: 10/08/2023 1:00:00 AM to 10/08/2023 5:38:00 [id number] Emergency department Note* Chanda Almaguer PA-C - 10/07/2023 6:12 PM EST Emergency Department Encounter [facility] EM[facility]Y MEDICINE Patient: Keith Good : 2005 Date of Evaluation: 10/07/2023 ED Provider: Chanda Almaguer PA-C Chief Complaint Chief Complaint Patient presents with Abdominal Pain HPI Keith Good is a 17 y.o. male who presents to the emergency department presenting for concern forkidney stones. Patient states he is having right flank pain radiating down towards his right groin,has been ongoing for the past few days and acutely worse since approximately 2 PM this afternoon. Notes that his pain is so severe he is having episodic nonbilious, nonbloody emesis. No ill contacts,no associated fevers, chills or diarrhea. Patient states [...] Straw, Yellow Appearance, Urine Clear Clear Specific [place], Urine 1.013 1.005 - 1.035 pH, Urine [...] provider for clarification. RENAE Ordoñez PA-C 10/07/232211 * Rhiannon Giron RN - 10/07/2023 6:12 PM EST RLQ pain x 2 week, increasingly worse today. Patient believes he has kidney stones. Has been nauseous intermittently with 1 episode of emesis. Denies urinary problems. Denies constipation/diarrhea documented in this [facility] Work Phone: 1([phone]) 708-234312-01-2023 Emergency department Triage note* Rhiannon Giron RN - 10/07/2023 6:12 PM EST RLQ pain x 2 week, increasingly worse today. Patient believes he has kidney stones. Has been nauseous intermittently with 1 episode of emesis. Denies urinary problems. Denies constipation/diarrhea [facility] Work Phone: [phone] 708-684912-01-2023 Physician Emergency department Note* Chanda Almaguer PA-C - 10/07/2023 6:12 PM EST Emergency Department Encounter [facility] EM[facility] MEDICINE Patient: Keith Good : 2005 Date of Evaluation: 10/07/2023 ED Provider: Chanda Almaguer PA-C Chief Complaint Chief Complaint Patient presents with Abdominal Pain HPI Keith Good is a 17 y.o. male who presents to the emergency department presenting for concern forkidney stones. Patient states he is having right flank pain radiating down towards his right groin,has been ongoing for the past few days and acutely worse since approximately 2 PM this afternoon. Notes that his pain is so severe he is having episodic nonbilious, nonbloody emesis. No ill contacts,no associated fevers, chills or diarrhea. Patient states [...] Straw, Yellow Appearance, Urine Clear Clear Specific [place], Urine 1.013 1.005 - 1.035 pH, Urine [...] provider for clarification. RENAE Ordoñez PA-C 10/07/232211 [facility] Work Phone: 1([phone]) 822-154711-17-2023 Hospital Discharge instructions* Discharge Instructions* Chele High MD - 09/23/2023 10:13 PM [...] liquids Procedures done during this visit: None * Attachments The following attachments cannot be sent through Care Everywhere. * Kidney Stones Discharge Instructions (Vietnamese) documented in this [id number] Physician Emergency department Note* Paula Morfin PA-C - 09/23/2023 9:05 PM EST Images from the original note were not [...] room at the time of the evaluation. Draw Tender: not needed - patient preferred language is Vietnamese. HPI States he is on, he was moving [employer] [place] and felt a sudden onset right-sided [...] Patient's reported pain score: Pain Score: 12/17 REVIEW OF SYSTEMS Review of Systems Constitutional: Negative for weight [...] easy bruising/bleeding Psychiatric/Behavioral: Negative for behavioral problems. PAST HISTORY Pertinent Past History: No past medical history on file. Pertinent Family History: No family history on file. Pertinent Social History: PHYSICAL EXAM BP 128/73 Pulse 84 Temp [...] 2.0 Independently interpreted by me: Acceptable [] 2223 IMPRESSION: Mild right obstructive uropathy secondary to [...] ED with the chief complaint of right flankand abdominal pain. Upon arrival to ED patient [...] Patient has no known history of renal stones.He will be discharged home with Motrin, Tylenol, Flomax, Zofran. He will be referred to Urology andstrict return precautions were discussed. All questions were answered. Patient is stable for discharge home. He will be given note for work to use as needed. Independent Test Interpretation: Lab studies independently interpreted: See ED course CT scan independently reviewed and interpreted: See ED course. Final decision- making pending radiology read. Review of External (Non- [...] exam of this patient during this encounter andconfirm the documentation of the entire encounter is accurate. I provided a substantive portion of the care of this patient. Chele High MD [facility] Work Phone: [phone] 230-749711-17-2023 Emergency department Note* Palua Morfin PA-C - 09/23/2023 9:05 PM EST Images from the original note were not [...] room at the time of the evaluation. Draw Tender: not needed - patient preferred language is Vietnamese. HPI States he is on, he was [...] none Patient's reported pain score: Pain Score: 2/10 REVIEW OF SYSTEMS Review of Systems Constitutional: Negative for weight [...] easy bruising/bleeding Psychiatric/Behavioral: Negative for behavioral problems. PAST HISTORY Pertinent Past History: No past medical history on file. Pertinent Family History: No family history on file. Pertinent Social History: PHYSICAL EXAM BP 128/73 Pulse 84 Temp [...] ED with the chief complaint of right flankand abdominal pain. Upon arrival to ED patient [...] Patient has no known history of renal stones.He will be discharged home with Motrin, Tylenol, Flomax, Zofran. He will be referred to Urology andstrict return precautions were discussed. All questions were answered. Patient is stable for discharge home. He will be given note for work to use as needed. Independent Test Interpretation: Lab studies independently interpreted: See ED course CT scan independently reviewed and interpreted: See ED course. Final decision- making pending radiology read. Review of External (Non- [...] exam of this patient during this encounter andconfirm the documentation of the entire encounter is accurate. I provided a substantive portion of the care of this patient. Chele High MD documented in this [id number] Nurse Note* Bushra Arevalo MARK/JUSTIN - 09/21/2023 12:23 PM EST Patient Navigator Outreach Patient Navigator Visit 09/21/2023 12:00 PM Source: Patient Outreach Type: Hospital discharge Admission Date 09/20/23 Discharge Date 09/20/23 Outreach Result: Voicemail Is client eligible for patient navigation? Yes Active Referrals Future Appointments Appointments for the next 13 months None documented in this [employer] Phone: [phone] 803-408911-15-2023 Nurse Note* Bushra Arevalo [facility] - 09/21/2023 12:15 PM EST Patient Navigator Outreach Patient Navigator Visit 09/21/2023 12:00 PM Source: Patient Outreach Type: Hospital discharge Admission Date 09/19/23 Discharge Date 09/19/23 Outreach Result: Voicemail Is client eligible for patient navigation? Yes Active Referrals Future Appointments Appointments for the next 13 months None documented in this [employer] Phone: [phone] 625-428211-15-2023 Nurse Note* Bushra Arevalo [facility] - 09/21/2023 12:15 PM EST Patient Navigator Outreach Patient Navigator Visit Active Referrals Future Appointments Appointments for the next 13 months None documented in this [employer] Phone: [phone] 336-783511-15-2023 Nurse Note* [facility] 09/21/2023 12:15 PM EST Patient Navigator Outreach Patient Navigator Visit Active Referrals Future Appointments Appointments for the next 13 months None documented in this [employer] Phone: 1([phone] 308-193508-25-2023 History of Present illness Narrative* Efrain Abel RN - 07/01/2023 8:54 AM EDT Reason for visit: Follow Up and Medication [...] Perico Castaneda APN. Patient currently living in skilled nursing. Today patient reports Things have been cool. Patient reports no acute issues or safety concerns. Patient states they are taking medications as prescribed. Patient denies medication side effects. Patient reports medications are working well . Patient reports mood as happy. Patient rates depression 0/10. Patient reports No depression symptoms reported. Reports appetite is good. States sleep is good.Patient denies difficulties falling asleep. Patient denies difficulties [...] hours RN by calling main number for [employer]. Upcoming appointments: Appointments for the next 13 months None documented in this [facility] Work Phone: 1([phone]) 431-126605-17-2023 History of Present illness Narrative* Pennie Velez MD - 03/23/2023 4:20 PM EDT Subjective Keith is a 17 year old male presenting for psychiatric follow-up. Patient, skilled nursing staff not available. Patient stated he did not have ability to do video on doxy, requested phone call. Previous- Keith, Mr. Hutchinson not present, he is on vacation. Previous- Spoke to staff Delicia Hutchinson, spoke to Keith separately, he answered and was not with staff. Previous- Marcos Luna, [facility] staff [facility] staff Keith Merlos. Telephone visit. Patient identity confirmed via name and date of . Potential risks and benefits discussed with patient/guardian, who verbalized consent for telehealth encounter. Patient location: home. 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 Staff reports he isapplying at [employer] for summer job Previous- had a rough quarter, with new school, and didn't want to go to school Previous- good, still able to focus and has good grades Previous- [employer], 10th grade, has a 504 for ADHD and behavior, was held back in 2nd grade, [facility]. Grades are A's, B's and C's. ADHD: [...] Previous- it's going good, no complaints per skilled nursing Delicia Previous- not bad per staff, argues when asked to do something Previous- good, Keith Merlos reports they have not issues with him Previous- Mr. Hutchinson reports he has not been oppositional at the skilled nursing, no issue Sleep: same, good Previous- I sleep like a baby, has not taken trazodone in months Previous- has not needed Trazodone for months, [facility] approved as prn Previous- Good, does not need Trazodone Previous- Trazdoone makes him fall asleep too fast, [facility] gave consent to lower dose or take [...] twice a week for a couple hours, isable to calm down Anxiety: same, denies Previous- [...] Previous- none, just verbal Previous- none at skilled nursing, was with peer at last skilled nursing Improvement with medication: yes, doing well Previous- yes, doing well, will eat breakfast before Adderall to avoid stomachaches, will call if does not help Previous- yes with focus and sleep, he would like to stop the Trazodone, will email train conductor Side effects: none Therapist: with [facility], sees regularly q 2 weeks Interim substance use history: same, denies Previous- marijuana, last use a month ago, not able to say frequency. Denies other substances otherthan tried alcohol in the past. NEW Social/Medical History: Nothing new. He saw mom for Thanksgiving. Previous from al note: Previous diagnosis of ADHD and ODD, prescribed Adderall XR 15mg qam and Trazodone 50mg qhs for sleep. Medication is effective for focus and sleep and no side effects. Prior to placement at this [facility], was placed in another skilled nursing, and prior to this was placed in 2 residential centers ([facility] placed due to I got in trouble. He does not want to elaborate and Mr. Hutchinson reports it was due to family concerns and his personal decisions. Social history: lives with 2 peers at skilled nursing. Juvenile court history: just got off probation [...] to stop Trazodone, doesn't feel he needs it,skilled nursing staff agreed but thought would be good to keep as prn in case he does need it. [facility] gave consent to change it and informed the patient that it is only as needed, if no trouble falling asleep then do not take it. Previous- Patient has a history of ADHD and ODD, denies symptoms and feel he doesn't need medication, however due to previously was placed in 2 residential treatment centers and 2 group homes, is currently in a skilled nursing, will continue current regimen. He feels the medication does help him and hasno side effects. door worker agrees he is doing well with [...] hours RN by calling main number for [employer]. Continue Adderall XR 15mg qam to target ADHD. Hold (has not needed, no refils sent): Trazodone to 25-50mg qhs prn sleep ([facility] approval to change to prn and can [...] next 13 months None documented in this [facility] Phone: 1([phone]) 421-682505-16-2023 History of Present illness Narrative* Keturah Walker LPN - 03/22/2023 11:17 AM EDT Provider departure letter sent. documented in this [facility] Phone: 1(206) 550-276003-15-2023 History of Present illness Narrative* Pennie Velez MD - 01/19/2023 3:40 PM EDT Subjective Keith is a 17 year old male presenting for psychiatric follow-up. KeithMr. Hutchinson not present, he is on vacation. Previous- Spoke to staff Delicia Hutchinson, spoke to Keith separately, he answered and was not with staff. Previous- Marcos Luna, [facility] staff [facility] staff Keith Merlos. Telephone visit. Patient identity confirmed via name and date of . Potential risks and benefits discussed with patient/guardian, who verbalized consent for telehealth encounter. Patient location: home. 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 Staff reports he isapplying at [employer] for summer job Previous- had a rough quarter, with new school, and didn't want to go to school Previous- good, still able to focus and has good grades Previous- [employer], 10th grade, has a 504 for ADHD and behavior, was held back in 2nd grade, [facility]. Grades are A's, B's and C's. ADHD: [...] Previous- it's going good, no complaints per skilled nursing [place] Previous- not bad per staff, argues when asked to do something Previous- good, Keith Merlos reports they have not issues with him Previous- Mr. Hutchinson reports he has not been oppositional at the skilled nursing, no issue Sleep: good Previous- I sleep like a baby, has not taken trazodone in months Previous- has not needed Trazodone for months, [facility] approved as prn Previous- Good, does not need Trazodone Previous- Trazdoone makes him fall asleep too fast, [facility] gave consent to lower dose or take [...] twice a week for a couple hours, isable to calm down Anxiety: same, denies Previous- [...] Previous- none, just verbal Previous- none at skilled nursing, was with peer at last skilled nursing Improvement with medication: yes, doing well, will eat breakfast before Adderall to avoid stomachaches, will call if does not help Previous- yes with focus and sleep, he would like to stop the Trazodone, will email train conductor Side effects: none Therapist: with [facility], sees regularly q 2 weeks Interim substance use history: same, denies Previous- marijuana, last use a month ago, not able to say frequency. Denies other substances otherthan tried alcohol in the past. NEW Social/Medical History: Nothing new. He saw mom for Thanksgiving. Previous from eval note: Previous diagnosis of ADHD and ODD, prescribed Adderall XR 15mg qam and Trazodone 50mg qhs for sleep. Medication is effective for focus and sleep and no side effects. Prior to placement at this [facility], was placed in another skilled nursing, and prior to this was placed in 2 residential centers ([facility] placed due to I got in trouble. He does not want to elaborate and Mr. Hutchinson reports it was due to family concerns and his personal decisions. Social history: lives with 2 peers at skilled nursing. Juvenile court history: just got off probation [...] to avoid stomachaches, will call if does nothelp. Previous- Pateint is stable, doing well, he would like to stop Trazodone, doesn't feel he needs it,skilled nursing staff agreed but thought would be good to keep as prn in case he does need it. County gave consent to change it and informed the patient that it is only as needed, if no trouble falling asleep then do not take it. Previous- Patient has a history of ADHD and ODD, denies symptoms and feel he doesn't need medication, however due to previously was placed in 2 residential treatment centers and 2 group homes, is currently in a skilled nursing, will continue current regimen. He feels the medication does help him and hasno side effects. door worker agrees he is doing well with [...] hours RN by calling main number for [employer]. Continue Adderall XR 15mg qam to target ADHD. Hold (has not needed, no refils sent): Trazodone to 25-50mg qhs prn sleep (county approval to change to prn and can [...] months 03/23/2023 4:00 PM NURSE VISIT SHORT [facility] SA209 NURSE KATH 20 min documented in this [facility] [employer] Work Phone: 1([phone]) 276-985303-15-2023 History of Present illness Narrative* Keturah Walker, NARENDRA - 01/19/2023 3:34 PM EDT Reason for visit: Follow Up Keith presents [...] 13 months 01/19/2023 3:40 PM MEDICATION MANAGEMENT [facility] Pennie Velez MD 20 min 03/23/2023 4:00 PM NURSE VISIT SHORT [facility] SA209 NURSE KATH 20 min documented in this [facility] [employer] Work Phone: [phone] 207-247201-17-2023 History of Present illness Narrative* Xin Cota MD - 11/23/2022 3:38 PM EST ATTENDING NOTE: Cc: here for annual medical exam Lives in skilled nursing the [facility] with 3 other young men. 11th grade [employer] Denied any medical issues. Chart shows ODD and ADD Pt refused to change into gown, and physical examination. Pt refused all vaccines We reviewed asthma - quiet for now, and I refilled his alb mdi. Will notify foster care program and/or his SW. Xin Cota M.D. Adolescent Medicine Diagnoses and all orders for this visit: Mild persistent asthma without complication Other orders - albuterol (Proventil HFA) INHALATION HFA inhaler (VENTOLIN,PROAIR,PROVENTIL) 90mcg; Inhale 2 Puffs by mouth every 6 hours as needed for Wheezing. documented in this [id number] Telephone encounter Note* Telephone Encounter - Tanja Maddox - 06/08/2022 4:30 PM EDT Last visit with Jerson Odonnell MD Pediatrics was 11/19/21 Requested Prescriptions Pending Prescriptions Disp Refills Ventolin HFA HFA inhaler (VENTOLIN,PROAIR,PROVENTIL) 90mcg [Pharmacy Med Name: VENTOLIN HFA 90 MCG INHALER] 18 g 11 Sig: inhale 2 puffs by mouth and INTO THE LUNGS every 4 hours if needed for wheezing No PCP on file No PCP on file [id number] Miscellaneous Notes* Telephone Encounter - Tanja Maddox - 06/08/2022 4:30 PM EDT Last visit with Jerson Odonnell MD Pediatrics was 11/19/21 Requested Prescriptions Pending Prescriptions Disp Refills Ventolin HFA HFA inhaler (VENTOLIN,PROAIR,PROVENTIL) 90mcg [Pharmacy Med Name: VENTOLIN HFA 90 MCG INHALER] 18 g 11 Sig: inhale 2 puffs by mouth and INTO THE LUNGS every 4 hours if needed for wheezing No PCP on file No PCP on file documented in this [id number] Miscellaneous Notes* Telephone Encounter - Faustina Trejo RN - 02/25/2022 2:42 PM EDT Situation: Pt's Snf Caregiver called on pt's behalf. Requesting inhaler refill. Background: Inhalers reordered 02/10/2022 w/ refills. Assessment: N/A Recommendation: Snf Caregiver's phone call was transferred to verified pharmacy. documented in this [id number] History of Present illness Narrative* Jennifer Farley MD - 02/13/2022 12:15 AM EDT Attending note: I saw and evaluated the patient. I personally obtained the alonzo and critical portions of the historyand physical exam. I reviewed the resident's documentation and discussed the patient with the resident. I agree with the resident's medical decision making as documented in the resident's note. Jennifer Farley MD [id number] * Enid Lemon MD - 02/10/2022 3:58 PM EDT 02/10/2022 PCP: No primary care provider on file. No PCP on file Last visit with an LOS in the [employer] list was: 11/19/2021 History provided by patient and day care supervisor and seems to be reliable HPI Keith Good is a 16 year old who presents to establish PCP and refill Albuterol prescription. He lost his Albuterol inhaler yesterday and day care supervisor called to get refill but told pt needs to come in first and be seen. The patient last took his albuterol inhaler yesterday morning. Denies any current dyspnea, wheezing, chest pain or tachycardia. Patient says he has a daily cough and runny noserelated to allergies. On cetrizine and montelukast daily for allergies. On trazodone PRN for sleep.Usually takes Albuterol once per day prior to [...] (FLONASE) 50 mcg/act nasal inhaler Use 1 [place] in each nostril daily. 16 g 3 [...] note reviewed. Exam conducted with a manager discovery present. Constitutional: Appearance: Normal appearance. HENT: Head: [...] (FLONASE) 50 mcg/act nasal inhaler; Use 1 [place] in each nostril daily. Patient precepted with attending physician, Dr. Farley. Enid Lemon MD PGY-1, Department of Pediatrics [place] [address] Pager : [phone] documented in this [id number] History of Present illness Narrative* nEid Lemon MD - 02/10/2022 3:58 PM EDT 02/10/2022 PCP: No primary care provider on file. No PCP on file Last visit with an LOS in the [facility]OPER list was: 11/19/2021 History provided by patient and day care supervisor and seems to be reliable HPI Keith Good is a 16 year old who presents to establish PCP and refill Albuterol prescription. He lost his Albuterol inhaler yesterday and day care supervisor called to get refill but told pt needs to come in first and be seen. The patient last took his albuterol inhaler yesterday morning. Denies any current dyspnea, wheezing, chest pain or tachycardia. Patient says he has a daily cough and runny noserelated to allergies. On cetrizine and montelukast daily for allergies. On trazodone PRN for sleep.Usually takes Albuterol once per day prior to [...] (FLONASE) 50 mcg/act nasal inhaler Use 1 [place] in each nostril daily. 16 g 3 [...] note reviewed. Exam conducted with a manager discovery present. Constitutional: Appearance: Normal appearance. HENT: Head: [...] (FLONASE) 50 mcg/act nasal inhaler; Use 1 [place] in each nostril daily. Patient precepted with attending physician, Dr. Farley. Enid Lemon MD PGY-1, Department of Pediatrics [place] [address] Pager : [phone] documented in this [id number] Miscellaneous Notes* Medical Student Note - Veronique Jones - 02/10/2022 9:41 AM EDT 02/10/2022 PCP: No primary care provider on file. No PCP on file Last visit with an LOS in the [facility] list was: 11/19/2021. History provided by patient and day care supervisor and seems to be reliable HPI Keith Good is a 16 year old who presents to establish PCP and refill Albuterol. Lost Albuterol inhaler yesterday and day care supervisor called to get refill but told pt [...] weeks, 2 puffs in morning 2 in night,in beginning of January but felt it didn't [...] 2 puffs at night and continue this care home - Continue Montelukast daily - Refilled Albuterol prescription - Provided patient and day care supervisor with asthma action plan and explained symptoms to look out for and management steps - RTC if symptoms do not improve or worsen #Allergies #Rhinorrhea - Ordered Flonase - Continue Cetrizine daily #No PCP - Patient will establish a PCP at the clinic today Patient seen and discussed with resident physician, Dr. Lemon, and precepted with attending physician, Dr. Farley. Veronique Jones, MS-3 [employer] [facility] [employer] documented in this [id number] Miscellaneous Notes* Telephone Encounter - Meli Sage RN, BSN - 02/09/2022 9:39 PM EDT Situation: hairspring staker of teen called back ,reports he was told by the last Nurse he spoke to to go to [facility] for prescription. Caller reports he went to [facility], was told the prescription for the albuterol inhaler is no longer active Preferred pharmacy is [address] - [address] ( ) Background: Patient does not have a PCP Assessment: Patient needs PCP Recommendation: Appt Scheduled for (Date) 02-10-[address] 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 Assessment: Caller asking what can be done. Recommendation: Discussed that he has a Rx for an Albuterol Inhaler that was ordered on 12/26/2021 and it went to [facility] Pharmacy, number given to caller. Caller states will call and check on Rx. No further questions. documented in this [id number] NoteSubjective: Keith Good is a 15 y.o. male [...] Each 1 Spacer/Aero-Holding Chambers (OPTICHAMBER SIMRAN-MD MASK) MIS Device 1 Each by Other route Use [...] symptoms have not bee (more content not included)...[facility] Diagnosis Asthma, unspecified asthma severity, unspecified [...] childhood or adolescence documented in this encounter [employer] Work Phone: Evaluation note* Diagnosis Attention-deficit hyperactivity disorder, predominantly inattentive type- Primary Attention deficit disorder without mention of hyperactivity Oppositional defiant disorder Oppositional defiant disorder of childhood or adolescence documented in this encounter [employer] Work Phone: Evaluation note* Diagnosis Attention-deficit hyperactivity disorder, predominantly inattentive type- Primary Attention deficit disorder without mention of hyperactivity Oppositional defiant disorder Oppositional defiant disorder of childhood or adolescence documented in this encounter [facility] Work Phone: Evaluation note* Diagnosis Attention-deficit hyperactivity disorder, predominantly inattentive type- Primary Attention deficit disorder without mention of hyperactivity documented in this encounter [employer] Phone: Evaluation note* Diagnosis Kidney stone on right side- Primary Calculus of kidney Hydronephrosis, unspecified hydronephrosis type [facility] Diagnosis Ureterolithiasis- Primary Calculus of ureter Ureterolithiasis Calculus of ureter documented in this encounter [facility] Work Phone: Evaluation note* Diagnosis Exudative pharyngitis- Primary [facility]* Diagnosis Closed fracture of left hand, initial encounter- Primary [facility] Diagnosis Mild intermittent asthma with acute exacerbation (HHS-HCC)- Primary documented in this encounter [facility] Work Phone: Evaluation note* Diagnosis History of asthma- Primary Personal history of other diseases of respiratory system Rhonchi at left lung base documented in this encounter [facility] noteNo assessment information availableWAshtabula [facility] Work Phone: Evaluation note* Diagnosis Mild intermittent asthma with acute exacerbation (HCC)- Primary Unspecified asthma, with exacerbation [facility] Attachments The following attachments cannot be sent through Care Everywhere. * Asthma, Adult ED (Vietnamese) [facility]: Hospital Discharge instructionsAdditional Instructions Follow-up with your primary care physician, keep the appointment in July. If for some reason you lose this appointment follow-up with the provider I listed above as a new primary care physician. Use your albuterol as instructed. Start taking your Flovent twice a day. Do not lose this albuterol inhaler.[facility] Work Phone: Reason for referral (narrative)No reason for referral information availableWAshtabula County Medical Center Work Phone: Summary Purpose Family History No Family History Records FoundNo Family History Records FoundNo Family History Records FoundNo Family History Records FoundNo Family History Records FoundNo Family History Records FoundNo Family History Records FoundNo Family History Records Found Advance Directives No Advanced Directives Records FoundDocuments on File Type Date Recorded Patient Custom Seamstress Expl anation Directives to Physicians 03/24/2021 9:00 PM [facility] Advance Directive Response Recorded Date/ Time Living Will No February 24, 2025 10:07pm Do you have a Healthcare Power of Court Messenger? No February 24, 2025 10:07pm Advance Directive Response Recorded Date/ Time Living Will No February 24, 2025 10:07pm Do you have a Healthcare Power of Court Messenger? No February 24, 2025 10:07pm Do you have a Healthcare Power of Court Messenger? No May 11, 2025 11:33am Advance Directive Response Recorded Date/ Time Living Will No February 24, 2025 10:07pm Do you have a Healthcare Power of Court Messenger? No February 24, 2025 10:07pm Do you have a Healthcare Power of Court Messenger? No May 11, 2025 11:33am Do you have a Healthcare Power of Court Messenger? No June 14, 2025 3:27pm Reason for Referral Specialty Diagnoses / Procedures Referred By Israel rose Referred To Contact Diagnoses Closed fracture of left hand, initial encounter Fay Godinez PA-C [address] [facility] [place] [address] Referral ID Status Reason Start Date Expiration Date V isits Requested Visits Authorized [id number] Pending Review 03/17/2024 03/17/2025 3 3 Scheduling Instructions Please call the [facility] at [phone] to schedule an appointment if one was [...] 5pm cp May 11, 2025 11:16 am Chief Complaint Admit Date asthma February 24, 2025 9:1 5pm cp May 11, 2025 11:16 am chest pain, sob June 14, 2025 3:2 7pm Additional Source Comments (unrecognized sect ion and content) No Status Records FoundNo Status Records FoundNo Status Records FoundNo Status Records FoundNo Status Records FoundNo Status Records FoundNo Status Records FoundNo Status Records Found INFORMATION SOURCE (unrecogn ized section and content) DATE CREATED AUTHOR 09/03/2021 [facility] DATE CREATED AUTHOR AUTHOR'S HECTOR JIMÉNEZ 07/15/2023 [facility] DATE CREATED AUTHOR AUTHOR'S ORGANIZ ATION 10/10/2023 [facility] DATE CREATED AUTHOR AUTHOR'S ORGANIZ ATION 10/29/2024 [facility] DATE CREATED AUTHOR AUTHOR'S ORGANIZ ATION 11/07/2024 [facility] DATE CREATED AUTHOR AUTHOR'S ORGANIZ ATION 02/03/2025 [facility] DATE CREATED AUTHOR AUTHOR'S ORGANIZ ATION 06/16/2025 [facility] DATE CREATED AUTHOR AUTHOR'S ORGANIZ ATION 06/21/2025 [facility] Reason for Visit (unrecogniz ed section and [...] withanyone other than the patient without their consent.[facility] the event this information is protected by the Federal Confidentiality of Alcohol and Drug Abuse Patient Records regulations: The Federal rules restrict any use of the information to criminally investigate or prosecute any alcohol or drug abuse patient.[facility] Hospital[facility] the event this information is protected by the [facility] Confidentiality of Alcohol and Drug Abuse Patient Records regulations: The Federal rules restrict any use of the information to criminally investigate or prosecute any alcohol or drug abuse patient.[facility] HospitalIn the event this information is protected by the Federal Confidentiality of Alcohol and Drug Abuse Patient Records regulations: The Federal rules restrict any use of the information to criminally investigate or prosecute any alcohol or drug abuse patient.[facility] Scheduled Active and Recently Administ ered [...] ONCE, 1 dose, On Tue09/23/23 at 2140 [id number] (IV New Bag - P rovider: Vandana [...] 1 dose 1949 (Given - Provid er: Cady Figueroa RN) ondansetron (Zofran) injection 4 mg (COMPLETED) 4 [...] Care Teams (unrecognized sec tion and content) Field Adjuster Relationship Specialty Start Date End Date Generic Provider, [place] [address] PCP - General Fiscal Services Director 10/25/24 Team Status: Active Member Role Status [...] May 11, 2025 End: May 11, 2025 Team Status: Inactive Member Role/Relationship Status Dates No Primary Care Physician Primary Care Provider Active Start: May 11, 2025 End: May 11, 2025 Dr. Jose E Wallace MD Attending Provider Active S tart: May 11, 2025 End: May 11, 2025 Dr. Jose E Wallace MD Emergency Provider Active S tart: May 11, 2025 End: May 11, 2025 Team Status: Inactive Member Role/Relationship Status Dates No Primary Care Physician Primary Care Provider Active Start: June 14, 2025 End: June 14, 2025 Dr. Shukri Malcolm , Emergency Provider Activ e Start: June 14, 2025 End: June 14, 2025 Goals (unrecognized section and content) Goals may be documented in a n alternate sectionGoals may be documented in an alternate sectionGoals may be documented in an [...] BE BASED ON THE PRIMARY CLINICAL RECORDS. [employer] provides no warranty or guarantee of the accuracy or completeness of information in this document.
--- NOTE | 2025-07-07 14:25 | EDS_ITS ---
HPI History of Present Illness Chief Complaint: Asthma Informant: patient Onset/Context/Timing Onset: Days Timing: Continuous Current Severity: Mild Maximum Severity: Mild Associated Symptoms cough Chest Pain: Positive for None Narrative Narrative: 19-year-old male history of asthma has been out of his inhaler for couple days. He works in a [employer] and said he has been having an asthma flare. He also believes he had a recent viral URI. No fever. No chest pain. No leg pain or swelling. PE Risk Factors: Negative for Cancer, OCP + Smoking + > 35, Prior DVT or PE, Recent immobilization, Recent surgery or Recent travel Prior similar symptoms: Yes Recent Ill[facility] Medical History Asthma Home Medications ?Medication ?Instructions ?Recorded ?Last Taken ?Type albuterol sulfate 90 mcg/actuation 2 puff inhalation Q 4H PRN PRN 02/24/25 Unknown Rx aerosol inhaler (Ventolin HFA) Wheezing/SOB #1 device ipratropium 0.5 mg-albuterol 3 mg 3 ml inhalation 4X/D AY PRN 02/24/25 Unknown Rx (2.5 mg base)/3 mL nebulization Shortness of breath/wh eeze #90 mL soln nebulizer and compressor #1 ea 02/24/25 Unknown Rx albuterol sulfate 90 mcg/actuation 2 inh inhalation Q4 H PRN shortness 05/11/25 Unknown Rx aerosol inhaler of breath or wheezing #8.5 g mark albuterol sulfate 90 mcg/actuation 2 puff inhalation Q 4H PRN PRN 06/14/25 Unknown Rx aerosol inhaler (Ventolin HFA) Wheezing ##1 albuterol sulfate 90 mcg/actuation 2 puff inhalation Q 4H PRN PRN 07/07/25 Unknown Rx aerosol inhaler (Ventolin HFA) Wheezing #8.5 grams prednisone 20 mg tablet 40 mg (2 x 20 mg) PO DAILY 7 days 07/07/25 Unknown Rx #14 tabs Allergy/AdvReac Type Severity Reaction Status Date / Time No Known Allergies Allergy Verified 06/14/25 15:27 Social History current occupational status: employed Smoking Status: Current every day smoker tobacco type: e-cigarettes ROS ROS ED ROS Narrative Viral URI symptoms. Cough. No fever no chest pain. Wheezing with a history of asthma. Constitutional Constitutional ED: Denies chills or fever(s) Eyes Eyes: Denies blurry vision ENT ENT ED: Denies ear pain Cardiovascular Cardiovascular: Denies chest pain, orthopnea or paroxysmal nocturnal dyspnea Respiratory/Chest Respiratory/Chest: Reports cough; Denies dyspnea, dyspnea on exertion, orthopnea, paroxysmal nocturnal dyspnea or sputum Gastrointestinal Gastrointestinal: Denies abdominal pain, constipation or diarrhea Genitourinary Genitourinary ED: Denies dysuria or hematuria Musculoskeletal Musculoskeletal: Denies arthralgias Integumentary Denies abscess Neurologic Neurologic: Denies headache(s) Psychiatric Psychiatric: Denies anxiety Endocrine Endocrinology: Denies cold intolerance Hematologic/Lymphatic Hematologic/Lymphatic: Denies easy bleeding, easy bruising or lymphadenopathy Allergic/Immunologic Allergic/Immunologic ED: Denies mouth swelling, tongue swelling or urticaria EXAM Physical Exam Narrative Exam Narrative: Well-appearing 19-year-old male vital signs stable afebrile. Pulse ox is 98% on room air no hypoxia. No acute distress. Patient does not look septic or toxic. H EENT exam pupils round react light. Moist mucous membranes. Neck nontender no JVD. No lymphadenopathy. Lungs few scattered expiratory wheezes. No rales or rhonchi. Heart regular rate and rhythm rate about 80 no murmur. Chest wall ribs nontender. No crepitus. Abdomen soft nontender. Moving all 4 extremities. Calves are nontender without edema or cords. Normal strength. Back nontender. He is awake and alert. No focal motor deficits. Const Vital Signs: 07/07/25 14:05 07/07/25 14:09 Temperature 98.6 F Temperature Source Oral Pulse Rate 84 Respiratory Rate 18 Respiratory Effort Normal Respiratory Depth Normal Respiratory Pattern Normal Blood Pressure 142/88 H Blood Pressure Mean 106 Pulse Ox 98 Oxygen Delivery Method Room Air Room Air Positive well nourished and well developed; Negative for cachectic, contractures or unkempt General Appearance ED: well developed and NAD; Negative for unkempt, cachectic, contractures or pallor Nutritional Appearance: Negative for cachectic HEENT Reports moist mucous membranes atraumatic Eyes PERRL and EOMs intact bilaterally Neck no lymphadenopathy, supple, no meningeal signs and no JVD Resp normal respiratory effort and No clear to auscultation bilaterally Resp Narrative: Few scattered expiratory wheezes. No distress. Auscultation: wheezes Cardio regular rate, regular rhythm, S1 normal heart sound, S2 normal heart sound and no murmurs GI non-tender, non-distended and no masses Palpation: soft; Negative for tender or guarding Back/Spine no CVA tenderness and normal to inspection Extremity normal to inspection General Extremety ED: Negative for edema or tenderness General Extremity: Negative for edema Neuro oriented x3 and CN's II-XII intact bilaterally Sensorium / Orientation: alert, oriented to person, oriented to place and oriented to time Motor Exam: strength 5/5 throughout Psych mental status grossly normal Appearance: Negative for unkempt Skin no wounds and skin turgor normal General Skin Exam: Negative for jaundice or pallor Lesions: no lesions Rashes: no rashes MDM MDM MDM Narrative Medical decision making narrative: 19-year-old male history of asthma recently most likely viral URI plus environmental dust discussed he may have an asthma flare. He is currently out of his inhaler. I will rewrite for his albuterol inhaler 2 puffs as needed. He will get a DuoNeb aerosol treatment here and a dose of prednisone. He will be placed on 40 mg of prednisone a day for the next week. He will follow-up with his primary care physician return if worse. History & Record Review Discussion w/independent historian: Patient Additional record(s) reviewed:: Prior inpatient record, Prior outpatient record, Prior ED visit and Prior labs Discharge Plan Triage Chief Complaint: Asthma ED Provider: Jose E Wallace Dx/Rx/DC Orders Clinical Impression: Asthma exacerbation Instructions: ED Asthma, Acute (Adult) Prescriptions: New prednisone 20 mg tablet 40 mg PO DAILY 7 Days Qty: 14 0RF albuterol sulfate [Ventolin HFA] 90 mcg/actuation HFA aerosol inhaler 2 puff inhalation Q4H PRN PRN (Reason: Wheezing) Qty: 8.5 1RF No Action albuterol sulfate [Ventolin HFA] 90 mcg/actuation HFA aerosol inhaler 2 puff inhalation Q4H PRN PRN (Reason: Wheezing/SOB) Qty: 1 1RF (DME) nebulizer and compressor Device See Rx Instructions .Route Qty: 1 0RF Rx Instructions: As directed ipratropium-albuterol 0.5 mg-3 mg(2.5 mg base)/3 mL solution for nebulization 3 ml inhalation 4X/DAY PRN (Reason: Shortness of breath/wheeze) Qty: 90 0RF albuterol sulfate 90 mcg/actuation HFA aerosol inhaler 2 inh inhalation Q4H PRN (Reason: shortness of breath or wheezing) Qty: 8.5 1RF albuterol sulfate [Ventolin HFA] 90 mcg/actuation HFA aerosol inhaler 2 puff inhalation Q4H PRN PRN (Reason: Wheezing) Qty: 1 0RF Primary Care Provider: Care Physician,No Primary Referrals: Care Physician,No Primary [Primary Care Provider] - Activity Restrictions/Additional Instructions: Prednisone daily for a week. If you are feeling better and her wheezing is resolved you can stop early. Use your inhaler 2 puffs every 4 hours as needed. Follow-up your primary care provider as needed. Return if worse. Print Language: Belizean Disposition Disposition: Home, Self Care
[2025-07-07 14:26] VITALS: BP 142/88; PULSE 84; RESP 18; TEMP 37; O2SAT 98
[2025-07-07 14:28] VITALS: PULSE 80; RESP 18
== END 2025-07-07 14:31 | disposition home or self-care (01) ==
PROVIDERS: Emergency Provider Emergency Medicine; Visit Provider Emergency Medicine
DX: J45.901 Unspecified asthma with (acute) exacerbation (principal); Z79.51 Long term (current) use of inhaled steroids
CPT/HCPCS: 94640; 99282

== ENCOUNTER 2025-10-08 15:23 | Emergency (ER) | payer MEDICAID, SELFPAY ==
[2025-10-08 15:25] VITALS: BP 143/96; PULSE 97; RESP 16; TEMP 37; O2SAT 97; BMI 31.9
--- NOTE | 2025-10-08 15:55 | EX.ED.DYSGE1 ---
HPI History of Present Illness Chief Complaint: Med Refill Informant: patient Narrative Narrative: 19-year-old male presenting to the emergency room requesting a refill of his inhaler. He has a history of asthma. He has nebulizer solution at home that he utilizes as needed. He is out of his inhaler and needs one for work. [facility] Medical History Asthma Home Medications ?Medication ?Instructions ?Recorded ?Last Taken ?Type albuterol sulfate 90 mcg/actuation 2 puff inhalation Q4H PRN PRN 02/24/25 Unknown Rx aerosol inhaler (Ventolin HFA) Wheezing/SOB #1 device ipratropium 0.5 mg-albuterol 3 mg 3 ml inhalation 4X/DAY PRN 02/24/25 Unknown Rx (2.5 mg base)/3 mL nebulization Shortness of breath/wheeze #90 mL soln nebulizer and compressor #1 ea 02/24/25 Unknown Rx albuterol sulfate 90 mcg/actuation 2 inh inhalation Q4H PRN shortness 05/11/25 Unknown Rx aerosol inhaler of breath or wheezing #8.5 grams albuterol sulfate 90 mcg/actuation 2 puff inhalation Q4H PRN PRN 06/14/25 Unknown Rx aerosol inhaler (Ventolin HFA) Wheezing ##1 albuterol sulfate 90 mcg/actuation 2 puff inhalation Q4H PRN PRN 07/07/25 Unknown Rx aerosol inhaler (Ventolin HFA) Wheezing #8.5 grams prednisone 20 mg tablet 40 mg (2 x 20 mg) PO DAILY 7 days 07/07/25 Unknown Rx #14 tabs albuterol sulfate 90 mcg/actuation 2 puff inhalation Q4H PRN PRN 10/08/25 Unknown Rx aerosol inhaler (Ventolin HFA) Wheezing ##1 Allergy/AdvReac Type Severity Reaction Status Date / Time No Known Allergies Allergy Verified 10/08/25 15:27 Social History current occupational status: employed Smoking Status: Current every day smoker tobacco type: e-cigarettes ROS ROS ED Constitutional Constitutional ED: Denies chills or weight loss Eyes Eyes: Denies change in vision or diplopia ENT ENT ED: Denies ear pain, rhinorrhea or sore throat Cardiovascular Cardiovascular: Denies chest pain, orthopnea, palpitations or racing heartbeat Respiratory/Chest Respiratory/Chest: Denies cough, dyspnea or orthopnea Gastrointestinal Gastrointestinal: Denies abdominal pain, diarrhea, nausea or vomiting Genitourinary Genitourinary ED: Denies dysuria, hematuria or urinary frequency Musculoskeletal Musculoskeletal: Denies arthralgias or myalgias Integumentary Denies abscess or rash Neurologic Neurologic: Denies headache(s) or weakness Psychiatric Psychiatric: Denies anxiety, depression, suicidal ideation or suicidal thoughts Endocrine Endocrinology: Denies polydipsia, polyphagia or polyuria Allergic/Immunologic Allergic/Immunologic ED: Denies mouth swelling, tongue swelling or urticaria EXAM Physical Exam Const Vital Signs: 10/08/25 15:25 10/08/25 15:32 Temperature 98.6 F Temperature Source Oral Pulse Rate 97 Respiratory Rate 16 Respiratory Effort Normal Non-Labored Respiratory Pattern Normal Blood Pressure 143/96 H Blood Pressure Mean 111 Pulse Ox 97 Oxygen Delivery Method Room Air Positive well nourished and well developed General Appearance ED: well developed HEENT Reports normocephalic, head/scalp atraumatic and moist mucous membranes Eyes PERRL and EOMs intact bilaterally Neck no lymphadenopathy, supple and no JVD Resp normal respiratory effort and clear to auscultation bilaterally Cardio regular rate, regular rhythm and no murmurs GI normal to inspection, nondistended, normoactive bowel sounds and non-tender Palpation: soft Back/Spine no CVA tenderness and normal ROM Extremity normal to inspection General Extremety ED: Negative for edema General Extremity: Negative for edema Neuro oriented x3 and CN's II-XII intact bilaterally Sensorium / Orientation: alert Motor Exam: strength 5/5 throughout Psych mental status grossly normal Mood & Affect: Negative for depressed or tearful Skin no rashes or lesions noted and no wounds MDM MDM MDM Narrative Medical decision making narrative: Patient will be prescribed an albuterol MDI with spacer. He is to follow-up with primary care as needed return if worsening or concerns History & Record Review Discussion w/independent historian: Patient Discharge Plan Triage Chief Complaint: Med Refill ED Provider: Gilberto Carrion Dx/Rx/DC Orders Clinical Impression: Asthma, Medication refill Instructions: Asthma Dx Prescriptions: New albuterol sulfate [Ventolin HFA] 90 mcg/actuation HFA aerosol inhaler 2 puff inhalation Q4H PRN PRN (Reason: Wheezing) Qty: 1 0RF Rx Instructions: dispense with spacer No Action prednisone 20 mg tablet 40 mg PO DAILY 7 Days Qty: 14 0RF albuterol sulfate [Ventolin HFA] 90 mcg/actuation HFA aerosol inhaler 2 puff inhalation Q4H PRN PRN (Reason: Wheezing) Qty: 8.5 1RF albuterol sulfate [Ventolin HFA] 90 mcg/actuation HFA aerosol inhaler 2 puff inhalation Q4H PRN PRN (Reason: Wheezing/SOB) Qty: 1 1RF (DME) nebulizer and compressor Device See Rx Instructions .Route Qty: 1 0RF Rx Instructions: As directed ipratropium-albuterol 0.5 mg-3 mg(2.5 mg base)/3 mL solution for nebulization 3 ml inhalation 4X/DAY PRN (Reason: Shortness of breath/wheeze) Qty: 90 0RF albuterol sulfate 90 mcg/actuation HFA aerosol inhaler 2 inh inhalation Q4H PRN (Reason: shortness of breath or wheezing) Qty: 8.5 1RF albuterol sulfate [Ventolin HFA] 90 mcg/actuation HFA aerosol inhaler 2 puff inhalation Q4H PRN PRN (Reason: Wheezing) Qty: 1 0RF Primary Care Provider: Lucy Xavier NP Referrals: Lucy Xavier [employer]CTIONAL OFFICER CHIEF, CORRECTIONAL OFFICER CHIEF-C [Primary Care Provider, Medical] - As Needed Print Language: Indonesian Disposition Disposition: Home, Self Care
[2025-10-08 15:59] VITALS: BP 143/96; PULSE 97; RESP 16; TEMP 37; O2SAT 97
== END 2025-10-08 15:59 | disposition home or self-care (01) ==
PROVIDERS: Emergency Provider Emergency Medicine; PCP Nurse Practitioner; Visit Provider Emergency Medicine
DX: Z76.0 Encounter for issue of repeat prescription (principal); J45.909 Unspecified asthma, uncomplicated; F17.290 Nicotine dependence, other tobacco product, uncomplicated
CPT/HCPCS: 99282